=== PATIENT | female | born 1965 | race Caucasian/White ===

== ENCOUNTER → 2016-11-14 | Outpatient (CLI) | payer MEDICARE, OTHER ==
--- NOTE | 2016-11-14 13:08 | RAD ---
CT abdomen and pelvis without contrast 11/14/2016 Clinical indication: Hematuria Comparison: None. Technique: Multiple CT images of the abdomen and pelvis were obtained without contrast occurring to standard protocol. Coronal and sagittal reformations were obtained. PQRS Compliance Statement: One or more of the following individualized dose reduction techniques were utilized for this examination: 1. Automated exposure control 2. Adjustment of the mA and/or kV according to patient size 3. Use of iterative reconstruction technique Findings: Abdomen and pelvis: There are few left lung base nodules with largest measuring 10 mm, which is only partially visualized in the left lower lobe (series 2/8 1). Subpleural consolidation in the anterior right middle lobe is also only partially visualized. Heart size is normal. Evaluation of the solid abdominopelvic viscera, lymphadenopathy and vasculature is limited in the absence of intravenous contrast. There is moderate diffuse hepatic steatosis. Unenhanced contours of the gallbladder, spleen, adrenal glands and pancreas are grossly unremarkable. There there is a pelvic right kidney with a 2 mm nonobstructive calculus in the interpolar right kidney. Prominence of the interpolar right kidney. No left urolithiasis. No hydroureteronephrosis. Abdominal aorta is normal in caliber with mild aortoiliac calcified atheromatous disease No retroperitoneal or mesenteric lymphadenopathy. Small and large bowel loops are normal in caliber without obstruction. There is mild distal colonic diverticula without diverticulitis. No abdominal free fluid. Mildly distended and opacified urinary bladder within normal limits. Uterus is present but incompletely evaluated by CT. There is a left adnexal cystic structure measuring 4.2 x 3.7 x 4.2 cm. No iliac or inguinal lymphadenopathy. No pelvic free fluid. There are multilevel degenerative disc disease of the lumbar spine greatest in mild degree at L2-L3 and mild facet hypertrophy at L4-L5 and L5-S1. No destructive osseous lesions. Small fat-containing umbilical hernia. Impression: 1. Note is made of a right pelvic kidney with prominence of the interpolar region, which may represent hypertrophied column of Ifeanyi or solid renal mass. CT abdomen and pelvis with contrast is recommended for further characterization. 2. Tiny 2 mm nonobstructive calculus in the right kidney. No hydroureteronephrosis. Line 3. Left adnexal cystic structure measuring up to 4.2 cm. Nonemergent pelvic ultrasound is recommended for further characterization. 4. Moderate hepatic steatosis. 5. Left lung base pulmonary nodules with largest measuring 10 mm in the left lower lobe. Nonemergent dedicated CT chest is recommended for further evaluation.
== END | disposition home or self-care (01) ==
LOC: CT 09:11
PROVIDERS: ATTEND Nurse Practitioner Family
DX: E11.42 Type 2 diabetes mellitus with diabetic polyneuropathy (principal); R31.9 Hematuria, unspecified; N28.89 Other specified disorders of kidney and ureter; N20.0 Calculus of kidney; K76.0 Fatty (change of) liver, not elsewhere classified; R91.8 Other nonspecific abnormal finding of lung field; K42.9 Umbilical hernia without obstruction or gangrene; M51.36 Other intervertebral disc degeneration, lumbar region
CPT/HCPCS: 74176

== ENCOUNTER 2016-12-10 08:54 | Emergency (ER) | payer MEDICARE, OTHER ==
[~2016-12-10] VITALS: Ht 160 cm; Wt 129.3 kg
[2016-12-10 10:12] LABS: INR 1.8 (0.8-1.1); PROTHROMBIN TIME PATIENT 19.7 SEC (11.7-14.0)
--- NOTE | 2016-12-10 10:39 | RAD ---
Exam performed: Right lower extremity venous Doppler. Clinical Indication: History of right DVT Date of Service:12/10/16 Comparison : None available Discussion: Multiple longitudinal and transverse high resolution real-time images of the venous system of right lower extremity were obtained with color and Doppler sampling and spectral analysis. There is a nonocclusive thrombus in the proximal right superficial femoral vein. The common femoral and popliteal veins are all patent and demonstrate normal flow and compressibility. Calf veins are not well visualized. Normal respiratory phasicity and augmentation is present. Impression: Nonocclusive thrombus in the right superficial femoral vein
[2016-12-10 11:00] VITALS: BP 145/83
--- NOTE | 2016-12-10 12:15 | PHYS DOC ---
Past Medical History Past Medical History: COPD, Diabetes-Type II, DVT, High Cholesterol, Hypertension, Hyperthyroid, Kidney Stone Past Surgical History: Tubal ligation Additional Information: 04/16 PK Alcohol Use: Rarely Drug Use: None Adult General Chief Complaint Chief Complaint: LOWER EXT PAIN HPI HPI 51-year-old female with a past medical history morbid obesity and deep vein thrombosis compliant with her Coumadin therapy, now presents to the emergency department concerned that a DVT in her right leg may have progressed. Previously diagnosed with a DVT in her right leg and as stated has been taking her Coumadin as directed. Over the last 2 days patient states her medial right thigh has become more sore where it rubs against the other thigh. She is concerned her DVT may have progressed. Denies pulmonary symptoms not short of breath no pleuritic pain. No other complaints of fevers chills sweats or shaking chills Review of Systems Review of Systems Constitutional: Denies fever or chills [] Eyes: Denies change in visual acuity, redness, or eye pain [] HENT: Denies nasal congestion or sore throat [] Respiratory: Denies cough or shortness of breath [] Cardiovascular: No additional information not addressed in HPI [] GI: Denies abdominal pain, nausea, vomiting, bloody stools or diarrhea [] : Denies dysuria or hematuria [] Musculoskeletal: Denies back pain or joint pain [] Integument: Denies rash or skin lesions [] Neurologic: Denies headache, focal weakness or sensory changes [] Endocrine: Denies polyuria or polydipsia [] Allergies Allergies Allergies Coded Allergies Type Severity Reaction Last Updated Verified No Known Drug Allergies 12/04/16 No Physical Exam Physical Exam 51-year-old female no acute distress morbidly obese mild soft tissue tenderness medial aspect right thigh no appreciable cords no fluctuance or crepitus. no warmth. Constitutional: Well developed, well nourished, no acute distress, non-toxic appearance. [] HENT: Normocephalic, atraumatic, bilateral external ears normal, oropharynx moist, no oral exudates, nose normal. [] Eyes: PERRLA, EOMI, conjunctiva normal, no discharge. [] Neck: Normal range of motion, no tenderness, supple, no stridor. [] Cardiovascular:Heart rate regular rhythm, no murmur [] Lungs & Thorax: Bilateral breath sounds clear to auscultation [] Abdomen: Bowel sounds normal, soft, no tenderness, no masses, no pulsatile masses. [] Skin: Warm, dry, no erythema, no rash. [] Back: No tenderness, no CVA tenderness. [] Extremities: No tenderness, no cyanosis, no clubbing, ROM intact, no edema. [] Neurologic: Alert and oriented X 3, normal motor function, normal sensory function, no focal deficits noted. [] Psychologic: Affect normal, judgement normal, mood normal. [] Current Patient Data Vital Signs Vital Signs Date Time Temp Pulse Resp B/P (MAP) Pulse Ox O2 Delivery O2 Flow Rate FiO2 12/10/16 11:00 89 16 145/83 (103) 93 12/10/16 09:30 Room Air 12/10/16 09:15 98.2 98.2 Lab Values Laboratory Tests Test 12/10/16 09:25 Prothrombin Time 19.7 SEC (11.7-14.0) H Prothrombin Time INR 1.8 (0.8-1.1) H EKG EKG [] Radiology/Procedures Radiology/Procedures [] Course & Med Decision Making Course & Med Decision Making Pertinent Labs and Imaging studies reviewed. (See chart for details) Signs and symptoms consistent with known DVT. Patient with no evidence of PE. Ultrasound unremarkable. Copy of results given to patient for her doctor to compare with prior results. No further workup or treatment indicated today. Patient removed her own IV. Patient agrees with outpatient follow-up strict return precautions given. Dragon Disclaimer Dragon Disclaimer This electronic medical record was generated, in whole or in part, using a voice recognition dictation system. Departure Departure Impression: Primary Impression: Deep vein thrombosis (DVT) Disposition: 01 HOME, SELF-CARE Condition: GOOD Referrals: MARQUIS PACK RN, GNP (PCP) Patient Instructions: Deep Vein Thrombosis Additional Instructions: Your INR was 1.8 today. Continue your Coumadin as prescribed and follow-up with your doctor tomorrow for repeat INR check and adjustment of your Coumadin dosing as needed. You been given a copy of your ultrasound results were discussed findings of nonocclusive thrombus in your right superficial femoral vein with your doctor. Return immediately for new severe worsening symptoms specifically for chest pain with shortness of breath, palpitations with fast heart rate and difficulty breathing THONY SANCHEZ MD Dec 10, 2016 12:15
== END 2016-12-10 12:28 | disposition home or self-care (01) ==
LOC: ER 08:54
DX: I82.411 Acute embolism and thrombosis of right femoral vein (principal); E11.9 Type 2 diabetes mellitus without complications; I10 Essential (primary) hypertension; J44.9 Chronic obstructive pulmonary disease, unspecified; E78.00 Pure hypercholesterolemia, unspecified; Z87.442 Personal history of urinary calculi; F17.200 Nicotine dependence, unspecified, uncomplicated; E05.90 Thyrotoxicosis, unspecified without thyrotoxic crisis or storm; Z98.51 Tubal ligation status; E66.01 Morbid (severe) obesity due to excess calories; Z68.43 Body mass index [BMI] 50.0-59.9, adult; Z79.01 Long term (current) use of anticoagulants
CPT/HCPCS: 36415; 85610; 93971; 99285-25

== ENCOUNTER → 2016-12-11 | Outpatient (CLI) | payer MEDICARE, OTHER ==
[2016-12-10 11:00] VITALS: BP 145/83
[~2016-12-11] MED LIST: GADOBUTROL 7.5 MMOL/7.5 ML VIAL IV ONE; IOHEXOL 300 MG/ML 75 ML VIAL IV ONE
--- NOTE | 2016-12-11 15:23 | RAD ---
CT scan of the chest without and with contrast 12/11/2016 Clinical history: Pulmonary nodules seen on recent CT scan of the abdomen. Technique: Contiguous, 5 mm axial sections were obtained through the chest and upper abdomen without and with the use of intravenous contrast. 75 cc of Omnipaque 300 were administered intravenously during this examination. One or more of the following individualized dose reduction techniques were utilized for this study: 1. Automated exposure control. 2. Adjustment of the mA and/or kV according to patient size. 3. Use of iterative reconstruction technique. Findings: Comparison is made to the patient's CT scan of the abdomen dated 11/14/2016. The unenhanced images demonstrate small calcified hilar lymph nodes. A 4 mm calcified granuloma is seen involving the left upper lobe. Mild to moderate atherosclerotic plaque formation is seen involving the thoracic aorta and its branches to include the coronary arteries. The thoracic aorta is tortuous but tapers normally. The heart is normal in size. There is minimal pericardial effusion. Slightly prominent likely reactive mediastinal lymph nodes are seen which measure 5 mm to 1.6 cm in size. Small areas of probable scarring and/or subsegmental atelectasis are seen involving both upper lobes. A 1 cm nodular opacity is seen involving the left lower lobe. Opacities are seen involving the right middle lobe, anteriorly which measure 1.5 to 1.8 cm in size. These findings are unchanged. No additional pulmonary nodule or mass is noted. No pneumothorax or pleural effusion is seen. Images through the upper abdomen are unchanged. Degenerative changes are seen involving the thoracic spine. Impression: 1 cm nodular opacity is seen involving the left lower lobe. Opacities are seen involving the anterior aspect of the right middle lobe. These correspond to findings seen on the patient's recent CT scan of the abdomen. They are felt to most likely represent areas of atelectasis and/or infiltrate. A follow-up CT scan of the chest in 3 to 6 months is recommended to document their resolution.
--- NOTE | 2016-12-11 15:55 | RAD ---
MRI of the pelvis without and with contrast 12/11/2016 Clinical history: Hematuria. Right pelvic kidney with prominence of the interpolar region seen on a recent CT scan and left adnexal cystic structure seen on recent CT scan. Technique: Unenhanced fat saturated T2 weighted axial and coronal, T2 weighted axial and in and out of phase T1-weighted axial images of the pelvis were obtained. After the intravenous administration of 12 cc of Gadavist, dynamic enhanced fat saturated T1-weighted axial and T1-weighted coronal images of the pelvis were obtained. Findings: Comparison is made to patient's CT scan of the abdomen and pelvis dated 11/14/2016. The right kidney is located within the pelvis. No solid or cystic mass is seen involving the right kidney on MRI. A 4.6 cm oval-shaped high signal intensity lesion is seen involving the left ovary on the T2-weighted images. This corresponds to the low-attenuation lesion seen on the patient's CT scan. It does not enhance with contrast. This is felt to most likely represent an ovarian cyst. A 1.8 cm nabothian cyst is seen within the cervix. No abnormal soft tissue mass is seen within the pelvis. No pelvic or inguinal lymphadenopathy is seen. No free fluid is noted. Mild S-shaped curvature of the thoracolumbar spine is seen. The marrow signal of the visualized bony structures is within normal limits. Impression: 1. No solid or cystic mass is seen involving the right pelvic kidney. 2. 4.6 cm probable left ovarian cyst.
== END | disposition home or self-care (01) ==
LOC: CT 10:02
PROVIDERS: ATTEND Nurse Practitioner Family
DX: R91.1 Solitary pulmonary nodule (principal); R31.9 Hematuria, unspecified; R93.41 Abnormal radiologic findings on diagnostic imaging of renal pelvis, ureter, or bladder
CPT/HCPCS: 71270; 72197; Q9967

== ENCOUNTER → 2017-01-29 | Outpatient (CLI) | payer MEDICARE, OTHER ==
--- NOTE | 2017-01-29 12:51 | RAD ---
MRI of the lumbar spine without contrast 01/29/2017 CLINICAL HISTORY: Chronic low back pain. TECHNIQUE: Unenhanced T1-weighted and T2-weighted sagittal and axial and inversion recovery sagittal images of the lumbar spine were obtained. Very mild S-shaped curvature of the thoracolumbar spine is seen. Degenerative signal changes are seen involving all of the disks of the lumbar spine. Degenerative signal changes are seen within the marrow surrounding these discs. A 8 mm hemangioma is seen involving the L1 vertebral body. The conus medullaris is normal in morphology, position, and signal characteristics. At the L1-2 disc space there is a minimal generalized disc bulge. Mild degenerative changes are seen involving the facet joints bilaterally. These findings do not result in significant central spinal canal or neural foraminal stenosis. At the L2-3 disc space there is a mild to moderate generalized disc bulge. This is eccentric to the left. Degenerative changes are seen involving the facet joints bilaterally. These findings when combine result in very mild central spinal canal stenosis. Mild left neural foraminal stenosis is seen. The right neural foramen is patent. At the L2-3 disc space there is a mild generalized disc bulge. Degenerative changes are seen involving the facet joints bilaterally. There is moderate ligamentum flavum hypertrophy bilaterally. There is prominence of the posterior epidural fat. These findings when combined do not result in significant central spinal canal or neural foraminal stenosis. At the L4-5 disc space there is a mild generalized disc bulge. Degenerative changes are seen involving the facet joints bilaterally. There is moderate ligamentum flavum hypertrophy bilaterally. These findings when combined do not result in significant central spinal canal or neural foraminal stenosis. The L5-S1 disc space there is a mild generalized disc bulge. This is eccentric to the right. Degenerative changes are seen involving the facet joints bilaterally. There is mild ligamentum flavum hypertrophy bilaterally. These findings when combined result in very mild central spinal canal stenosis. No neural foraminal stenosis is seen. IMPRESSION: The changes of degenerative disc disease are seen throughout the lumbar spine. These findings result in very mild central spinal canal stenosis at L2-3 and L5-S1. Mild left neural foraminal stenosis is seen at L2-3. Electronically signed by: Rojelio Bowser MD (01/29/2017 12:47 PM) [id number]
== END | disposition home or self-care (01) ==
LOC: MRI 10:32
PROVIDERS: ATTEND Nurse Practitioner Gerontology
DX: M48.061 Spinal stenosis, lumbar region without neurogenic claudication (principal); M51.36 Other intervertebral disc degeneration, lumbar region; Z23 Encounter for immunization; I10 Essential (primary) hypertension; E03.9 Hypothyroidism, unspecified; E11.65 Type 2 diabetes mellitus with hyperglycemia; I89.0 Lymphedema, not elsewhere classified; F41.9 Anxiety disorder, unspecified; E78.5 Hyperlipidemia, unspecified; R42 Dizziness and giddiness; R19.7 Diarrhea, unspecified
CPT/HCPCS: 72148

== ENCOUNTER 2018-09-13 19:39 | Emergency (ER) | payer OTHER ==
[~2018-09-13] VITALS: Ht 162.6 cm; Wt 136.1 kg
[2018-09-13] MEDS ORDERED: METOCLOPRAMIDE HCL 10 MG/2 ML VIAL. IV ONE (20:30)
[2018-09-13] MEDS ORDERED: IV NORMAL SALINE 1000ML BAG 1,000 ML IV ONE (20:30)
[2018-09-13] MEDS ORDERED: KETOROLAC 30 MG/ML VIAL. IV ONE (20:30)
[2018-09-13 20:34] LABS: BILIRUBIN,URINE NEGATIVE (NEG); CLARITY,URINE CLEAR; COLOR,URINE YELLOW; NITRITE,URINE NEGATIVE (NEG); PROTEIN,URINE NEGATIVE (NEG-TRACE); UROBILINOGEN,URINE 0.2 mg/dL (0.2 mg/dL)
[2018-09-13 20:51] LABS: BASO % 0 % (0-3); EOS # 0.2 x10^3/uL (0.0-0.7); EOS % 2 % (0-3); HEMOGLOBIN 15.3 g/dL (12.0-15.5); LYMPH # 2.5 x10^3/uL (1.0-4.8); LYMPH % 23 % (24-48); MEAN CORPUSCULAR HEMOGLOBIN 31 pg (25-35); MEAN CORPUSCULAR HGB CONC 34 g/dL (31-37); MEAN CORPUSCULAR VOLUME 90 fL (79-100); MONO # 0.7 x10^3/uL (0.0-1.1); MONO % 7 % (0-9); NEUT # 7.4 x10^3uL (1.8-7.7); NEUT % 68 % (31-73); PLATELET COUNT 197 x10^3/uL (140-400); RED BLOOD COUNT 5.01 x10^6/uL (3.50-5.40); RED CELL DISTRIBUTION WIDTH 15.5 % (11.5-14.5); WHITE BLOOD COUNT 10.8 x10^3/uL (4.0-11.0)
[2018-09-13 21:09] LABS: CALCIUM 9.9 mg/dL (8.5-10.1); CREATININE 1.1 mg/dL (0.6-1.0); GFR 51.8; POTASSIUM 4.3 mmol/L (3.5-5.1)
[2018-09-13 21:14] LABS: ALBUMIN 3.5 g/dL (3.4-5.0); ALBUMIN/GLOBULIN RATIO 0.8 (1.0-1.7); TOTAL BILIRUBIN 0.3 mg/dL (0.2-1.0); TOTAL PROTEIN 7.7 g/dL (6.4-8.2)
[2018-09-13] MEDS ORDERED: IPRATRPIUM/ALBUTEROL 0.5/2.5MG 3 ML NEBU. NEB ONE (21:15)
--- NOTE | 2018-09-13 21:35 | RAD ---
PQRS Compliance Statement: One or more of the following individualized dose reduction techniques were utilized for this examination: 1. Automated exposure control 2. Adjustment of the mA and/or kV according to patient size 3. Use of iterative reconstruction technique CT CHEST ABDOMEN PELVIS WO Clinical Indication: Wheezing, right flank pain. Comparison: CT chest with contrast December 11, 2016. CT abdomen and pelvis without contrast, December 02, 2016. Technique: Helical CT imaging of the chest, abdomen and pelvis is performed without IV or oral contrast. Findings: Evaluation of vascular structures, solid organs and bowel is limited without oral and IV contrast, decreasing sensitivity for detection of pathology. The thyroid is symmetric. No axillary adenopathy. 1.3 cm right paratracheal lymph node. 0.9 cm AP window lymph node. The lymph nodes are stable. The pulmonary trunk is dilated measuring 3.6 cm. The thoracic aorta is normal caliber. Calcified left hilar lymph node. There is three-vessel coronary artery disease. Trace pericardial effusion. The cardiac size is normal. There is no pleural effusion. The central airways are patent. Nodule in the right middle lobe anteriorly is stable measuring 11 x 16 mm, image 39. There is mild atelectasis in the posterior right lower lobe. There are 2 irregular groundglass nodules in the left lung apex, image 16. These nodules are stable. There is an irregular part solid nodule in the left lower lobe measuring 11 mm, previously 10 mm, image 38. There is minimal atelectasis or scarring in the inferior lingula. Groundglass nodule in the left lower lobe is stable, image 44. The nodule measures 6 mm. Linear scarring in the spares segment of the left lower lobe is unchanged. There is outside of field of view artifact in the abdomen that degrades image quality. There is stable hepatomegaly. The gallbladder, spleen, pancreas, adrenal glands, and abdominal aorta caliber are normal. The left kidney is normal. 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 No hydronephrosis is seen. Stomach unremarkable. Tiny fat-containing umbilical hernia. No dilated small bowel. Mild sigmoid colon diverticulosis. No colon wall thickening. The appendix is normal. No abdominal adenopathy or free fluid. The urinary bladder is normal. Uterus unremarkable. No pelvic free fluid. Multilevel vacuum disc phenomenon in the lumbar spine. ACDF of at least C5 and C6. IMPRESSION: 1. No acute abdominal or pelvic abnormality. 2. Stable hepatomegaly. 3. 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 4. Mild sigmoid colon diverticulosis. 5. There are several noncalcified pulmonary nodules, without significant change from prior study. 6. Pulmonary trunk is dilated suggesting pulmonary arterial hypertension. 7. Trace pericardial effusion. Electronically signed by: Oc Rodriguez MD (09/13/2018 9:32 PM) [id number]
[2018-09-13] MEDS ORDERED: fentaNYL PF VIAL 100 MCG/2 ML VIAL IV ONE (21:45)
[2018-09-13 22:00] VITALS: BP 137/86
[2018-09-13 22:20] LABS: BACTERIA,URINE FEW /HPF (0-FEW); RBC,URINE 0 /HPF (0-2); SQUAMOUS EPITHELIAL CELL,UR FEW /LPF; WBC,URINE 0 /HPF (0-4)
[2018-09-13] MEDS ORDERED: ORPH100T PO (22:35)
--- NOTE | 2018-09-13 22:36 | PHYS DOC ---
Past Medical History Past Medical History: COPD, Diabetes-Type II, DVT, High Cholesterol, Hypertension, Hyperthyroid, Kidney Stone Past Surgical History: Tubal ligation Alcohol Use: Rarely Drug Use: None Adult General Chief Complaint Chief Complaint: FLANK PAIN HPI HPI Patient is a 53 year old [f__sex] who presents with [] Review of Systems Review of Systems Constitutional: Denies fever or chills [] Eyes: Denies change in visual acuity, redness, or eye pain [] HENT: Denies nasal congestion or sore throat [] Respiratory: Denies cough or shortness of breath [] Cardiovascular: No additional information not addressed in HPI [] GI: Denies abdominal pain, nausea, vomiting, bloody stools or diarrhea [] : Denies dysuria or hematuria [] Musculoskeletal: Denies back pain or joint pain [] Integument: Denies rash or skin lesions [] Neurologic: Denies headache, focal weakness or sensory changes [] Endocrine: Denies polyuria or polydipsia [] All other systems were reviewed and found to be within normal limits, except as documented in this note. Current Medications Current Medications Current Medications Medications (Trade) Dose Ordered Sig/Migdalia Start Time Stop Time Status Last Admin Dose Admin Albuterol/ Ipratropium (Duoneb) 3 ml 1X ONCE 09/13/18 21:15 09/13/18 21:16 DC 09/13/18 21:43 3 ML Fentanyl Citrate (Fentanyl 2ml Vial) 50 mcg 1X ONCE 09/13/18 21:45 09/13/18 21:46 DC 09/13/18 21:46 50 MCG Ketorolac Tromethamine (Toradol 30mg Vial) 15 mg 1X ONCE 09/13/18 20:30 09/13/18 20:39 DC 09/13/18 21:10 15 MG Metoclopramide HCl (Reglan Vial) 10 mg 1X ONCE 09/13/18 20:30 09/13/18 20:39 DC 09/13/18 21:09 10 MG Sodium Chloride 1,000 ml @ 1,000 mls/hr 1X ONCE 09/13/18 20:30 09/13/18 21:29 DC 09/13/18 21:08 1,000 MLS/HR Allergies Allergies Allergies Coded Allergies Type Severity Reaction Last Updated Verified No Known Drug Allergies 12/04/16 No Physical Exam Physical Exam Constitutional: Well developed, well nourished, no acute distress, non-toxic appearance. [] HENT: Normocephalic, atraumatic, bilateral external ears normal, oropharynx moist, no oral exudates, nose normal. [] Eyes: PERRLA, EOMI, conjunctiva normal, no discharge. [] Neck: Normal range of motion, no tenderness, supple, no stridor. [] Cardiovascular:Heart rate regular rhythm, no murmur [] Lungs & Thorax: Bilateral breath sounds clear to auscultation [] Abdomen: Bowel sounds normal, soft, no tenderness, no masses, no pulsatile masses. [] Skin: Warm, dry, no erythema, no rash. [] Back: No tenderness, no CVA tenderness. [] Extremities: No tenderness, no cyanosis, no clubbing, ROM intact, no edema. [] Neurologic: Alert and oriented X 3, normal motor function, normal sensory function, no focal deficits noted. [] Psychologic: Affect normal, judgement normal, mood normal. [] Current Patient Data Vital Signs Vital Signs Date Time Temp Pulse Resp B/P (MAP) Pulse Ox O2 Delivery O2 Flow Rate FiO2 09/13/18 21:43 95 Room Air 09/13/18 19:49 97.6 99 22 155/58 (90) 97.6 Lab Values Laboratory Tests Test 09/13/18 19:55 09/13/18 20:35 Urine Color Yellow Urine Clarity Clear Urine pH 5.0 Urine Specific [place] 1.025 Urine Protein Negative mg/dL (NEG-TRACE) Urine Glucose (UA) 500 mg/dL (NEG) Urine Ketones (Stick) Negative mg/dL (NEG) Urine Blood Negative (NEG) Urine Nitrite Negative (NEG) Urine Bilirubin Negative (NEG) Urine Urobilinogen Dipstick 0.2 mg/dL (0.2 mg/dL) Urine Leukocyte Esterase Negative (NEG) Urine RBC 0 /HPF (0-2) Urine WBC 0 /HPF (0-4) Urine Squamous Epithelial Cells Few /LPF Urine Bacteria Few /HPF (0-FEW) Urine Mucus Slight /LPF White Blood Count 10.8 x10^3/uL (4.0-11.0) Red Blood Count 5.01 x10^6/uL (3.50-5.40) Hemoglobin 15.3 g/dL (12.0-15.5) Hematocrit 45.0 % (36.0-47.0) Mean Corpuscular Volume 90 fL (79-100) Mean Corpuscular Hemoglobin 31 pg (25-35) Mean Corpuscular Hemoglobin Concent 34 g/dL (31-37) Red Cell Distribution Width 15.5 % (11.5-14.5) H Platelet Count 197 x10^3/uL (140-400) Neutrophils (%) (Auto) 68 % (31-73) Lymphocytes (%) (Auto) 23 % (24-48) L Monocytes (%) (Auto) 7 % (0-9) Eosinophils (%) (Auto) 2 % (0-3) Basophils (%) (Auto) 0 % (0-3) Neutrophils # (Auto) 7.4 x10^3uL (1.8-7.7) Lymphocytes # (Auto) 2.5 x10^3/uL (1.0-4.8) Monocytes # (Auto) 0.7 x10^3/uL (0.0-1.1) Eosinophils # (Auto) 0.2 x10^3/uL (0.0-0.7) Basophils # (Auto) 0.0 x10^3/uL (0.0-0.2) Prothrombin Time 12.0 SEC (11.7-14.0) Prothrombin Time INR 0.9 (0.8-1.1) PTT 25 SEC (24-38) Sodium Level 137 mmol/L (136-145) Potassium Level 4.3 mmol/L (3.5-5.1) Chloride Level 100 mmol/L (98-107) Carbon Dioxide Level 28 mmol/L (21-32) Anion Gap 9 (6-14) Blood Urea Nitrogen 39 mg/dL (7-20) H Creatinine 1.1 mg/dL (0.6-1.0) H Estimated GFR (Cockcroft-Gault) 51.8 BUN/Creatinine Ratio 35 (6-20) H Glucose Level 103 mg/dL (70-99) H Lactic Acid Level 1.3 mmol/L (0.4-2.0) Calcium Level 9.9 mg/dL (8.5-10.1) Total Bilirubin 0.3 mg/dL (0.2-1.0) Aspartate Amino Transferase (AST) 24 U/L (15-37) Alanine Aminotransferase (ALT) 66 U/L (14-59) H Alkaline Phosphatase 71 U/L (46-116) Creatine Kinase 211 U/L (26-192) H Creatine Kinase MB (Mass) 4.6 ng/mL (0.0-3.6) H Creatine Kinase MB Relative Index 2.2 % (0-4) Troponin I Quantitative < 0.017 ng/mL (0.000-0.055) Total Protein 7.7 g/dL (6.4-8.2) Albumin 3.5 g/dL (3.4-5.0) Albumin/Globulin Ratio 0.8 (1.0-1.7) L Lipase 135 U/L (73-393) Laboratory Tests 09/13/18 20:35 Laboratory Tests 09/13/18 20:35 EKG EKG [] Radiology/Procedures Radiology/Procedures PROCEDURE: CT CHEST ABDOMEN PELVIS WO PQRS Compliance Statement: One or more of the following individualized dose reduction techniques were utilized for this examination: 1. Automated exposure control 2. Adjustment of the mA and/or kV according to patient size 3. Use of iterative reconstruction technique CT CHEST ABDOMEN PELVIS WO Clinical Indication: Wheezing, right flank pain. Comparison: CT chest with contrast December 11, 2016. CT abdomen and pelvis without contrast, December 02, 2016. Technique: Helical CT imaging of the chest, abdomen and pelvis is performed without IV or oral contrast. Findings: Evaluation of vascular structures, solid organs and bowel is limited without oral and IV contrast, decreasing sensitivity for detection of pathology. The thyroid is symmetric. No axillary adenopathy. 1.3 cm right paratracheal lymph node. 0.9 cm AP window lymph node. The lymph nodes are stable. The pulmonary trunk is dilated measuring 3.6 cm. The thoracic aorta is normal caliber. Calcified left hilar lymph node. There is three-vessel coronary artery disease. Trace pericardial effusion. The cardiac size is normal. There is no pleural effusion. The central airways are patent. Nodule in the right middle lobe anteriorly is stable measuring 11 x 16 mm, image 39. There is mild atelectasis in the posterior right lower lobe. There are 2 irregular groundglass nodules in the left lung apex, image 16. These nodules are stable. There is an irregular part solid nodule in the left lower lobe measuring 11 mm, previously 10 mm, image 38. There is minimal atelectasis or scarring in the inferior lingula. Groundglass nodule in the left lower lobe is stable, image 44. The nodule measures 6 mm. Linear scarring in the spares segment of the left lower lobe is unchanged. There is outside of field of view artifact in the abdomen that degrades image quality. There is stable hepatomegaly. The gallbladder, spleen, pancreas, adrenal glands, and abdominal aorta caliber are normal. The left kidney is normal. 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 No hydronephrosis is seen. Stomach unremarkable. Tiny fat-containing umbilical hernia. No dilated small bowel. Mild sigmoid colon diverticulosis. No colon wall thickening. The appendix is normal. No abdominal adenopathy or free fluid. The urinary bladder is normal. Uterus unremarkable. No pelvic free fluid. Multilevel vacuum disc phenomenon in the lumbar spine. ACDF of at least C5 and C6. IMPRESSION: 1. No acute abdominal or pelvic abnormality. 2. Stable hepatomegaly. 3. 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 4. Mild sigmoid colon diverticulosis. 5. There are several noncalcified pulmonary nodules, without significant change from prior study. 6. Pulmonary trunk is dilated suggesting pulmonary arterial hypertension. 7. Trace pericardial effusion. Electronically signed by: Oc Rodriguez MD (09/13/2018 9:32 PM) [facility] [id number] Course & Med Decision Making Course & Med Decision Making Pertinent Labs and Imaging studies reviewed. (See chart for details) [] Dragon Disclaimer Dragon Disclaimer This electronic medical record was generated, in whole or in part, using a voice recognition dictation system. Departure Departure Impression: Primary Impression: Flank pain Additional Impression: Bronchitis Disposition: 01 HOME, SELF-CARE Condition: STABLE Referrals: MARQUIS PACK RN, GNP (PCP) Patient Instructions: Bronchitis, [id number], Flank Pain, [id number] Scripts Prednisone (PREDNISONE) 20 Mg Tablet 2 TAB PO DAILY, #8 TAB Start this prescription tomorrow, 09/14/18 Prov: THONY MOTTA DO 09/13/18 Albuterol Sulfate (Proair Hfa) 8.5 Gm Hfa.aer.ad 1 PUFF INH PRN Q6HRS PRN for SHORTNESS OF BREATH, #1 INHALER Prov: THONY MOTTA DO 09/13/18 Orphenadrine Citrate (ORPHENADRINE CITRATE) 100 Mg Tablet.er 100 MG PO BID PRN for MUSCLE PAIN, #14 Prov: THONY MOTTA DO 09/13/18 Problem Qualifiers THONY MOTTA DO Sep 13, 2018 22:36
[2018-09-13] MEDS ORDERED: ALBU2.5V8 INH (22:45)
[2018-09-13] MEDS ORDERED: PRED20TA PO (22:45)
== END 2018-09-13 23:14 | disposition home or self-care (01) ==
LOC: ER 19:39
DX: J40 Bronchitis, not specified as acute or chronic (principal); R10.9 Unspecified abdominal pain; M54.5 Low back pain; M79.10 Myalgia, unspecified site; J44.9 Chronic obstructive pulmonary disease, unspecified; E78.00 Pure hypercholesterolemia, unspecified; E11.9 Type 2 diabetes mellitus without complications; I10 Essential (primary) hypertension; Z86.718 Personal history of other venous thrombosis and embolism; Z87.442 Personal history of urinary calculi; Z98.51 Tubal ligation status
CPT/HCPCS: 36415; 71250; 74176; 80053; 81001; 82553; 83605; 83690; 84484; 85025; 85610; 85730; 94640; 96374; 96375; 99285; J1885; J2765; J3010; J7030; J7620

== ENCOUNTER 2018-09-18 17:39 | Inpatient (IN) | payer OTHER ==
[~2018-09-18] VITALS: Ht 162.6 cm; Wt 136.1 kg
[~2018-09-18 17:39] MED LIST changes: +ALBU2.5V8 INH; -GADOBUTROL 7.5 MMOL/7.5 ML VIAL IV ONE; -IOHEXOL 300 MG/ML 75 ML VIAL IV ONE; +ORPH100T PO; +PRED20TA PO
[2018-09-18] MEDS ORDERED: KETOROLAC 30 MG/ML VIAL. IV ONE (18:30)
[2018-09-18] MEDS ORDERED: ONDANSETRON PF 4 MG/2 ML VIAL. IV PRN (18:30)
[2018-09-18] MEDS ORDERED: methylPREDNISolone SOD SUCC PF 125 MG/2 ML VIAL. IV ONE (18:30)
[2018-09-18] MEDS ORDERED: CYCLOBENZAPRINE 10 MG TABLET. PO ONE (18:30)
[2018-09-18] MEDS ORDERED: ACETAMINOPHEN 325 MG TABLET. PO PRN (18:30)
[2018-09-18 18:43] LABS: BASO % 0 % (0-3); EOS # 0.2 x10^3/uL (0.0-0.7); EOS % 2 % (0-3); HEMOGLOBIN 14.8 g/dL (12.0-15.5); LYMPH # 2.2 x10^3/uL (1.0-4.8); LYMPH % 21 % (24-48); MEAN CORPUSCULAR HEMOGLOBIN 31 pg (25-35); MEAN CORPUSCULAR HGB CONC 34 g/dL (31-37); MEAN CORPUSCULAR VOLUME 90 fL (79-100); MONO # 0.5 x10^3/uL (0.0-1.1); MONO % 5 % (0-9); NEUT # 7.4 x10^3uL (1.8-7.7); NEUT % 71 % (31-73); PLATELET COUNT 205 x10^3/uL (140-400); RED BLOOD COUNT 4.76 x10^6/uL (3.50-5.40); RED CELL DISTRIBUTION WIDTH 15.5 % (11.5-14.5); WHITE BLOOD COUNT 10.3 x10^3/uL (4.0-11.0)
[2018-09-18 18:53] LABS: CALCIUM 9.5 mg/dL (8.5-10.1); GFR 57.8; POTASSIUM 4.6 mmol/L (3.5-5.1)
--- NOTE | 2018-09-18 18:57 | PHYS DOC ---
Past Medical History Past Medical History: COPD, Diabetes-Type II, DVT, High Cholesterol, Hypertension, Hyperthyroid, Kidney Stone, Other Additional Past Medical Histor: CHRONIC BACK PAIN,LYMPHEDEMA,KIDNEY INFECTIONS Past Surgical History: Tubal ligation, Other Additional Past Surgical Histo: ECTOPIC Additional Information: 1 PPD Alcohol Use: Rarely Drug Use: None Adult General Chief Complaint Chief Complaint: LOWER BACK PAIN OR INJURY HPI HPI Patient is a 53 year old female with history of diabetes. Type II, hypertension, high cholesterol, among other illnesses of presents to the ED today complaining of 9 out of 10 right low back pain intermittently for 3 months. Patient denies any known injury. States her pain is worse when she is walking around. She is morbidly obese. Patient denies any pain radiating to bilateral lower extremities. Denies any loss of bowel bladder function. She is also complaining of flank pain rated at 9 out of 10. She states she was seen in the ED on September 13, 2018 for the same complain of flank pain, she states they did a workup but she feels they did not do enough. She states we should've found out what's wrong with her otherwise she is requesting to be admitted today. Patient denies any urgency frequency dysuria. Review of Systems Review of Systems Constitutional: Denies fever or chills [] Eyes: Denies change in visual acuity, redness, or eye pain [] HENT: Denies nasal congestion or sore throat [] Respiratory: Denies cough or shortness of breath [] Cardiovascular: No additional information not addressed in HPI [] GI: Denies abdominal pain, nausea, vomiting, bloody stools or diarrhea [] : Reports flank pain. Denies dysuria or hematuria [] Musculoskeletal: Reports right low back pain. Integument: Denies rash or skin lesions [] Neurologic: Denies headache, focal weakness or sensory changes [] All other systems were reviewed and found to be within normal limits, except as documented in this note. Current Medications Current Medications Current Medications Medications (Trade) Dose Ordered Sig/Migdalia Start Time Stop Time Status Last Admin Dose Admin Acetaminophen (Tylenol) 650 mg PRN Q4HRS PRN 09/18/18 18:30 09/19/18 18:29 Cyclobenzaprine HCl (Flexeril) 10 mg 1X ONCE 09/18/18 18:30 09/18/18 18:39 DC 09/18/18 18:55 10 MG Ketorolac Tromethamine (Toradol 30mg Vial) 30 mg 1X ONCE 09/18/18 18:30 09/18/18 18:39 DC 09/18/18 18:55 30 MG Methylprednisolone Sodium Succinate (SOLU-Medrol 125MG VIAL) 125 mg 1X ONCE 09/18/18 18:30 09/18/18 18:39 DC 09/18/18 18:55 125 MG Ondansetron HCl (Zofran) 4 mg PRN Q8HRS PRN 09/18/18 18:30 09/19/18 18:29 Allergies Allergies Allergies Coded Allergies Type Severity Reaction Last Updated Verified No Known Drug Allergies 12/04/16 No Physical Exam Physical Exam Constitutional: Morbidly obese patient, no acute distress, non-toxic appearance. [] HENT: Normocephalic, atraumatic, bilateral external ears normal, oropharynx moist, no oral exudates, nose normal. [] Eyes: PERRLA, EOMI, conjunctiva normal, no discharge. [] Neck: Normal range of motion, no tenderness, supple, no stridor. [] Cardiovascular:Heart rate regular rhythm, no murmur [] Lungs & Thorax: Bilateral breath sounds clear to auscultation [] Abdomen: Bowel sounds normal, soft, no tenderness, no masses, no pulsatile masses. [] Skin: Warm, dry, no erythema, no rash. [] Back: Diffuse paraspinal muscle tenderness to the right lumbar spine, no midline lumbar spine tenderness, no CVA tenderness. [] Extremities: No tenderness, no cyanosis, no clubbing, ROM intact, no edema. [] Neurologic: Alert and oriented X 3, normal motor function, normal sensory function, no focal deficits noted. [] Psychologic: Affect normal, judgement normal, mood normal. [] Current Patient Data Vital Signs Vital Signs Date Time Temp Pulse Resp B/P (MAP) Pulse Ox O2 Delivery O2 Flow Rate FiO2 09/18/18 17:49 99.1 105 18 183/68 (106) 95 Room Air 99.1 Lab Values Laboratory Tests Test 09/18/18 18:34 White Blood Count 10.3 x10^3/uL (4.0-11.0) Red Blood Count 4.76 x10^6/uL (3.50-5.40) Hemoglobin 14.8 g/dL (12.0-15.5) Hematocrit 43.0 % (36.0-47.0) Mean Corpuscular Volume 90 fL (79-100) Mean Corpuscular Hemoglobin 31 pg (25-35) Mean Corpuscular Hemoglobin Concent 34 g/dL (31-37) Red Cell Distribution Width 15.5 % (11.5-14.5) H Platelet Count 205 x10^3/uL (140-400) Neutrophils (%) (Auto) 71 % (31-73) Lymphocytes (%) (Auto) 21 % (24-48) L Monocytes (%) (Auto) 5 % (0-9) Eosinophils (%) (Auto) 2 % (0-3) Basophils (%) (Auto) 0 % (0-3) Neutrophils # (Auto) 7.4 x10^3uL (1.8-7.7) Lymphocytes # (Auto) 2.2 x10^3/uL (1.0-4.8) Monocytes # (Auto) 0.5 x10^3/uL (0.0-1.1) Eosinophils # (Auto) 0.2 x10^3/uL (0.0-0.7) Basophils # (Auto) 0.0 x10^3/uL (0.0-0.2) Sodium Level 137 mmol/L (136-145) Potassium Level 4.6 mmol/L (3.5-5.1) Chloride Level 101 mmol/L (98-107) Carbon Dioxide Level 26 mmol/L (21-32) Anion Gap 10 (6-14) Blood Urea Nitrogen 32 mg/dL (7-20) H Creatinine 1.0 mg/dL (0.6-1.0) Estimated GFR (Cockcroft-Gault) 57.8 BUN/Creatinine Ratio 32 (6-20) H Glucose Level 189 mg/dL (70-99) H Calcium Level 9.5 mg/dL (8.5-10.1) Total Bilirubin Pending Aspartate Amino Transferase (AST) Pending Alanine Aminotransferase (ALT) Pending Alkaline Phosphatase Pending Total Protein Pending Albumin Pending Albumin/Globulin Ratio Pending Lipase Pending Ethyl Alcohol Level < 10 mg/dL (0-10) Laboratory Tests 09/18/18 18:34 Laboratory Tests 09/18/18 18:34 EKG EKG [] Radiology/Procedures Radiology/Procedures [] Course & Med Decision Making Course & Med Decision Making Pertinent Labs and Imaging studies reviewed. (See chart for details) This is a morbidly obese patient was sent into the ED today with right low back pain for 3 months. Patient was seen in the ED on September 13, 2018 for right flank pain, was worked up, no acute findings noted. Patient at this point is requesting to be admitted. She is very insistent on it stating we didn't do enough in the ED to find out what the source of her pain when she was seen in the ED last. I spoke with Dr. hansen who accepted patient for admission. Dragon Disclaimer Dragon Disclaimer This electronic medical record was generated, in whole or in part, using a voice recognition dictation system. Departure Departure Impression: Primary Impression: Chronic low back pain Additional Impressions: Intractable low back pain Right flank pain Disposition: ADMITTED INPATIENT Condition: STABLE Referrals: MARQUIS PACK RN, GNP (PCP) Problem Qualifiers Primary Impression: Chronic low back pain Back pain laterality: right Sciatica presence: without sciatica Qualified Codes: M54.5 - Low back pain; G89.29 - Other chronic pain CHIQUIS JAMES RETAIL EVENT COORDINATOR Sep 18, 2018 18:57
[2018-09-18 18:59] LABS: ALBUMIN 3.4 g/dL (3.4-5.0); ALBUMIN/GLOBULIN RATIO 0.9 (1.0-1.7); TOTAL BILIRUBIN 0.3 mg/dL (0.2-1.0); TOTAL PROTEIN 7.3 g/dL (6.4-8.2)
--- NOTE | 2018-09-18 21:20 | NUR ---
The patient, AXEL MURPHY, 53 y/o, F admitted by CURT MAURO MD arrived on unit at 0 by wheelchair. Pt. was given written information regarding hospital policies and unit procedures. Pt. A&Ox4, RA, complains of pain 11/22. Assessment done at this time as well as admission process. Pt's purse was checked. Pt. only had clothing and home medications. This nurse repeated to pt. not to take ANY medications from home and that if needed, MD will restart in the morning.
[2018-09-18] MEDS ORDERED: LISI-130 PO (23:05)
[2018-09-18] MEDS ORDERED: POTA20TA82 PO (23:05)
[2018-09-18] MEDS ORDERED: CHOL500016 PO (23:05)
[2018-09-18] MEDS ORDERED: PREG200C PO (23:05)
[2018-09-18] MEDS ORDERED: RIVA20TA2 PO (23:05)
[2018-09-18] MEDS ORDERED: SIMV40TA3 PO (23:05)
[2018-09-18] MEDS ORDERED: CIDE500T PO (23:05)
[2018-09-18] MEDS ORDERED: TRAZ150T49 PO (23:05)
[2018-09-18] MEDS ORDERED: SITA100T PO (23:05)
[2018-09-18] MEDS ORDERED: MAGN400C PO (23:05)
[2018-09-18 23:17] VITALS: BP 124/71
[2018-09-18] MEDS ORDERED: DEXTROSE 50% 25 GM / 50ML DISP.SYRIN. IV PRN (23:45)
[2018-09-19] MEDS ORDERED: INSULIN LISPRO 300 UNITS/3 ML INSULN.PEN. SQ ONE ×3 (00:30→04:15)
--- NOTE | 2018-09-19 00:30 | NUR ---
While administering insulin, this nurse noticed white bottle of pills sitting on top of pt.'s chest. Name of bottle is not pt.'s name. This nurse took bottle to charge nurse and we opened bottle. Bottle had mixed pills of the same medication. Pt. is sleeping at this time.
[2018-09-19 02:04] LABS: BILIRUBIN,URINE NEGATIVE (NEG); CLARITY,URINE CLEAR; COLOR,URINE YELLOW; NITRITE,URINE NEGATIVE (NEG); PH,URINE 5.5; PROTEIN,URINE NEGATIVE (NEG-TRACE); UROBILINOGEN,URINE 0.2 mg/dL (0.2 mg/dL)
[2018-09-19 02:10] LABS: BARBITURATES NEG (NEG); BENZODIAZEPINES NEG (NEG); CANNABINOIDS POS (NEG); COCAINE NEG (NEG); METHADONE NEG (NEG); OPIATES NEG (NEG); PHENCYCLIDINE NEG (NEG)
[2018-09-19 02:13] LABS: BACTERIA,URINE FEW /HPF (0-FEW); HYALINE CASTS, URINE FEW /HPF; RBC,URINE 0 /HPF (0-2); SQUAMOUS EPITHELIAL CELL,UR FEW /LPF
[2018-09-19] MEDS: HYDROcodone/APAP 7.5/325MG 1 TAB TABLET PO PRN ×5 (02:15→18:30)
[2018-09-19 02:28] LABS: AMPHETAMINE/METHAMPHETAMINE NEG (NEG)
--- NOTE | 2018-09-19 03:11 | NUR ---
This nurse asked pt. about white bottle of pills. Pt. stated she did not take anything because this nurse had told her not to. Will continue to monitor.
[2018-09-19 03:49] VITALS: BP 146/83
[2018-09-19] MEDS ORDERED: LATA2.5D3 EACHEYE (04:54)
[2018-09-19] MEDS ORDERED: INSU100I27 SQ (06:31)
[2018-09-19] MEDS ORDERED: INSU100I17 SQ (06:31)
[2018-09-19 07:00] VITALS: BP 123/68
[2018-09-19] MEDS ORDERED: VENTOLIN HFA18 GM INH (07:05)
[2018-09-19] MEDS ORDERED: IPRATRPIUM/ALBUTEROL 0.5/2.5MG 3 ML NEBU. NEB SCH (08:00)
[2018-09-19] MEDS ORDERED: NICOTINE 21MG PATCH. TD PRN (08:30)
[2018-09-19] MEDS ORDERED: ONDANSETRON PF 4 MG/2 ML VIAL. IV PRN (08:45)
[2018-09-19] MEDS: PREGABALIN 50 MG CAPSULE PO SCH ×2 (08:55→21:33)
[2018-09-19] MEDS: LIDOCAINE (700MG/PATCH) PATCH. TD SCH (08:56)
[2018-09-19] MEDS: LISINOPRIL 20 MG TABLET PO SCH (08:56)
[2018-09-19] MEDS: LINAGLIPTIN 5 MG TABLET PO SCH (08:56)
[2018-09-19] MEDS: CHOLECALCIFEROL (VITAMIN D3) 5,000 UNIT CAPSULE PO SCH (08:56)
[2018-09-19] MEDS: POTASSIUM CHLORIDE 20 MEQ TABLET.ER. PO SCH (08:56)
[2018-09-19] MEDS: MAGNESIUM OXIDE 400 MG TABLET PO SCH ×2 (08:56→21:00)
[2018-09-19] MEDS ORDERED: CIDER VINEGAR 500 MG PO SCH (09:00)
[2018-09-19] MEDS ORDERED: INSULIN LISPRO 300 UNITS/3 ML INSULN.PEN. SQ SCH (09:00)
[2018-09-19] MEDS ORDERED: CYCLOBENZAPRINE 10 MG TABLET. PO PRN (09:30)
--- NOTE | 2018-09-19 09:44 | PDOC1 ---
History and Physical Date of Admission Date of Admission DATE: 09/19/18 TIME: 09:40 Identification/Chief Complaint Chief Complaint back pain Source Source: Caregiver, Chart review, Patient History of Present Illness History of Present Illness 53 morbidly obese white f[place]ale, hx chronic lumbago, last mRI 2017 showed mild disc changes and mild canal stenosis with DJD lumbar spine, comes in for back pain, NO trauma, no red flags, Always incontinent with urine even prior to back pain, NO hx cancer, Requests for double portions meals but still hungry, ON hefty doses insulin, 60 TID and 60 qhs, LAbs UR. WIll consult physiatry and ch hesham CXR and lumbar films, SMoker, wheezy a pack a day. We did discuss about weight loss, she seems not open to it. Past Medical History Pulmonary: Bronchitis, COPD Musculoskeletal: low back pain, Osteoarthritis Endocrine: Diabetes Past Surgical History Past Surgical History: No pertinent history Family History Family History: Diabetes, High Cholestrol, Hypertension Social History Smoke: 1 pack per day ALCOHOL: none Drugs: None Current Problem List Problem List Problems Medical Problems: (1) Chronic low back pain Status: Acute (2) Intractable low back pain Status: Acute (3) Right flank pain Status: Acute Current Medications Current Medications Current Medications Ondansetron HCl (Zofran) 4 mg PRN Q8HRS PRN IV NAUSEA/VOMITING; Start 09/18/18 at 18:30; Stop 09/19/18 at 08:36; Status DC Acetaminophen (Tylenol) 650 mg PRN Q4HRS PRN PO FEVER; Start 09/18/18 at 18:30; Stop 09/19/18 at 18:29 Methylprednisolone Sodium Succinate (SOLU-Medrol 125MG VIAL) 125 mg 1X ONCE IV Last administered on 09/18/18at 18:55; Start 09/18/18 at 18:30; Stop 09/18/18 at 18:39; Status DC Ketorolac Tromethamine (Toradol 30mg Vial) 30 mg 1X ONCE IV Last administered on 09/18/18at 18:55; Start 09/18/18 at 18:30; Stop 09/18/18 at 18:39; Status DC Cyclobenzaprine HCl (Flexeril) 10 mg 1X ONCE PO Last administered on 09/18/18at 18:55; Start 09/18/18 at 18:30; Stop 09/18/18 at 18:39; Status DC Insulin Human Lispro (HumaLOG) 0-9 UNITS [id number] SQ Last administered on 09/19/18at 08:15; Start 09/19/18 at 09:00; Stop 09/19/18 at 09:05; Status DC Dextrose (Dextrose 50%-Water Syringe) 12.5 gm PRN Q15MIN PRN IV SEE COMMENTS; Start 09/18/18 at 23:45 Albuterol/ Ipratropium (Duoneb) 3 ml RTQID NEB Last administered on 09/19/18at 08 :44; Start 09/19/18 at 08:00 Acetaminophen/ Hydrocodone Bitart (Lortab 7.5/325) 1 tab PRN Q4HRS PRN PO MODERATE PAIN Last administered on 09/19/18at 06:07; Start 09/18/18 at 23:45 Insulin Human Lispro (HumaLOG) 10 units 1X ONCE SQ Last administered on 9at 00:31; Start 09/19/18 at 00:30; Stop 09/19/18 at 00:31; Status DC Insulin Human Lispro (HumaLOG) 20 units 1X ONCE SQ Last administered on 09/19/18at 02:13; Start 09/19/18 at 02:15; Stop 09/19/18 at 02:16; Status DC Insulin Human Lispro (HumaLOG) 25 units 1X ONCE SQ Last administered on 09/19/18at 04:08; Start 09/19/18 at 04:15; Stop 09/19/18 at 04:16; Status DC Nicotine (Nicoderm Cq 21mg) 1 patch PRN DAILY PRN TD SMOKING CESSATION Last administered on 09/19/18at 08:56; Start 09/19/18 at 08:30 Ondansetron HCl (Zofran) 4 mg PRN Q6HRS PRN IV NAUSEA/VOMITING; Start 09/19/18 at 08:45 Lidocaine (Lidoderm) 1 patch DAILY TD Last administered on 09/19/18at 08:56; Start 09/19/18 at 09:00 Miscellaneous (Lidoderm Patch Removal) 1 ea QHS MC ; Start 09/19/18 at 21:00 Lisinopril (Prinivil) 40 mg DAILY PO Last administered on 09/19/18at 08:56; Start 09/19/18 at 09:00 Vitamin D (Vitamin D3) 5,000 unit DAILY PO Last administered on 09/19/18at 08:56; Start 09/19/18 at 09:00 Non-Formulary Medication (Cider Vinegar (Apple Cider Vinegar)) 500 mg TID PO ; Start 09/19/18 at 09:00; Status UNV Non-Formulary Medication (Insulin Aspart (Novolog Flexpen)) 60 unit TIDWMEALS SQ ; Start 09/19/18 at 12:00 Non-Formulary Medication (Insulin Detemir (Levemir Flextouch)) 60 unit HS SQ ; Start 09/19/18 at 21:00 Non-Formulary Medication (Latanoprost ) 1 drop QHS EACHEYE ; Start 09/19/18 at 21:00 Magnesium Oxide (Magnesium Oxide) 400 mg BID PO Last administered on 09/19/18at 08:56; Start 09/19/18 at 09:00 Cyclobenzaprine HCl (Flexeril) 10 mg PRN TID PRN PO MUSCLE SPASMS; Start 09/19/18 at 09:30 Potassium Chloride (Klor-Con) 20 meq DAILYWBKFT PO Last administered on 09/19/18at 08:56; Start 09/19/18 at 09:00 Pregabalin (Lyrica) 200 mg BID PO Last administered on 09/19/18at 08:55; Start 09/19/18 at 09:00 Rivaroxaban (Xarelto) 20 mg DAILYWSUP PO ; Start 09/19/18 at 17:00; Stop 09/19/18 at 17:00; Status DC Simvastatin (Zocor) 40 mg QHS PO ; Start 09/19/18 at 21:00 Linagliptin (Tradjenta) 5 mg DAILY PO Last administered on 09/19/18at 08:56; Start 09/19/18 at 09:00 Trazodone HCl (Desyrel) 150 mg QHS PO ; Start 09/19/18 at 21:00 Morphine Sulfate (Morphine Sulfate) 2 mg PRN Q2HR PRN IV PAIN; Start 09/19/18 at 08:45 Rivaroxaban (Xarelto) 20 mg DAILYWSUP PO ; Start 09/19/18 at 17:00 Active Scripts Active Prednisone 20 Mg Tablet 2 Tab PO DAILY Start this prescription tomorrow, 09/14/18 Proair Hfa (Albuterol Sulfate) 8.5 Gm Hfa.aer.ad 1 Puff INH PRN Q6HRS PRN Orphenadrine Citrate 100 Mg Tablet.er 100 Mg PO BID PRN Reported Ventolin Hfa Inhaler (Albuterol Sulfate) 18 Gm Hfa.aer.ad 2 Puff INH Q4HRS Levemir Flextouch (Insulin Detemir) 100 Unit/1 Ml Insuln.pen 60 Unit SQ HS Novolog Flexpen (Insulin Aspart) 100 Unit/1 Ml Insuln.pen 60 Unit SQ TIDWMEALS Latanoprost 2.5 Ml Drops 1 Drop EACHEYE QHS Potassium Chloride 20 Meq Tablet.er 20 Meq PO DAILY Magnesium (Magnesium Oxide) 400 Mg Capsule 1 Cap PO BID Apple Cider Vinegar (Cider Vinegar) 500 Mg Tablet 500 Mg PO TID Trazodone Hcl 150 Mg Tablet 1 Tab PO QHS Vitamin D3 (Cholecalciferol (Vitamin D3)) 5,000 Unit Tablet 1 Tab PO DAILY Januvia (Sitagliptin Phosphate) 100 Mg Tablet 1 Tab PO DAILY Lisinopril 40 Mg Tablet 1 Tab PO DAILY Simvastatin 40 Mg Tablet 1 Tab PO QHS Xarelto (Rivaroxaban) 20 Mg Tablet 20 Mg PO DAILY Lyrica (Pregabalin) 200 Mg Capsule 1 Cap PO BID Allergies Allergies: Coded Allergies: No Known Drug Allergies (Unverified , 12/04/16) ROS Review of System as per hPI< rest 14 pt neg Physical Exam General: Alert, Oriented X3, Cooperative, No acute distress HEENT: Atraumatic, PERRLA Lungs: Normal air movement, Other (SCE< wheezy, no crackles) Cardiovascular: S1, S2 Breasts: Normal, Rt breast nml w/o mass, Lt breast nml w/o mass, Nipples normal Abdomen: Normal bowel sounds, Soft, No tenderness, No hepatosplenomegaly, No masses Rectal Exam: not examined PELVIC: Nml ext genitalia Extremities: No clubbing, No cyanosis, No edema, Normal pulses, No tenderness/swelling Skin: No rashes, No breakdown, No significant lesion Neuro: Normal gait, Normal speech, Strength at 5/5 X4 ext, Normal tone, Sensation intact, Cranial nerves 3-12 NL, Reflexes 2+ Psych/Mental Status: Mental status NL, Mood NL Vitals Vitals Vital Signs Date Time Temp Pulse Resp B/P (MAP) Pulse Ox O2 Delivery O2 Flow Rate FiO2 09/19/18 08:56 87 123/68 09/19/18 08:47 93 Room Air 09/19/18 07:00 97.7 16 97.7 Labs Labs Laboratory Tests Test 09/18/18 18:34 09/18/18 23:10 09/19/18 01:30 09/19/18 01:40 White Blood Count 10.3 x10^3/uL (4.0-11.0) Red Blood Count 4.76 x10^6/uL (3.50-5.40) Hemoglobin 14.8 g/dL (12.0-15.5) Hematocrit 43.0 % (36.0-47.0) Mean Corpuscular Volume 90 fL (79-100) Mean Corpuscular Hemoglobin 31 pg (25-35) Mean Corpuscular Hemoglobin Concent 34 g/dL (31-37) Red Cell Distribution Width 15.5 % (11.5-14.5) Platelet Count 205 x10^3/uL (140-400) Neutrophils (%) (Auto) 71 % (31-73) Lymphocytes (%) (Auto) 21 % (24-48) Monocytes (%) (Auto) 5 % (0-9) Eosinophils (%) (Auto) 2 % (0-3) Basophils (%) (Auto) 0 % (0-3) Neutrophils # (Auto) 7.4 x10^3uL (1.8-7.7) Lymphocytes # (Auto) 2.2 x10^3/uL (1.0-4.8) Monocytes # (Auto) 0.5 x10^3/uL (0.0-1.1) Eosinophils # (Auto) 0.2 x10^3/uL (0.0-0.7) Basophils # (Auto) 0.0 x10^3/uL (0.0-0.2) Sodium Level 137 mmol/L (136-145) Potassium Level 4.6 mmol/L (3.5-5.1) Chloride Level 101 mmol/L (98-107) Carbon Dioxide Level 26 mmol/L (21-32) Anion Gap 10 (6-14) Blood Urea Nitrogen 32 mg/dL (7-20) Creatinine 1.0 mg/dL (0.6-1.0) Estimated GFR (Cockcroft-Gault) 57.8 BUN/Creatinine Ratio 32 (6-20) Glucose Level 189 mg/dL (70-99) Calcium Level 9.5 mg/dL (8.5-10.1) Total Bilirubin 0.3 mg/dL (0.2-1.0) Aspartate Amino Transf (AST/SGOT) 20 U/L (15-37) Alanine Aminotransferase (ALT/SGPT) 53 U/L (14-59) Alkaline Phosphatase 72 U/L (46-116) Total Protein 7.3 g/dL (6.4-8.2) Albumin 3.4 g/dL (3.4-5.0) Albumin/Globulin Ratio 0.9 (1.0-1.7) Lipase 115 U/L (73-393) Ethyl Alcohol Level < 10 mg/dL (0-10) Glucose (Fingerstick) 407 mg/dL (70-99) 429 mg/dL (70-99) Urine Collection Type Unknown Urine Color Yellow Urine Clarity Clear Urine pH 5.5 Urine Specific [place] 1.020 Urine Protein Negative mg/dL (NEG-TRACE) Urine Glucose (UA) 250 mg/dL (NEG) Urine Ketones (Stick) Negative mg/dL (NEG) Urine Blood Negative (NEG) Urine Nitrite Negative (NEG) Urine Bilirubin Negative (NEG) Urine Urobilinogen Dipstick 0.2 mg/dL (0.2 mg/dL) Urine Leukocyte Esterase Negative (NEG) Urine RBC 0 /HPF (0-2) Urine WBC 1-4 /HPF (0-4) Urine Squamous Epithelial Cells Few /LPF Urine Bacteria Few /HPF (0-FEW) Urine Hyaline Casts Few /HPF Urine Mucus Mod /LPF Urine Opiates Screen Neg (NEG) Urine Methadone Screen Neg (NEG) Urine Barbiturates Neg (NEG) Urine Phencyclidine Screen Neg (NEG) Urine Amphetamine/Methamphetamine Neg (NEG) Urine Benzodiazepines Screen Neg (NEG) Urine Cocaine Screen Neg (NEG) Urine Cannabinoids Screen Pos (NEG) Urine Ethyl Alcohol Neg (NEG) Test 09/19/18 03:16 09/19/18 06:09 09/19/18 07:26 Glucose (Fingerstick) 392 mg/dL (70-99) 238 mg/dL (70-99) 264 mg/dL (70-99) Laboratory Tests Test 09/18/18 18:34 09/18/18 23:10 09/19/18 01:30 09/19/18 01:40 White Blood Count 10.3 x10^3/uL (4.0-11.0) Red Blood Count 4.76 x10^6/uL (3.50-5.40) Hemoglobin 14.8 g/dL (12.0-15.5) Hematocrit 43.0 % (36.0-47.0) Mean Corpuscular Volume 90 fL (79-100) Mean Corpuscular Hemoglobin 31 pg (25-35) Mean Corpuscular Hemoglobin Concent 34 g/dL (31-37) Red Cell Distribution Width 15.5 % (11.5-14.5) Platelet Count 205 x10^3/uL (140-400) Neutrophils (%) (Auto) 71 % (31-73) Lymphocytes (%) (Auto) 21 % (24-48) Monocytes (%) (Auto) 5 % (0-9) Eosinophils (%) (Auto) 2 % (0-3) Basophils (%) (Auto) 0 % (0-3) Neutrophils # (Auto) 7.4 x10^3uL (1.8-7.7) Lymphocytes # (Auto) 2.2 x10^3/uL (1.0-4.8) Monocytes # (Auto) 0.5 x10^3/uL (0.0-1.1) Eosinophils # (Auto) 0.2 x10^3/uL (0.0-0.7) Basophils # (Auto) 0.0 x10^3/uL (0.0-0.2) Sodium Level 137 mmol/L (136-145) Potassium Level 4.6 mmol/L (3.5-5.1) Chloride Level 101 mmol/L (98-107) Carbon Dioxide Level 26 mmol/L (21-32) Anion Gap 10 (6-14) Blood Urea Nitrogen 32 mg/dL (7-20) Creatinine 1.0 mg/dL (0.6-1.0) Estimated GFR (Cockcroft-Gault) 57.8 BUN/Creatinine Ratio 32 (6-20) Glucose Level 189 mg/dL (70-99) Calcium Level 9.5 mg/dL (8.5-10.1) Total Bilirubin 0.3 mg/dL (0.2-1.0) Aspartate Amino Transf (AST/SGOT) 20 U/L (15-37) Alanine Aminotransferase (ALT/SGPT) 53 U/L (14-59) Alkaline Phosphatase 72 U/L (46-116) Total Protein 7.3 g/dL (6.4-8.2) Albumin 3.4 g/dL (3.4-5.0) Albumin/Globulin Ratio 0.9 (1.0-1.7) Lipase 115 U/L (73-393) Ethyl Alcohol Level < 10 mg/dL (0-10) Glucose (Fingerstick) 407 mg/dL (70-99) 429 mg/dL (70-99) Urine Collection Type Unknown Urine Color Yellow Urine Clarity Clear Urine pH 5.5 Urine Specific [place] 1.020 Urine Protein Negative mg/dL (NEG-TRACE) Urine Glucose (UA) 250 mg/dL (NEG) Urine Ketones (Stick) Negative mg/dL (NEG) Urine Blood Negative (NEG) Urine Nitrite Negative (NEG) Urine Bilirubin Negative (NEG) Urine Urobilinogen Dipstick 0.2 mg/dL (0.2 mg/dL) Urine Leukocyte Esterase Negative (NEG) Urine RBC 0 /HPF (0-2) Urine WBC 1-4 /HPF (0-4) Urine Squamous Epithelial Cells Few /LPF Urine Bacteria Few /HPF (0-FEW) Urine Hyaline Casts Few /HPF Urine Mucus Mod /LPF Urine Opiates Screen Neg (NEG) Urine Methadone Screen Neg (NEG) Urine Barbiturates Neg (NEG) Urine Phencyclidine Screen Neg (NEG) Urine Amphetamine/Methamphetamine Neg (NEG) Urine Benzodiazepines Screen Neg (NEG) Urine Cocaine Screen Neg (NEG) Urine Cannabinoids Screen Pos (NEG) Urine Ethyl Alcohol Neg (NEG) Test 09/19/18 03:16 09/19/18 06:09 09/19/18 07:26 Glucose (Fingerstick) 392 mg/dL (70-99) 238 mg/dL (70-99) 264 mg/dL (70-99) VTE Prophylaxis Ordered VTE Prophylaxis Devices: Yes VTE Pharmacological Prophylaxi: Yes Assessment/Plan Assessment/Plan Acute on chronic lumbago COPD< wheezy, smoker MOrbid obesity bMI 52 DJD spine Chronic leg edema HX disc bulges, DJD, L2, mild ACute bronchitis DM 2 , uncontrolled PLAN: Admit 2 mN COnsult physitary Check CXR and lumbar films Duonebs, pred PO (will further inc BS) Lidodermpatch, pain meds I have reconciled home meds ADA diet Weight loss Dw RN KRISTINE Montiel MD Sep 19, 2018 09:44
[2018-09-19] MEDS ORDERED: predniSONE 20 MG TABLET PO ONE (10:00)
[2018-09-19] MEDS ORDERED: FUROSEMIDE 40 MG/4 ML VIAL. IVP ONE (10:00)
[2018-09-19] MEDS ORDERED: methylPREDNISolone ACETATE 40 MG/ML VIAL. INJ ONE ×2 (10:30)
[2018-09-19] MEDS ORDERED: BUPIVACAINE MPF 0.25% 10 ML VIAL. IJ ONE (10:30)
[2018-09-19 11:00] VITALS: BP 130/67
[2018-09-19] MEDS: MORPHINE SULFATE 2 MG/ML VIAL. IV PRN ×3 (11:15→21:35)
[2018-09-19] MEDS: IPRATRPIUM/ALBUTEROL 0.5/2.5MG 3 ML NEBU. NEB SCH ×3 (11:17→20:35)
[2018-09-19] MEDS: IBUPROFEN 200 MG TABLET. PO SCH ×2 (11:43→16:42)
[2018-09-19] MEDS: ALPRAZolam 0.25 MG TABLET PO PRN ×2 (11:43→21:33)
--- NOTE | 2018-09-19 11:56 | NUR ---
Received call from [facility] stating they are unable to do MRI due to admitting diagnosis of back pain, not knee pain. Notified Dr. Coles and order was cancelled, notified Dr. Coles he would need to write an outpatient script for patient to obtain MRI when she is discharged from hospital.
[2018-09-19] MEDS ORDERED: BUPIVACAINE MPF 0.25% 10 ML VIAL. ONE (13:00)
[2018-09-19] MEDS ORDERED: methylPREDNISolone ACETATE 40 MG/ML VIAL. ONE ×2 (13:00)
[2018-09-19 15:00] VITALS: BP 144/71
[2018-09-19] MEDS ORDERED: ANTI-COAG MONITOR BY PHARMACY. MC PRN (16:00)
--- NOTE | 2018-09-19 16:37 | RAD ---
EXAM: 1. CHEST PA LATERAL, 2. LUMBAR SPINE 2-3V. HISTORY: Wheezing, low back pain. COMPARISON: 12/11/2016. FINDINGS: There are reticulonodular opacities throughout both lung bases. There is no pneumothorax or pleural effusion. The hemidiaphragms are mildly flattened. The heart is not enlarged. Anterior cervical discectomy and fusion changes are noted. There is a mild upper thoracic dextroscoliosis. There is slight retrolisthesis at L2-3. Degenerative disc disease is moderate at T12-L1 and L2-3. Facet osteoarthritis appears moderate from L3 through S1. IMPRESSION: 1. Bilateral basilar infiltrates are consistent with atypical pneumonia if acute or interstitial lung disease if chronic. Correlate with other clinical data. 2. Mild lumbar dextroscoliosis. Degenerative disc disease is moderate at T12-L1 and L2-3. Electronically signed by: Katrina Sparrow MD (09/19/2018 4:34 PM) [facility]
[2018-09-19] MEDS ORDERED: RIVAROXABAN 10 MG TABLET. PO SCH ×2 (17:00)
[2018-09-19 19:00] VITALS: BP 159/78
[2018-09-19] MEDS ORDERED: PATCH REMOVAL. MC SCH (21:00)
[2018-09-19] MEDS ORDERED: INSULIN DETEMIR SQ SCH (21:00)
[2018-09-19] MEDS ORDERED: LATANOPROST EACHEYE SCH (21:00)
[2018-09-19] MEDS ORDERED: SIMVASTATIN 40 MG TABLET. PO SCH (21:00)
[2018-09-19] MEDS ORDERED: traZODone 50 MG TABLET. PO SCH (21:00)
[2018-09-19 23:00] VITALS: BP 115/64
[2018-09-20] MEDS ORDERED: ALBUTEROL SULFATE 2.5 MG/3 ML NEBU. NEB ONE (02:00)
[2018-09-20 03:00] VITALS: BP 112/69
[2018-09-20 04:39] LABS: CALCIUM 9.4 mg/dL (8.5-10.1); GFR 57.8; POTASSIUM 4.9 mmol/L (3.5-5.1)
[2018-09-20] MEDS: HYDROcodone/APAP 7.5/325MG 1 TAB TABLET PO PRN ×2 (05:47→10:34)
[2018-09-20] MEDS: IPRATRPIUM/ALBUTEROL 0.5/2.5MG 3 ML NEBU. NEB SCH (07:17)
[2018-09-20 07:30] VITALS: BP 156/83
[2018-09-20] MEDS: POTASSIUM CHLORIDE 20 MEQ TABLET.ER. PO SCH (08:16)
[2018-09-20] MEDS: CHOLECALCIFEROL (VITAMIN D3) 5,000 UNIT CAPSULE PO SCH (08:16)
[2018-09-20] MEDS: LIDOCAINE (700MG/PATCH) PATCH. TD SCH (08:16)
[2018-09-20] MEDS: PREGABALIN 50 MG CAPSULE PO SCH (08:17)
[2018-09-20] MEDS: IBUPROFEN 200 MG TABLET. PO SCH (08:18)
[2018-09-20] MEDS: MAGNESIUM OXIDE 400 MG TABLET PO SCH (08:18)
[2018-09-20] MEDS: LISINOPRIL 20 MG TABLET PO SCH (09:00)
[2018-09-20] MEDS: LINAGLIPTIN 5 MG TABLET PO SCH (09:00)
[2018-09-20] MEDS ORDERED: FUROSEMIDE 40 MG/4 ML VIAL. IVP SCH (09:00)
[2018-09-20] MEDS ORDERED: ALPR0.5T PO (10:03)
[2018-09-20] MEDS ORDERED: FURO-69 PO (10:03)
[2018-09-20] MEDS ORDERED: HYDR-2765 PO (10:03)
[2018-09-20] MEDS ORDERED: LIDO700A39 TD (10:03)
[2018-09-20] MEDS ORDERED: CELE200C PO (10:03)
[2018-09-20] MEDS ORDERED: BUDE180A IH (10:05)
--- NOTE | 2018-09-20 10:08 | PDOC3 ---
Discharge Summary Visit Information Date of Admission: Sep 18, 2018 Date of Discharge: Sep 20, 2018 Admitting Diagnosis Comment: Acute on chronic lumbago DJD lumbar spine Dextroscoliosis thoracolumbar spine COPD< wheezy, smoker MOrbid obesity bMI 52 DJD spine Chronic leg edema HX disc bulges, DJD, L2, mild ACute bronchitis DM 2 , uncontrolled Final Diagnosis Problems Medical Problems: (1) Chronic low back pain Status: Acute (2) Intractable low back pain Status: Acute (3) Right flank pain Status: Acute Brief Hospital Course Allergies Allergies Coded Allergies Type Severity Reaction Last Updated Verified No Known Drug Allergies 12/04/16 No Vital Signs Vital Signs Date Time Temp Pulse Resp B/P (MAP) Pulse Ox O2 Delivery O2 Flow Rate FiO2 09/20/18 07:30 97.9 104 12 156/83 (107) 93 Room Air 97.9 Lab Results Laboratory Tests Test 09/18/18 18:34 09/18/18 23:10 09/19/18 01:30 09/19/18 01:33 White Blood Count 10.3 x10^3/uL (4.0-11.0) Red Blood Count 4.76 x10^6/uL (3.50-5.40) Hemoglobin 14.8 g/dL (12.0-15.5) Hematocrit 43.0 % (36.0-47.0) Mean Corpuscular Volume 90 fL (79-100) Mean Corpuscular Hemoglobin 31 pg (25-35) Mean Corpuscular Hemoglobin Concent 34 g/dL (31-37) Red Cell Distribution Width 15.5 % (11.5-14.5) Platelet Count 205 x10^3/uL (140-400) Neutrophils (%) (Auto) 71 % (31-73) Lymphocytes (%) (Auto) 21 % (24-48) Monocytes (%) (Auto) 5 % (0-9) Eosinophils (%) (Auto) 2 % (0-3) Basophils (%) (Auto) 0 % (0-3) Neutrophils # (Auto) 7.4 x10^3uL (1.8-7.7) Lymphocytes # (Auto) 2.2 x10^3/uL (1.0-4.8) Monocytes # (Auto) 0.5 x10^3/uL (0.0-1.1) Eosinophils # (Auto) 0.2 x10^3/uL (0.0-0.7) Basophils # (Auto) 0.0 x10^3/uL (0.0-0.2) Sodium Level 137 mmol/L (136-145) Potassium Level 4.6 mmol/L (3.5-5.1) Chloride Level 101 mmol/L (98-107) Carbon Dioxide Level 26 mmol/L (21-32) Anion Gap 10 (6-14) Blood Urea Nitrogen 32 mg/dL (7-20) Creatinine 1.0 mg/dL (0.6-1.0) Estimated GFR (Cockcroft-Gault) 57.8 BUN/Creatinine Ratio 32 (6-20) Glucose Level 189 mg/dL (70-99) Calcium Level 9.5 mg/dL (8.5-10.1) Total Bilirubin 0.3 mg/dL (0.2-1.0) Aspartate Amino Transf (AST/SGOT) 20 U/L (15-37) Alanine Aminotransferase (ALT/SGPT) 53 U/L (14-59) Alkaline Phosphatase 72 U/L (46-116) Total Protein 7.3 g/dL (6.4-8.2) Albumin 3.4 g/dL (3.4-5.0) Albumin/Globulin Ratio 0.9 (1.0-1.7) Lipase 115 U/L (73-393) Ethyl Alcohol Level < 10 mg/dL (0-10) Glucose (Fingerstick) 407 mg/dL (70-99) 429 mg/dL (70-99) Nasal Screen MRSA (PCR) Negative (Negative) Test 09/19/18 01:40 09/19/18 03:16 09/19/18 06:09 09/19/18 07:26 Urine Collection Type Unknown Urine Color Yellow Urine Clarity Clear Urine pH 5.5 Urine Specific [place] 1.020 Urine Protein Negative mg/dL (NEG-TRACE) Urine Glucose (UA) 250 mg/dL (NEG) Urine Ketones (Stick) Negative mg/dL (NEG) Urine Blood Negative (NEG) Urine Nitrite Negative (NEG) Urine Bilirubin Negative (NEG) Urine Urobilinogen Dipstick 0.2 mg/dL (0.2 mg/dL) Urine Leukocyte Esterase Negative (NEG) Urine RBC 0 /HPF (0-2) Urine WBC 1-4 /HPF (0-4) Urine Squamous Epithelial Cells Few /LPF Urine Bacteria Few /HPF (0-FEW) Urine Hyaline Casts Few /HPF Urine Mucus Mod /LPF Urine Opiates Screen Neg (NEG) Urine Methadone Screen Neg (NEG) Urine Barbiturates Neg (NEG) Urine Phencyclidine Screen Neg (NEG) Urine Amphetamine/Methamphetamine Neg (NEG) Urine Benzodiazepines Screen Neg (NEG) Urine Cocaine Screen Neg (NEG) Urine Cannabinoids Screen Pos (NEG) Urine Ethyl Alcohol Neg (NEG) Glucose (Fingerstick) 392 mg/dL (70-99) 238 mg/dL (70-99) 264 mg/dL (70-99) Test 09/19/18 11:34 09/19/18 16:36 09/19/18 20:34 09/20/18 04:10 Glucose (Fingerstick) 424 mg/dL (70-99) 520 mg/dL (70-99) 412 mg/dL (70-99) Sodium Level 136 mmol/L (136-145) Potassium Level 4.9 mmol/L (3.5-5.1) Chloride Level 101 mmol/L (98-107) Carbon Dioxide Level 26 mmol/L (21-32) Anion Gap 9 (6-14) Blood Urea Nitrogen 33 mg/dL (7-20) Creatinine 1.0 mg/dL (0.6-1.0) Estimated GFR (Cockcroft-Gault) 57.8 Glucose Level 462 mg/dL (70-99) Calcium Level 9.4 mg/dL (8.5-10.1) Laboratory Tests Test 09/19/18 11:34 09/19/18 16:36 09/19/18 20:34 09/20/18 04:10 Glucose (Fingerstick) 424 mg/dL (70-99) 520 mg/dL (70-99) 412 mg/dL (70-99) Sodium Level 136 mmol/L (136-145) Potassium Level 4.9 mmol/L (3.5-5.1) Chloride Level 101 mmol/L (98-107) Carbon Dioxide Level 26 mmol/L (21-32) Anion Gap 9 (6-14) Blood Urea Nitrogen 33 mg/dL (7-20) Creatinine 1.0 mg/dL (0.6-1.0) Estimated GFR (Cockcroft-Gault) 57.8 Glucose Level 462 mg/dL (70-99) Calcium Level 9.4 mg/dL (8.5-10.1) Brief Hospital Course Ms. Glaser is a 53 old obese white female with a BMI 52, admits to 40 pound weight gain, on hefty doses of insulin and Trajenta or Trulicity follows with a PCP. She was admitted because of acute on chronic back pain in the lumbosacral spine, imaging shows dextroscoliosis and DJD and some mild canal stenosis. BAck injected by physiatry. Feels better. Smoker, looks to eat, blood sugars 300s but then again she eats heavy despite hefty doses of insulin, i.e. 60 units 3 times a day and 60 twice a day long-acting. Medications some anxiety because she could not smoke, better with Xanax. Request for some Lortab 7.5. I did Rx some Pulmicort and Medrol dosepak taper as she is wheezy COPD, smoking history. Consults performed physiatry Procedures performed back injections Discharge disposition home with no PT needs, she will follow-up with Dr. Coles of physiatry. She did not need any scripts for her insulin. Patient seen and examined, DC time 35 minutes cumulative-initially attempted to leave AMA but she stayed and waited for me before discharged Discharge Information Condition at Discharge: Improved, Stable Disposition/Orders: D/C to Home Scheduled Albuterol Sulfate (Ventolin Hfa Inhaler) 18 Gm Hfa.aer.ad, 2 PUFF INH Q4HRS for FOR ASTHMA, Ref 0 (Reported) Entered as Reported by: JACKIE LICONA on 09/19/18704 Last Action: HELD on 09/19/18835 by KRISTINE RIDLEY Budesonide (Pulmicort Flexhaler) 180 Mcg Aer.pow.ba, 2 PUFF IH BID for acute bronchitis, copd, wheezy, #1 Ref 6 Prescribed by: KRISTINE RIDLEY on 09/20/18 1005 Celecoxib (Celebrex) 200 Mg Capsule, 1 CAP PO DAILY for back pain, #14 Ref 2 Prescribed by: KRISTINE RIDLEY on 09/20/18 1003 Cholecalciferol (Vitamin D3) (Vitamin D3) 5,000 Unit Tablet, 1 TAB PO DAILY for vitamin, #30 (Reported) Entered as Reported by: JACKIE LICONA on 09/18/182304 Last Action: Converted on 09/19/18835 by KRISTINE RIDLEY Cider Vinegar (Apple Cider Vinegar) 500 Mg Tablet, 500 MG PO TID for unknown use, (Reported) Entered as Reported by: JACKIE LICONA on 09/18/182304 Last Action: Converted on 09/19/18835 by KRISTINE RIDLEY Furosemide (Lasix) 20 Mg Tablet, 1 TAB PO DAILY for leg swelling for 7 Days, #7 Ref 1 Prescribed by: KRISTINE RIDLEY on 09/20/18 1003 Insulin Aspart (Novolog Flexpen) 100 Unit/1 Ml Insuln.pen, 60 UNIT SQ TIDWMEALS for antidiabetic, (Reported) Entered as Reported by: JACKIE LICONA on 09/19/18630 Last Action: Converted on 09/19/18835 by KRISTINE RIDLEY Insulin Detemir (Levemir Flextouch) 100 Unit/1 Ml Insuln.pen, 60 UNIT SQ HS for antidiabetic, (Reported) Entered as Reported by: JACKIE LICONA on 09/19/18630 Last Action: Converted on 09/19/18835 by KRISTINE RIDLEY Latanoprost (Latanoprost) 2.5 Ml Drops, 1 DROP EACHEYE QHS for glaucoma, #7.5 Ref 3 (Reported) Entered as Reported by: JACKIE LICONA on 09/19/18453 Last Action: Converted on 09/19/18835 by KRISTINE RIDLEY Lidocaine (Lidocaine) 1 Each Adh..patch, 1 PATCH TD DAILY for backp[ain MDD 1, #14 Prescribed by: KRISTINE RIDLEY on 09/20/18 1003 Lisinopril (Lisinopril) 40 Mg Tablet, 1 TAB PO DAILY for hypertension, #30 Ref 5 (Reported) Entered as Reported by: JACKIE LICONA on 09/18/182304 Last Action: Continued on 09/19/18835 by KRISTINE RIDLEY Magnesium Oxide (Magnesium) 400 Mg Capsule, 1 CAP PO BID for supplement, #180 Ref 3 (Reported) Entered as Reported by: JACKIE LICONA on 09/18/182304 Last Action: Converted on 09/19/18835 by KRISTINE RIDLEY Potassium Chloride (Potassium Chloride) 20 Meq Tablet.er, 20 MEQ PO DAILY for supplement, (Reported) Entered as Reported by: JACKIE LICONA on 09/18/182304 Last Action: Converted on 09/19/18835 by KRISTINE RIDLEY Prednisone (Prednisone) 20 Mg Tablet, 2 TAB PO DAILY, #8 Start this prescription tomorrow, 09/14/18 Prescribed by: THONY MOTTA D.O. on 09/13/182244 Last Action: HELD on 09/19/18835 by KRISTINE RIDLEY Pregabalin (Lyrica) 200 Mg Capsule, 1 CAP PO BID for pain, #60 (Reported) Entered as Reported by: JACKIE LICONA on 09/18/182304 Last Taken: 225 on Unknown Date & Time Last Action: Converted on 09/19/18835 by KRISTINE RIDLEY Rivaroxaban (Xarelto) 20 Mg Tablet, 20 MG PO DAILY for blood clots, (Reported) Entered as Reported by: JACKIE LICONA on 09/18/182304 Last Action: Converted on 09/19/18835 by KRISTINE RIDLEY Simvastatin (Simvastatin) 40 Mg Tablet, 1 TAB PO QHS for high cholesterol, #30 Ref 5 (Reported) Entered as Reported by: JACKIE LICONA on 09/18/182304 Last Action: Converted on 09/19/18835 by KRISTINE RIDLEY Sitagliptin Phosphate (Januvia) 100 Mg Tablet, 1 TAB PO DAILY for antidiabetic, #30 Ref 5 (Reported) Entered as Reported by: JACKIE LICONA on 09/18/182304 Last Action: Converted on 09/19/18835 by KRISTINE RIDLEY Trazodone Hcl (Trazodone Hcl) 150 Mg Tablet, 1 TAB PO QHS for antidepressant, #30 Ref 1 (Reported) Entered as Reported by: JACKIE LICONA on 09/18/182304 Last Taken: 200 mg on Unknown Date & Time Last Action: Converted on 09/19/18835 by KRISTINE TERMULO Scheduled PRN Albuterol Sulfate (Proair Hfa) 8.5 Gm Hfa.aer.ad, 1 PUFF INH PRN Q6HRS PRN for SHORTNESS OF BREATH, #1 Prescribed by: THONY MOTTA D.O. on 09/13/182244 Last Action: Reviewed on 09/19/18835 by KRISTINE RIDLEY Alprazolam (Xanax) 0.5 Mg Tablet, 1 TAB PO TID PRN PRN for ANXIETY / AGITATION, #30 Prescribed by: KRISTINE RIDLEY on 09/20/18 1003 Hydrocodone Bit/Acetaminophen (Hydrocodone-Apap 7.5-325 ) 1 Tab Tablet, 1 TAB PO PRN Q4HRS PRN for MODERATE PAIN MDD 1, #30 Prescribed by: KRISTINE RIDLEY on 09/20/18 1003 Orphenadrine Citrate (Orphenadrine Citrate) 100 Mg Tablet.er, 100 MG PO BID PRN for MUSCLE PAIN, #14 Prescribed by: THONY MOTTA D.O. on 09/13/182234 Last Action: Converted on 09/19/18835 by KRISTINE PLUMMER MD Sep 20, 2018 10:08
--- NOTE | 2018-09-20 10:09 | PDOC ---
PROGRESS NOTES Subjective Subjective No new complaints.She admits some help with right sacroiliac joint injection and pain now mostly on her left side and she is eager to go home. Objective Objective Vital Signs Date Time Temp Pulse Resp B/P (MAP) Pulse Ox O2 Delivery O2 Flow Rate FiO2 09/20/18 07:30 97.9 104 12 156/83 (107) 93 Room Air 97.9 Intake and Output 09/20/18 06:59 Intake Total 300 ml Balance 300 ml Intake Oral 300 ml # Voids 4 Physical Exam Physical Exam She is sitting at edge of bed and comfortable and she is independent with her mobility at roller walker level. Assessment Assessment Problems Medical Problems: (1) Chronic low back pain Status: Acute (2) Intractable low back pain Status: Acute (3) Right flank pain Status: Acute Plan Plan of Care Agree with plans for home with out patient follow up and I have reviewed with her home exercises and proper body mechanics and advised her to avoid any activity that irritates her back and knees. Comment Review of Relevant I have reviewed the following items nakia (where applicable) has been applied. Labs Laboratory Tests Test 09/18/18 18:34 09/18/18 23:10 09/19/18 01:30 09/19/18 01:33 White Blood Count 10.3 x10^3/uL (4.0-11.0) Red Blood Count 4.76 x10^6/uL (3.50-5.40) Hemoglobin 14.8 g/dL (12.0-15.5) Hematocrit 43.0 % (36.0-47.0) Mean Corpuscular Volume 90 fL (79-100) Mean Corpuscular Hemoglobin 31 pg (25-35) Mean Corpuscular Hemoglobin Concent 34 g/dL (31-37) Red Cell Distribution Width 15.5 % (11.5-14.5) Platelet Count 205 x10^3/uL (140-400) Neutrophils (%) (Auto) 71 % (31-73) Lymphocytes (%) (Auto) 21 % (24-48) Monocytes (%) (Auto) 5 % (0-9) Eosinophils (%) (Auto) 2 % (0-3) Basophils (%) (Auto) 0 % (0-3) Neutrophils # (Auto) 7.4 x10^3uL (1.8-7.7) Lymphocytes # (Auto) 2.2 x10^3/uL (1.0-4.8) Monocytes # (Auto) 0.5 x10^3/uL (0.0-1.1) Eosinophils # (Auto) 0.2 x10^3/uL (0.0-0.7) Basophils # (Auto) 0.0 x10^3/uL (0.0-0.2) Sodium Level 137 mmol/L (136-145) Potassium Level 4.6 mmol/L (3.5-5.1) Chloride Level 101 mmol/L (98-107) Carbon Dioxide Level 26 mmol/L (21-32) Anion Gap 10 (6-14) Blood Urea Nitrogen 32 mg/dL (7-20) Creatinine 1.0 mg/dL (0.6-1.0) Estimated GFR (Cockcroft-Gault) 57.8 BUN/Creatinine Ratio 32 (6-20) Glucose Level 189 mg/dL (70-99) Calcium Level 9.5 mg/dL (8.5-10.1) Total Bilirubin 0.3 mg/dL (0.2-1.0) Aspartate Amino Transf (AST/SGOT) 20 U/L (15-37) Alanine Aminotransferase (ALT/SGPT) 53 U/L (14-59) Alkaline Phosphatase 72 U/L (46-116) Total Protein 7.3 g/dL (6.4-8.2) Albumin 3.4 g/dL (3.4-5.0) Albumin/Globulin Ratio 0.9 (1.0-1.7) Lipase 115 U/L (73-393) Ethyl Alcohol Level < 10 mg/dL (0-10) Glucose (Fingerstick) 407 mg/dL (70-99) 429 mg/dL (70-99) Nasal Screen MRSA (PCR) Negative (Negative) Test 09/19/18 01:40 09/19/18 03:16 09/19/18 06:09 09/19/18 07:26 Urine Collection Type Unknown Urine Color Yellow Urine Clarity Clear Urine pH 5.5 Urine Specific [place] 1.020 Urine Protein Negative mg/dL (NEG-TRACE) Urine Glucose (UA) 250 mg/dL (NEG) Urine Ketones (Stick) Negative mg/dL (NEG) Urine Blood Negative (NEG) Urine Nitrite Negative (NEG) Urine Bilirubin Negative (NEG) Urine Urobilinogen Dipstick 0.2 mg/dL (0.2 mg/dL) Urine Leukocyte Esterase Negative (NEG) Urine RBC 0 /HPF (0-2) Urine WBC 1-4 /HPF (0-4) Urine Squamous Epithelial Cells Few /LPF Urine Bacteria Few /HPF (0-FEW) Urine Hyaline Casts Few /HPF Urine Mucus Mod /LPF Urine Opiates Screen Neg (NEG) Urine Methadone Screen Neg (NEG) Urine Barbiturates Neg (NEG) Urine Phencyclidine Screen Neg (NEG) Urine Amphetamine/Methamphetamine Neg (NEG) Urine Benzodiazepines Screen Neg (NEG) Urine Cocaine Screen Neg (NEG) Urine Cannabinoids Screen Pos (NEG) Urine Ethyl Alcohol Neg (NEG) Glucose (Fingerstick) 392 mg/dL (70-99) 238 mg/dL (70-99) 264 mg/dL (70-99) Test 09/19/18 11:34 09/19/18 16:36 09/19/18 20:34 09/20/18 04:10 Glucose (Fingerstick) 424 mg/dL (70-99) 520 mg/dL (70-99) 412 mg/dL (70-99) Sodium Level 136 mmol/L (136-145) Potassium Level 4.9 mmol/L (3.5-5.1) Chloride Level 101 mmol/L (98-107) Carbon Dioxide Level 26 mmol/L (21-32) Anion Gap 9 (6-14) Blood Urea Nitrogen 33 mg/dL (7-20) Creatinine 1.0 mg/dL (0.6-1.0) Estimated GFR (Cockcroft-Gault) 57.8 Glucose Level 462 mg/dL (70-99) Calcium Level 9.4 mg/dL (8.5-10.1) Laboratory Tests Test 09/19/18 11:34 09/19/18 16:36 09/19/18 20:34 09/20/18 04:10 Glucose (Fingerstick) 424 mg/dL (70-99) 520 mg/dL (70-99) 412 mg/dL (70-99) Sodium Level 136 mmol/L (136-145) Potassium Level 4.9 mmol/L (3.5-5.1) Chloride Level 101 mmol/L (98-107) Carbon Dioxide Level 26 mmol/L (21-32) Anion Gap 9 (6-14) Blood Urea Nitrogen 33 mg/dL (7-20) Creatinine 1.0 mg/dL (0.6-1.0) Estimated GFR (Cockcroft-Gault) 57.8 Glucose Level 462 mg/dL (70-99) Calcium Level 9.4 mg/dL (8.5-10.1) Medications Current Medications Ondansetron HCl (Zofran) 4 mg PRN Q8HRS PRN IV NAUSEA/VOMITING; Start 09/18/18 at 18:30; Stop 09/19/18 at 08:36; Status DC Acetaminophen (Tylenol) 650 mg PRN Q4HRS PRN PO FEVER; Start 09/18/18 at 18:30; Stop 09/19/18 at 18:29; Status DC Methylprednisolone Sodium Succinate (SOLU-Medrol 125MG VIAL) 125 mg 1X ONCE IV Last administered on 09/18/18at 18:55; Start 09/18/18 at 18:30; Stop 09/18/18 at 18:39; Status DC Ketorolac Tromethamine (Toradol 30mg Vial) 30 mg 1X ONCE IV Last administered on 09/18/18at 18:55; Start 09/18/18 at 18:30; Stop 09/18/18 at 18:39; Status DC Cyclobenzaprine HCl (Flexeril) 10 mg 1X ONCE PO Last administered on 09/18/18at 18:55; Start 09/18/18 at 18:30; Stop 09/18/18 at 18:39; Status DC Insulin Human Lispro (HumaLOG) 0-9 UNITS [id number] SQ Last administered on 09/19/18at 08:15; Start 09/19/18 at 09:00; Stop 09/19/18 at 09:05; Status DC Dextrose (Dextrose 50%-Water Syringe) 12.5 gm PRN Q15MIN PRN IV SEE COMMENTS; Start 09/18/18 at 23:45 Albuterol/ Ipratropium (Duoneb) 3 ml RTQID NEB Last administered on 09/19/18at 08:44; Start 09/19/18 at 08:00; Stop 09/19/18 at 09:46; Status DC Acetaminophen/ Hydrocodone Bitart (Lortab 7.5/325) 1 tab PRN Q4HRS PRN PO MODERATE PAIN Last administered on 09/20/18 05:47; Start 09/18/18 at 23:45 Insulin Human Lispro (HumaLOG) 10 units 1X ONCE SQ Last administered on 09/19/18 00:31; Start 09/19/18 at 00:30; Stop 09/19/18 at 00:31; Status DC Insulin Human Lispro (HumaLOG) 20 units 1X ONCE SQ Last administered on 09/19/18 02:13; Start 09/19/18 at 02:15; Stop 09/19/18 at 02:16; Status DC Insulin Human Lispro (HumaLOG) 25 units 1X ONCE SQ Last administered on 09/19/18 04:08; Start 09/19/18 at 04:15; Stop 09/19/18 at 04:16; Status DC Nicotine (Nicoderm Cq 21mg) 1 patch PRN DAILY PRN TD SMOKING CESSATION Last administered on 09/19/18 08:56; Start 09/19/18 at 08:30 Ondansetron HCl (Zofran) 4 mg PRN Q6HRS PRN IV NAUSEA/VOMITING; Start 09/19/18 at 08:45 Lidocaine (Lidoderm) 1 patch DAILY TD Last administered on 09/20/18 08:16; Start 09/19/18 at 09:00 Miscellaneous (Lidoderm Patch Removal) 1 ea QHS MC Last administered on 09/19/18 21:00; Start 09/19/18 at 21:00 Lisinopril (Prinivil) 40 mg DAILY PO Last administered on 09/19/18 08:56; Start 09/19/18 at 09:00 Vitamin D (Vitamin D3) 5,000 unit DAILY PO Last administered on 09/20/18 08:16; Start 09/19/18 at 09:00 Non-Formulary Medication (Cider Vinegar (Apple Cider Vinegar)) 500 mg TID PO ; Start 09/19/18 at 09:00; Status UNV Non-Formulary Medication (Insulin Aspart (Novolog Flexpen)) 60 unit TIDWMEALS SQ Last administered on 09/20/18 08:15; Start 09/19/18 at 12:00 Non-Formulary Medication (Insulin Detemir (Levemir Flextouch)) 60 unit HS SQ Last administered on 09/19/18 21:36; Start 09/19/18 at 21:00 Non-Formulary Medication (Latanoprost ) 1 drop QHS EACHEYE Last administered on 09/19/18 21:35; Start 09/19/18 at 21:00 Magnesium Oxide (Magnesium Oxide) 400 mg BID PO Last administered on 09/20/18 08:18; Start 09/19/18 at 09:00 Cyclobenzaprine HCl (Flexeril) 10 mg PRN TID PRN PO MUSCLE SPASMS; Start 09/19/18 at 09:30 Potassium Chloride (Klor-Con) 20 meq DAILYWBKFT PO Last administered on 09/20/18 08:16; Start 09/19/18 at 09:00 Pregabalin (Lyrica) 200 mg BID PO Last administered on 09/20/18 08:17; Start 09/19/18 at 09:00 Rivaroxaban (Xarelto) 20 mg DAILYWSUP PO ; Start 09/19/18 at 17:00; Stop 09/19/18 at 17:00; Status DC Simvastatin (Zocor) 40 mg QHS PO Last administered on 09/19/18 21:34; Start 09/19/18 at 21:00 Linagliptin (Tradjenta) 5 mg DAILY PO Last administered on 09/19/18 08:56; Start 09/19/18 at 09:00 Trazodone HCl (Desyrel) 150 mg QHS PO Last administered on 09/19/18 21:34; Start 09/19/18 at 21:00 Morphine Sulfate (Morphine Sulfate) 2 mg PRN Q2HR PRN IV PAIN Last administered on 09/19/18 21:35; Start 09/19/18 at 08:45 Rivaroxaban (Xarelto) 20 mg DAILYWSUP PO Last administered on 09/19/18 16:41; Start 09/19/18 at 17:00 Prednisone (Prednisone) 60 mg 1X ONCE PO Last administered on 09/19/18 09:48; Start 09/19/18 at 10:00; Stop 09/19/18 at 10:01; Status DC Albuterol/ Ipratropium (Duoneb) 3 ml RTQID NEB Last administered on 09/20/18at 07:17; Start 09/19/18 at 12:00 Furosemide (Lasix) 40 mg 1X ONCE IVP Last administered on 09/19/18at 09:55; Start 09/19/18 at 10:00; Stop 09/19/18 at 10:01; Status DC Furosemide (Lasix) 40 mg DAILY IVP ; Start 09/20/18 at 09:00 Methylprednisolone Acetate (DEPO-Medrol 40MG VIAL) 40 mg 1X ONCE INJ ; Start 09/19/18 at 10:30; Stop 09/19/18 at 10:31; Status DC Methylprednisolone Acetate (DEPO-Medrol 40MG VIAL) 40 mg 1X ONCE INJ ; Start 09/19/18 at 10:30; Stop 09/19/18 at 10:31; Status DC Bupivacaine HCl (Sensorcaine-Mpf 0.25%) 10 ml 1X ONCE IJ ; Start 09/19/18 at 10:30; Stop 09/19/18 at 10:31; Status DC Ibuprofen (Motrin) 600 mg TIDAFTMEAL PO Last administered on 09/20/18at 08:18; Start 09/19/18 at 13:00 Alprazolam (Xanax) 0.25 mg PRN Q8HRS PRN PO ANXIETY / AGITATION Last administered on 09/19/18at 21:33; Start 09/19/18 at 11:30 Info (Anti-Coagulation Monitoring By Pharmacy) 1 each PRN DAILY PRN MC SEE COMMENTS Last administered on 09/19/18at 15:53; Start 09/19/18 at 16:00 Albuterol Sulfate (Ventolin Neb Soln) 2.5 mg 1X ONCE NEB Last administered on 09/20/18at 02:00; Start 09/20/18 at 02:00; Stop 09/20/18 at 02:01; Status DC Active Scripts Active Pulmicort Flexhaler (Budesonide) 180 Mcg Aer.pow.ba 2 Puff IH BID Celebrex (Celecoxib) 200 Mg Capsule 1 Cap PO DAILY Lasix (Furosemide) 20 Mg Tablet 1 Tab PO DAILY 7 Days Xanax (Alprazolam) 0.5 Mg Tablet 1 Tab PO TID PRN PRN Lidocaine 1 Each Adh..patch 1 Patch TD DAILY MDD 1 Hydrocodone-Apap 7.5-325 (Hydrocodone Bit/Acetaminophen) 1 Tab Tablet 1 Tab PO PRN Q4HRS PRN MDD 1 Prednisone 20 Mg Tablet 2 Tab PO DAILY Start this prescription tomorrow, 09/14/18 Proair Hfa (Albuterol Sulfate) 8.5 Gm Hfa.aer.ad 1 Puff INH PRN Q6HRS PRN Orphenadrine Citrate 100 Mg Tablet.er 100 Mg PO BID PRN Reported Ventolin Hfa Inhaler (Albuterol Sulfate) 18 Gm Hfa.aer.ad 2 Puff INH Q4HRS Levemir Flextouch (Insulin Detemir) 100 Unit/1 Ml Insuln.pen 60 Unit SQ HS Novolog Flexpen (Insulin Aspart) 100 Unit/1 Ml Insuln.pen 60 Unit SQ TIDWMEALS Latanoprost 2.5 Ml Drops 1 Drop EACHEYE QHS Potassium Chloride 20 Meq Tablet.er 20 Meq PO DAILY Magnesium (Magnesium Oxide) 400 Mg Capsule 1 Cap PO BID Apple Cider Vinegar (Cider Vinegar) 500 Mg Tablet 500 Mg PO TID Trazodone Hcl 150 Mg Tablet 1 Tab PO QHS Vitamin D3 (Cholecalciferol (Vitamin D3)) 5,000 Unit Tablet 1 Tab PO DAILY Januvia (Sitagliptin Phosphate) 100 Mg Tablet 1 Tab PO DAILY Lisinopril 40 Mg Tablet 1 Tab PO DAILY Simvastatin 40 Mg Tablet 1 Tab PO QHS Xarelto (Rivaroxaban) 20 Mg Tablet 20 Mg PO DAILY Lyrica (Pregabalin) 200 Mg Capsule 1 Cap PO BID Vitals/I & O Vital Sign - Last 24 Hours 09/19/18 09/19/18 09/19/18 09/19/18 11:00 11:15 11:18 14:00 Temp 98.0 98.0 Pulse 94 Resp 16 B/P (MAP) 130/67 (88) Pulse Ox 91 93 93 O2 Delivery Room Air Room Air Room Air Room Air 09/19/18 09/19/18 09/19/18 09/19/18 15:00 15:21 16:51 17:16 Temp 98.0 98.0 Pulse 100 Resp 18 B/P (MAP) 144/71 (95) Pulse Ox 95 95 95 O2 Delivery Room Air Room Air Room Air 6/10/3109/19/18 09/19/18 09/19/18 18:30 19:00 19:30 20:00 Temp 97.9 97.9 Pulse 92 Resp 18 18 B/P (MAP) 159/78 (105) Pulse Ox 95 92 O2 Delivery Room Air Room Air Room Air 09/19/18 09/19/18 09/19/18 09/19/18 20:35 21:35 22:05 23:00 Temp 98.2 98.2 Pulse 94 Resp 18 18 18 B/P (MAP) 115/64 (81) Pulse Ox 95 O2 Delivery Room Air Room Air Room Air Room Air 09/20/18 09/20/18 09/20/18 09/20/18 02:00 03:00 05:47 06:50 Temp 98.4 98.4 Pulse 94 Resp 18 18 B/P (MAP) 112/69 (83) Pulse Ox 90 93 O2 Delivery Room Air Room Air Room Air Room Air 09/20/18 09/20/18 07:19 07:30 Temp 97.9 97.9 Pulse 104 Resp 12 B/P (MAP) 156/83 (107) Pulse Ox 94 93 O2 Delivery Room Air Room Air Intake and Output 09/19/18 09/19/18 09/20/18 14:59 22:59 06:59 Intake Total 300 ml Balance 300 ml PRIMO MUKHERJEE MD Sep 20, 2018 10:09
--- NOTE | 2018-09-20 10:35 | NUR ---
This nurse returned two of each Novolog/Levemir pens, with needles. Went over discharge paperwork, and all belongings were returned to patient. Patient will be assisted out via wheelchair.
--- NOTE | 2018-09-20 11:13 | CONS ---
DATE OF CONSULTATION: 09/19/2018 ATTENDING PHYSICIAN: Dr. Fernando. The patient was seen at the request of Dr. Fernando for rehab evaluation. She is in room 414. HISTORY OF PRESENT ILLNESS: This is a 53-year-old morbidly obese female with chronic lower back pain with MRI scan evidence of degenerative disk disease and degenerative joint disease of lumbar vertebrae without any significant central spinal stenosis. The patient admits to increase back pain for the last 3 months, interfering with her mobility. The patient lives with her friend, had stairs for her to manage. The patient also with known diabetes mellitus, chronic obstructive pulmonary disease, still smokes. Not known allergic to any medication. FAMILY HISTORY: Diabetes mellitus, hypercholesterolemia, and hypertension. The patient denies any trouble with her bowel or bladder control. PHYSICAL EXAMINATION: Today revealed a middle-aged female. She is alert, oriented to time, place, person, and circumstance, follows commands appropriately, moves all 4 extremities voluntarily where she had 4+/5 grade muscle strength. Deep tendon reflexes are decreased overall with absent ankle jerks. She had equal perception of touch and pinprick sensation bilaterally except over left lateral femoral cutaneous nerve distribution over lateral aspect of left thigh. Negative Tinel sign over left lateral femoral cutaneous nerve at inguinal ligament area. She had some stiffness of her hip joints. She had crepitus on range of motion of her knee joint without any obvious knee joint effusion. By the bye, she admits right knee giving out on occasion. The patient had localized tenderness to palpation over sacroiliac joint area bilaterally to some extent over trochanteric bursa and lower lumbar paraspinal muscles. She had painful limited movements of her lumbar spine. She is independent with bed mobility and transfers and up walking using a roller walker. ASSESSMENT: 1. A middle-aged female with chronic lower back pain from degenerative disk disease and degenerative joint disease of lumbar vertebrae with lumbar radiculitis, but no clinical evidence of ongoing lumbar radiculopathy. 2. Diabetes mellitus with peripheral neuropathy, degenerative joint disease of both knees with probably associated torn meniscus, right knee, as she admits giving out sensation of her right knee; meralgia paresthetica of left thigh, obesity, and chronic obstructive pulmonary disease. RECOMMENDATIONS: At her request, I have injected painful right sacroiliac joint area under aseptic skin technique after skin preparation using alcohol swab with Marcaine and Depo-Medrol solution, 40 mg per 1 mL of Depo-Medrol and 2 mL of 0.25% Marcaine solution, and she tolerated the procedure satisfactorily without any side effects. I have reviewed with her a home program of physical modalities and stretching exercises and proper body mechanics. She probably needs MRI scan of her right knee to confirm any torn meniscus. I have also advised her on isometric strengthening exercise to her lower extremity muscle groups and advised her to avoid any activity that irritates her knees and back and keep using a roller walker until the pain eases up. I also advised her to try to control her diet intake, so she can lose some weight and also quit smoking. Dr. Fernando, I appreciate asking me to participate in the care of this interesting patient. I will be glad to see her for followup on as needed basis. PRIMO MUKHERJEE MD DR: KENNEDY/jessika JOB#: [id number] / [id number]
== END 2018-09-20 10:46 | disposition home or self-care (01) | DRG 552 ==
LOC: ER 17:39 → 4 NORTH 20:31
PROVIDERS: ADMIT Internal Medicine; ATTEND Internal Medicine
PROC: 3E0U3BZ Introduction of Anesthetic Agent into Joints, Percutaneous Approach (ICD-10-PCS; principal; 2018-09-19)
PROC: 3E0U33Z Introduction of Anti-inflammatory into Joints, Percutaneous Approach (ICD-10-PCS; 2018-09-19)
DX: M47.26 Other spondylosis with radiculopathy, lumbar region (principal); Z68.43 Body mass index [BMI] 50.0-59.9, adult; J44.0 Chronic obstructive pulmonary disease with (acute) lower respiratory infection; G89.29 Other chronic pain; I10 Essential (primary) hypertension; E78.00 Pure hypercholesterolemia, unspecified; E66.01 Morbid (severe) obesity due to excess calories; F17.210 Nicotine dependence, cigarettes, uncomplicated; J20.9 Acute bronchitis, unspecified; M51.36 Other intervertebral disc degeneration, lumbar region; E11.42 Type 2 diabetes mellitus with diabetic polyneuropathy; M17.0 Bilateral primary osteoarthritis of knee; M48.061 Spinal stenosis, lumbar region without neurogenic claudication; F41.9 Anxiety disorder, unspecified; G57.12 Meralgia paresthetica, left lower limb; Z86.718 Personal history of other venous thrombosis and embolism; Z87.442 Personal history of urinary calculi; Z98.51 Tubal ligation status; Z79.4 Long term (current) use of insulin; Z79.01 Long term (current) use of anticoagulants; Z79.899 Other long term (current) drug therapy; Z82.49 Family history of ischemic heart disease and other diseases of the circulatory system; Z83.3 Family history of diabetes mellitus
CPT/HCPCS: 36415; 71046; 72100; 80048; 80053; 80307; 81001; 82962; 83690; 85025; 87641; 94640; 96374; 96375; 99406; G0480; J1030; J1815; J1885; J1940; J2270; J2930; J3490; J7512; J7613; J7620; 97110; 99285-25

== ENCOUNTER 2019-11-23 07:44 | Inpatient (IN) | payer MEDICARE, OTHER ==
[~2019-11-23] VITALS: Ht 162.6 cm; Wt 169.9 kg
[~2019-11-23 07:44] MED LIST changes: +ALPR0.5T PO; +BUDE180A IH; +CELE200C PO; +CHOL500016 PO; +CIDE500T PO; +FENO54TA PO; +FURO-69 PO; +HYDR-2765 PO; +HYDR-2769 PO; +INSU100I17 SQ; +INSU100I27 SQ; +LATA2.5D3 EACHEYE; +LIDO700A21 TD; +LISI-130 PO; +MAGN400C PO; +POTA20TA4 PO; +PREG200C PO; +RIVA20TA2 PO; +SIMV40TA18 PO; +SITA100T PO; +TRAZ150T49 PO; +VENTOLIN HFA18 GM INH
[2019-11-23] MEDS ORDERED: cefTRIAXone IV Push 1 GM VIAL. IVP ONE (08:45)
[2019-11-23 09:41] LABS: BASO # 0.1 x10^3/uL (0.0-0.2); BASO % 1 % (0-3); EOS # 0.2 x10^3/uL (0.0-0.7); EOS % 2 % (0-3); HEMATOCRIT 42.3 % (36.0-47.0); HEMOGLOBIN 14.5 g/dL (12.0-15.5); LYMPH # 0.9 x10^3/uL (1.0-4.8); LYMPH % 9 % (24-48); MEAN CORPUSCULAR HEMOGLOBIN 30 pg (25-35); MEAN CORPUSCULAR HGB CONC 34 g/dL (31-37); MEAN CORPUSCULAR VOLUME 88 fL (79-100); MONO # 0.7 x10^3/uL (0.0-1.1); MONO % 7 % (0-9); NEUT # 8.4 x10^3/uL (1.8-7.7); NEUT % 82 % (31-73); PLATELET COUNT 174 x10^3/uL (140-400); RED BLOOD COUNT 4.81 x10^6/uL (3.50-5.40); RED CELL DISTRIBUTION WIDTH 16.4 % (11.5-14.5); WHITE BLOOD COUNT 10.2 x10^3/uL (4.0-11.0)
[2019-11-23 09:49] LABS: CALCIUM 8.7 mg/dL (8.5-10.1); CREATININE 1.1 mg/dL (0.6-1.0); GFR 51.6; POTASSIUM 3.6 mmol/L (3.5-5.1)
[2019-11-23] MEDS ORDERED: IV NORMAL SALINE 1000ML BAG 1,000 ML IV ONE (10:30)
[2019-11-23] MEDS ORDERED: oxyCODONE/APAP 5/325 1 TAB TABLET PO ONE (11:15)
--- NOTE | 2019-11-23 14:09 | PHYS DOC ---
Past Medical History Past Medical History: COPD, Diabetes-Type II, DVT, High Cholesterol, Hypertension, Hyperthyroid, Kidney Stone, Other Additional Past Medical Histor: CHRONIC BACK PAIN,LYMPHEDEMA,KIDNEY INFECTIONS Past Surgical History: Tubal ligation, Other Additional Past Surgical Histo: ECTOPIC Smoking Status: Current Every Day Smoker Alcohol Use: Rarely Drug Use: None General Adult EDM: Chief Complaint: CELLULITIS HPI: HPI: Patient is a 54 year old female who presents with left lower leg cellulitis. Patient states that she has chronic lymphedema. She does not typically have any redness in her leg just hyperpigmentation. On the last couple of days she is developed swelling, redness, and heat to the leg. She states that it is significantly painful. She has never had cellulitis previously. Her primary care doctor started her on antibiotics, however it is only gotten worse since then. She states she is having nausea and fevers this morning. She did not have this previously. Review of Systems: Review of Systems: General: Reports fever, chills, sweats, fatigue Eyes: Denies drainage, blurred vision, eye redness HENT: Denies rhinorrhea, sore throat, earache Respiratory: Denies cough, shortness of breath, wheezing Cardiac: Denies edema, palpitations, chest pain GI: Denies abdominal pain, Nausea, vomiting MSK: Denies back pain, neck pain Skin: Denies jaundice reports rash Neuro: Denies headache, dizziness Psychiatric: Denies SI/HI Heart Score: Risk Factors: Risk Factors: DM, Current or recent (<one month) smoker, HTN, HLP, family history of CAD, obesity. Risk Scores: Score 0 - 3: 2.5% MACE over next 6 weeks - Discharge Home Score 4 - 6: 20.3% MACE over next 6 weeks - Admit for Clinical Observation Score 7 - 10: 72.7% MACE over next 6 weeks - Early Invasive Strategies Current Medications: Current Medications Medications (Trade) Dose Ordered Sig/Migdalia Start Time Stop Time Status Last Admin Dose Admin Ceftriaxone Sodium (Rocephin) 1 gm 1X ONCE 11/23/19 08:45 11/23/19 08:46 DC 11/23/19 10:50 1 GM Sodium Chloride 1,000 ml @ 1,000 mls/hr 1X ONCE 11/23/19 10:30 11/23/19 11:29 DC 11/23/19 10:50 1,000 MLS/HR Allergies: Allergies: Allergies Coded Allergies Type Severity Reaction Last Updated Verified No Known Drug Allergies 12/04/16 No Physical Exam: PE: General: Awake, alert, NAD. Well Nourished, well hydrated. Cooperative HEENT: Atraumatic, EOMI, PERRL, airway patent, moist oral mucosa Neck: Supple, trachea midline Respiratory: CTA bilaterally, normal effort, no wheezing/crackles CV: RRR, no murmur, cap refill <2 GI: Soft, nondistended, nontender, no masses MSK: No obvious deformities Skin: Warm, dry, intact. Bilateral lower extremities: Hyperpigmentation and cobbling of the lower extremities. Left lower extremity: Erythema, induration without fluctuance, warmth consistent with cellulitis Neuro: A&O x3, speech NL, sensory and motor grossly intact, no focal deficits Psych: Normal affect, normal mood, not suicidal or homicidal Current Patient Data: Labs: Laboratory Tests Test 11/23/19 09:35 White Blood Count 10.2 x10^3/uL (4.0-11.0) Red Blood Count 4.81 x10^6/uL (3.50-5.40) Hemoglobin 14.5 g/dL (12.0-15.5) Hematocrit 42.3 % (36.0-47.0) Mean Corpuscular Volume 88 fL (79-100) Mean Corpuscular Hemoglobin 30 pg (25-35) Mean Corpuscular Hemoglobin Concent 34 g/dL (31-37) Red Cell Distribution Width 16.4 % (11.5-14.5) H Platelet Count 174 x10^3/uL (140-400) Neutrophils (%) (Auto) 82 % (31-73) H Lymphocytes (%) (Auto) 9 % (24-48) L Monocytes (%) (Auto) 7 % (0-9) Eosinophils (%) (Auto) 2 % (0-3) Basophils (%) (Auto) 1 % (0-3) Neutrophils # (Auto) 8.4 x10^3/uL (1.8-7.7) H Lymphocytes # (Auto) 0.9 x10^3/uL (1.0-4.8) L Monocytes # (Auto) 0.7 x10^3/uL (0.0-1.1) Eosinophils # (Auto) 0.2 x10^3/uL (0.0-0.7) Basophils # (Auto) 0.1 x10^3/uL (0.0-0.2) Sodium Level 135 mmol/L (136-145) L Potassium Level 3.6 mmol/L (3.5-5.1) Chloride Level 98 mmol/L (98-107) Carbon Dioxide Level 30 mmol/L (21-32) Anion Gap 7 (6-14) Blood Urea Nitrogen 24 mg/dL (7-20) H Creatinine 1.1 mg/dL (0.6-1.0) H Estimated GFR (Cockcroft-Gault) 51.6 Glucose Level 174 mg/dL (70-99) H Calcium Level 8.7 mg/dL (8.5-10.1) Laboratory Tests 11/23/19 09:35 Laboratory Tests 11/23/19 09:35 Vital Signs: Vital Signs Date Time Temp Pulse Resp B/P (MAP) Pulse Ox O2 Delivery O2 Flow Rate FiO2 11/23/19 13:29 99 Nasal Cannula 5.0 11/23/19 11:53 96 141/81 (101) 11/23/19 11:14 18 11/23/19 07:50 99.8 99.8 EKG: EKG: [] Radiology/Procedures: Radiology/Procedures: [] Course & Med Decision Making: Course & Med Decision Making Pertinent Labs and Imaging studies reviewed. (See chart for details) Patient is a 54-year-old female who presents to the emergency room complaining of rash to her lower leg. Patient has cellulitis. She started having fevers earlier today. She is afebrile upon arrival. She is failed outpatient treatment and will be admitted for IV antibiotics. Dragon Disclaimer: Dragon Disclaimer: This electronic medical record was generated, in whole or in part, using a voice recognition dictation system. Departure Departure Impression: Primary Impression: Cellulitis Disposition: ADMITTED INPATIENT Condition: STABLE Referrals: UNKNOWN PCP NAME (PCP) Justicifation of Admission Dx: Justifications for Admission: Justification of Admission Dx: Yes Cellulitis: Cellulitis LINO ROJO MD Nov 23, 2019 14:09
[2019-11-23 14:15] VITALS: BP 123/81
[2019-11-23] MEDS ORDERED: oxyCODONE/APAP 5/325 1 TAB TABLET PO PRN (15:30)
[2019-11-23] MEDS ORDERED: DEXTROSE 50% 25 GM / 50ML DISP.SYRIN. IV PRN (15:30)
[2019-11-23] MEDS ORDERED: FUROSEMIDE 40 MG TABLET. PO ONE (15:30)
--- NOTE | 2019-11-23 15:33 | PDOC1 ---
History and Physical Date of Admission Date of Admission DATE: 11/23/19 TIME: 15:28 Source Source: Chart review, Patient History of Present Illness History of Present Illness Ms. Glaser, is a 54 year old female who presents with left lower leg cellulitis. new severe acute pain to touch, to the ankle and lower leg, Patient states that she has chronic lymphedema, present since her 20's and she says it runs in her family. . She does not typically have any redness in her leg just hyperpigmentation. opver 4 days she is developed swelling, redness, and heat to the leg. She states that it is significantly painful. She has never had cellulitis previously. Her primary care doctor started her on antibiotics, however it is only gotten worse since then. She states she is having nausea and fevers this morning. She was unsure of many details of her medical history, but has never had cellulitis, Past Medical History Cardiovascular: HTN, Hyperlipidemia, Other Pulmonary: COPD Heme/Onc: Other Musculoskeletal: low back pain, Osteoarthritis Renal/: Chronic renal insuff, UTI, Other Endocrine: Diabetes, Hypothyroidism Past Surgical History Past Surgical History: Tubal Ligation Family History Family History: Diabetes, Hypertension Social History Smoke: 1 pack per day ALCOHOL: none Drugs: None Current Problem List Problem List Problems Medical Problems: (1) Cellulitis Status: Acute Current Medications Current Medications Current Medications Ceftriaxone Sodium (Rocephin) 1 gm 1X ONCE IVP Last administered on 11/23/19at 10:50; Start 11/23/19 at 08:45; Stop 11/23/19 at 08:46; Status DC Sodium Chloride 1,000 ml @ 1,000 mls/hr 1X ONCE IV Last administered on 11/23/19at 10:50; Start 11/23/19 at 10:30; Stop 11/23/19 at 11:29; Status DC Oxycodone/ Acetaminophen (Percocet 5/325) 1 tab 1X ONCE PO Last administered on 11/23/19at 11:14; Start 11/23/19 at 11:15; Stop 11/23/19 at 11:16; Status DC Albuterol Sulfate (Ventolin Neb Soln) 2.5 mg PRN Q6HRS PRN INH SHORTNESS OF BREATH; Start 11/23/19 at 14:45; Status UNV Fenofibrate (Lofibra) 54 mg DAILY PO ; Start 11/24/19 at 09:00; Status UNV Latanoprost (Xalatan) 1 drop QHS OU ; Start 11/23/19 at 21:00; Status UNV Simvastatin (Zocor) 40 mg QHS PO ; Start 11/23/19 at 21:00; Status UNV Non-Formulary Medication (Insulin Aspart (Novolog Flexpen)) 60 unit TIDWMEALS SQ ; Start 11/23/19 at 17:00; Status UNV Non-Formulary Medication (Insulin Detemir (Levemir Flextouch)) 60 unit HS SQ ; Start 11/23/19 at 21:00; Status UNV Non-Formulary Medication (Magnesium Oxide (Magnesium)) 1 cap BID PO ; Start 11/23/19 at 21:00; Status UNV Non-Formulary Medication (Pregabalin (Lyrica)) 1 cap BID PO ; Start 11/23/19 at 21:00; Status UNV Non-Formulary Medication (Rivaroxaban (Xarelto)) 20 mg DAILY PO ; Start 11/24/19 at 09:00; Status UNV Oxycodone/ Acetaminophen (Percocet 5/325) 1 tab PRN Q4HRS PRN PO PAIN; Start 11/23/19 at 15:30; Status UNV Fentanyl Citrate (Fentanyl 2ml Vial) 50 mcg PRN Q2HR PRN IVP PAIN; Start 11/23/19 at 15:30; Status UNV Nicotine (Nicoderm Cq 21mg) 1 patch PRN DAILY PRN TD SMOKING CESSATION; Start 11/23/19 at 15:30; Status UNV Furosemide (Lasix) 60 mg 1X ONCE PO ; Start 11/23/19 at 15:30; Stop 11/23/19 at 15:31; Status UNV Furosemide (Lasix) 80 mg DAILY PO ; Start 11/24/19 at 09:00; Status UNV Active Scripts Active Fenofibrate 54 Mg Tablet 54 Mg PO DAILY 30 Days Proair Hfa (Albuterol Sulfate) 8.5 Gm Hfa.aer.ad 1 Puff INH PRN Q6HRS PRN Reported Ventolin Hfa Inhaler (Albuterol Sulfate) 18 Gm Hfa.aer.ad 2 Puff INH Q4HRS Levemir Flextouch (Insulin Detemir) 100 Unit/1 Ml Insuln.pen 60 Unit SQ HS Novolog Flexpen (Insulin Aspart) 100 Unit/1 Ml Insuln.pen 60 Unit SQ TIDWMEALS Latanoprost 2.5 Ml Drops 1 Drop EACHEYE QHS Magnesium (Magnesium Oxide) 400 Mg Capsule 1 Cap PO BID Vitamin D3 (Cholecalciferol (Vitamin D3)) 5,000 Unit Tablet 1 Tab PO DAILY Simvastatin 40 Mg Tablet 1 Tab PO QHS Xarelto (Rivaroxaban) 20 Mg Tablet 20 Mg PO DAILY Lyrica (Pregabalin) 200 Mg Capsule 1 Cap PO BID Allergies Allergies: Coded Allergies: No Known Drug Allergies (Unverified , 12/04/16) ROS General: No: Chills, Night Sweats, Fatigue, Malaise, Appetite, Other PSYCHOLOGICAL ROS: No: Anxiety, Behavioral Disorder, Concentration difficultie, Decreased libido, Depression, Disorientation, Hallucinations, Hostility, Irritablity, Memory difficulties, Mood Swings, Obsessive thoughts, Physical abuse, Sexual abuse, Sleep disturbances, Suicidal ideation, Other Eyes: No Blurry vision, No Decreased vision, No Double vision, No Dry eyes, No Excessive tearing, No Eye Pain, No Itchy Eyes, No Loss of vision, No Photophobia, No Scotomata, No Uses contacts, No Uses glasses, No Other HEENT: No: Heacaches, Visual Changes, Hearing change, Nasal congestion, Nasal discharge, Oral lesions, Sinus pain, Sore Throat, Epistaxis, Sneezing, Snoring, Tinnitus, Vertigo, Vocal changes, Other Respiratory: No: Cough, Hemoptysis, Orthopnea, Pleuritic Pain, Shortness of breath, SOB with excertion, Sputum Changes, Stridor, Tachypnea, Wheezing, Other Cardiovascular: No Chest Pain, No Palpitations, No Orthopnea, No Paroxysmal Noc. Dyspnea, No Edema, No Lt Headedness, No Other Gastrointestinal: No Nausea, No Vomiting, No Abdominal Pain, No Diarrhea, No Constipation, No Melena, No Hematochezia, No Other Genitourinary: No Dysuria, No Frequency, No Incontinence, No Hematuria, No Retention, No Discharge, No Urgency, No Pain, No Flank Pain, No Other, No , No , No , No , No , No , No Musculoskeletal: No Gait Disturbance, No Joint Pain, No Joint Stiffness, No Joint Swelling, No Muscle Pain, No Muscular Weakness, No Pain In:, No Swelling In:, No Other Neurological: No Behavorial Changes, No Bowel/Bladder ControlChng, No Confusion, No Dizziness, No Gait Disturbance, No Headaches, No Impaired Coord/balance, No Memory Loss, No Numbness/Tingling, No Seizures, No Speech Problems, No Tremors, No Visual Changes, No Weakness, No Other Skin: No Dry Skin, No Eczema, No Hair Changes, No Lumps, No Mole Changes, No Mottling, No Nail Changes, No Pruritus, No Rash, No Skin Lesion Changes, No Other, No Acne Physical Exam General: Alert, mild distress HEENT: Atraumatic Lungs: Clear to auscultation Abdomen: Soft Extremities: No cyanosis, No edema, Normal pulses Skin: No breakdown, No significant lesion Neuro: Normal speech, Normal tone Psych/Mental Status: Mental status NL, Mood NL Vitals Vitals Vital Signs Date Time Temp Pulse Resp B/P (MAP) Pulse Ox O2 Delivery O2 Flow Rate FiO2 11/23/19 13:53 85 22 113/69 (84) 97 Nasal Cannula 5.0 11/23/19 07:50 99.8 99.8 Labs Labs Laboratory Tests Test 11/23/19 09:35 White Blood Count 10.2 x10^3/uL (4.0-11.0) Red Blood Count 4.81 x10^6/uL (3.50-5.40) Hemoglobin 14.5 g/dL (12.0-15.5) Hematocrit 42.3 % (36.0-47.0) Mean Corpuscular Volume 88 fL (79-100) Mean Corpuscular Hemoglobin 30 pg (25-35) Mean Corpuscular Hemoglobin Concent 34 g/dL (31-37) Red Cell Distribution Width 16.4 % (11.5-14.5) Platelet Count 174 x10^3/uL (140-400) Neutrophils (%) (Auto) 82 % (31-73) Lymphocytes (%) (Auto) 9 % (24-48) Monocytes (%) (Auto) 7 % (0-9) Eosinophils (%) (Auto) 2 % (0-3) Basophils (%) (Auto) 1 % (0-3) Neutrophils # (Auto) 8.4 x10^3/uL (1.8-7.7) Lymphocytes # (Auto) 0.9 x10^3/uL (1.0-4.8) Monocytes # (Auto) 0.7 x10^3/uL (0.0-1.1) Eosinophils # (Auto) 0.2 x10^3/uL (0.0-0.7) Basophils # (Auto) 0.1 x10^3/uL (0.0-0.2) Sodium Level 135 mmol/L (136-145) Potassium Level 3.6 mmol/L (3.5-5.1) Chloride Level 98 mmol/L (98-107) Carbon Dioxide Level 30 mmol/L (21-32) Anion Gap 7 (6-14) Blood Urea Nitrogen 24 mg/dL (7-20) Creatinine 1.1 mg/dL (0.6-1.0) Estimated GFR (Cockcroft-Gault) 51.6 Glucose Level 174 mg/dL (70-99) Calcium Level 8.7 mg/dL (8.5-10.1) Laboratory Tests Test 11/23/19 09:35 White Blood Count 10.2 x10^3/uL (4.0-11.0) Red Blood Count 4.81 x10^6/uL (3.50-5.40) Hemoglobin 14.5 g/dL (12.0-15.5) Hematocrit 42.3 % (36.0-47.0) Mean Corpuscular Volume 88 fL (79-100) Mean Corpuscular Hemoglobin 30 pg (25-35) Mean Corpuscular Hemoglobin Concent 34 g/dL (31-37) Red Cell Distribution Width 16.4 % (11.5-14.5) Platelet Count 174 x10^3/uL (140-400) Neutrophils (%) (Auto) 82 % (31-73) Lymphocytes (%) (Auto) 9 % (24-48) Monocytes (%) (Auto) 7 % (0-9) Eosinophils (%) (Auto) 2 % (0-3) Basophils (%) (Auto) 1 % (0-3) Neutrophils # (Auto) 8.4 x10^3/uL (1.8-7.7) Lymphocytes # (Auto) 0.9 x10^3/uL (1.0-4.8) Monocytes # (Auto) 0.7 x10^3/uL (0.0-1.1) Eosinophils # (Auto) 0.2 x10^3/uL (0.0-0.7) Basophils # (Auto) 0.1 x10^3/uL (0.0-0.2) Sodium Level 135 mmol/L (136-145) Potassium Level 3.6 mmol/L (3.5-5.1) Chloride Level 98 mmol/L (98-107) Carbon Dioxide Level 30 mmol/L (21-32) Anion Gap 7 (6-14) Blood Urea Nitrogen 24 mg/dL (7-20) Creatinine 1.1 mg/dL (0.6-1.0) Estimated GFR (Cockcroft-Gault) 51.6 Glucose Level 174 mg/dL (70-99) Calcium Level 8.7 mg/dL (8.5-10.1) VTE Prophylaxis Ordered VTE Prophylaxis Devices: Yes VTE Pharmacological Prophylaxi: Yes Assessment/Plan Assessment/Plan acute left left pain, new cellulitis morbid obesity, BMI 60 tobacco use disorder, onging anxiety disorder lymphedema Justicifation of Admission Dx: Justifications for Admission: Justification of Admission Dx: Yes Cellulitis: Cellulitis CURT MAURO MD Nov 23, 2019 15:33
[2019-11-23] MEDS ORDERED: VANCOMYCIN 2 GM in IV NORMAL SALINE 500ML BAG 500 ML IV ONE (16:00)
[2019-11-23] MEDS: RIVAROXABAN 10 MG TABLET. PO SCH (17:40)
[2019-11-23] MEDS: INSULIN LISPRO 300 UNITS/3 ML VIAL. SQ SCH ×2 (17:55→17:56)
[2019-11-23] MEDS: VANCOMYCIN PER PHARMACY MC PRN (18:59)
[2019-11-23 19:00] VITALS: BP 124/73
--- NOTE | 2019-11-23 19:04 | NUR ---
Pharmacy Vancomycin Dosing Note S:Consulted to monitor and dose vancomycin started 11/23/19. O:AXEL MURPHY is a 54 year old F with Cellulitis . Height: 5 feet, 4 inches Weight: 159.0 kg Donalds Body Weight: 54.70 Adjusted Body Weight: 96.42 Dosing Weight: Actual Other Antibiotics: LABS: Last BUN: 24 Last Creatinine: 1.1 Creatinine Clearance: 87 mL/min Last WBC: 10.2 Last Procalcitonin: - Tmax (past 24 hours): 99.8 Microbiology: I/O: - Drug Levels: Last level: on at Last dose given 11/23/19 at 1742 Vancomycin Dosing: Loading Dose: x1 Dosing Weight: Actual Target Trough: 10-20 A: Based on: WEIGHT, CRCL~87, P: 1. INITIATE Vancomycin 2000 mg IV q12h 2. Follow up Trough level on 11/24/19 at 0530 3. Pharmacy will continue to monitor, follow and adjust therapy as needed. TEX STACY Jason, 11/23/19 [id number]
[2019-11-23] MEDS: fentaNYL PF VIAL 100 MCG/2 ML VIAL IVP PRN ×2 (20:11→22:32)
[2019-11-23] MEDS ORDERED: HYDR-2769 PO (20:35)
[2019-11-23] MEDS ORDERED: ALPR1TAB6 PO (20:35)
[2019-11-23] MEDS: ALBUTEROL SULFATE 2.5 MG/3 ML NEBU. INH PRN (20:42)
[2019-11-23] MEDS ORDERED: TIZA4TAB2 PO (20:44)
[2019-11-23] MEDS ORDERED: AMOX1TAB61 PO (20:44)
[2019-11-23] MEDS ORDERED: PRAM1TAB36 PO (20:56)
[2019-11-23] MEDS ORDERED: FENO134C PO (20:56)
[2019-11-23] MEDS ORDERED: GUAI473L15 PO (20:56)
[2019-11-23] MEDS ORDERED: THEO300T26 PO (20:56)
[2019-11-23] MEDS ORDERED: FLUT1BLS3 IH (20:56)
[2019-11-23] MEDS ORDERED: INSULIN GLARGINE SYRINGE. SQ SCH (21:00)
[2019-11-23] MEDS: PREGABALIN 50 MG CAPSULE PO SCH (22:15)
[2019-11-23] MEDS: LATANOPROST 0.005% OPHTH SOLUTION 2.5ML BOTTLE. OU SCH (22:15)
[2019-11-23] MEDS: MAGNESIUM OXIDE 400 MG TABLET PO SCH (22:15)
[2019-11-23] MEDS: SIMVASTATIN 40 MG TABLET. PO SCH (22:16)
[2019-11-23 23:00] VITALS: BP 131/76
[2019-11-23] MEDS: ALPRAZolam 1 MG TABLET PO PRN (23:54)
[2019-11-23] MEDS: HYDROcodone/APAP 10/325 1 TAB TABLET PO PRN (23:54)
[2019-11-24 03:00] VITALS: BP 137/91
[2019-11-24] MEDS ORDERED: VANCOMYCIN 2 GM in IV NORMAL SALINE 500ML BAG 500 ML IV SCH (06:00)
[2019-11-24 07:30] VITALS: BP 111/64
[2019-11-24 07:55] LABS: CREATININE 0.7 mg/dL (0.6-1.0); GFR 86.9
[2019-11-24] MEDS: FUROSEMIDE 80 MG TABLET. PO SCH (09:00)
[2019-11-24] MEDS: FENOFIBRATE 54 MG TABLET. PO SCH (09:01)
[2019-11-24] MEDS: HYDROcodone/APAP 10/325 1 TAB TABLET PO PRN ×2 (09:01→17:27)
[2019-11-24] MEDS: MAGNESIUM OXIDE 400 MG TABLET PO SCH ×2 (09:01→21:47)
[2019-11-24] MEDS: PREGABALIN 50 MG CAPSULE PO SCH ×2 (09:04→21:46)
[2019-11-24] MEDS: INSULIN LISPRO 300 UNITS/3 ML VIAL. SQ SCH ×6 (09:10→17:24)
--- NOTE | 2019-11-24 09:52 | NUR ---
Wound Care: Patient seen per wound care consult. There are no open wounds at this time. patient has chronic lymphedema. Spoke with RN whom stated she would consult lymphedema if they are not already on patient's case. Wound care will sign off of at this time. Please re consult wound if anything should open. Bed lowered and call light in reach.
--- NOTE | 2019-11-24 10:25 | PDOC ---
PROGRESS NOTES Date of Service: DATE: 11/24/19 TIME: 10:25 Chief Complaint Chief Complaint VTE Prophylaxis Ordered VTE Prophylaxis Devices: Yes VTE Pharmacological Prophylaxi: Yes impression Assessment/Plan acute left left pain, new cellulitis morbid obesity, BMI 60, ie super morbid obesity tobacco use disorder, ongoing anxiety disorder lymphedema diabetes, which may compromise healing on CT 2018 Pulmonary trunk is dilated suggesting pulmonary arterial hypert ension. ON RECENT ECHO 2018 mild to moderate concentric left ventricular hypertrophy. LIKELY OBESITY, HYPOVENTILATION SYNDROME d/w rn CONSULT PULM plan venous doppler both legs Justicifation of Admission Dx: Justicifation of Admission Dx: Justifications for Admission: Justification of Admission Dx: Yes Cellulitis: Cellulitis History of Present Illness History of Present Illness History of Present Illness History of Present Illness Ms. Glaser, is a 54 year old female who presents with left lower leg cellulitis. new severe acute pain 8, 10 to touch, to the ankle and lower leg, Patient states that she has chronic lymphedema, present since her 20's and she says it runs in her family. . She does not typically have any redness in her leg just hyperpigmentation. opver 4 days she is developed swelling, redness, and heat to the leg. She states that it is significantly painful. She has never had cellulitis previously. Her primary care doctor started her on antibiotics, however it is only gotten worse since then. She states she is having nausea and fevers this morning. She was unsure of many details of her medical history, but has never had cellulitis, Vitals Vitals Vital Signs Date Time Temp Pulse Resp B/P (MAP) Pulse Ox O2 Delivery O2 Flow Rate FiO2 11/24/19 09:01 20 94 Room Air 11/24/19 07:30 98.1 83 111/64 (80) 98.1 11/24/19 03:00 2.0 Physical Exam Physical Exam Hyperpigmentation and cobbling of the lower extremities. Left lower extremity: Erythema, induration without fluctuance, warmth consistent with cellulitis General: Alert, Oriented X3, Cooperative, mild distress Heart: Regular rate Lungs: Clear Abdomen: Normal bowel sounds, Soft Extremities: No cyanosis, No edema, Normal pulses, Other ( Hyperpigmentation and cobbling of the lower extremities. Left lower extremity: Erythema, induration without fluctuance, warmth consistent with cellulitis) Skin: No breakdown Labs LABS Mitral Valve MV E Velocity 80.4cm/s MV DECEL TIME 136ms MV A Velocity 113.2cm/s E/A Ratio 0.7 Pulmonary Valve PV Peak Velocity 130.1cm/s Tricuspid Valve RAP ESTIMATE 3mmHg LEFT VENTRICLE The left ventricle is normal size. There is mild to moderate concentric left ventricular hypertrophy. The left ventricular systolic function is normal and the ejection fraction is within normal range. The Ejection Fraction is 60-65%. Transmitral Doppler flow pattern is Grade I-abnormal relaxation pattern. RIGHT VENTRICLE The right ventricle is normal size. The right ventricle is mildly hypertrophied. The right ventricular systolic function is normal. ATRIA Not well visualized. The right atrium size is normal. The interatrial septum is intact with no evidence for an atrial septal defect or patent foramen ovale as noted on 2-D or Doppler imaging. AORTIC VALVE The aortic valve is not well visualized. Doppler and Color Flow revealed no significant aortic regurgitation. There is no significant aortic valvular stenosis. MITRAL VALVE The mitral valve is thickened but opens well. There is no evidence of mitral valve prolapse. There is no mitral valve stenosis. Doppler and Color-flow revealed trace mitral regurgitation. TRICUSPID VALVE The tricuspid valve is not well visualized. Doppler and Color Flow revealed trace tricuspid regurgitation. There is no tricuspid valve stenosis. PULMONIC VALVE Doppler and Color Flow revealed no pulmonic valvular regurgitation. There is no pulmonic valvular stenosis. GREAT VESSELS The aortic root is normal in size. The ascending aorta is normal in size. The IVC is normal in size and collapses >50% with inspiration. PERICARDIAL EFFUSION There is no pleural effusion. There is a trace pericardial effusion. Critical Notification Critical Value: No <Conclusion> There is mild to moderate concentric left ventricular hypertrophy. The left ventricular systolic function is normal and the ejection fraction is within normal range. The Ejection Fraction is 60-65%. Technically very difficult study. Signed by : Alisha Olguin, Electronically Approved : 03/11/2019 14:49:59 DICTATED and SIGNED BY: ALISHA OLGUIN MD DATE: 03/11/19 1438 Comparison: CT chest with contrast December 11, 2016. CT abdomen and pelvis without contrast, December 02, 2016. Technique: Helical CT imaging of the chest, abdomen and pelvis is performed without IV or oral contrast. Findings: Evaluation of vascular structures, solid organs and bowel is limited without oral and IV contrast, decreasing sensitivity for detection of pathology. The thyroid is symmetric. No axillary adenopathy. 1.3 cm right paratracheal lymph node. 0.9 cm AP window lymph node. The lymph nodes are stable. The pulmonary trunk is dilated measuring 3.6 cm. The thoracic aorta is normal caliber. Calcified left hilar lymph node. There is three-vessel coronary artery disease. Trace pericardial effusion. The cardiac size is normal. There is no pleural effusion. The central airways are patent. Nodule in the right middle lobe anteriorly is stable measuring 11 x 16 mm, image 39. There is mild atelectasis in the posterior right lower lobe. There are 2 irregular groundglass nodules in the left lung apex, image 16. These nodules are stable. There is an irregular part solid nodule in the left lower lobe measuring 11 mm, previously 10 mm, image 38. There is minimal atelectasis or scarring in the inferior lingula. Groundglass nodule in the left lower lobe is stable, image 44. The nodule measures 6 mm. Linear scarring in the spares segment of the left lower lobe is unchanged. There is outside of field of view artifact in the abdomen that degrades image quality. There is stable hepatomegaly. The gallbladder, spleen, pancreas, adrenal glands, and abdominal aorta caliber are normal. The left kidney is normal. 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 No hydronephrosis is seen. Stomach unremarkable. Tiny fat-containing umbilical hernia. No dilated small bowel. Mild sigmoid colon diverticulosis. No colon wall thickening. The appendix is normal. No abdominal adenopathy or free fluid. The urinary bladder is normal. Uterus unremarkable. No pelvic free fluid. Multilevel vacuum disc phenomenon in the lumbar spine. ACDF of at least C5 and C6. IMPRESSION: 1. No acute abdominal or pelvic abnormality. 2. Stable hepatomegaly. 3. 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 4. Mild sigmoid colon diverticulosis. 5. There are several noncalcified pulmonary nodules, without significant change from prior study. 6. Pulmonary trunk is dilated suggesting pulmonary arterial hypertension. 7. Trace pericardial effusion. Electronically signed by: Oc Rodriguez MD (09/13/2018 9:32 PM) [facility] Laboratory Tests Test 11/23/19 16:27 8/10/20 21:22 11/24/19 06:15 11/24/19 07:44 Glucose (Fingerstick) 232 mg/dL (70-99) 135 mg/dL (70-99) 209 mg/dL (70-99) Creatinine 0.7 mg/dL (0.6-1.0) Estimated GFR (Cockcroft-Gault) 86.9 Assessment and Plan Assessmemt and Plan Problems Medical Problems: (1) Cellulitis Status: Acute Comment Review of Relevant I have reviewed the following items nakia (where applicable) has been applied. Labs Laboratory Tests Test 11/23/19 09:35 11/23/19 16:27 11/23/19 21:22 11/24/19 06:15 White Blood Count 10.2 x10^3/uL (4.0-11.0) Red Blood Count 4.81 x10^6/uL (3.50-5.40) Hemoglobin 14.5 g/dL (12.0-15.5) Hematocrit 42.3 % (36.0-47.0) Mean Corpuscular Volume 88 fL (79-100) Mean Corpuscular Hemoglobin 30 pg (25-35) Mean Corpuscular Hemoglobin Concent 34 g/dL (31-37) Red Cell Distribution Width 16.4 % (11.5-14.5) Platelet Count 174 x10^3/uL (140-400) Neutrophils (%) (Auto) 82 % (31-73) Lymphocytes (%) (Auto) 9 % (24-48) Monocytes (%) (Auto) 7 % (0-9) Eosinophils (%) (Auto) 2 % (0-3) Basophils (%) (Auto) 1 % (0-3) Neutrophils # (Auto) 8.4 x10^3/uL (1.8-7.7) Lymphocytes # (Auto) 0.9 x10^3/uL (1.0-4.8) Monocytes # (Auto) 0.7 x10^3/uL (0.0-1.1) Eosinophils # (Auto) 0.2 x10^3/uL (0.0-0.7) Basophils # (Auto) 0.1 x10^3/uL (0.0-0.2) Sodium Level 135 mmol/L (136-145) Potassium Level 3.6 mmol/L (3.5-5.1) Chloride Level 98 mmol/L (98-107) Carbon Dioxide Level 30 mmol/L (21-32) Anion Gap 7 (6-14) Blood Urea Nitrogen 24 mg/dL (7-20) Creatinine 1.1 mg/dL (0.6-1.0) 0.7 mg/dL (0.6-1.0) Estimated GFR (Cockcroft-Gault) 51.6 86.9 Glucose Level 174 mg/dL (70-99) Calcium Level 8.7 mg/dL (8.5-10.1) Glucose (Fingerstick) 232 mg/dL (70-99) 135 mg/dL (70-99) Test 11/24/19 07:44 Glucose (Fingerstick) 209 mg/dL (70-99) Laboratory Tests Test 11/23/19 16:27 11/23/19 21:22 11/24/19 06:15 11/24/19 07:44 Glucose (Fingerstick) 232 mg/dL (70-99) 135 mg/dL (70-99) 209 mg/dL (70-99) Creatinine 0.7 mg/dL (0.6-1.0) Estimated GFR (Cockcroft-Gault) 86.9 Microbiology 11/23/19 Blood Culture - Preliminary, Resulted NO GROWTH AFTER 1 DAY Medications Current Medications Ceftriaxone Sodium (Rocephin) 1 gm 1X ONCE IVP Last administered on 11/23/19at 10:50; Start 11/23/19 at 08:45; Stop 11/23/19 at 08:46; Status DC Sodium Chloride 1,000 ml @ 1,000 mls/hr 1X ONCE IV Last administered on 11/23/19at 10:50; Start 11/23/19 at 10:30; Stop 11/23/19 at 11:29; Status DC Oxycodone/ Acetaminophen (Percocet 5/325) 1 tab 1X ONCE PO Last administered on 11/23/19at 11:14; Start 11/23/19 at 11:15; Stop 11/23/19 at 11:16; Status DC Albuterol Sulfate (Ventolin Neb Soln) 2.5 mg PRN Q6HRS PRN INH SHORTNESS OF BREATH Last administered on 11/23/19at 20:42; Start 11/23/19 at 14:45 Fenofibrate (Lofibra) 54 mg DAILY PO Last administered on 11/24/19 09:01; Start 11/24/19 at 09:00 Latanoprost (Xalatan) 1 drop QHS OU Last administered on 11/23/19at 22:15; Start 11/23/19 at 21:00 Simvastatin (Zocor) 40 mg QHS PO Last administered on 11/23/19 22:16; Start 11/23/19 at 21:00 Insulin Human Lispro (HumaLOG) 60 units TIDWMEALS SQ Last administered on 11/24/19 09:10; Start 11/23/19 at 17:00 Insulin Glargine (Lantus Syringe) 60 unit QHS SQ Last administered on 11/23/19 22:21; Start 11/23/19 at 21:00 Magnesium Oxide (Magnesium Oxide) 400 mg BID PO Last administered on 11/24/19at 09:01; Start 11/23/19 at 21:00 Pregabalin (Lyrica) 200 mg BID PO Last administered on 11/24/19 09:04; Start 11/23/19 at 21:00 Rivaroxaban (Xarelto) 20 mg DAILYWSUP PO Last administered on 11/23/19 17:40; Start 11/23/19 at 17:00 Oxycodone/ Acetaminophen (Percocet 5/325) 1 tab PRN Q4HRS PRN PO MODERATE TO SEVERE PAIN; Start 11/23/19 at 15:30 Fentanyl Citrate (Fentanyl 2ml Vial) 50 mcg PRN Q2HR PRN IVP MODERATE TO SEVERE PAIN Last administered on 11/23/19at 22:32; Start 11/23/19 at 15:30 Nicotine (Nicoderm Cq 21mg) 1 patch PRN DAILY PRN TD SMOKING CESSATION; Start 11/23/19 at 15:30 Furosemide (Lasix) 60 mg 1X ONCE PO Last administered on 11/23/19at 17:41; Start 11/23/19 at 15:30; Stop 11/23/19 at 15:46; Status DC Furosemide (Lasix) 80 mg DAILY PO Last administered on 11/24/19at 09:00; Start 11/24/19 at 09:00 Insulin Human Lispro (HumaLOG) 0-9 UNITS TIDWMEALS SQ Last administered on 11/24/19at 09:11; Start 11/23/19 at 17:00 Dextrose (Dextrose 50%-Water Syringe) 12.5 gm PRN Q15MIN PRN IV SEE COMMENTS; Start 11/23/19 at 15:30 Vancomycin HCl (Vanco Per Pharmacy) 1 each PRN DAILY PRN MC SEE COMMENTS Last administered on 11/23/19at 18:59; Start 11/23/19 at 15:30 Vancomycin HCl 2 gm/Sodium Chloride 500 ml @ 250 mls/hr 1X ONCE IV Last administered on 11/23/19at 17:42; Start 11/23/19 at 16:00; Stop 11/23/19 at 17:59; Status DC Vancomycin HCl 2 gm/Sodium Chloride 500 ml @ 250 mls/hr Q12H IV Last administered on 11/24/19at 05:47; Start 11/24/19 at 06:00 Vancomycin HCl (Vancomycin Trough Level) 1 each 1X ONCE MC ; Start 11/25/19 at 05:30; Stop 11/25/19 at 05:31 Acetaminophen/ Hydrocodone Bitart (Lortab 10/325) 1 tab PRN Q6HRS PRN PO PAIN Last administered on 11/24/19at 09:01; Start 11/23/19 at 23:00 Lorazepam (Ativan) 1 mg PRN BID PRN PO ANXIETY / AGITATION; Start 11/23/19 at 23:00; Status UNV Alprazolam (Xanax) 1 mg PRN BID PRN PO ANXIETY / AGITATION Last administered on 11/23/19at 23:54; Start 11/23/19 at 23:15 Active Scripts Active Proair Hfa (Albuterol Sulfate) 8.5 Gm Hfa.aer.ad 1 Puff INH PRN Q6HRS PRN Reported Guaifenesin Ac Cough Syrup (Guaifenesin/Codeine Phosphate) 473 Ml Liquid 5 Ml PO PRN Q6HRS PRN Theophylline Anhydrous 300 Mg Tab.er.12h 1 Tab PO BID 30 Days Trelegy Ellipta 100-62.5-25 (Fluticasone/Umeclidin/Vilanter) 1 Each Blst.w.dev 1 Each IH QDAY Fenofibrate (Fenofibrate,Micronized) 134 Mg Capsule 1 Cap PO DAILY Mirapex (Pramipexole Di-Hcl) 1 Mg Tablet 1 Mg PO QHS Augmentin 875-125 Tablet (Amoxicillin/Potassium Clav) 1 Each Tablet 1 Tab PO BID 10 Days Tizanidine Hcl 4 Mg Tablet 1 Tab PO PRN Q8HRS PRN Alprazolam 1 Mg Tablet 1 Tab PO BID Hydrocodone-Apap 10-325 (Hydrocodone Bit/Acetaminophen) 1 Tab Tablet 1 Tab PO PRN Q6HRS PRN Ventolin Hfa Inhaler (Albuterol Sulfate) 18 Gm Hfa.aer.ad 2 Puff INH Q4HRS Levemir Flextouch (Insulin Detemir) 100 Unit/1 Ml Insuln.pen 60 Unit SQ HS Novolog Flexpen (Insulin Aspart) 100 Unit/1 Ml Insuln.pen 60 Unit SQ TIDWMEALS Latanoprost 2.5 Ml Drops 1 Drop EACHEYE QHS Magnesium (Magnesium Oxide) 400 Mg Capsule 1 Cap PO BID Vitamin D3 (Cholecalciferol (Vitamin D3)) 5,000 Unit Tablet 1 Tab PO DAILY Simvastatin 40 Mg Tablet 1 Tab PO QHS Xarelto (Rivaroxaban) 20 Mg Tablet 20 Mg PO DAILY Lyrica (Pregabalin) 200 Mg Capsule 1 Cap PO BID Vitals/I & O Vital Sign - Last 24 Hours 11/23/19 11/23/19 11/23/19 11/23/19 11:12 11:14 11:23 11:53 Pulse 91 88 96 Resp 18 B/P (MAP) 95/53 (67) 96/56 (69) 141/81 (101) Pulse Ox 91 91 92 O2 Delivery Room Air Room Air Room Air 11/23/19 11/23/19 11/23/19 11/23/19 12:23 13:26 13:29 13:53 Pulse 92 85 Resp 25 22 B/P (MAP) 134/76 (95) 113/69 (84) Pulse Ox 60 99 97 O2 Delivery Room Air Nasal Cannula Nasal Cannula O2 Flow Rate 5.0 5.0 11/23/19 11/23/19 11/23/19 11/23/19 14:15 19:00 20:11 20:48 Temp 99.1 99.2 99.1 99.2 Pulse 89 96 Resp 22 20 20 B/P (MAP) 123/81 (95) 124/73 (90) Pulse Ox 90 90 O2 Delivery Room Air Room Air Room Air Room Air 11/23/19 11/23/19 11/23/19 11/24/19 22:32 23:00 23:54 03:00 Temp 99.0 98.3 99.0 98.3 Pulse 88 90 Resp B/P (MAP) 131/76 (94) 137/91 (106) Pulse Ox 92 92 O2 Delivery Room Air Room Air Room Air Nasal Cannula O2 Flow Rate 2.0 11/24/19 11/24/19 07:30 09:01 Temp 98.1 98.1 Pulse 83 Resp B/P (MAP) 111/64 (80) Pulse Ox 93 94 O2 Delivery Room Air Room Air Intake and Output 11/23/19 11/23/19 11/24/19 15:00 23:00 07:00 Intake Total 1000 ml 700 ml 700 ml Output Total 400 ml Balance 1000 ml 300 ml 700 ml Justicifation of Admission Dx: Justifications for Admission: Justification of Admission Dx: Yes Cellulitis: Cellulitis JAVIER FARRAR MD Nov 24, 2019 10:25
[2019-11-24 11:00] VITALS: BP 127/64
[2019-11-24] MEDS: VANCOMYCIN PER PHARMACY MC PRN (12:06)
--- NOTE | 2019-11-24 12:38 | NUR ---
SW following. Reviewed chart and discussed with RN. Pt from home. Pt on room air. PT/OT and ID consulted r/t cellulitis. Wound care also following. Pt on IV Vancomycin. ALYSHA to follow for discharge planning. Addendum: 11/24/19 at 1314 by ALDA ENCARNACION Pt currently on service with Tam[facility] ONE[facility] Coordinated care with
--- NOTE | 2019-11-24 13:33 | PDOC ---
Infectious Disease Note Vital Signs: Vital Signs Vital Signs Date Time Temp Pulse Resp B/P (MAP) Pulse Ox O2 Delivery O2 Flow Rate FiO2 11/24/19 11:00 98.1 84 20 127/64 (85) 95 Room Air 98.1 11/24/19 03:00 2.0 Physical Exam: PHYSICAL EXAM Medications: Inpatient Meds: Current Medications Medications (Trade) Dose Ordered Sig/Migdalia Start Time Stop Time Status Last Admin Dose Admin Acetaminophen/ Hydrocodone Bitart (Lortab 10/325) 1 tab PRN Q6HRS PRN 11/23/19 23:00 11/24/19 09:01 1 TAB Albuterol Sulfate (Ventolin Neb Soln) 2.5 mg PRN Q6HRS PRN 11/23/19 14:45 11/23/19 20:42 2.5 MG Alprazolam (Xanax) 1 mg PRN BID PRN 11/23/19 23:15 11/23/19 23:54 1 MG Ceftriaxone Sodium (Rocephin) 1 gm 1X ONCE 11/23/19 08:45 11/23/19 08:46 DC 11/23/19 10:50 1 GM Dextrose (Dextrose 50%-Water Syringe) 12.5 gm PRN Q15MIN PRN 11/23/19 15:30 Fenofibrate (Lofibra) 54 mg DAILY 11/24/19 09:00 11/24/19 09:01 54 MG Fentanyl Citrate (Fentanyl 2ml Vial) 50 mcg PRN Q2HR PRN 11/23/19 15:30 11/23/19 22:32 50 MCG Furosemide (Lasix) 80 mg DAILY 11/24/19 09:00 11/24/19 09:00 80 MG Insulin Glargine (Lantus Syringe) 55 unit QHS 11/24/19 21:00 Insulin Human Lispro (HumaLOG) 0-9 UNITS TIDWMEALS 11/23/19 17:00 11/24/19 09:11 5 UNITS Lactobacillus Rhamnosus (Culturelle) 1 cap BID 11/24/19 21:00 Latanoprost (Xalatan) 1 drop QHS 11/23/19 21:00 11/23/19 22:15 1 DROP Lorazepam (Ativan) 1 mg PRN BID PRN 11/23/19 23:00 UNV Magnesium Oxide (Magnesium Oxide) 400 mg BID 11/23/19 21:00 11/24/19 09:01 400 MG Nicotine (Nicoderm Cq 21mg) 1 patch PRN DAILY PRN 11/23/19 15:30 Oxycodone/ Acetaminophen (Percocet 5/325) 1 tab PRN Q4HRS PRN 11/23/19 15:30 Pregabalin (Lyrica) 200 mg BID 11/23/19 21:00 11/24/19 09:04 200 MG Rivaroxaban (Xarelto) 20 mg DAILYWSUP 11/23/19 17:00 11/23/19 17:40 20 MG Simvastatin (Zocor) 40 mg QHS 11/23/19 21:00 11/23/19 22:16 40 MG Sodium Chloride 1,000 ml @ 1,000 mls/hr 1X ONCE 11/23/19 10:30 11/23/19 11:29 DC 11/23/19 10:50 1,000 MLS/HR Vancomycin HCl (Vanco Per Pharmacy) 1 each PRN DAILY PRN 11/23/19 15:30 11/24/19 12:06 1 EACH Vancomycin HCl (Vancomycin Trough Level) 1 each 1X ONCE 11/25/19 05:30 11/25/19 05:31 Vancomycin HCl 2 gm/Sodium Chloride 500 ml @ 250 mls/hr Q12H 11/24/19 06:00 11/24/19 05:47 250 MLS/HR Labs: Lab Laboratory Tests Test 11/23/19 16:27 11/23/19 21:22 11/24/19 06:15 11/24/19 07:44 Glucose (Fingerstick) 232 mg/dL (70-99) 135 mg/dL (70-99) 209 mg/dL (70-99) Creatinine 0.7 mg/dL (0.6-1.0) Estimated GFR (Cockcroft-Gault) 86.9 Test 11/24/19 11:45 11/24/19 12:54 Glucose (Fingerstick) 66 mg/dL (70-99) 146 mg/dL (70-99) Objective: Assessment: Pt seen and examined Plan: Plan of Care ID Consult dictated thank you [id number] MARILYN CAPPS MD Nov 24, 2019 13:33
--- NOTE | 2019-11-24 13:59 | CONS ---
DATE OF CONSULTATION: 11/24/2019 REFERRING PHYSICIAN: Dr. Welhs. REASON FOR CONSULTATION: Left lower extremity cellulitis. HISTORY OF PRESENT ILLNESS: A 54-year-old female with history of chronic lymphedema, presented to the ER with complaints of left lower extremity swelling, redness and pain, which started couple of days prior to admission. She had been to her primary care physician who gave her Augmentin, but it continued to get worse. She also had some nausea and diarrhea with fevers. The patient denied any history of injury. Her white count was normal at 10.2, creatinine of 1.1. Temperature of 99.8. The patient received Rocephin. She was started on vancomycin. ID consult has been requested for antibiotic management. The patient denies any history of trauma. PAST MEDICAL HISTORY: Diabetes, CKD, chronic low back pain, history of urinary incontinence, hypothyroidism, hyperlipidemia, COPD, osteoarthritis. PAST SURGICAL HISTORY: As per HPI. FAMILY HISTORY: As per HPI. SOCIAL HISTORY: Smokes 1 pack per day. No ETOH, no drug use. Lives alone, has dogs. CURRENT MEDICATION: One-time dose of ceftriaxone and vancomycin. ALLERGIES: No known drug allergies. REVIEW OF SYSTEMS: Negative except for above in HPI. PHYSICAL EXAMINATION: VITAL SIGNS: Temperature 98.1, pulse 84, respiratory rate 20, blood pressure 127/64, oxygen saturation 95% on room air. GENERAL: Alert and oriented x 3 female, lying in bed comfortably, in no acute distress, was upright, talking to phone with insurance company earlier. HEENT: Normocephalic, atraumatic, anicteric. No thrush. NECK: Supple, no JVD. LUNGS: Clear bilaterally. No wheezing. HEART: S1, S2. No gallops or murmurs. ABDOMEN: Soft, obese. Bowel sounds present, nontender, nondistended. EXTREMITIES: Bilateral lymphedema, left lower extremity redness, swelling and pain. No open wounds noted. DERMATOLOGIC: Warm, dry. No generalized rash. NEUROLOGIC: Alert and oriented x 3, grossly nonfocal. PSYCHIATRIC: Cooperative, appropriate mood and affect. LABORATORY DATA: WBC 10.2, hemoglobin 14.5, hematocrit 42.3, platelets 174. Sodium 135, potassium 3.6, chloride 98, bicarbonate 30, BUN 24, creatinine 1.1, glucose 174, calcium 8.3. MICRO: Blood culture negative so far. IMAGING: None. IMPRESSION: 1. Left lower extremity cellulitis with underlying chronic lymphedema. 2. Febrile illness prior to admission. 3. Failed outpatient p.o. antibiotics. 4. History of deep venous thrombosis. 5. Morbid obesity. 6. Tobacco use disorder. 7. Anxiety. RECOMMENDATIONS: 1. Discontinue IV vancomycin as the patient is requiring about 4 grams daily. 2. Start cefazolin 2 grams IV q.8 hours. 3. Elevate left lower extremity. 4. Lymphedema control. Lymphedema clinic has been contacted. 5. Follow up labs and cultures. 6. Continue supportive care. 7. Smoking cessation encouraged. Thank you for consulting Infectious Disease to participate in this patient's care. If you have any questions, do not hesitate to contact me. MARILYN CAPPS MD DR: TEN/jessika JOB#: [id number] / [id number] GIOVANNI
[2019-11-24 15:31] VITALS: BP 115/72
--- NOTE | 2019-11-24 15:48 | RAD ---
INDICATION: Reason: edema / Spl. Instructions: / History: COMPARISON: None. TECHNIQUE: Grayscale, color and doppler ultrasound images were obtained of the bilateral lower extremity venous vasculature. RIGHT: Limited exam with partial visualization of the popliteal vein and superficial femoral vein. Vascular flow is seen within the right common femoral vein. The deep femoral vein is obscured. LEFT: Partial visualization of the superficial femoral vein and popliteal vein secondary to overlying structures obscuring. Vascular flow seen in the common femoral vein and the visualized portions of superficial femoral and popliteal vein. IMPRESSION: * Limited exam with portions of the vessels not visualized bilaterally. Within the limits of this exam a definite thrombus is not seen. Electronically signed by: Buck Jewell MD (11/24/2019 3:45 PM) [id number]
[2019-11-24] MEDS: RIVAROXABAN 10 MG TABLET. PO SCH (17:19)
[2019-11-24 19:00] VITALS: BP 124/72
[2019-11-24] MEDS: LATANOPROST 0.005% OPHTH SOLUTION 2.5ML BOTTLE. OU SCH (21:00)
[2019-11-24] MEDS: LACTOBACILLUS RHAMNOSUS GG 1 CAPSULE. PO SCH (21:46)
[2019-11-24] MEDS: ALPRAZolam 1 MG TABLET PO PRN (21:46)
[2019-11-24] MEDS: SIMVASTATIN 40 MG TABLET. PO SCH (21:46)
[2019-11-24] MEDS: INSULIN GLARGINE SYRINGE. SQ SCH (22:15)
[2019-11-24 23:00] VITALS: BP 132/71
[2019-11-25] MEDS: HYDROcodone/APAP 10/325 1 TAB TABLET PO PRN ×3 (00:04→12:29)
[2019-11-25 02:56] VITALS: BP 117/71
[2019-11-25 07:00] VITALS: BP 133/86
[2019-11-25 07:11] LABS: CREATININE 0.9 mg/dL (0.6-1.0)
[2019-11-25] MEDS: PREGABALIN 50 MG CAPSULE PO SCH ×2 (08:42→21:06)
[2019-11-25] MEDS: LACTOBACILLUS RHAMNOSUS GG 1 CAPSULE. PO SCH ×2 (08:42→21:06)
[2019-11-25] MEDS: FENOFIBRATE 54 MG TABLET. PO SCH (08:42)
[2019-11-25] MEDS: MAGNESIUM OXIDE 400 MG TABLET PO SCH ×2 (08:42→21:06)
[2019-11-25] MEDS: FUROSEMIDE 80 MG TABLET. PO SCH (08:42)
[2019-11-25] MEDS: INSULIN LISPRO 300 UNITS/3 ML VIAL. SQ SCH ×6 (08:54→17:46)
--- NOTE | 2019-11-25 09:58 | PDOC ---
Infectious Disease Note Subjective: Subjective Patient continues to have pain in the left lower extremity Denies fever, nausea, vomiting, worsening shortness of breath, diarrhea, abdominal pain, symptoms Vital Signs: Vital Signs Vital Signs Date Time Temp Pulse Resp B/P (MAP) Pulse Ox O2 Delivery O2 Flow Rate FiO2 11/25/19 07:22 Room Air 11/25/19 07:00 98.3 82 16 133/86 (102) 90 2.0 98.3 Physical Exam: PHYSICAL EXAM GENERAL: Alert and oriented x 3 female, lying in bed comfortably, in no acute distress, was upright, talking to phone with insurance company earlier. HEENT: Normocephalic, atraumatic, anicteric. No thrush. NECK: Supple, no JVD. LUNGS: Clear bilaterally. No wheezing. HEART: S1, S2. No gallops or murmurs. ABDOMEN: Soft, obese. Bowel sounds present, nontender, nondistended. EXTREMITIES: Bilateral lymphedema, left lower extremity redness, swelling and pain. No open wounds noted. DERMATOLOGIC: Warm, dry. No generalized rash. NEUROLOGIC: Alert and oriented x 3, grossly nonfocal. PSYCHIATRIC: Cooperative, appropriate mood and affect. Medications: Inpatient Meds: Current Medications Medications (Trade) Dose Ordered Sig/Migdalia Start Time Stop Time Status Last Admin Dose Admin Acetaminophen/ Hydrocodone Bitart (Lortab 10/325) 1 tab PRN Q6HRS PRN 11/23/19 23:00 11/25/19 06:22 1 TAB Albuterol Sulfate (Ventolin Neb Soln) 2.5 mg PRN Q6HRS PRN 11/23/19 14:45 11/23/19 20:42 2.5 MG Alprazolam (Xanax) 1 mg PRN BID PRN 11/23/19 23:15 11/24/19 21:46 1 MG Cefazolin Sodium/ Dextrose 50 ml @ 100 mls/hr Q8HRS 11/24/19 14:00 11/24/19 21:45 100 MLS/HR Ceftriaxone Sodium (Rocephin) 1 gm 1X ONCE 11/23/19 08:45 11/23/19 08:46 DC 11/23/19 10:50 1 GM Dextrose (Dextrose 50%-Water Syringe) 12.5 gm PRN Q15MIN PRN 11/23/19 15:30 Fenofibrate (Lofibra) 54 mg DAILY 11/24/19 09:00 11/25/19 08:42 54 MG Fentanyl Citrate (Fentanyl 2ml Vial) 50 mcg PRN Q2HR PRN 11/23/19 15:30 11/23/19 22:32 50 MCG Furosemide (Lasix) 80 mg DAILY 11/24/19 09:00 11/25/19 08:42 80 MG Insulin Glargine (Lantus Syringe) 55 unit QHS 11/24/19 21:00 11/24/19 22:15 55 UNIT Insulin Human Lispro (HumaLOG) 0-9 UNITS TIDWMEALS 11/23/19 17:00 11/25/19 08:55 7 UNITS Lactobacillus Rhamnosus (Culturelle) 1 cap BID 11/24/19 21:00 11/25/19 08:42 1 CAP Latanoprost (Xalatan) 1 drop QHS 11/23/19 21:00 11/23/19 22:15 1 DROP Lorazepam (Ativan) 1 mg PRN BID PRN 11/23/19 23:00 UNV Magnesium Oxide (Magnesium Oxide) 400 mg BID 11/23/19 21:00 11/25/19 08:42 400 MG Nicotine (Nicoderm Cq 21mg) 1 patch PRN DAILY PRN 11/23/19 15:30 Oxycodone/ Acetaminophen (Percocet 5/325) 1 tab PRN Q4HRS PRN 11/23/19 15:30 11/24/19 21:47 1 TAB Pregabalin (Lyrica) 200 mg BID 11/23/19 21:00 11/25/19 08:42 200 MG Rivaroxaban (Xarelto) 20 mg DAILYWSUP 11/23/19 17:00 11/24/19 17:19 20 MG Simvastatin (Zocor) 40 mg QHS 11/23/19 21:00 11/24/19 21:46 40 MG Sodium Chloride 1,000 ml @ 1,000 mls/hr 1X ONCE 11/23/19 10:30 11/23/19 11:29 DC 11/23/19 10:50 1,000 MLS/HR Vancomycin HCl (Vanco Per Pharmacy) 1 each PRN DAILY PRN 11/23/19 15:30 11/24/19 13:30 DC 11/24/19 12:06 1 EACH Vancomycin HCl (Vancomycin Trough Level) 1 each 1X ONCE 11/25/19 05:30 11/25/19 05:31 Cancel Vancomycin HCl 2 gm/Sodium Chloride 500 ml @ 250 mls/hr Q12H 11/24/19 06:00 11/24/19 13:28 DC 11/24/19 05:47 250 MLS/HR Labs: Lab Laboratory Tests Test 11/24/19 11:45 11/24/19 12:54 11/24/19 16:46 11/24/19 21:13 Glucose (Fingerstick) 66 mg/dL (70-99) 146 mg/dL (70-99) 198 mg/dL (70-99) 172 mg/dL (70-99) Test 11/25/19 05:50 11/25/19 07:39 Creatinine 0.9 mg/dL (0.6-1.0) Estimated GFR (Cockcroft-Gault) 65.0 Glucose (Fingerstick) 255 mg/dL (70-99) Objective: Assessment: 1. Left lower extremity cellulitis with underlying chronic lymphedema. 2. Febrile illness prior to admission. 3. Failed outpatient p.o. antibiotics. 4. History of deep venous thrombosis. 5. Morbid obesity. 6. Tobacco use disorder. 7. Anxiety. Plan: Plan of Care Continue cefazolin 2 grams IV q.8 hours. When patient is ready for discharge can transition to p.o. Keflex Elevate left lower extremity. Lymphedema control. Lymphedema clinic following Follow up labs and cultures. Encouraged to quit smoking Continue supportive care. MARILYN CAPPS MD Nov 25, 2019 09:58
--- NOTE | 2019-11-25 10:03 | PDOC ---
PROGRESS NOTES Date of Service: DATE: 11/25/19 TIME: 10:03 Chief Complaint Chief Complaint VTE Prophylaxis Ordered VTE Prophylaxis Devices: Yes VTE Pharmacological Prophylaxi: Yes impression Assessment/Plan acute left left pain, new cellulitis morbid obesity, BMI 60, ie super morbid obesity tobacco use disorder, ongoing anxiety disorder lymphedema diabetes, which may compromise healing on CT 2018 Pulmonary trunk is dilated suggesting pulmonary arterial hypert ension. ON RECENT ECHO 2018 mild to moderate concentric left ventricular hypertrophy. LIKELY OBESITY, HYPOVENTILATION SYNDROME d/w rn CONSULT PULM plan venous doppler both legs Justicifation of Admission Dx: Justicifation of Admission Dx: Justifications for Admission: Justification of Admission Dx: Yes Cellulitis: Cellulitis History of Present Illness History of Present Illness History of Present Illness History of Present Illness Ms. Glaser, is a 54 year old female who presents with left lower leg cellulitis. new severe acute pain 8/10, 10 to touch, to the ankle and lower leg, Patient states that she has chronic lymphedema, present since her 20's and she says it runs in her family. . She does not typically have any redness in her leg just hyperpigmentation. opver 4 days she is developed swelling, redness, and heat to the leg. She states that it is significantly painful. She has never had cellulitis previously. Her primary care doctor started her on antibiotics, however it is only gotten worse since then. She states she is having nausea and fevers this morning. She was unsure of many details of her medical history, but has never had cellulitis, Vitals Vitals Vital Signs Date Time Temp Pulse Resp B/P (MAP) Pulse Ox O2 Delivery O2 Flow Rate FiO2 11/25/19 07:22 Room Air 11/25/19 07:00 98.3 82 16 133/86 (102) 90 2.0 98.3 Physical Exam Physical Exam GENERAL: Alert and oriented x 3 female, lying in bed comfortably, in no acute distress, was upright, talking to phone with insurance [employer] earlier. HEENT: Normocephalic, atraumatic, anicteric. No thrush. NECK: Supple, no JVD. LUNGS: Clear bilaterally. No wheezing. HEART: S1, S2. No gallops or murmurs. ABDOMEN: Soft, obese. Bowel sounds present, nontender, nondistended. EXTREMITIES: Bilateral lymphedema, left lower extremity redness, swelling and pain. No open wounds noted. DERMATOLOGIC: Warm, dry. No generalized rash. NEUROLOGIC: Alert and oriented x 3, grossly nonfocal. PSYCHIATRIC: Cooperative, appropriate mood and affect. IMAGING: Ultrasound limited but no thrombus detected IMPRESSION: 1. Left lower extremity cellulitis with underlying chronic lymphedema. 2. Febrile illness prior to admission. 3. Failed outpatient p.o. antibiotics. 4. History of deep venous thrombosis. 5. Morbid obesity. 6. Tobacco use disorder. 7. Anxiety. RECOMMENDATIONS: 1. Discontinue IV vancomycin as the patient is requiring about 4 grams daily. 2. Start cefazolin 2 grams IV q.8 hours. 3. Elevate left lower extremity. 4. Lymphedema control. Lymphedema clinic has been contacted. 5. Follow up labs and cultures. 6. Continue supportive care. 7. Smoking cessation encouraged. General: Alert, Oriented X3, Cooperative, mild distress Heart: Regular rate Lungs: Clear Abdomen: Normal bowel sounds, Soft Extremities: No cyanosis, No edema, Normal pulses, Other ( Hyperpigmentation and cobbling of the lower extremities. Left lower extremity: Erythema, induration without fluctuance, warmth consistent with cellulitis) Skin: No breakdown Labs LABS Laboratory Tests Test 11/24/19 11:45 11/24/19 12:54 11/24/19 16:46 11/24/19 21:13 Glucose (Fingerstick) 66 mg/dL (70-99) 146 mg/dL (70-99) 198 mg/dL (70-99) 172 mg/dL (70-99) Test 11/25/19 05:50 11/25/19 07:39 Creatinine 0.9 mg/dL (0.6-1.0) Estimated GFR (Cockcroft-Gault) 65.0 Glucose (Fingerstick) 255 mg/dL (70-99) Assessment and Plan Assessmemt and Plan Problems Medical Problems: (1) Cellulitis Status: Acute Comment Review of Relevant I have reviewed the following items nakia (where applicable) has been applied. Labs Laboratory Tests Test 11/23/19 16:27 11/23/19 21:22 11/24/19 06:15 11/24/19 07:44 Glucose (Fingerstick) 232 mg/dL (70-99) 135 mg/dL (70-99) 209 mg/dL (70-99) Creatinine 0.7 mg/dL (0.6-1.0) Estimated GFR (Cockcroft-Gault) 86.9 Test 11/24/19 11:45 11/24/19 12:54 11/24/19 16:46 11/24/19 21:13 Glucose (Fingerstick) 66 mg/dL (70-99) 146 mg/dL (70-99) 198 mg/dL (70-99) 172 mg/dL (70-99) Test 11/25/19 05:50 11/25/19 07:39 Creatinine 0.9 mg/dL (0.6-1.0) Estimated GFR (Cockcroft-Gault) 65.0 Glucose (Fingerstick) 255 mg/dL (70-99) Laboratory Tests Test 11/24/19 11:45 11/24/19 12:54 11/24/19 16:46 11/24/19 21:13 Glucose (Fingerstick) 66 mg/dL (70-99) 146 mg/dL (70-99) 198 mg/dL (70-99) 172 mg/dL (70-99) Test 11/25/19 05:50 11/25/19 07:39 Creatinine 0.9 mg/dL (0.6-1.0) Estimated GFR (Cockcroft-Gault) 65.0 Glucose (Fingerstick) 255 mg/dL (70-99) Microbiology 11/23/19 Blood Culture - Preliminary, Resulted NO GROWTH AFTER 2 DAYS Medications Current Medications Ceftriaxone Sodium (Rocephin) 1 gm 1X ONCE IVP Last administered on 11/23/19at 10:50; Start 11/23/19 at 08:45; Stop 11/23/19 at 08:46; Status DC Sodium Chloride 1,000 ml @ 1,000 mls/hr 1X ONCE IV Last administered on 11/23/19at 10:50; Start 11/23/19 at 10:30; Stop 11/23/19 at 11:29; Status DC Oxycodone/ Acetaminophen (Percocet 5/325) 1 tab 1X ONCE PO Last administered on 11/23/19at 11:14; Start 11/23/19 at 11:15; Stop 11/23/19 at 11:16; Status DC Albuterol Sulfate (Ventolin Neb Soln) 2.5 mg PRN Q6HRS PRN INH SHORTNESS OF BREATH Last administered on 11/23/19 20:42; Start 11/23/19 at 14:45 Fenofibrate (Lofibra) 54 mg DAILY PO Last administered on 11/25/19 08:42; Start 11/24/19 at 09:00 Latanoprost (Xalatan) 1 drop QHS OU Last administered on 11/23/19 22:15; Start 11/23/19 at 21:00 Simvastatin (Zocor) 40 mg QHS PO Last administered on 11/24/19 21:46; Start 11/23/19 at 21:00 Insulin Human Lispro (HumaLOG) 60 units TIDWMEALS SQ Last administered on 11/25/19 08:54; Start 11/23/19 at 17:00 Insulin Glargine (Lantus Syringe) 60 unit QHS SQ Last administered on 11/23/19 22:21; Start 11/23/19 at 21:00; Stop 11/24/19 at 13:09; Status DC Magnesium Oxide (Magnesium Oxide) 400 mg BID PO Last administered on 11/25/19 08:42; Start 11/23/19 at 21:00 Pregabalin (Lyrica) 200 mg BID PO Last administered on 11/25/19 08:42; Start 11/23/19 at 21:00 Rivaroxaban (Xarelto) 20 mg DAILYWSUP PO Last administered on 11/24/19 17:19; Start 11/23/19 at 17:00 Oxycodone/ Acetaminophen (Percocet 5/325) 1 tab PRN Q4HRS PRN PO MODERATE PAIN Last administered on 11/24/19 21:47; Start 11/23/19 at 15:30 Fentanyl Citrate (Fentanyl 2ml Vial) 50 mcg PRN Q2HR PRN IVP MODERATE TO SEVERE PAIN Last administered on 11/23/19 22:32; Start 11/23/19 at 15:30 Nicotine (Nicoderm Cq 21mg) 1 patch PRN DAILY PRN TD SMOKING CESSATION; Start 11/23/19 at 15:30 Furosemide (Lasix) 60 mg 1X ONCE PO Last administered on 8/10/20at 17:41; Start 11/23/19 at 15:30; Stop 11/23/19 at 15:46; Status DC Furosemide (Lasix) 80 mg DAILY PO Last administered on 11/25/19at 08:42; Start 11/24/19 at 09:00 Insulin Human Lispro (HumaLOG) 0-9 UNITS TIDWMEALS SQ Last administered on 11/25/19at 08:55; Start 11/23/19 at 17:00 Dextrose (Dextrose 50%-Water Syringe) 12.5 gm PRN Q15MIN PRN IV SEE COMMENTS; Start 11/23/19 at 15:30 Vancomycin HCl (Vanco Per Pharmacy) 1 each PRN DAILY PRN MC SEE COMMENTS Last administered on 11/24/19at 12:06; Start 11/23/19 at 15:30; Stop 11/24/19 at 13:30; Status DC Vancomycin HCl 2 gm/Sodium Chloride 500 ml @ 250 mls/hr 1X ONCE IV Last administered on 11/23/19at 17:42; Start 11/23/19 at 16:00; Stop 11/23/19 at 17:59; Status DC Vancomycin HCl 2 gm/Sodium Chloride 500 ml @ 250 mls/hr Q12H IV Last administered on 11/24/19at 05:47; Start 11/24/19 at 06:00; Stop 11/24/19 at 13:28; Status DC Vancomycin HCl (Vancomycin Trough Level) 1 each 1X ONCE MC ; Start 11/25/19 at 05:30; Stop 11/25/19 at 05:31; Status Cancel Acetaminophen/ Hydrocodone Bitart (Lortab 10/325) 1 tab PRN Q6HRS PRN PO SEVERE PAIN Last administered on 11/25/19at 06:22; Start 11/23/19 at 23:00 Lorazepam (Ativan) 1 mg PRN BID PRN PO ANXIETY / AGITATION; Start 11/23/19 at 23:00; Status UNV Alprazolam (Xanax) 1 mg PRN BID PRN PO ANXIETY / AGITATION Last administered on 11/24/19at 21:46; Start 11/23/19 at 23:15 Lactobacillus Rhamnosus (Culturelle) 1 cap BID PO Last administered on 11/25/19at 08:42; Start 11/24/19 at 21:00 Insulin Glargine (Lantus Syringe) 55 unit QHS SQ Last administered on 11/24/19at 22:15; Start 11/24/19 at 21:00 Cefazolin Sodium/ Dextrose 50 ml @ 100 mls/hr Q8HRS IV Last administered on 11/24/19at 21:45; Start 11/24/19 at 14:00 Active Scripts Active Proair Hfa (Albuterol Sulfate) 8.5 Gm Hfa.aer.ad 1 Puff INH PRN Q6HRS PRN Reported Guaifenesin Ac Cough Syrup (Guaifenesin/Codeine Phosphate) 473 Ml Liquid 5 Ml PO PRN Q6HRS PRN Theophylline Anhydrous 300 Mg Tab.er.12h 1 Tab PO BID 30 Days Trelegy Ellipta 100-62.5-25 (Fluticasone/Umeclidin/Vilanter) 1 Each Blst.w.dev 1 Each IH QDAY Fenofibrate (Fenofibrate,Micronized) 134 Mg Capsule 1 Cap PO DAILY Mirapex (Pramipexole Di-Hcl) 1 Mg Tablet 1 Mg PO QHS Augmentin 875-125 Tablet (Amoxicillin/Potassium Clav) 1 Each Tablet 1 Tab PO BID 10 Days Tizanidine Hcl 4 Mg Tablet 1 Tab PO PRN Q8HRS PRN Alprazolam 1 Mg Tablet 1 Tab PO BID Hydrocodone-Apap 10-325 (Hydrocodone Bit/Acetaminophen) 1 Tab Tablet 1 Tab PO PRN Q6HRS PRN Ventolin Hfa Inhaler (Albuterol Sulfate) 18 Gm Hfa.aer.ad 2 Puff INH Q4HRS Levemir Flextouch (Insulin Detemir) 100 Unit/1 Ml Insuln.pen 60 Unit SQ HS Novolog Flexpen (Insulin Aspart) 100 Unit/1 Ml Insuln.pen 60 Unit SQ TIDWMEALS Latanoprost 2.5 Ml Drops 1 Drop EACHEYE QHS Magnesium (Magnesium Oxide) 400 Mg Capsule 1 Cap PO BID Vitamin D3 (Cholecalciferol (Vitamin D3)) 5,000 Unit Tablet 1 Tab PO DAILY Simvastatin 40 Mg Tablet 1 Tab PO QHS Xarelto (Rivaroxaban) 20 Mg Tablet 20 Mg PO DAILY Lyrica (Pregabalin) 200 Mg Capsule 1 Cap PO BID Vitals/I & O Vital Sign - Last 24 Hours 11/24/19 11/24/19 11/24/19 11/24/19 10:05 11:00 15:31 17:27 Temp 98.1 98.2 98.1 98.2 Pulse 84 73 Resp 21 B/P (MAP) 127/64 (85) 115/72 (86) Pulse Ox 94 95 97 93 O2 Delivery Room Air Room Air Room Air Room Air 11/24/19 11/24/19 11/24/19 11/24/19 19:00 20:20 21:47 23:00 Temp 98.0 98.7 98.0 98.7 Pulse 91 90 Resp B/P (MAP) 124/72 (89) 132/71 (91) Pulse Ox 96 90 O2 Delivery Room Air Room Air Room Air Room Air 11/25/19 11/25/19 11/25/19 11/25/19 00:04 01:04 02:56 06:22 Temp 98.3 98.3 Pulse 89 Resp B/P (MAP) 117/71 (86) Pulse Ox 93 O2 Delivery Room Air Nasal Cannula Room Air O2 Flow Rate 2.0 11/25/19 11/25/19 07:00 07:22 Temp 98.3 98.3 Pulse 82 Resp 16 B/P (MAP) 133/86 (102) Pulse Ox 90 O2 Delivery Nasal Cannula Room Air O2 Flow Rate 2.0 Intake and Output 11/24/19 11/24/19 11/25/19 15:00 23:00 07:00 Intake Total 1450 ml 950 ml 200 ml Balance 1450 ml 950 ml 200 ml Justicifation of Admission Dx: Justifications for Admission: Justification of Admission Dx: Yes Cellulitis: Cellulitis JAVIER FARRAR MD Nov 25, 2019 10:03
[2019-11-25 11:16] VITALS: BP 146/74
--- NOTE | 2019-11-25 11:53 | RESP ---
DATE OF SERVICE: 11/24/2019 NOCTURNAL OXIMETRY STUDY The patient's mean oxygen saturation remained around 86% with the lowest of 34%. 46% of the time oxygen saturation remained less than 90%, which was 3 hours and 29 minutes. In as 13% of time oxygen saturation remained less than 80%, which was another hour. The patient was initially placed on room air, but then nursing staff placed the patient on 2 liters around 3 in the morning. IMPRESSION: Severe nocturnal hypoxia. RECOMMENDATIONS: 1. Consider doing polysomnogram to rule out obstructive sleep apnea. 2. If the patient does not undergo polysomnogram/CPAP, then she would be eligible for oxygen at least 3 liters. CECELIA MOSS MD DR: FABIÁN/jessika JOB#: [id number] / [id number]
--- NOTE | 2019-11-25 12:28 | CONS ---
DATE OF CONSULTATION: PULMONARY CONSULTATION ATTENDING PHYSICIAN: Dr. Welsh. REASON FOR CONSULTATION: Suspected sleep apnea. HISTORY OF PRESENT ILLNESS: The patient is a 54-year-old morbidly obese patient with a BMI of 60. She also has chronic lymphedema and has been on chronic narcotics and benzos. She was brought into the hospital with cellulitis of lower extremities. I have been asked to see her for further evaluation of sleep apnea. When I interviewed the patient, she was dozing in between conversation. She said she had a pulse oximeter done and was abnormal. I reviewed the pulse oximetry testing and she had [id number] nocturnal hypoxia. I also reviewed her medications. She is on hydrocodone as well as Ativan and she received a dose this morning. She said she does not like the CPAP and is not interested in having a sleep study. She does doze off during the day. She has a history of tobacco use, at least 30 years and denies alcohol use. Unable to obtain much detailed history from the patient. PAST MEDICAL HISTORY: History of hypertension, hyperlipidemia and likely chronic obstructive pulmonary disease. History of low back pain, osteoarthritis, CKD, diabetes, hypothyroidism. PAST SURGICAL HISTORY: Tubal ligation. FAMILY HISTORY: Diabetes and hypertension. SOCIAL HISTORY: One pack per day for 30 years. REVIEW OF SYSTEMS: Limited, but pertinent positives discussed in my history of present illness. MEDICATIONS: Reviewed as listed in the MRAD. PHYSICAL EXAMINATION: VITAL SIGNS: Reviewed, pulse ox 94% on 2 liters. NECK: Supple. LUNGS: Clear. CARDIOVASCULAR: With a regular rate. ABDOMEN: Soft, obese. EXTREMITIES: With lymphedema of lower extremity. LABORATORY DATA: Reviewed. White cell count 10.2, hemoglobin 14.5, platelets are 174. Her BUN 24, creatinine 1.1, bicarbonate of 30. IMPRESSION: 1. Highly suspected sleep apnea in a patient who is morbidly obese. Her current symptoms are also contributed by use of narcotics and benzodiazepines. She has high bicarbonate, suggesting she has chronic hypercapnia. 2. Recent hospitalization for cellulitis and lymphedema. RECOMMENDATIONS: 1. I have discussed with the patient regarding the need for sleep study. She is not interested in CPAP. I did offer to her nasal pillows with the CPAP. At this point, she is not interested. I did inform Dr. Rehman about it. 2. I would recommend to reduce the amount of narcotics and benzodiazepines. 3. Weight loss is advised. 4. We will be available for any further recommendations. CECELIA MOSS MD DR: FABIÁN/jessika JOB#: [id number] / [id number]
[2019-11-25 15:00] VITALS: BP 125/74
--- NOTE | 2019-11-25 16:32 | NUR ---
SW following. Reviewed chart and discussed with RN. Discharge plan remains home with [facility]. Wound care following. Pulmonary consulted today. Pt now on 2l 02. Pt does not have home 02. SW to continue following.
[2019-11-25] MEDS ORDERED: CEPHALEXIN 250 MG CAPSULE. PO SCH (17:00)
[2019-11-25] MEDS: HYDROcodone/APAP 10/325 1 TAB TABLET PO SCH (17:37)
[2019-11-25] MEDS: RIVAROXABAN 10 MG TABLET. PO SCH (17:37)
[2019-11-25] MEDS: CEPHALEXIN 250 MG CAPSULE. PO SCH ×2 (17:38→23:55)
[2019-11-25 19:00] VITALS: BP 142/82
[2019-11-25] MEDS: oxyCODONE/APAP 5/325 1 TAB TABLET PO PRN (20:00)
[2019-11-25] MEDS: LATANOPROST 0.005% OPHTH SOLUTION 2.5ML BOTTLE. OU SCH (21:06)
[2019-11-25] MEDS: SIMVASTATIN 40 MG TABLET. PO SCH (21:06)
[2019-11-25] MEDS: INSULIN GLARGINE SYRINGE. SQ SCH (21:19)
[2019-11-25] MEDS: ALPRAZolam 1 MG TABLET PO PRN (21:33)
[2019-11-25] MEDS: ALBUTEROL SULFATE 2.5 MG/3 ML NEBU. INH PRN (22:25)
[2019-11-25 23:00] VITALS: BP 135/71
[2019-11-26] MEDS: HYDROcodone/APAP 10/325 1 TAB TABLET PO SCH ×5 (00:03→23:32)
[2019-11-26] MEDS: NICOTINE 21MG PATCH. TD PRN (00:05)
[2019-11-26 03:00] VITALS: BP 137/80
[2019-11-26] MEDS: CEPHALEXIN 250 MG CAPSULE. PO SCH ×4 (06:27→23:32)
[2019-11-26 07:52] VITALS: BP 155/87
--- NOTE | 2019-11-26 08:11 | PDOC ---
PROGRESS NOTES Date of Service: DATE: 11/26/19 TIME: 08:10 Chief Complaint Chief Complaint VTE Prophylaxis Ordered VTE Prophylaxis Devices: Yes VTE Pharmacological Prophylaxi: Yes impression Assessment/Plan acute left left pain, new cellulitis morbid obesity, BMI 60, ie super morbid obesity tobacco use disorder, ongoing anxiety disorder lymphedema diabetes, which may compromise healing on CT 2018 Pulmonary trunk is dilated suggesting pulmonary arterial hypert ension. ON RECENT ECHO 2018 mild to moderate concentric left ventricular hypertrophy. LIKELY OBESITY,// HYPOVENTILATION SYNDROME hypercapnic resp failure , MOD-SEVERE d/w rn CONSULT PULM plan venous doppler both legs ABG first before dc from pulmonary standpoint chg keflex po on D/C Justicifation of Admission Dx: Justicifation of Admission Dx: Justifications for Admission: Justification of Admission Dx: Yes Cellulitis: Cellulitis History of Present Illness History of Present Illness History of Present Illness History of Present Illness Ms. Glaser, is a 54 year old female who presents with left lower leg cellulitis. new severe acute pain 11/22, 10 to touch, to the ankle and lower leg, Patient states that she has chronic lymphedema, present since her 20's and she says it runs in her family. . She does not typically have any redness in her leg just hyperpigmentation. opver 4 days she is developed swelling, redness, and heat to the leg. She states that it is significantly painful. She has never had cellulitis previously. Her primary care doctor started her on antibiotics, however it is only gotten worse since then. She states she is having nausea and fevers She was unsure of many details of her medical history, but has never had cellulitis, Vitals Vitals Vital Signs Date Time Temp Pulse Resp B/P (MAP) Pulse Ox O2 Delivery O2 Flow Rate FiO2 11/26/19 07:52 98.3 92 20 155/87 (109) 93 Nasal Cannula 2.0 98.3 Physical Exam Physical Exam GENERAL: Alert and oriented x 3 female, lying in bed comfortably, in no acute distress, was upright, talking to phone with insurance company earlier. HEENT: Normocephalic, atraumatic, anicteric. No thrush. NECK: Supple, no JVD. LUNGS: Clear bilaterally. No wheezing. HEART: S1, S2. No gallops or murmurs. ABDOMEN: Soft, obese. Bowel sounds present, nontender, nondistended. EXTREMITIES: Bilateral lymphedema, left lower extremity redness, swelling and pain. No open wounds noted. DERMATOLOGIC: Warm, dry. No generalized rash. NEUROLOGIC: Alert and oriented x 3, grossly nonfocal. PSYCHIATRIC: Cooperative, appropriate mood and affect. General: Alert, Oriented X3, Cooperative, No acute distress Heart: Regular rate Lungs: Clear Abdomen: Normal bowel sounds, Soft, No tenderness Extremities: No cyanosis, No edema, Normal pulses, Other ( Hyperpigmentation and cobbling of the lower extremities. Left lower extremity: Erythema, induration without fluctuance, warmth consistent with cellulitis) Skin: No breakdown Labs LABS INDICATION: Reason: edema / Spl. Instructions: / History: COMPARISON: None. TECHNIQUE: Grayscale, color and doppler ultrasound images were obtained of the bilateral lower extremity venous vasculature. RIGHT: Limited exam with partial visualization of the popliteal vein and superficial femoral vein. Vascular flow is seen within the right common femoral vein. The deep femoral vein is obscured. LEFT: Partial visualization of the superficial femoral vein and popliteal vein secondary to overlying structures obscuring. Vascular flow seen in the common femoral vein and the visualized portions of superficial femoral and popliteal vein. IMPRESSION: * Limited exam with portions of the vessels not visualized bilaterally. Within the limits of this exam a definite thrombus is not seen. Electronically signed by: Raisa Jewell MD (11/24/2019 3:45 PM) [id number] DICTATED and SIGNED BY: RAISA JEWELL MD DATE: 11/24/19 1545 Laboratory Tests Test 11/25/19 12:08 11/25/19 20:38 11/26/19 07:24 Glucose (Fingerstick) 226 mg/dL (70-99) 177 mg/dL (70-99) 287 mg/dL (70-99) Assessment and Plan Assessmemt and Plan Problems Medical Problems: (1) Cellulitis Status: Acute Comment Review of Relevant I have reviewed the following items nakia (where applicable) has been applied. Labs Laboratory Tests Test 11/24/19 11:45 11/24/19 12:54 11/24/19 16:46 11/24/19 21:13 Glucose (Fingerstick) 66 mg/dL (70-99) 146 mg/dL (70-99) 198 mg/dL (70-99) 172 mg/dL (70-99) Test 11/25/19 05:50 11/25/19 07:39 11/25/19 12:08 11/25/19 20:38 Creatinine 0.9 mg/dL (0.6-1.0) Estimated GFR (Cockcroft-Gault) 65.0 Glucose (Fingerstick) 255 mg/dL (70-99) 226 mg/dL (70-99) 177 mg/dL (70-99) Test 11/26/19 07:24 Glucose (Fingerstick) 287 mg/dL (70-99) Laboratory Tests Test 11/25/19 12:08 11/25/19 20:38 11/26/19 07:24 Glucose (Fingerstick) 226 mg/dL (70-99) 177 mg/dL (70-99) 287 mg/dL (70-99) Microbiology 11/23/19 Blood Culture - Preliminary, Resulted NO GROWTH AFTER 2 DAYS Medications Current Medications Ceftriaxone Sodium (Rocephin) 1 gm 1X ONCE IVP Last administered on 11/23/19at 10:50; Start 11/23/19 at 08:45; Stop 11/23/19 at 08:46; Status DC Sodium Chloride 1,000 ml @ 1,000 mls/hr 1X ONCE IV Last administered on 11/23/19at 10:50; Start 11/23/19 at 10:30; Stop 11/23/19 at 11:29; Status DC Oxycodone/ Acetaminophen (Percocet 5/325) 1 tab 1X ONCE PO Last administered on 11/23/19at 11:14; Start 11/23/19 at 11:15; Stop 11/23/19 at 11:16; Status DC Albuterol Sulfate (Ventolin Neb Soln) 2.5 mg PRN Q6HRS PRN INH SHORTNESS OF BREATH Last administered on 11/25/19at 22:25; Start 11/23/19 at 14:45 Fenofibrate (Lofibra) 54 mg DAILY PO Last administered on 11/25/19at 08:42; Start 11/24/19 at 09:00 Latanoprost (Xalatan) 1 drop QHS OU Last administered on 11/25/19at 21:06; Start 11/23/19 at 21:00 Simvastatin (Zocor) 40 mg QHS PO Last administered on 11/25/19 21:06; Start 11/23/19 at 21:00 Insulin Human Lispro (HumaLOG) 60 units TIDWMEALS SQ Last administered on 11/25/19at 17:46; Start 11/23/19 at 17:00 Insulin Glargine (Lantus Syringe) 60 unit QHS SQ Last administered on 11/23/19at 22:21; Start 11/23/19 at 21:00; Stop 11/24/19 at 13:09; Status DC Magnesium Oxide (Magnesium Oxide) 400 mg BID PO Last administered on 11/25/19 21:06; Start 11/23/19 at 21:00 Pregabalin (Lyrica) 200 mg BID PO Last administered on 11/25/19 21:06; Start 11/23/19 at 21:00 Rivaroxaban (Xarelto) 20 mg DAILYWSUP PO Last administered on 11/25/19at 17:37; Start 11/23/19 at 17:00 Oxycodone/ Acetaminophen (Percocet 5/325) 1 tab PRN Q4HRS PRN PO MODERATE PAIN Last administered on 11/24/19at 21:47; Start 11/23/19 at 15:30; Stop 11/25/19 at 11:51; Status DC Fentanyl Citrate (Fentanyl 2ml Vial) 50 mcg PRN Q2HR PRN IVP MODERATE TO SEVERE PAIN Last administered on 11/23/19at 22:32; Start 11/23/19 at 15:30; Stop 11/25/19 at 14:51; Status DC Nicotine (Nicoderm Cq 21mg) 1 patch PRN DAILY PRN TD SMOKING CESSATION Last administered on 11/26/19at 00:05; Start 11/23/19 at 15:30 Furosemide (Lasix) 60 mg 1X ONCE PO Last administered on 11/23/19 17:41; Start 11/23/19 at 15:30; Stop 11/23/19 at 15:46; Status DC Furosemide (Lasix) 80 mg DAILY PO Last administered on 11/25/19at 08:42; Start 11/24/19 at 09:00 Insulin Human Lispro (HumaLOG) 0-9 UNITS TIDWMEALS SQ Last administered on 11/25/19at 12:39; Start 11/23/19 at 17:00 Dextrose (Dextrose 50%-Water Syringe) 12.5 gm PRN Q15MIN PRN IV SEE COMMENTS; Start 11/23/19 at 15:30 Vancomycin HCl (Vanco Per Pharmacy) 1 each PRN DAILY PRN MC SEE COMMENTS Last administered on 11/24/19at 12:06; Start 11/23/19 at 15:30; Stop 11/24/19 at 13:30; Status DC Vancomycin HCl 2 gm/Sodium Chloride 500 ml @ 250 mls/hr 1X ONCE IV Last administered on 11/23/19at 17:42; Start 11/23/19 at 16:00; Stop 11/23/19 at 17:59; Status DC Vancomycin HCl 2 gm/Sodium Chloride 500 ml @ 250 mls/hr Q12H IV Last administered on 11/24/19at 05:47; Start 11/24/19 at 06:00; Stop 11/24/19 at 13:28; Status DC Vancomycin HCl (Vancomycin Trough Level) 1 each 1X ONCE MC ; Start 11/25/19 at 05:30; Stop 11/25/19 at 05:31; Status Cancel Acetaminophen/ Hydrocodone Bitart (Lortab 10/325) 1 tab PRN Q6HRS PRN PO SEVERE PAIN Last administered on 11/25/19at 12:29; Start 11/23/19 at 23:00; Stop 11/25/19 at 14:57; Status DC Lorazepam (Ativan) 1 mg PRN BID PRN PO ANXIETY / AGITATION; Start 11/23/19 at 23:00; Status UNV Alprazolam (Xanax) 1 mg PRN BID PRN PO ANXIETY / AGITATION Last administered on 11/25/19at 21:33; Start 11/23/19 at 23:15 Lactobacillus Rhamnosus (Culturelle) 1 cap BID PO Last administered on 11/25/19at 21:06; Start 11/24/19 at 21:00 Insulin Glargine (Lantus Syringe) 55 unit QHS SQ Last administered on 11/25/19at 21:19; Start 11/24/19 at 21:00 Cefazolin Sodium/ Dextrose 50 ml @ 100 mls/hr Q8HRS IV Last administered on 11/24/19at 21:45; Start 11/24/19 at 14:00; Stop 11/25/19 at 13:41; Status DC Cephalexin HCl (Keflex) 500 mg QID PO ; Start 11/25/19 at 17:00; Stop 11/25/19 at 16:56; Status DC Acetaminophen/ Hydrocodone Bitart (Lortab 10/325) 1 tab Q6HRS PO Last administered on 11/26/19at 06:28; Start 11/25/19 at 18:00 Cephalexin HCl (Keflex) 500 mg Q6HRS PO Last administered on 11/26/19at 06:27; Start 11/25/19 at 18:00 Oxycodone/ Acetaminophen (Percocet 5/325) 1 tab PRN Q4HRS PRN PO PAIN Last administered on 11/25/19at 20:00; Start 11/25/19 at 18:30 Active Scripts Active Proair Hfa (Albuterol Sulfate) 8.5 Gm Hfa.aer.ad 1 Puff INH PRN Q6HRS PRN Reported Guaifenesin Ac Cough Syrup (Guaifenesin/Codeine Phosphate) 473 Ml Liquid 5 Ml PO PRN Q6HRS PRN Theophylline Anhydrous 300 Mg Tab.er.12h 1 Tab PO BID 30 Days Trelegy Ellipta 100-62.5-25 (Fluticasone/Umeclidin/Vilanter) 1 Each Blst.w.dev 1 Each IH QDAY Fenofibrate (Fenofibrate,Micronized) 134 Mg Capsule 1 Cap PO DAILY Mirapex (Pramipexole Di-Hcl) 1 Mg Tablet 1 Mg PO QHS Augmentin 875-125 Tablet (Amoxicillin/Potassium Clav) 1 Each Tablet 1 Tab PO BID 10 Days Tizanidine Hcl 4 Mg Tablet 1 Tab PO PRN Q8HRS PRN Alprazolam 1 Mg Tablet 1 Tab PO BID Hydrocodone-Apap 10-325 (Hydrocodone Bit/Acetaminophen) 1 Tab Tablet 1 Tab PO PRN Q6HRS PRN Ventolin Hfa Inhaler (Albuterol Sulfate) 18 Gm Hfa.aer.ad 2 Puff INH Q4HRS Levemir Flextouch (Insulin Detemir) 100 Unit/1 Ml Insuln.pen 60 Unit SQ HS Novolog Flexpen (Insulin Aspart) 100 Unit/1 Ml Insuln.pen 60 Unit SQ TIDWMEALS Latanoprost 2.5 Ml Drops 1 Drop EACHEYE QHS Magnesium (Magnesium Oxide) 400 Mg Capsule 1 Cap PO BID Vitamin D3 (Cholecalciferol (Vitamin D3)) 5,000 Unit Tablet 1 Tab PO DAILY Simvastatin 40 Mg Tablet 1 Tab PO QHS Xarelto (Rivaroxaban) 20 Mg Tablet 20 Mg PO DAILY Lyrica (Pregabalin) 200 Mg Capsule 1 Cap PO BID Vitals/I & O Vital Sign - Last 24 Hours 11/25/19 11/25/19 11/25/19 11/25/19 11:16 12:29 13:41 15:00 Temp 98.2 97.9 98.2 97.9 Pulse 97 96 Resp 16 24 B/P (MAP) 146/74 (98) 125/74 (91) Pulse Ox 94 90 O2 Delivery Nasal Cannula Room Air Room Air Nasal Cannula O2 Flow Rate 2.0 2.0 11/25/19 11/25/19 11/25/19 11/25/19 17:37 18:45 19:00 20:00 Temp 99.1 99.1 Pulse 94 Resp 20 20 B/P (MAP) 142/82 (102) Pulse Ox 90 O2 Delivery Room Air Room Air Nasal Cannula Room Air O2 Flow Rate 2.0 11/25/19 11/25/19 11/25/19 11/25/19 20:00 21:00 22:26 23:00 Temp 98.0 98.0 Pulse 89 Resp 20 B/P (MAP) 135/71 (92) Pulse Ox 92 91 91 O2 Delivery Room Air Room Air Nasal Cannula Nasal Cannula O2 Flow Rate 2.0 2.0 11/26/19 11/26/19 11/26/19 11/26/19 00:03 01:03 03:00 06:28 Temp 98.9 98.9 Pulse 90 Resp 20 16 20 16 B/P (MAP) 137/80 (99) Pulse Ox 91 92 92 92 O2 Delivery Room Air Room Air Nasal Cannula Room Air O2 Flow Rate 2.0 11/26/19 11/26/19 07:37 07:52 Temp 98.3 98.3 Pulse 92 Resp 20 B/P (MAP) 155/87 (109) Pulse Ox 93 O2 Delivery Room Air Nasal Cannula O2 Flow Rate 2.0 Intake and Output 11/25/19 11/25/19 11/26/19 15:00 23:00 07:00 Intake Total 360 ml 60 ml 480 ml Balance 360 ml 60 ml 480 ml Justicifation of Admission Dx: Justifications for Admission: Justification of Admission Dx: Yes Cellulitis: Cellulitis JAVIER FARRAR MD Nov 26, 2019 08:11
[2019-11-26] MEDS: PREGABALIN 50 MG CAPSULE PO SCH ×2 (08:24→20:50)
[2019-11-26] MEDS: FUROSEMIDE 80 MG TABLET. PO SCH (08:24)
[2019-11-26] MEDS: FENOFIBRATE 54 MG TABLET. PO SCH (08:24)
[2019-11-26] MEDS: MAGNESIUM OXIDE 400 MG TABLET PO SCH ×2 (08:24→20:50)
[2019-11-26] MEDS: LACTOBACILLUS RHAMNOSUS GG 1 CAPSULE. PO SCH ×2 (08:24→20:48)
[2019-11-26] MEDS: INSULIN LISPRO 300 UNITS/3 ML VIAL. SQ SCH ×6 (08:28→18:04)
[2019-11-26 09:32] LABS: BASO % 0 % (0-3); EOS # 0.2 x10^3/uL (0.0-0.7); EOS % 4 % (0-3); HEMATOCRIT 41.3 % (36.0-47.0); HEMOGLOBIN 13.7 g/dL (12.0-15.5); LYMPH # 1.4 x10^3/uL (1.0-4.8); LYMPH % 20 % (24-48); MEAN CORPUSCULAR HEMOGLOBIN 30 pg (25-35); MEAN CORPUSCULAR HGB CONC 33 g/dL (31-37); MEAN CORPUSCULAR VOLUME 89 fL (79-100); MONO # 0.5 x10^3/uL (0.0-1.1); MONO % 7 % (0-9); NEUT # 4.8 x10^3/uL (1.8-7.7); NEUT % 70 % (31-73); PLATELET COUNT 189 x10^3/uL (140-400); RED BLOOD COUNT 4.62 x10^6/uL (3.50-5.40); WHITE BLOOD COUNT 6.9 x10^3/uL (4.0-11.0)
--- NOTE | 2019-11-26 11:00 | PDOC ---
PULMONARY PROGRESS NOTES DATE: 11/26/19 TIME: 10:58 Subjective MORE AROUSABLE WANTS TO GO HOME Vitals Vital Signs Date Time Temp Pulse Resp B/P (MAP) Pulse Ox O2 Delivery O2 Flow Rate FiO2 11/26/19 07:52 98.3 92 20 155/87 (109) 93 Nasal Cannula 2.0 98.3 General: Alert, No acute distress Lungs: Clear Cardiovascular: S1, S2 Abdomen: Soft, Non-tender, Other (obese) Extremities: Other (lymphedema/ertyhema) Labs Laboratory Tests Test 11/24/19 11:45 11/24/19 12:54 11/24/19 16:46 11/24/19 21:13 Glucose (Fingerstick) 66 mg/dL (70-99) 146 mg/dL (70-99) 198 mg/dL (70-99) 172 mg/dL (70-99) Test 11/25/19 05:50 11/25/19 07:39 11/25/19 12:08 11/25/19 20:38 Creatinine 0.9 mg/dL (0.6-1.0) Estimated GFR (Cockcroft-Gault) 65.0 Glucose (Fingerstick) 255 mg/dL (70-99) 226 mg/dL (70-99) 177 mg/dL (70-99) Test 11/26/19 07:24 11/26/19 09:00 Glucose (Fingerstick) 287 mg/dL (70-99) White Blood Count 6.9 x10^3/uL (4.0-11.0) Red Blood Count 4.62 x10^6/uL (3.50-5.40) Hemoglobin 13.7 g/dL (12.0-15.5) Hematocrit 41.3 % (36.0-47.0) Mean Corpuscular Volume 89 fL (79-100) Mean Corpuscular Hemoglobin 30 pg (25-35) Mean Corpuscular Hemoglobin Concent 33 g/dL (31-37) Red Cell Distribution Width 16.0 % (11.5-14.5) Platelet Count 189 x10^3/uL (140-400) Neutrophils (%) (Auto) 70 % (31-73) Lymphocytes (%) (Auto) 20 % (24-48) Monocytes (%) (Auto) 7 % (0-9) Eosinophils (%) (Auto) 4 % (0-3) Basophils (%) (Auto) 0 % (0-3) Neutrophils # (Auto) 4.8 x10^3/uL (1.8-7.7) Lymphocytes # (Auto) 1.4 x10^3/uL (1.0-4.8) Monocytes # (Auto) 0.5 x10^3/uL (0.0-1.1) Eosinophils # (Auto) 0.2 x10^3/uL (0.0-0.7) Basophils # (Auto) 0.0 x10^3/uL (0.0-0.2) Creatinine 0.8 mg/dL (0.6-1.0) Estimated GFR (Cockcroft-Gault) 74.5 Laboratory Tests Test 11/25/19 12:08 11/25/19 20:38 11/26/19 07:24 11/26/19 09:00 Glucose (Fingerstick) 226 mg/dL (70-99) 177 mg/dL (70-99) 287 mg/dL (70-99) White Blood Count 6.9 x10^3/uL (4.0-11.0) Red Blood Count 4.62 x10^6/uL (3.50-5.40) Hemoglobin 13.7 g/dL (12.0-15.5) Hematocrit 41.3 % (36.0-47.0) Mean Corpuscular Volume 89 fL (79-100) Mean Corpuscular Hemoglobin 30 pg (25-35) Mean Corpuscular Hemoglobin Concent 33 g/dL (31-37) Red Cell Distribution Width 16.0 % (11.5-14.5) Platelet Count 189 x10^3/uL (140-400) Neutrophils (%) (Auto) 70 % (31-73) Lymphocytes (%) (Auto) 20 % (24-48) Monocytes (%) (Auto) 7 % (0-9) Eosinophils (%) (Auto) 4 % (0-3) Basophils (%) (Auto) 0 % (0-3) Neutrophils # (Auto) 4.8 x10^3/uL (1.8-7.7) Lymphocytes # (Auto) 1.4 x10^3/uL (1.0-4.8) Monocytes # (Auto) 0.5 x10^3/uL (0.0-1.1) Eosinophils # (Auto) 0.2 x10^3/uL (0.0-0.7) Basophils # (Auto) 0.0 x10^3/uL (0.0-0.2) Creatinine 0.8 mg/dL (0.6-1.0) Estimated GFR (Cockcroft-Gault) 74.5 Medications Active Scripts Medications Dose Route/Sig Max Daily Dose Days Date Category Guaifenesin Ac Cough Syrup (Guaifenesin/Codeine Phosphate) 473 Ml Liquid 5 Ml PO PRN Q6HRS PRN 11/23/19 Reported Theophylline Anhydrous 300 Mg Tab.er.12h 1 Tab PO BID 30 11/23/19 Reported Trelegy Ellipta 100-62.5-25 (Fluticasone/Umeclidin/Vilanter) 1 Each Blst.w.dev 1 Each IH QDAY 11/23/19 Reported Fenofibrate (Fenofibrate,Micronized) 134 Mg Capsule 1 Cap PO DAILY 11/23/19 Reported Mirapex (Pramipexole Di-Hcl) 1 Mg Tablet 1 Mg PO QHS 11/23/19 Reported Augmentin 875-125 Tablet (Amoxicillin/Potassium Clav) 1 Each Tablet 1 Tab PO BID 10 11/23/19 Reported Tizanidine Hcl 4 Mg Tablet 1 Tab PO PRN Q8HRS PRN 11/23/19 Reported Alprazolam 1 Mg Tablet 1 Tab PO BID 11/23/19 Reported Hydrocodone-Apap 10-325 (Hydrocodone Bit/Acetaminophen) 1 Tab Tablet 1 Tab PO PRN Q6HRS PRN 11/23/19 Reported Ventolin Hfa Inhaler (Albuterol Sulfate) 18 Gm Hfa.aer.ad 2 Puff INH Q4HRS 09/19/18 Reported Levemir Flextouch (Insulin Detemir) 100 Unit/1 Ml Insuln.pen 60 Unit SQ HS 09/19/18 Reported Novolog Flexpen (Insulin Aspart) 100 Unit/1 Ml Insuln.pen 60 Unit SQ TIDWMEALS 09/19/18 Reported Latanoprost 2.5 Ml Drops 1 Drop EACHEYE QHS 09/19/18 Reported Magnesium (Magnesium Oxide) 400 Mg Capsule 1 Cap PO BID 09/18/18 Reported Vitamin D3 (Cholecalciferol (Vitamin D3)) 5,000 Unit Tablet 1 Tab PO DAILY 09/18/18 Reported Simvastatin 40 Mg Tablet 1 Tab PO QHS 09/18/18 Reported Xarelto (Rivaroxaban) 20 Mg Tablet 20 Mg PO DAILY 09/18/18 Reported Lyrica (Pregabalin) 200 Mg Capsule 1 Cap PO BID 09/18/18 Reported Proair Hfa (Albuterol Sulfate) 8.5 Gm Hfa.aer.ad 1 Puff INH PRN Q6HRS PRN 09/13/18 Rx Impression . 1. Highly suspected sleep apnea in a patient who is morbidly obese. Her current symptoms are also contributed by use of narcotics and benzodiazepines. She has high bicarbonate, suggesting she has chronic hypercapnia./ OHS 2. Recent hospitalization for cellulitis and lymphedema. Plan . 1. I have discussed with the patient regarding the need for sleep study. She is not interested in CPAP. I did offer to her nasal pillows with the CPAP. At this point, she is not interested. I did inform Dr. Rehman about it. 2. I would recommend to reduce the amount of narcotics and benzodiazepines. 3. Weight loss is advised. 4. she wants to go home with home health. Will ABG first before dc from pulmonary standpoint d/w CECELIA VERA MD Nov 26, 2019 11:00
[2019-11-26 11:06] LABS: BASE EXCESS ABG 3 mmol/L (-3-3); HCO3 ABG 29 mmol/L (21-28); PCO2 ABG 49 mmHg (35-46); PO2 ABG 57 mmHg (75-108); SAT O2 ABG 91 % (92-99)
[2019-11-26 11:08] LABS: FIO2 ABG 21
[2019-11-26 11:44] VITALS: BP 124/58
--- NOTE | 2019-11-26 12:12 | PDOC ---
Infectious Disease Note Subjective: Subjective Patient feels better Eager for discharge home today Denies fever, nausea, vomiting, worsening shortness of breath, diarrhea, abdominal pain, symptoms Vital Signs: Vital Signs Vital Signs Date Time Temp Pulse Resp B/P (MAP) Pulse Ox O2 Delivery O2 Flow Rate FiO2 11/26/19 11:44 98.5 93 20 124/58 (80) 92 Nasal Cannula 2.0 98.5 Physical Exam: PHYSICAL EXAM GENERAL: Alert and oriented x 3 female, lying in bed comfortably, in no acute distress, was upright, talking to phone with insurance company earlier. HEENT: Normocephalic, atraumatic, anicteric. No thrush. NECK: Supple, no JVD. LUNGS: Clear bilaterally. No wheezing. HEART: S1, S2. No gallops or murmurs. ABDOMEN: Soft, obese. Bowel sounds present, nontender, nondistended. EXTREMITIES: Bilateral lymphedema, left lower extremity redness, warmth swelling and pain. Improving, no open wounds noted. DERMATOLOGIC: Warm, dry. No generalized rash. NEUROLOGIC: Alert and oriented x 3, grossly nonfocal. PSYCHIATRIC: Cooperative, appropriate mood and affect. Medications: Inpatient Meds: Current Medications Medications (Trade) Dose Ordered Sig/Migdalia Start Time Stop Time Status Last Admin Dose Admin Acetaminophen/ Hydrocodone Bitart (Lortab 10/325) 1 tab Q6HRS 11/25/19 18:00 11/26/19 06:28 1 TAB Albuterol Sulfate (Ventolin Neb Soln) 2.5 mg PRN Q6HRS PRN 11/23/19 14:45 11/25/19 22:25 2.5 MG Alprazolam (Xanax) 1 mg PRN BID PRN 11/23/19 23:15 11/25/19 21:33 1 MG Cefazolin Sodium/ Dextrose 50 ml @ 100 mls/hr Q8HRS 11/24/19 14:00 11/25/19 13:41 DC 11/24/19 21:45 100 MLS/HR Ceftriaxone Sodium (Rocephin) 1 gm 1X ONCE 11/23/19 08:45 11/23/19 08:46 DC 11/23/19 10:50 1 GM Cephalexin HCl (Keflex) 500 mg Q6HRS 11/25/19 18:00 11/26/19 06:27 500 MG Dextrose (Dextrose 50%-Water Syringe) 12.5 gm PRN Q15MIN PRN 11/23/19 15:30 Fenofibrate (Lofibra) 54 mg DAILY 11/24/19 09:00 11/26/19 08:24 54 MG Fentanyl Citrate (Fentanyl 2ml Vial) 50 mcg PRN Q2HR PRN 11/23/19 15:30 11/25/19 14:51 DC 11/23/19 22:32 50 MCG Furosemide (Lasix) 80 mg DAILY 11/24/19 09:00 11/26/19 08:24 80 MG Insulin Glargine (Lantus Syringe) 55 unit QHS 11/24/19 21:00 11/25/19 21:19 55 UNIT Insulin Human Lispro (HumaLOG) 0-9 UNITS TIDWMEALS 11/23/19 17:00 11/26/19 08:28 7 UNITS Lactobacillus Rhamnosus (Culturelle) 1 cap BID 11/24/19 21:00 11/26/19 08:24 1 CAP Latanoprost (Xalatan) 1 drop QHS 11/23/19 21:00 11/25/19 21:06 1 DROP Lorazepam (Ativan) 1 mg PRN BID PRN 11/23/19 23:00 UNV Magnesium Oxide (Magnesium Oxide) 400 mg BID 11/23/19 21:00 11/26/19 08:24 400 MG Nicotine (Nicoderm Cq 21mg) 1 patch PRN DAILY PRN 11/23/19 15:30 11/26/19 00:05 1 PATCH Oxycodone/ Acetaminophen (Percocet 5/325) 1 tab PRN Q4HRS PRN 11/25/19 18:30 11/25/19 20:00 1 TAB Pregabalin (Lyrica) 200 mg BID 11/23/19 21:00 11/26/19 08:24 200 MG Rivaroxaban (Xarelto) 20 mg DAILYWSUP 11/23/19 17:00 11/25/19 17:37 20 MG Simvastatin (Zocor) 40 mg QHS 11/23/19 21:00 11/25/19 21:06 40 MG Sodium Chloride 1,000 ml @ 1,000 mls/hr 1X ONCE 8/10/20 10:30 11/23/19 11:29 DC 11/23/19 10:50 1,000 MLS/HR Vancomycin HCl (Vanco Per Pharmacy) 1 each PRN DAILY PRN 11/23/19 15:30 11/24/19 13:30 DC 11/24/19 12:06 1 EACH Vancomycin HCl (Vancomycin Trough Level) 1 each 1X ONCE 11/25/19 05:30 11/25/19 05:31 Cancel Vancomycin HCl 2 gm/Sodium Chloride 500 ml @ 250 mls/hr Q12H 11/24/19 06:00 11/24/19 13:28 DC 11/24/19 05:47 250 MLS/HR Labs: Lab Laboratory Tests Test 11/25/19 20:38 11/26/19 07:24 11/26/19 09:00 11/26/19 10:45 Glucose (Fingerstick) 177 mg/dL (70-99) 287 mg/dL (70-99) White Blood Count 6.9 x10^3/uL (4.0-11.0) Red Blood Count 4.62 x10^6/uL (3.50-5.40) Hemoglobin 13.7 g/dL (12.0-15.5) Hematocrit 41.3 % (36.0-47.0) Mean Corpuscular Volume 89 fL (79-100) Mean Corpuscular Hemoglobin 30 pg (25-35) Mean Corpuscular Hemoglobin Concent 33 g/dL (31-37) Red Cell Distribution Width 16.0 % (11.5-14.5) Platelet Count 189 x10^3/uL (140-400) Neutrophils (%) (Auto) 70 % (31-73) Lymphocytes (%) (Auto) 20 % (24-48) Monocytes (%) (Auto) 7 % (0-9) Eosinophils (%) (Auto) 4 % (0-3) Basophils (%) (Auto) 0 % (0-3) Neutrophils # (Auto) 4.8 x10^3/uL (1.8-7.7) Lymphocytes # (Auto) 1.4 x10^3/uL (1.0-4.8) Monocytes # (Auto) 0.5 x10^3/uL (0.0-1.1) Eosinophils # (Auto) 0.2 x10^3/uL (0.0-0.7) Basophils # (Auto) 0.0 x10^3/uL (0.0-0.2) Creatinine 0.8 mg/dL (0.6-1.0) Estimated GFR (Cockcroft-Gault) 74.5 O2 Saturation 91 % (92-99) Arterial Blood pH 7.39 (7.35-7.45) Arterial Blood pCO2 at Patient Temp 49 mmHg (35-46) Arterial Blood pO2 at Patient Temp 57 mmHg (75-108) Arterial Blood HCO3 29 mmol/L (21-28) Arterial Blood Base Excess 3 mmol/L (-3-3) FiO2 21 Test 11/26/19 11:02 Glucose (Fingerstick) 103 mg/dL (70-99) Objective: Assessment: 1. Left lower extremity cellulitis with underlying chronic lymphedema. 2. Febrile illness prior to admission. 3. Failed outpatient p.o. antibiotics. 4. History of deep venous thrombosis. 5. Morbid obesity. 6. Tobacco use disorder. 7. Anxiety. Plan: Plan of Care Patient refused for IV antibiotics yesterday Changed to p.o. Keflex Okay to discharge on p.o. Keflex prescription in chart Probiotics Elevate left lower extremity. Optimal lymphedema control. Lymphedema clinic following Encouraged to quit smoking Follow-up with primary care clinic MARILYN CAPPS MD Nov 26, 2019 12:12
[2019-11-26 13:08] LABS: ALBUMIN 2.7 g/dL (3.4-5.0); ALBUMIN/GLOBULIN RATIO 0.8 (1.0-1.7); CREATININE 0.9 mg/dL (0.6-1.0); POTASSIUM 3.9 mmol/L (3.5-5.1); TOTAL BILIRUBIN 0.3 mg/dL (0.2-1.0); TOTAL PROTEIN 6.2 g/dL (6.4-8.2)
[2019-11-26 15:46] VITALS: BP 123/66
--- NOTE | 2019-11-26 16:10 | NUR ---
ALYSHA following. Reviewed chart and discussed with RN. Discharge plan remains home with [facility]. Plan is for discharge home today. Candace from [facility] notified. ABG not below 55 so ALYSHA requested 6 min walk. ALYSHA phoned and faxed results from the 6 min walk as well as script and clinicals to [facility] for home 02 setup, , (fax). ALYSHA waiting on final dc orders. Addendum: 11/26/19 at 1630 by ALDA ENCARNACION delivered 02 tank to pt's room as pt qualifies and ALYSHA got approval from [facility].
[2019-11-26] MEDS: RIVAROXABAN 10 MG TABLET. PO SCH (18:01)
[2019-11-26 19:00] VITALS: BP 126/73
[2019-11-26] MEDS: ALPRAZolam 1 MG TABLET PO PRN (20:48)
[2019-11-26] MEDS: LATANOPROST 0.005% OPHTH SOLUTION 2.5ML BOTTLE. OU SCH (20:48)
[2019-11-26] MEDS: SIMVASTATIN 40 MG TABLET. PO SCH (20:48)
[2019-11-26] MEDS: INSULIN GLARGINE SYRINGE. SQ SCH (20:56)
[2019-11-26 23:00] VITALS: BP 118/80
[2019-11-26] MEDS: ALBUTEROL SULFATE 2.5 MG/3 ML NEBU. INH PRN (23:15)
[2019-11-27 03:00] VITALS: BP 132/76
[2019-11-27] MEDS: HYDROcodone/APAP 10/325 1 TAB TABLET PO SCH ×3 (05:29→18:00)
[2019-11-27] MEDS: CEPHALEXIN 250 MG CAPSULE. PO SCH (05:29)
--- NOTE | 2019-11-27 06:16 | NUR ---
Pt. noncompliant most of the night. Refused to wear her oxygen at most times, refused to elevated legs and ate and drank most of the night.
[2019-11-27 07:00] VITALS: BP 122/85
--- NOTE | 2019-11-27 08:46 | PDOC ---
PROGRESS NOTES Date of Service: DATE: 11/27/19 TIME: 08:46 Chief Complaint Chief Complaint VTE Prophylaxis Ordered VTE Prophylaxis Devices: Yes VTE Pharmacological Prophylaxi: Yes impression Assessment/Plan acute left left pain, new cellulitis morbid obesity, BMI 60, ie super morbid obesity tobacco use disorder, ongoing anxiety disorder lymphedema diabetes, which may compromise healing on CT 2018 Pulmonary trunk is dilated suggesting pulmonary arterial hypert ension. ON RECENT ECHO 2018 mild to moderate concentric left ventricular hypertrophy. LIKELY OBESITY,// HYPOVENTILATION SYNDROME hypercapnic resp failure , MOD-SEVERE Degenerative disc disease are seen throughout the lumbar spine. These findings result in very mild central spinal canal stenosis at L2-3 and L5-S1. Mild left neural foraminal stenosis is seen at L2-3. IN 11/26 STATES PAIN IN LEFT ANKLE TOO SEVERE TO WALK today, has DDD L/S d/w rn CONSULT PULM plan venous doppler both legs ABG first before dc from pulmonary standpoint chg keflex po on D/C cxr today ARTERIAL STUDY BOTH LEGS X RAY LEFT FOOT AND ANKLE pt/ot Justicifation of Admission Dx: Justicifation of Admission Dx: Justifications for Admission: Justification of Admission Dx: Yes Cellulitis: Cellulitis History of Present Illness History of Present Illness History of Present Illness History of Present Illness Ms. Glaser, is a 54 year old female who presents with left lower leg cellulitis. new severe acute pain 810, 10 to touch, to the ankle and lower leg, Patient states that she has chronic lymphedema, present since her 20's and she says it runs in her family. . She does not typically have any redness in her leg just hyperpigmentation. opver 4 days she is developed swelling, redness, and heat to the leg. She states that it is significantly painful. She has never had cellulitis previously. Her primary care doctor started her on antibiotics, however it is only gotten worse since then. She states she is having nausea and fevers She was unsure of many details of her medical history, but has never had cellulitis, Vitals Vitals Vital Signs Date Time Temp Pulse Resp B/P (MAP) Pulse Ox O2 Delivery O2 Flow Rate FiO2 11/27/19 07:00 98.1 88 22 122/85 (97) 90 Nasal Cannula 2.0 98.1 Physical Exam Physical Exam GENERAL: Alert and oriented x 3 female, lying in bed comfortably, in no acute distress, was upright, talking to phone with insurance company earlier. HEENT: Normocephalic, atraumatic, anicteric. No thrush. NECK: Supple, no JVD. LUNGS: Clear bilaterally. No wheezing. HEART: S1, S2. No gallops or murmurs. ABDOMEN: Soft, obese. Bowel sounds present, nontender, nondistended. EXTREMITIES: Bilateral lymphedema, left lower extremity redness, warmth swelling and pain. Improving, no open wounds noted. painful left ankle to touch DERMATOLOGIC: Warm, dry. No generalized rash. NEUROLOGIC: Alert and oriented x 3, grossly nonfocal. PSYCHIATRIC: Cooperative, appropriate mood and affect. General: Alert, Oriented X3, Cooperative, No acute distress, mild distress Heart: Regular rate Lungs: Clear Abdomen: Normal bowel sounds, Soft, No tenderness Extremities: No clubbing, No cyanosis, No edema, Normal pulses, Other ( Hyperpigmentation and cobbling of the lower extremities. Left lower extremity: Erythema, induration without fluctuance, warmth consistent with cellulitis) Skin: No breakdown Labs LABS * L LE Pain Quality * Aching * Pressure * Radiating * Stabbing Pain Intervention * Positioning Therapeutic Activity * Kinesiotape still intact to R LE for decompression and facilitate edema reduction. Patient tolerating well. Some tails present and those trimmed. Discussed continued elevation. There is no weeping or serous drainage from LEs. L LE continues to be very painful; nsg aware. Reviewed LE lymphedema exercises. Functional Limitations ADLs Comments * Pain, edema Patient Stated Goal * To reduce edema Rehab Potential to Achieve Goals * Fair Learning Preferences * One-on-One Instruction * Written * Demonstration Factors Facilitating Goal Achievement * Available resources Problem List * Edema Pt/caregiver agree with plan of care * Yes Patient condition at conclusion of therapy * Pt in bed * Call light in reach * Phone in reach * PtIn no apparent distress * Pt denies further needs Communicated Patient Care With (Name, Title) * MERCEDEZ Price Goal 6 * Lymphedema Goals: 1. Patient will verb understanding of long-term management strategies for edema by discharge. 2. Patient will tolerate compression to bilateral LE by discharge 3. Patient will verb/demo understanding of LE exercises by discharge. Skilled interventions required to achieve goals * Edema management Discharge Recommendations * Home with Home Health Discharge Recommendation Comments * Resume Services; Home Health Lymphedema Therapy Laboratory Tests Test 11/26/19 09:00 11/26/19 10:45 11/26/19 11:02 11/26/19 16:48 White Blood Count 6.9 x10^3/uL (4.0-11.0) Red Blood Count 4.62 x10^6/uL (3.50-5.40) Hemoglobin 13.7 g/dL (12.0-15.5) Hematocrit 41.3 % (36.0-47.0) Mean Corpuscular Volume 89 fL (79-100) Mean Corpuscular Hemoglobin 30 pg (25-35) Mean Corpuscular Hemoglobin Concent 33 g/dL (31-37) Red Cell Distribution Width 16.0 % (11.5-14.5) Platelet Count 189 x10^3/uL (140-400) Neutrophils (%) (Auto) 70 % (31-73) Lymphocytes (%) (Auto) 20 % (24-48) Monocytes (%) (Auto) 7 % (0-9) Eosinophils (%) (Auto) 4 % (0-3) Basophils (%) (Auto) 0 % (0-3) Neutrophils # (Auto) 4.8 x10^3/uL (1.8-7.7) Lymphocytes # (Auto) 1.4 x10^3/uL (1.0-4.8) Monocytes # (Auto) 0.5 x10^3/uL (0.0-1.1) Eosinophils # (Auto) 0.2 x10^3/uL (0.0-0.7) Basophils # (Auto) 0.0 x10^3/uL (0.0-0.2) Sodium Level 140 mmol/L (136-145) Potassium Level 3.9 mmol/L (3.5-5.1) Chloride Level 101 mmol/L (98-107) Carbon Dioxide Level 32 mmol/L (21-32) Anion Gap 7 (6-14) Blood Urea Nitrogen 23 mg/dL (7-20) Creatinine 0.9 mg/dL (0.6-1.0) Estimated GFR (Cockcroft-Gault) 65.0 BUN/Creatinine Ratio 26 (6-20) Glucose Level 223 mg/dL (70-99) Calcium Level 8.0 mg/dL (8.5-10.1) Total Bilirubin 0.3 mg/dL (0.2-1.0) Aspartate Amino Transf (AST/SGOT) 23 U/L (15-37) Alanine Aminotransferase (ALT/SGPT) 39 U/L (14-59) Alkaline Phosphatase 66 U/L (46-116) Total Protein 6.2 g/dL (6.4-8.2) Albumin 2.7 g/dL (3.4-5.0) Albumin/Globulin Ratio 0.8 (1.0-1.7) O2 Saturation 91 % (92-99) Arterial Blood pH 7.39 (7.35-7.45) Arterial Blood pCO2 at Patient Temp 49 mmHg (35-46) Arterial Blood pO2 at Patient Temp 57 mmHg (75-108) Arterial Blood HCO3 29 mmol/L (21-28) Arterial Blood Base Excess 3 mmol/L (-3-3) FiO2 21 Glucose (Fingerstick) 103 mg/dL (70-99) 228 mg/dL (70-99) Test 11/26/19 21:21 11/27/19 07:16 Glucose (Fingerstick) 285 mg/dL (70-99) 291 mg/dL (70-99) Assessment and Plan Assessmemt and Plan Problems Medical Problems: (1) Cellulitis Status: Acute Comment Review of Relevant I have reviewed the following items nakia (where applicable) has been applied. Labs Laboratory Tests Test 11/25/19 12:08 11/25/19 20:38 11/26/19 07:24 11/26/19 09:00 Glucose (Fingerstick) 226 mg/dL (70-99) 177 mg/dL (70-99) 287 mg/dL (70-99) White Blood Count 6.9 x10^3/uL (4.0-11.0) Red Blood Count 4.62 x10^6/uL (3.50-5.40) Hemoglobin 13.7 g/dL (12.0-15.5) Hematocrit 41.3 % (36.0-47.0) Mean Corpuscular Volume 89 fL (79-100) Mean Corpuscular Hemoglobin 30 pg (25-35) Mean Corpuscular Hemoglobin Concent 33 g/dL (31-37) Red Cell Distribution Width 16.0 % (11.5-14.5) Platelet Count 189 x10^3/uL (140-400) Neutrophils (%) (Auto) 70 % (31-73) Lymphocytes (%) (Auto) 20 % (24-48) Monocytes (%) (Auto) 7 % (0-9) Eosinophils (%) (Auto) 4 % (0-3) Basophils (%) (Auto) 0 % (0-3) Neutrophils # (Auto) 4.8 x10^3/uL (1.8-7.7) Lymphocytes # (Auto) 1.4 x10^3/uL (1.0-4.8) Monocytes # (Auto) 0.5 x10^3/uL (0.0-1.1) Eosinophils # (Auto) 0.2 x10^3/uL (0.0-0.7) Basophils # (Auto) 0.0 x10^3/uL (0.0-0.2) Sodium Level 140 mmol/L (136-145) Potassium Level 3.9 mmol/L (3.5-5.1) Chloride Level 101 mmol/L (98-107) Carbon Dioxide Level 32 mmol/L (21-32) Anion Gap 7 (6-14) Blood Urea Nitrogen 23 mg/dL (7-20) Creatinine 0.9 mg/dL (0.6-1.0) Estimated GFR (Cockcroft-Gault) 65.0 BUN/Creatinine Ratio 26 (6-20) Glucose Level 223 mg/dL (70-99) Calcium Level 8.0 mg/dL (8.5-10.1) Total Bilirubin 0.3 mg/dL (0.2-1.0) Aspartate Amino Transf (AST/SGOT) 23 U/L (15-37) Alanine Aminotransferase (ALT/SGPT) 39 U/L (14-59) Alkaline Phosphatase 66 U/L (46-116) Total Protein 6.2 g/dL (6.4-8.2) Albumin 2.7 g/dL (3.4-5.0) Albumin/Globulin Ratio 0.8 (1.0-1.7) Test 11/26/19 10:45 11/26/19 11:02 11/26/19 16:48 11/26/19 21:21 O2 Saturation 91 % (92-99) Arterial Blood pH 7.39 (7.35-7.45) Arterial Blood pCO2 at Patient Temp 49 mmHg (35-46) Arterial Blood pO2 at Patient Temp 57 mmHg (75-108) Arterial Blood HCO3 29 mmol/L (21-28) Arterial Blood Base Excess 3 mmol/L (-3-3) FiO2 21 Glucose (Fingerstick) 103 mg/dL (70-99) 228 mg/dL (70-99) 285 mg/dL (70-99) Test 11/27/19 07:16 Glucose (Fingerstick) 291 mg/dL (70-99) Laboratory Tests Test 11/26/19 09:00 11/26/19 10:45 11/26/19 11:02 11/26/19 16:48 White Blood Count 6.9 x10^3/uL (4.0-11.0) Red Blood Count 4.62 x10^6/uL (3.50-5.40) Hemoglobin 13.7 g/dL (12.0-15.5) Hematocrit 41.3 % (36.0-47.0) Mean Corpuscular Volume 89 fL (79-100) Mean Corpuscular Hemoglobin 30 pg (25-35) Mean Corpuscular Hemoglobin Concent 33 g/dL (31-37) Red Cell Distribution Width 16.0 % (11.5-14.5) Platelet Count 189 x10^3/uL (140-400) Neutrophils (%) (Auto) 70 % (31-73) Lymphocytes (%) (Auto) 20 % (24-48) Monocytes (%) (Auto) 7 % (0-9) Eosinophils (%) (Auto) 4 % (0-3) Basophils (%) (Auto) 0 % (0-3) Neutrophils # (Auto) 4.8 x10^3/uL (1.8-7.7) Lymphocytes # (Auto) 1.4 x10^3/uL (1.0-4.8) Monocytes # (Auto) 0.5 x10^3/uL (0.0-1.1) Eosinophils # (Auto) 0.2 x10^3/uL (0.0-0.7) Basophils # (Auto) 0.0 x10^3/uL (0.0-0.2) Sodium Level 140 mmol/L (136-145) Potassium Level 3.9 mmol/L (3.5-5.1) Chloride Level 101 mmol/L (98-107) Carbon Dioxide Level 32 mmol/L (21-32) Anion Gap 7 (6-14) Blood Urea Nitrogen 23 mg/dL (7-20) Creatinine 0.9 mg/dL (0.6-1.0) Estimated GFR (Cockcroft-Gault) 65.0 BUN/Creatinine Ratio 26 (6-20) Glucose Level 223 mg/dL (70-99) Calcium Level 8.0 mg/dL (8.5-10.1) Total Bilirubin 0.3 mg/dL (0.2-1.0) Aspartate Amino Transf (AST/SGOT) 23 U/L (15-37) Alanine Aminotransferase (ALT/SGPT) 39 U/L (14-59) Alkaline Phosphatase 66 U/L (46-116) Total Protein 6.2 g/dL (6.4-8.2) Albumin 2.7 g/dL (3.4-5.0) Albumin/Globulin Ratio 0.8 (1.0-1.7) O2 Saturation 91 % (92-99) Arterial Blood pH 7.39 (7.35-7.45) Arterial Blood pCO2 at Patient Temp 49 mmHg (35-46) Arterial Blood pO2 at Patient Temp 57 mmHg (75-108) Arterial Blood HCO3 29 mmol/L (21-28) Arterial Blood Base Excess 3 mmol/L (-3-3) FiO2 21 Glucose (Fingerstick) 103 mg/dL (70-99) 228 mg/dL (70-99) Test 11/26/19 21:21 11/27/19 07:16 Glucose (Fingerstick) 285 mg/dL (70-99) 291 mg/dL (70-99) Microbiology 11/23/19 Blood Culture - Preliminary, Resulted NO GROWTH AFTER 3 DAYS Medications Current Medications Ceftriaxone Sodium (Rocephin) 1 gm 1X ONCE IVP Last administered on 11/23/19at 10:50; Start 11/23/19 at 08:45; Stop 11/23/19 at 08:46; Status DC Sodium Chloride 1,000 ml @ 1,000 mls/hr 1X ONCE IV Last administered on 11/23/19 10:50; Start 11/23/19 at 10:30; Stop 11/23/19 at 11:29; Status DC Oxycodone/ Acetaminophen (Percocet 5/325) 1 tab 1X ONCE PO Last administered on 11/23/19 11:14; Start 11/23/19 at 11:15; Stop 11/23/19 at 11:16; Status DC Albuterol Sulfate (Ventolin Neb Soln) 2.5 mg PRN Q6HRS PRN INH SHORTNESS OF BREATH Last administered on 11/26/19 23:15; Start 11/23/19 at 14:45 Fenofibrate (Lofibra) 54 mg DAILY PO Last administered on 11/26/19 08:24; Start 11/24/19 at 09:00 Latanoprost (Xalatan) 1 drop QHS OU Last administered on 11/26/19 20:48; Start 11/23/19 at 21:00 Simvastatin (Zocor) 40 mg QHS PO Last administered on 11/26/19 20:48; Start 11/23/19 at 21:00 Insulin Human Lispro (HumaLOG) 60 units TIDWMEALS SQ Last administered on 11/26/19 18:04; Start 11/23/19 at 17:00 Insulin Glargine (Lantus Syringe) 60 unit QHS SQ Last administered on 11/23/19 22:21; Start 11/23/19 at 21:00; Stop 11/24/19 at 13:09; Status DC Magnesium Oxide (Magnesium Oxide) 400 mg BID PO Last administered on 11/26/19 20:50; Start 11/23/19 at 21:00 Pregabalin (Lyrica) 200 mg BID PO Last administered on 11/26/19 20:50; Start 11/23/19 at 21:00 Rivaroxaban (Xarelto) 20 mg DAILYWSUP PO Last administered on 11/26/19 18:01; Start 11/23/19 at 17:00 Oxycodone/ Acetaminophen (Percocet 5/325) 1 tab PRN Q4HRS PRN PO MODERATE PAIN Last administered on 11/24/19 21:47; Start 11/23/19 at 15:30; Stop 11/25/19 at 11:51; Status DC Fentanyl Citrate (Fentanyl 2ml Vial) 50 mcg PRN Q2HR PRN IVP MODERATE TO SEVERE PAIN Last administered on 11/23/19at 22:32; Start 11/23/19 at 15:30; Stop 11/25/19 at 14:51; Status DC Nicotine (Nicoderm Cq 21mg) 1 patch PRN DAILY PRN TD SMOKING CESSATION Last administered on 11/26/19at 00:05; Start 11/23/19 at 15:30 Furosemide (Lasix) 60 mg 1X ONCE PO Last administered on 11/23/19at 17:41; Start 11/23/19 at 15:30; Stop 11/23/19 at 15:46; Status DC Furosemide (Lasix) 80 mg DAILY PO Last administered on 11/26/19at 08:24; Start 11/24/19 at 09:00 Insulin Human Lispro (HumaLOG) 0-9 UNITS TIDWMEALS SQ Last administered on 11/26/19at 18:04; Start 11/23/19 at 17:00 Dextrose (Dextrose 50%-Water Syringe) 12.5 gm PRN Q15MIN PRN IV SEE COMMENTS; Start 11/23/19 at 15:30 Vancomycin HCl (Vanco Per Pharmacy) 1 each PRN DAILY PRN MC SEE COMMENTS Last administered on 11/24/19at 12:06; Start 11/23/19 at 15:30; Stop 11/24/19 at 13:30; Status DC Vancomycin HCl 2 gm/Sodium Chloride 500 ml @ 250 mls/hr 1X ONCE IV Last administered on 11/23/19at 17:42; Start 11/23/19 at 16:00; Stop 11/23/19 at 17:59; Status DC Vancomycin HCl 2 gm/Sodium Chloride 500 ml @ 250 mls/hr Q12H IV Last administered on 11/24/19at 05:47; Start 11/24/19 at 06:00; Stop 11/24/19 at 13:28; Status DC Vancomycin HCl (Vancomycin Trough Level) 1 each 1X ONCE MC ; Start 11/25/19 at 05:30; Stop 11/25/19 at 05:31; Status Cancel Acetaminophen/ Hydrocodone Bitart (Lortab 10/325) 1 tab PRN Q6HRS PRN PO SEVERE PAIN Last administered on 11/25/19at 12:29; Start 11/23/19 at 23:00; Stop 11/25/19 at 14:57; Status DC Lorazepam (Ativan) 1 mg PRN BID PRN PO ANXIETY / AGITATION; Start 11/23/19 at 23:00; Status UNV Alprazolam (Xanax) 1 mg PRN BID PRN PO ANXIETY / AGITATION Last administered on 11/26/19at 20:48; Start 11/23/19 at 23:15 Lactobacillus Rhamnosus (Culturelle) 1 cap BID PO Last administered on 11/26/19at 20:48; Start 11/24/19 at 21:00 Insulin Glargine (Lantus Syringe) 55 unit QHS SQ Last administered on 11/26/19at 20:56; Start 11/24/19 at 21:00 Cefazolin Sodium/ Dextrose 50 ml @ 100 mls/hr Q8HRS IV Last administered on 11/24/19at 21:45; Start 11/24/19 at 14:00; Stop 11/25/19 at 13:41; Status DC Cephalexin HCl (Keflex) 500 mg QID PO ; Start 11/25/19 at 17:00; Stop 11/25/19 at 16:56; Status DC Acetaminophen/ Hydrocodone Bitart (Lortab 10/325) 1 tab Q6HRS PO Last administered on 11/27/19at 05:29; Start 11/25/19 at 18:00 Cephalexin HCl (Keflex) 500 mg Q6HRS PO Last administered on 11/27/19at 05:29; Start 11/25/19 at 18:00 Oxycodone/ Acetaminophen (Percocet 5/325) 1 tab PRN Q4HRS PRN PO PAIN Last administered on 11/25/19at 20:00; Start 11/25/19 at 18:30 Active Scripts Active Proair Hfa (Albuterol Sulfate) 8.5 Gm Hfa.aer.ad 1 Puff INH PRN Q6HRS PRN Reported Guaifenesin Ac Cough Syrup (Guaifenesin/Codeine Phosphate) 473 Ml Liquid 5 Ml PO PRN Q6HRS PRN Theophylline Anhydrous 300 Mg Tab.er.12h 1 Tab PO BID 30 Days Trelegy Ellipta 100-62.5-25 (Fluticasone/Umeclidin/Vilanter) 1 Each Blst.w.dev 1 Each IH QDAY Fenofibrate (Fenofibrate,Micronized) 134 Mg Capsule 1 Cap PO DAILY Mirapex (Pramipexole Di-Hcl) 1 Mg Tablet 1 Mg PO QHS Augmentin 875-125 Tablet (Amoxicillin/Potassium Clav) 1 Each Tablet 1 Tab PO BID 10 Days Tizanidine Hcl 4 Mg Tablet 1 Tab PO PRN Q8HRS PRN Alprazolam 1 Mg Tablet 1 Tab PO BID Hydrocodone-Apap 10-325 (Hydrocodone Bit/Acetaminophen) 1 Tab Tablet 1 Tab PO PRN Q6HRS PRN Ventolin Hfa Inhaler (Albuterol Sulfate) 18 Gm Hfa.aer.ad 2 Puff INH Q4HRS Levemir Flextouch (Insulin Detemir) 100 Unit/1 Ml Insuln.pen 60 Unit SQ HS Novolog Flexpen (Insulin Aspart) 100 Unit/1 Ml Insuln.pen 60 Unit SQ TIDWMEALS Latanoprost 2.5 Ml Drops 1 Drop EACHEYE QHS Magnesium (Magnesium Oxide) 400 Mg Capsule 1 Cap PO BID Vitamin D3 (Cholecalciferol (Vitamin D3)) 5,000 Unit Tablet 1 Tab PO DAILY Simvastatin 40 Mg Tablet 1 Tab PO QHS Xarelto (Rivaroxaban) 20 Mg Tablet 20 Mg PO DAILY Lyrica (Pregabalin) 200 Mg Capsule 1 Cap PO BID Vitals/I & O Vital Sign - Last 24 Hours 11/26/19 11/26/19 11/26/19 11/26/19 11:44 12:15 13:15 15:46 Temp 98.5 98.8 98.5 98.8 Pulse 93 94 Resp 20 20 B/P (MAP) 124/58 (80) 123/66 (85) Pulse Ox 92 93 O2 Delivery Nasal Cannula Room Air Room Air Nasal Cannula O2 Flow Rate 2.0 2.0 11/26/19 11/26/19 11/26/19 11/26/19 18:01 19:00 19:06 19:10 Temp 98.9 98.9 Pulse 102 Resp 20 B/P (MAP) 126/73 (90) Pulse Ox 90 O2 Delivery Room Air Room Air Room Air 11/26/19 11/26/19 11/26/19 11/27/19 23:00 23:16 23:32 00:29 Temp 99.2 99.2 Pulse 90 Resp 18 16 20 B/P (MAP) 118/80 (93) Pulse Ox 92 96 O2 Delivery Nasal Cannula Room Air Room Air O2 Flow Rate 2.0 11/27/19 11/27/19 11/27/19 11/27/19 03:00 05:29 06:19 07:00 Temp 97.8 98.1 97.8 98.1 Pulse 87 88 Resp 20 21 22 22 B/P (MAP) 132/76 (94) 122/85 (97) Pulse Ox 90 90 O2 Delivery Room Air Room Air Nasal Cannula O2 Flow Rate 2.0 Intake and Output 11/26/19 11/26/19 11/27/19 15:00 23:00 07:00 Intake Total 520 ml 400 ml 2480 ml Balance 520 ml 400 ml 2480 ml Justicifation of Admission Dx: Justifications for Admission: Justification of Admission Dx: Yes Cellulitis: Cellulitis JAVIER FARRAR MD Nov 27, 2019 08:46
[2019-11-27] MEDS: FENOFIBRATE 54 MG TABLET. PO SCH (08:59)
[2019-11-27] MEDS: FUROSEMIDE 80 MG TABLET. PO SCH (08:59)
[2019-11-27] MEDS: MAGNESIUM OXIDE 400 MG TABLET PO SCH ×2 (08:59→21:32)
[2019-11-27] MEDS: LACTOBACILLUS RHAMNOSUS GG 1 CAPSULE. PO SCH ×2 (08:59→21:32)
[2019-11-27] MEDS: oxyCODONE/APAP 5/325 1 TAB TABLET PO PRN ×2 (09:00→19:26)
[2019-11-27] MEDS: PREGABALIN 50 MG CAPSULE PO SCH ×2 (09:00→21:32)
[2019-11-27] MEDS: INSULIN LISPRO 300 UNITS/3 ML VIAL. SQ SCH ×6 (09:05→18:07)
--- NOTE | 2019-11-27 09:37 | PDOC ---
PULMONARY PROGRESS NOTES DATE: 11/27/19 TIME: 09:34 Subjective intermittently dose off on nasal canula Vitals Vital Signs Date Time Temp Pulse Resp B/P (MAP) Pulse Ox O2 Delivery O2 Flow Rate FiO2 11/27/19 09:00 Room Air 11/27/19 07:00 98.1 88 22 122/85 (97) 90 2.0 98.1 General: No acute distress Lungs: Clear Cardiovascular: S1, S2 Abdomen: Soft, Non-tender, Other (obese) Extremities: Other (lymphedema/ertyhema) Skin: Warm Labs Laboratory Tests Test 11/25/19 12:08 11/25/19 20:38 11/26/19 07:24 11/26/19 09:00 Glucose (Fingerstick) 226 mg/dL (70-99) 177 mg/dL (70-99) 287 mg/dL (70-99) White Blood Count 6.9 x10^3/uL (4.0-11.0) Red Blood Count 4.62 x10^6/uL (3.50-5.40) Hemoglobin 13.7 g/dL (12.0-15.5) Hematocrit 41.3 % (36.0-47.0) Mean Corpuscular Volume 89 fL (79-100) Mean Corpuscular Hemoglobin 30 pg (25-35) Mean Corpuscular Hemoglobin Concent 33 g/dL (31-37) Red Cell Distribution Width 16.0 % (11.5-14.5) Platelet Count 189 x10^3/uL (140-400) Neutrophils (%) (Auto) 70 % (31-73) Lymphocytes (%) (Auto) 20 % (24-48) Monocytes (%) (Auto) 7 % (0-9) Eosinophils (%) (Auto) 4 % (0-3) Basophils (%) (Auto) 0 % (0-3) Neutrophils # (Auto) 4.8 x10^3/uL (1.8-7.7) Lymphocytes # (Auto) 1.4 x10^3/uL (1.0-4.8) Monocytes # (Auto) 0.5 x10^3/uL (0.0-1.1) Eosinophils # (Auto) 0.2 x10^3/uL (0.0-0.7) Basophils # (Auto) 0.0 x10^3/uL (0.0-0.2) Sodium Level 140 mmol/L (136-145) Potassium Level 3.9 mmol/L (3.5-5.1) Chloride Level 101 mmol/L (98-107) Carbon Dioxide Level 32 mmol/L (21-32) Anion Gap 7 (6-14) Blood Urea Nitrogen 23 mg/dL (7-20) Creatinine 0.9 mg/dL (0.6-1.0) Estimated GFR (Cockcroft-Gault) 65.0 BUN/Creatinine Ratio 26 (6-20) Glucose Level 223 mg/dL (70-99) Calcium Level 8.0 mg/dL (8.5-10.1) Total Bilirubin 0.3 mg/dL (0.2-1.0) Aspartate Amino Transf (AST/SGOT) 23 U/L (15-37) Alanine Aminotransferase (ALT/SGPT) 39 U/L (14-59) Alkaline Phosphatase 66 U/L (46-116) Total Protein 6.2 g/dL (6.4-8.2) Albumin 2.7 g/dL (3.4-5.0) Albumin/Globulin Ratio 0.8 (1.0-1.7) Test 11/26/19 10:45 11/26/19 11:02 11/26/19 16:48 11/26/19 21:21 O2 Saturation 91 % (92-99) Arterial Blood pH 7.39 (7.35-7.45) Arterial Blood pCO2 at Patient Temp 49 mmHg (35-46) Arterial Blood pO2 at Patient Temp 57 mmHg (75-108) Arterial Blood HCO3 29 mmol/L (21-28) Arterial Blood Base Excess 3 mmol/L (-3-3) FiO2 21 Glucose (Fingerstick) 103 mg/dL (70-99) 228 mg/dL (70-99) 285 mg/dL (70-99) Test 11/27/19 07:16 Glucose (Fingerstick) 291 mg/dL (70-99) Laboratory Tests Test 11/26/19 10:45 11/26/19 11:02 11/26/19 16:48 11/26/19 21:21 O2 Saturation 91 % (92-99) Arterial Blood pH 7.39 (7.35-7.45) Arterial Blood pCO2 at Patient Temp 49 mmHg (35-46) Arterial Blood pO2 at Patient Temp 57 mmHg (75-108) Arterial Blood HCO3 29 mmol/L (21-28) Arterial Blood Base Excess 3 mmol/L (-3-3) FiO2 21 Glucose (Fingerstick) 103 mg/dL (70-99) 228 mg/dL (70-99) 285 mg/dL (70-99) Test 11/27/19 07:16 Glucose (Fingerstick) 291 mg/dL (70-99) Medications Active Scripts Medications Dose Route/Sig Max Daily Dose Days Date Category Guaifenesin Ac Cough Syrup (Guaifenesin/Codeine Phosphate) 473 Ml Liquid 5 Ml PO PRN Q6HRS PRN 11/23/19 Reported Theophylline Anhydrous 300 Mg Tab.er.12h 1 Tab PO BID 30 11/23/19 Reported Trelegy Ellipta 100-62.5-25 (Fluticasone/Umeclidin/Vilanter) 1 Each Blst.w.dev 1 Each IH QDAY 11/23/19 Reported Fenofibrate (Fenofibrate,Micronized) 134 Mg Capsule 1 Cap PO DAILY 11/23/19 Reported Mirapex (Pramipexole Di-Hcl) 1 Mg Tablet 1 Mg PO QHS 11/23/19 Reported Augmentin 875-125 Tablet (Amoxicillin/Potassium Clav) 1 Each Tablet 1 Tab PO BID 10 11/23/19 Reported Tizanidine Hcl 4 Mg Tablet 1 Tab PO PRN Q8HRS PRN 11/23/19 Reported Alprazolam 1 Mg Tablet 1 Tab PO BID 11/23/19 Reported Hydrocodone-Apap 10-325 (Hydrocodone Bit/Acetaminophen) 1 Tab Tablet 1 Tab PO PRN Q6HRS PRN 11/23/19 Reported Ventolin Hfa Inhaler (Albuterol Sulfate) 18 Gm Hfa.aer.ad 2 Puff INH Q4HRS 09/19/18 Reported Levemir Flextouch (Insulin Detemir) 100 Unit/1 Ml Insuln.pen 60 Unit SQ HS 09/19/18 Reported Novolog Flexpen (Insulin Aspart) 100 Unit/1 Ml Insuln.pen 60 Unit SQ TIDWMEALS 09/19/18 Reported Latanoprost 2.5 Ml Drops 1 Drop EACHEYE QHS 09/19/18 Reported Magnesium (Magnesium Oxide) 400 Mg Capsule 1 Cap PO BID 09/18/18 Reported Vitamin D3 (Cholecalciferol (Vitamin D3)) 5,000 Unit Tablet 1 Tab PO DAILY 09/18/18 Reported Simvastatin 40 Mg Tablet 1 Tab PO QHS 09/18/18 Reported Xarelto (Rivaroxaban) 20 Mg Tablet 20 Mg PO DAILY 09/18/18 Reported Lyrica (Pregabalin) 200 Mg Capsule 1 Cap PO BID 09/18/18 Reported Proair Hfa (Albuterol Sulfate) 8.5 Gm Hfa.aer.ad 1 Puff INH PRN Q6HRS PRN 09/13/18 Rx Impression . 1. Highly suspected sleep apnea in a patient who is morbidly obese. Her current symptoms are also contributed by use of narcotics and benzodiazepines. She has high bicarbonate, suggesting she has chronic hypercapnia./ [facility] 2. Recent hospitalization for cellulitis and lymphedema. 3. Encephalopathy due to narcotics Plan . 1. I have discussed with the patient regarding the need for sleep study. She is not interested in CPAP. I did offer to her nasal pillows with the CPAP. At this point, she is not interested. I did inform Dr. Rehman about it. 2. I would recommend to reduce the amount of narcotics and benzodiazepines. 3. Weight loss is advised. 4. ABG reviewed. compensated respiratory acidosis, mild hypoxia due to hypoventilation. will need 2 litres during day and 3 litres qhs (based on noct study) 5. Abx per CECELIA YUNG MD Nov 27, 2019 09:37
--- NOTE | 2019-11-27 10:58 | PDOC ---
Infectious Disease Note Subjective: Subjective Patient complains of worsening left lower extremity swelling and pain and redness Denies fever, nausea, vomiting, worsening shortness of breath, diarrhea, abdominal pain, symptoms Vital Signs: Vital Signs Vital Signs Date Time Temp Pulse Resp B/P (MAP) Pulse Ox O2 Delivery O2 Flow Rate FiO2 11/27/19 09:00 Room Air 11/27/19 07:00 98.1 88 22 122/85 (97) 90 2.0 98.1 Physical Exam: PHYSICAL EXAM GENERAL: Alert and oriented x 3 female, lying in bed comfortably, in no acute distress, was upright, talking to phone with [employer] earlier. HEENT: Normocephalic, atraumatic, anicteric. No thrush. NECK: Supple, no JVD. LUNGS: Clear bilaterally. No wheezing. HEART: S1, S2. No gallops or murmurs. ABDOMEN: Soft, obese. Bowel sounds present, nontender, nondistended. EXTREMITIES: Bilateral lymphedema, left lower extremity redness, warmth swelling and pain. Worse today no open wounds noted. DERMATOLOGIC: Warm, dry. No generalized rash. NEUROLOGIC: Alert and oriented x 3, grossly nonfocal. PSYCHIATRIC: Cooperative, appropriate mood and affect. Medications: Inpatient Meds: Current Medications Medications (Trade) Dose Ordered Sig/Migdalia Start Time Stop Time Status Last Admin Dose Admin Acetaminophen/ Hydrocodone Bitart (Lortab 10/325) 1 tab Q6HRS 11/25/19 18:00 11/27/19 05:29 1 TAB Albuterol Sulfate (Ventolin Neb Soln) 2.5 mg PRN Q6HRS PRN 11/23/19 14:45 11/26/19 23:15 2.5 MG Alprazolam (Xanax) 0.5 mg PRN BID PRN 11/27/19 10:00 Cefazolin Sodium/ Dextrose 50 ml @ 100 mls/hr Q8HRS 11/24/19 14:00 11/25/19 13:41 DC 11/24/19 21:45 100 MLS/HR Ceftriaxone Sodium (Rocephin) 1 gm 1X ONCE 11/23/19 08:45 11/23/19 08:46 DC 11/23/19 10:50 1 GM Cephalexin HCl (Keflex) 500 mg Q6HRS 11/25/19 18:00 11/27/19 05:29 500 MG Dextrose (Dextrose 50%-Water Syringe) 12.5 gm PRN Q15MIN PRN 11/23/19 15:30 Fenofibrate (Lofibra) 54 mg DAILY 11/24/19 09:00 11/27/19 08:59 54 MG Fentanyl Citrate (Fentanyl 2ml Vial) 50 mcg PRN Q2HR PRN 11/23/19 15:30 11/25/19 14:51 DC 11/23/19 22:32 50 MCG Furosemide (Lasix) 80 mg DAILY 11/24/19 09:00 11/27/19 08:59 80 MG Info (Anti-Coagulation Monitoring By Pharmacy) 1 each PRN DAILY PRN 11/27/19 09:30 Insulin Glargine (Lantus Syringe) 55 unit QHS 11/24/19 21:00 11/26/19 20:56 55 UNIT Insulin Human Lispro (HumaLOG) 0-9 UNITS TIDWMEALS 11/23/19 17:00 11/27/19 09:06 7 UNITS Lactobacillus Rhamnosus (Culturelle) 1 cap BID 11/24/19 21:00 11/27/19 08:59 1 CAP Latanoprost (Xalatan) 1 drop QHS 11/23/19 21:00 11/26/19 20:48 1 DROP Lorazepam (Ativan) 1 mg PRN BID PRN 11/23/19 23:00 UNV Magnesium Oxide (Magnesium Oxide) 400 mg BID 11/23/19 21:00 11/27/19 08:59 400 MG Nicotine (Nicoderm Cq 21mg) 1 patch PRN DAILY PRN 11/23/19 15:30 11/26/19 00:05 1 PATCH Oxycodone/ Acetaminophen (Percocet 5/325) 1 tab PRN Q8HRS PRN 11/27/19 10:00 Pregabalin (Lyrica) 200 mg BID 11/23/19 21:00 11/27/19 09:00 200 MG Rivaroxaban (Xarelto) 20 mg DAILYWSUP 11/23/19 17:00 11/26/19 18:01 20 MG Simvastatin (Zocor) 40 mg QHS 11/23/19 21:00 11/26/19 20:48 40 MG Sodium Chloride 1,000 ml @ 1,000 mls/hr 1X ONCE 11/23/19 10:30 11/23/19 11:29 DC 11/23/19 10:50 1,000 MLS/HR Vancomycin HCl (Vanco Per Pharmacy) 1 each PRN DAILY PRN 11/23/19 15:30 11/24/19 13:30 DC 11/24/19 12:06 1 EACH Vancomycin HCl (Vancomycin Trough Level) 1 each 1X ONCE 11/25/19 05:30 11/25/19 05:31 Cancel Vancomycin HCl 2 gm/Sodium Chloride 500 ml @ 250 mls/hr Q12H 11/24/19 06:00 11/24/19 13:28 DC 11/24/19 05:47 250 MLS/HR Labs: Lab Laboratory Tests Test 11/26/19 11:02 11/26/19 16:48 11/26/19 21:21 11/27/19 07:16 Glucose (Fingerstick) 103 mg/dL (70-99) 228 mg/dL (70-99) 285 mg/dL (70-99) 291 mg/dL (70-99) Objective: Assessment: 1. Left lower extremity cellulitis with underlying chronic lymphedema. Worsened since yesterday 2. Febrile illness prior to admission. 3. Failed outpatient p.o. antibiotics. 4. History of deep venous thrombosis. 5. Morbid obesity. 6. Tobacco use disorder. 7. Anxiety. Plan: Plan of Care DC Keflex Restart cefazolin Encourage to elevate lower extremity Probiotics Follow-up ultrasound Optimal lymphedema control. Lymphedema clinic following Encouraged to quit smoking MARILYN CAPPS MD Nov 27, 2019 10:57
[2019-11-27 11:00] VITALS: BP 136/55
--- NOTE | 2019-11-27 11:05 | RAD ---
EXAM: ANKLE LEFT 3V, CHEST AP ONLY, FOOT LEFT 3V INDICATION: Reason: severe pain, redness, swelling to lower leg / Spl. Instructions: / History: . TECHNIQUE: Single view COMPARISON: None FINDINGS: The heart size is normal. The great vessels appear unremarkable. There is no hilar or mediastinal mass. Lungs show diffuse interstitial opacity with more confluent airspace opacity in the peripheral left lung base. There is no pleural effusion or pneumothorax. There are no significant osseous abnormalities. IMPRESSION: Findings suggesting pulmonary fluid overload with confluent airspace opacity in the inferior left lung base, reflecting either alveolar edema or other airspace disease. PROCEDURE: ANKLE LEFT 3V, CHEST AP ONLY, FOOT LEFT 3V CLINICAL INDICATION / HISTORY: Reason: severe pain, redness, swelling to lower leg / Spl. Instructions: / History: . TECHNIQUE: Left ankle 3 views. COMPARISON: None FINDINGS: The ankle mortise is approximated, and the talar dome is unremarkable. The joint space widths are maintained. No fracture or dislocation is identified. Marked diffuse soft tissue swelling is appreciated. IMPRESSION: No acute osseous abnormality in the left ankle. Diffuse soft tissue swelling. PROCEDURE: ANKLE LEFT 3V, CHEST AP ONLY, FOOT LEFT 3V CLINICAL INDICATION / HISTORY: Reason: severe pain, redness, swelling to lower leg / Spl. Instructions: / History: . TECHNIQUE: AP, lateral and oblique views of the left foot. COMPARISON: Left ankle x-rays same day FINDINGS: No fracture or dislocation is identified. The bone density is normal. The joint space widths are maintained, and there are no erosions to suggest an inflammatory arthropathy. Marked diffuse soft tissue swelling is seen. IMPRESSION: Marked diffuse soft tissue swelling in the left foot. No acute osseous abnormality. Electronically signed by: Lashell Samuels MD (11/27/2019 11:03 AM) [id number]
[2019-11-27] MEDS ORDERED: FUROSEMIDE 40 MG/4 ML VIAL. IVP SCH (14:00)
--- NOTE | 2019-11-27 14:17 | PDOC2 ---
CONSULT Date of Consult Date of Consult DATE: 11/27/19 TIME: 14:07 Reason for Consult Reason for Consult: Low back pain with radiation to left lower extremity. Referring Physician Referring Physician: . Identification/Chief Complaint Chief Complaint She had chronic low back pain from bulging of discs and she injections done in the past by me and she admits it provided 2 weeks of pain relief and so I have refused to give her any more injections and refused to give her medicines and she admits her family physician is giving her hydrocodone and xanax and they are helping her with her back pain to a significant degree. She was admitted here with cellulitis superimposed on chronic lower extremity lymphedema ia patient with morbid obesity. At this time she feels her low back pain is not her main concern and she did not see any need for my examination. Past Medical History Cardiovascular: HTN, Hyperlipidemia, Other Pulmonary: COPD Heme/Onc: Other Musculoskeletal: low back pain, Osteoarthritis Renal/: Chronic renal insuff, UTI, Other Endocrine: Diabetes, Hypothyroidism Past Surgical History Past Surgical History: Tubal Ligation Family History Family History: Diabetes, Hypertension Social History 1 pack per day ALCOHOL: none Drugs: None Lives: Alone Current Problem List Problem List Problems Medical Problems: (1) Cellulitis Status: Acute Current Medications Current Medications Current Medications Ceftriaxone Sodium (Rocephin) 1 gm 1X ONCE IVP Last administered on 11/23/19at 10:50; Start 11/23/19 at 08:45; Stop 11/23/19 at 08:46; Status DC Sodium Chloride 1,000 ml @ 1,000 mls/hr 1X ONCE IV Last administered on 11/23/19at 10:50; Start 11/23/19 at 10:30; Stop 11/23/19 at 11:29; Status DC Oxycodone/ Acetaminophen (Percocet 5/325) 1 tab 1X ONCE PO Last administered on 11/23/19at 11:14; Start 11/23/19 at 11:15; Stop 11/23/19 at 11:16; Status DC Albuterol Sulfate (Ventolin Neb Soln) 2.5 mg PRN Q6HRS PRN INH SHORTNESS OF BREATH Last administered on 11/26/19at 23:15; Start 11/23/19 at 14:45 Fenofibrate (Lofibra) 54 mg DAILY PO Last administered on 11/27/19 08:59; Start 11/24/19 at 09:00 Latanoprost (Xalatan) 1 drop QHS OU Last administered on 11/26/19 20:48; Start 11/23/19 at 21:00 Simvastatin (Zocor) 40 mg QHS PO Last administered on 11/26/19 20:48; Start 11/23/19 at 21:00 Insulin Human Lispro (HumaLOG) 60 units TIDWMEALS SQ Last administered on 11/27/19 12:41; Start 11/23/19 at 17:00 Insulin Glargine (Lantus Syringe) 60 unit QHS SQ Last administered on 11/23/19 22:21; Start 11/23/19 at 21:00; Stop 11/24/19 at 13:09; Status DC Magnesium Oxide (Magnesium Oxide) 400 mg BID PO Last administered on 11/27/19 08:59; Start 11/23/19 at 21:00 Pregabalin (Lyrica) 200 mg BID PO Last administered on 11/27/19 09:00; Start 11/23/19 at 21:00 Rivaroxaban (Xarelto) 20 mg DAILYWSUP PO Last administered on 11/26/19 18:01; Start 11/23/19 at 17:00 Oxycodone/ Acetaminophen (Percocet 5/325) 1 tab PRN Q4HRS PRN PO MODERATE PAIN Last administered on 11/24/19 21:47; Start 11/23/19 at 15:30; Stop 11/25/19 at 11:51; Status DC Fentanyl Citrate (Fentanyl 2ml Vial) 50 mcg PRN Q2HR PRN IVP MODERATE TO SEVERE PAIN Last administered on 11/23/19 22:32; Start 11/23/19 at 15:30; Stop 11/24 at 14:51; Status DC Nicotine (Nicoderm Cq 21mg) 1 patch PRN DAILY PRN TD SMOKING CESSATION Last administered on 11/26/19at 00:05; Start 11/23/19 at 15:30 Furosemide (Lasix) 60 mg 1X ONCE PO Last administered on 11/23/19 17:41; Start 11/23/19 at 15:30; Stop 11/23/19 at 15:46; Status DC Furosemide (Lasix) 80 mg DAILY PO Last administered on 11/27/19at 08:59; Start 11/24/19 at 09:00; Stop 11/27/19 at 13:27; Status DC Insulin Human Lispro (HumaLOG) 0-9 UNITS TIDWMEALS SQ Last administered on 11/27/19at 12:41; Start 11/23/19 at 17:00 Dextrose (Dextrose 50%-Water Syringe) 12.5 gm PRN Q15MIN PRN IV SEE COMMENTS; Start 11/23/19 at 15:30 Vancomycin HCl (Vanco Per Pharmacy) 1 each PRN DAILY PRN MC SEE COMMENTS Last administered on 11/24/19at 12:06; Start 11/23/19 at 15:30; Stop 11/24/19 at 13:30; Status DC Vancomycin HCl 2 gm/Sodium Chloride 500 ml @ 250 mls/hr 1X ONCE IV Last a dministered on 11/23/19at 17:42; Start 11/23/19 at 16:00; Stop 11/23/19 at 17:59; Status DC Vancomycin HCl 2 gm/Sodium Chloride 500 ml @ 250 mls/hr Q12H IV Last administered on 11/24/19at 05:47; Start 11/24/19 at 06:00; Stop 11/24/19 at 13:28; Status DC Vancomycin HCl (Vancomycin Trough Level) 1 each 1X ONCE MC ; Start 11/25/19 at 05:30; Stop 11/25/19 at 05:31; Status Cancel Acetaminophen/ Hydrocodone Bitart (Lortab 10/325) 1 tab PRN Q6HRS PRN PO SEVERE PAIN Last administered on 11/25/19at 12:29; Start 11/23/19 at 23:00; Stop 11/25/19 at 14:57; Status DC Lorazepam (Ativan) 1 mg PRN BID PRN PO ANXIETY / AGITATION; Start 11/23/19 at 23:00; Status UNV Alprazolam (Xanax) 1 mg PRN BID PRN PO ANXIETY / AGITATION Last administered on 11/26/19at 20:48; Start 11/23/19 at 23:15; Stop 11/27/19 at 09:53; Status DC Lactobacillus Rhamnosus (Culturelle) 1 cap BID PO Last administered on at 08:59; Start 11/24/19 at 21:00 Insulin Glargine (Lantus Syringe) 55 unit QHS SQ Last administered on 11/26/19at 20:56; Start 11/24/19 at 21:00 Cefazolin Sodium/ Dextrose 50 ml @ 100 mls/hr Q8HRS IV Last administered on 11/24/19at 21:45; Start 11/24/19 at 14:00; Stop 11/25/19 at 13:41; Status DC Cephalexin HCl (Keflex) 500 mg QID PO ; Start 11/25/19 at 17:00; Stop 11/25/19 at 16:56; Status DC Acetaminophen/ Hydrocodone Bitart (Lortab 10/325) 1 tab Q6HRS PO Last administered on 11/27/19at 12:38; Start 11/25/19 at 18:00 Cephalexin HCl (Keflex) 500 mg Q6HRS PO Last administered on 11/27/19at 05:29; Start 11/25/19 at 18:00; Stop 11/27/19 at 12:05; Status DC Oxycodone/ Acetaminophen (Percocet 5/325) 1 tab PRN Q4HRS PRN PO PAIN Last administered on 11/27/19at 09:00; Start 11/25/19 at 18:30; Stop 11/27/19 at 09:53; Status DC Info (Anti-Coagulation Monitoring By Pharmacy) 1 each PRN DAILY PRN MC SEE COMMENTS; Start 11/27/19 at 09:30 Alprazolam (Xanax) 0.5 mg PRN BID PRN PO ANXIETY / AGITATION; Start 11/27/19 at 10:00 Oxycodone/ Acetaminophen (Percocet 5/325) 1 tab PRN Q8HRS PRN PO PAIN; Start 11/27/19 at 10:00 Cefazolin Sodium/ Dextrose 50 ml @ 100 mls/hr Q8HRS IV Last administered on 11/27/19at 13:40; Start 11/27/19 at 14:00 Furosemide (Lasix) 40 mg DAILY IVP ; Start 11/27/19 at 14:00; Status Cancel Furosemide (Lasix) 40 mg DAILY IVP ; Start 11/28/19 at 09:00 Active Scripts Active Proair Hfa (Albuterol Sulfate) 8.5 Gm Hfa.aer.ad 1 Puff INH PRN Q6HRS PRN Reported Guaifenesin Ac Cough Syrup (Guaifenesin/Codeine Phosphate) 473 Ml Liquid 5 Ml PO PRN Q6HRS PRN Theophylline Anhydrous 300 Mg Tab.er.12h 1 Tab PO BID 30 Days Trelegy Ellipta 100-62.5-25 (Fluticasone/Umeclidin/Vilanter) 1 Each Blst.w.dev 1 Each IH QDAY Fenofibrate (Fenofibrate,Micronized) 134 Mg Capsule 1 Cap PO DAILY Mirapex (Pramipexole Di-Hcl) 1 Mg Tablet 1 Mg PO QHS Augmentin 875-125 Tablet (Amoxicillin/Potassium Clav) 1 Each Tablet 1 Tab PO BID 10 Days Tizanidine Hcl 4 Mg Tablet 1 Tab PO PRN Q8HRS PRN Alprazolam 1 Mg Tablet 1 Tab PO BID Hydrocodone-Apap 10-325 (Hydrocodone Bit/Acetaminophen) 1 Tab Tablet 1 Tab PO PRN Q6HRS PRN Ventolin Hfa Inhaler (Albuterol Sulfate) 18 Gm Hfa.aer.ad 2 Puff INH Q4HRS Levemir Flextouch (Insulin Detemir) 100 Unit/1 Ml Insuln.pen 60 Unit SQ HS Novolog Flexpen (Insulin Aspart) 100 Unit/1 Ml Insuln.pen 60 Unit SQ TIDWMEALS Latanoprost 2.5 Ml Drops 1 Drop EACHEYE QHS Magnesium (Magnesium Oxide) 400 Mg Capsule 1 Cap PO BID Vitamin D3 (Cholecalciferol (Vitamin D3)) 5,000 Unit Tablet 1 Tab PO DAILY Simvastatin 40 Mg Tablet 1 Tab PO QHS Xarelto (Rivaroxaban) 20 Mg Tablet 20 Mg PO DAILY Lyrica (Pregabalin) 200 Mg Capsule 1 Cap PO BID Allergies Allergies: Coded Allergies: No Known Drug Allergies (Unverified , 12/04/16) Physical Exam General: Alert, Oriented X3, No acute distress Extremities: Other (lymphedema) Skin: Other (left lower extremity redness.) MUSCULOSKELETAL: Other (She is sitting at edge of bed and receiving IV antibiotics.) Vitals VITALS Vital Signs Date Time Temp Pulse Resp B/P (MAP) Pulse Ox O2 Delivery O2 Flow Rate FiO2 11/27/19 13:48 Nasal Cannula 2.0 11/27/19 11:00 98.4 91 16 136/55 (82) 89 98.4 Labs Labs Laboratory Tests Test 11/25/19 20:38 11/26/19 07:24 11/26/19 09:00 11/26/19 10:45 Glucose (Fingerstick) 177 mg/dL (70-99) 287 mg/dL (70-99) White Blood Count 6.9 x10^3/uL (4.0-11.0) Red Blood Count 4.62 x10^6/uL (3.50-5.40) Hemoglobin 13.7 g/dL (12.0-15.5) Hematocrit 41.3 % (36.0-47.0) Mean Corpuscular Volume 89 fL (79-100) Mean Corpuscular Hemoglobin 30 pg (25-35) Mean Corpuscular Hemoglobin Concent 33 g/dL (31-37) Red Cell Distribution Width 16.0 % (11.5-14.5) Platelet Count 189 x10^3/uL (140-400) Neutrophils (%) (Auto) 70 % (31-73) Lymphocytes (%) (Auto) 20 % (24-48) Monocytes (%) (Auto) 7 % (0-9) Eosinophils (%) (Auto) 4 % (0-3) Basophils (%) (Auto) 0 % (0-3) Neutrophils # (Auto) 4.8 x10^3/uL (1.8-7.7) Lymphocytes # (Auto) 1.4 x10^3/uL (1.0-4.8) Monocytes # (Auto) 0.5 x10^3/uL (0.0-1.1) Eosinophils # (Auto) 0.2 x10^3/uL (0.0-0.7) Basophils # (Auto) 0.0 x10^3/uL (0.0-0.2) Sodium Level 140 mmol/L (136-145) Potassium Level 3.9 mmol/L (3.5-5.1) Chloride Level 101 mmol/L (98-107) Carbon Dioxide Level 32 mmol/L (21-32) Anion Gap 7 (6-14) Blood Urea Nitrogen 23 mg/dL (7-20) Creatinine 0.9 mg/dL (0.6-1.0) Estimated GFR (Cockcroft-Gault) 65.0 BUN/Creatinine Ratio 26 (6-20) Glucose Level 223 mg/dL (70-99) Calcium Level 8.0 mg/dL (8.5-10.1) Total Bilirubin 0.3 mg/dL (0.2-1.0) Aspartate Amino Transf (AST/SGOT) 23 U/L (15-37) Alanine Aminotransferase (ALT/SGPT) 39 U/L (14-59) Alkaline Phosphatase 66 U/L (46-116) Total Protein 6.2 g/dL (6.4-8.2) Albumin 2.7 g/dL (3.4-5.0) Albumin/Globulin Ratio 0.8 (1.0-1.7) O2 Saturation 91 % (92-99) Arterial Blood pH 7.39 (7.35-7.45) Arterial Blood pCO2 at Patient Temp 49 mmHg (35-46) Arterial Blood pO2 at Patient Temp 57 mmHg (75-108) Arterial Blood HCO3 29 mmol/L (21-28) Arterial Blood Base Excess 3 mmol/L (-3-3) FiO2 21 Test 11/26/19 11:02 11/26/19 16:48 11/26/19 21:21 11/27/19 07:16 Glucose (Fingerstick) 103 mg/dL (70-99) 228 mg/dL (70-99) 285 mg/dL (70-99) 291 mg/dL (70-99) Test 11/27/19 10:40 11/27/19 12:11 C-Reactive Protein, Quantitative 39.7 mg/L (0-3.3) Glucose (Fingerstick) 377 mg/dL (70-99) Laboratory Tests Test 11/26/19 16:48 11/26/19 21:21 11/27/19 07:16 11/27/19 10:40 Glucose (Fingerstick) 228 mg/dL (70-99) 285 mg/dL (70-99) 291 mg/dL (70-99) C-Reactive Protein, Quantitative 39.7 mg/L (0-3.3) Test 11/27/19 12:11 Glucose (Fingerstick) 377 mg/dL (70-99) Assessment/Plan Assessment/Plan Chronic low back pain from DDD of lumbar vertebrae with left lumbar radiculitis. Lymphedema of both lower extremities with cellulitis of left leg. Morbid obesity. PRIMO MUKHERJEE MD Nov 27, 2019 14:17
[2019-11-27 15:00] VITALS: BP 125/79
[2019-11-27] MEDS: ANTI-COAG MONITOR BY PHARMACY. MC PRN (15:02)
--- NOTE | 2019-11-27 15:11 | NUR ---
SW following. Spoke with RN and reviewed chart. Pt not ready for discharge home today per Dr. Rehman. Pt remains on 3l 02 and was started on IV cefazolin today. Coordinated care with Candace from [facility]. OT saw this pt again today and the recommendation is still home with HH at discharge. RN stated pt might be able to discharge over the weekend on oral abx. ALYSHA added pt to potential discharge list. Pt has been approved for and the tank is in her room. Sari will need to be notified at discharge so that they can arrange for 02 setup in the home. ALYSHA to continue following. Addendum: 11/27/19 at 1613 by ALDA ENCARNACION ALYSHA informed [facility] that pt did not discharge per ID consult and pt being started on IV cefazolin. RN notified that pt will need another 6 min walk prior to discharge with . tank remains in pt room. RN updated of need for another 6 min walk if pt does discharge over the weekend (this info also included on weekend discharge list).
--- NOTE | 2019-11-27 15:19 | RAD ---
DUPLEX LOWER EXTREMITY BILAT Indication: Reason: pvd / Spl. Instructions: / History: Comparison: None. Procedure: Real-time grayscale, color flow Doppler, and Doppler spectral waveform analysis of the arterial system of the lower extremity is performed. Findings: Right lower extremity: Monophasic waveform throughout the right lower extremity. Mild atheromatous plaque. Elevated velocity within the right common femoral artery measures 227 cm/s. Elevated velocity within the superficial femoral artery measures 172 cm/s. Elevated velocity within the popliteal artery measures 157 cm/s. Distal posterior tibial artery and dorsalis pedis artery not evaluated although degraded evaluation due to overlying bandage. Left lower extremity: Monophasic waveform throughout the left lower extremity. Elevated velocity within the left common femoral artery measures 191 cm/s. Elevated velocity within the superficial femoral artery distally measures 192 cm/s. Elevated velocity within the anterior tibial artery measures 177 cm/s. Mild atheromatous plaque. IMPRESSION: 1. 50-75 percent stenosis of the right common femoral artery due to velocity elevation. 2. 30-49 percent stenosis of the right superficial femoral and popliteal arteries. 3. 30-49 percent stenosis of the left common femoral common distal superficial femoral and anterior tibial arteries. 4. Monophasic waveform bilaterally, may indicate proximal stenosis. CT angiogram can further assess as clinically warranted. Electronically signed by: Solitario Schmidt DO (11/27/2019 3:16 PM) [id number]
--- NOTE | 2019-11-27 17:16 | CARD ---
MR#: [id number] Date of Study: 11/27/2019 Ordering Physician: JAVIER FARRAR, Referring Physician: JAVIER FARRAR, Tech: Bruno Gaona [facility] APPROVED REPORT EXAM: Two-dimensional and M-mode echocardiogram with Doppler and color Doppler. Other Information Quality : Technically LimitedHR: 83bpm Rhythm : NSR INDICATION COPD RISK FACTORS Hypertension Obesity Diabetes Smoking 2D DIMENSIONS Left Atrium(2D)3.3 (1.6-4.0cm)IVSd0.9 (0.7-1.1cm) Aortic Root(2D)3.6 (2.0-3.7cm)LVDd5.0 (3.9-5.9cm) LVOT Diameter2.4 (1.8-2.4cm)PWd1.0 (0.7-1.1cm) LVDs4.0 (2.5-4.0cm)FS (%) 19.3 % SV46.0 mlLVEF(%)39.6 (>50%) Aortic Valve AoV Peak Ramone.119.7cm/sAoV VTI27.1cm AO Peak GR.5.7mmHgLVOT Peak Ramone.102.6cm/s AO Mean GR.3mmHgAVA (VMAX)3.99cm2 LEFT VENTRICLE The left ventricle is normal size. There is mild concentric left ventricular hypertrophy. The left ve ntricular systolic function is normal and the ejection fraction is within normal range. EF 55% There is normal LV segmental wall motion. Tissue Doppler imaging reveals moderate left ventricular diastoli c dysfunction. RIGHT VENTRICLE The right ventricle is normal size. There is normal right ventricular wall thickness. The right ventr icular systolic function is normal. ATRIA The left atrium size is normal. The right atrium size is normal. The interatrial septum is intact wit h no evidence for an atrial septal defect or patent foramen ovale as noted on 2-D or Doppler imaging. AORTIC VALVE The aortic valve is normal in structure and function. Doppler and Color Flow revealed no significant aortic regurgitation. There is no aortic valvular vegetation. MITRAL VALVE The mitral valve is normal in structure and function. There is no evidence of mitral valve prolapse. Doppler and Color Flow revealed no mitral valve regurgitation noted. TRICUSPID VALVE The tricuspid valve is normal in structure and function. Doppler and Color Flow revealed no tricuspid valve regurgitation noted. There is no tricuspid valve stenosis. PULMONIC VALVE Doppler and Color Flow revealed no pulmonic valvular regurgitation. There is no pulmonic valvular mainor nosis. GREAT VESSELS The aortic root is normal in size. The ascending aorta is normal in size. The IVC is normal in size a nd collapses >50% with inspiration. PERICARDIAL EFFUSION There is no evidence of significant pericardial effusion. Critical Notification Critical Value: No <Conclusion> The left ventricular systolic function is normal and the ejection fraction is within normal range. EF 55% There is normal LV segmental wall motion. Signed by : Saurav Olguin, Electronically Approved : 11/27/2019 17:16:38
[2019-11-27] MEDS: RIVAROXABAN 10 MG TABLET. PO SCH (18:00)
[2019-11-27] MEDS: ALPRAZolam 1 MG TABLET PO PRN ×2 (18:15→21:32)
--- NOTE | 2019-11-27 18:34 | NUR ---
PT XANAX DROPPED ON THE FLOOR IN ROOM UPON TRYING TO GET OUT OF WRAPPER, WENT TO PULL ANOTHER ONE TO REPLACE, WOULD NOT ALLOW THIS NURSE TO WASTE CORRECT AMOUNT IN THE SYSTEM, PHARMACY NOTIFIED. RETURNED THAT FULL DOSE AND STILL WOULD NOT ALLOW TO WASTE THE CORRECT AMOUNT. CALLED PHARMACY THEY ADVISED TO WRITE NURSES NOTE ABOUT INCIDENT.
[2019-11-27 19:00] VITALS: BP 121/89
--- NOTE | 2019-11-27 20:12 | NUR ---
PT BLOOD SUGAR AT LUNCH WAS 377, DR. FARRAR NOTIFIED, NEW ORDER TO GIVE 5 UNITS EXTRA ON TOP OF 60 UNITS MEAL DOSE (65 UNITS TOTAL), NOT TO GO BY SLIDING SCALE, BLOOD SUGAR RECHECKED AT DINNER WAS 188.
[2019-11-27] MEDS: SIMVASTATIN 40 MG TABLET. PO SCH (21:31)
[2019-11-27] MEDS: LATANOPROST 0.005% OPHTH SOLUTION 2.5ML BOTTLE. OU SCH (21:39)
[2019-11-27] MEDS: INSULIN GLARGINE SYRINGE. SQ SCH (21:46)
[2019-11-27 23:00] VITALS: BP 140/94
[2019-11-28 03:00] VITALS: BP 168/102
[2019-11-28] MEDS: HYDROcodone/APAP 10/325 1 TAB TABLET PO SCH ×5 (03:46→23:44)
[2019-11-28 07:00] VITALS: BP 141/83
--- NOTE | 2019-11-28 07:19 | PDOC ---
PULMONARY PROGRESS NOTES DATE: 11/28/19 TIME: 07:17 Subjective refuses 02, on ra, denies sob, cough Vitals Vital Signs Date Time Temp Pulse Resp B/P (MAP) Pulse Ox O2 Delivery O2 Flow Rate FiO2 11/28/19 03:00 98.0 94 20 168/102 (124) 93 98.0 11/27/19 20:30 Nasal Cannula 2.0 ROS: No Nausea, No Chest Pain General: Alert, No acute distress Lungs: Clear Cardiovascular: S1, S2 Abdomen: Soft, Non-tender, Other (obese) Extremities: Other (lymphedema/ertyhema) Skin: Warm Labs Laboratory Tests Test 11/26/19 07:24 11/26/19 09:00 11/26/19 10:45 11/26/19 11:02 Glucose (Fingerstick) 287 mg/dL (70-99) 103 mg/dL (70-99) White Blood Count 6.9 x10^3/uL (4.0-11.0) Red Blood Count 4.62 x10^6/uL (3.50-5.40) Hemoglobin 13.7 g/dL (12.0-15.5) Hematocrit 41.3 % (36.0-47.0) Mean Corpuscular Volume 89 fL (79-100) Mean Corpuscular Hemoglobin 30 pg (25-35) Mean Corpuscular Hemoglobin Concent 33 g/dL (31-37) Red Cell Distribution Width 16.0 % (11.5-14.5) Platelet Count 189 x10^3/uL (140-400) Neutrophils (%) (Auto) 70 % (31-73) Lymphocytes (%) (Auto) 20 % (24-48) Monocytes (%) (Auto) 7 % (0-9) Eosinophils (%) (Auto) 4 % (0-3) Basophils (%) (Auto) 0 % (0-3) Neutrophils # (Auto) 4.8 x10^3/uL (1.8-7.7) Lymphocytes # (Auto) 1.4 x10^3/uL (1.0-4.8) Monocytes # (Auto) 0.5 x10^3/uL (0.0-1.1) Eosinophils # (Auto) 0.2 x10^3/uL (0.0-0.7) Basophils # (Auto) 0.0 x10^3/uL (0.0-0.2) Sodium Level 140 mmol/L (136-145) Potassium Level 3.9 mmol/L (3.5-5.1) Chloride Level 101 mmol/L (98-107) Carbon Dioxide Level 32 mmol/L (21-32) Anion Gap 7 (6-14) Blood Urea Nitrogen 23 mg/dL (7-20) Creatinine 0.9 mg/dL (0.6-1.0) Estimated GFR (Cockcroft-Gault) 65.0 BUN/Creatinine Ratio 26 (6-20) Glucose Level 223 mg/dL (70-99) Calcium Level 8.0 mg/dL (8.5-10.1) Total Bilirubin 0.3 mg/dL (0.2-1.0) Aspartate Amino Transf (AST/SGOT) 23 U/L (15-37) Alanine Aminotransferase (ALT/SGPT) 39 U/L (14-59) Alkaline Phosphatase 66 U/L (46-116) Total Protein 6.2 g/dL (6.4-8.2) Albumin 2.7 g/dL (3.4-5.0) Albumin/Globulin Ratio 0.8 (1.0-1.7) O2 Saturation 91 % (92-99) Arterial Blood pH 7.39 (7.35-7.45) Arterial Blood pCO2 at Patient Temp 49 mmHg (35-46) Arterial Blood pO2 at Patient Temp 57 mmHg (75-108) Arterial Blood HCO3 29 mmol/L (21-28) Arterial Blood Base Excess 3 mmol/L (-3-3) FiO2 21 Test 11/26/19 16:48 11/26/19 21:21 11/27/19 07:16 11/27/19 10:40 Glucose (Fingerstick) 228 mg/dL (70-99) 285 mg/dL (70-99) 291 mg/dL (70-99) C-Reactive Protein, Quantitative 39.7 mg/L (0-3.3) Test 11/27/19 12:11 11/27/19 16:58 11/27/19 21:34 Glucose (Fingerstick) 377 mg/dL (70-99) 188 mg/dL (70-99) 171 mg/dL (70-99) Laboratory Tests Test 11/27/19 10:40 11/27/19 12:11 11/27/19 16:58 11/27/19 21:34 C-Reactive Protein, Quantitative 39.7 mg/L (0-3.3) Glucose (Fingerstick) 377 mg/dL (70-99) 188 mg/dL (70-99) 171 mg/dL (70-99) Medications Active Scripts Medications Dose Route/Sig Max Daily Dose Days Date Category Guaifenesin Ac Cough Syrup (Guaifenesin/Codeine Phosphate) 473 Ml Liquid 5 Ml PO PRN Q6HRS PRN 11/23/19 Reported Theophylline Anhydrous 300 Mg Tab.er.12h 1 Tab PO BID 30 11/23/19 Reported Trelegy Ellipta 100-62.5-25 (Fluticasone/Umeclidin/Vilanter) 1 Each Blst.w.dev 1 Each IH QDAY 11/23/19 Reported Fenofibrate (Fenofibrate,Micronized) 134 Mg Capsule 1 Cap PO DAILY 11/23/19 Reported Mirapex (Pramipexole Di-Hcl) 1 Mg Tablet 1 Mg PO QHS 11/23/19 Reported Augmentin 875-125 Tablet (Amoxicillin/Potassium Clav) 1 Each Tablet 1 Tab PO BID 10 11/23/19 Reported Tizanidine Hcl 4 Mg Tablet 1 Tab PO PRN Q8HRS PRN 11/23/19 Reported Alprazolam 1 Mg Tablet 1 Tab PO BID 11/23/19 Reported Hydrocodone-Apap 10-325 (Hydrocodone Bit/Acetaminophen) 1 Tab Tablet 1 Tab PO PRN Q6HRS PRN 11/23/19 Reported Ventolin Hfa Inhaler (Albuterol Sulfate) 18 Gm Hfa.aer.ad 2 Puff INH Q4HRS 09/19/18 Reported Levemir Flextouch (Insulin Detemir) 100 Unit/1 Ml Insuln.pen 60 Unit SQ HS 09/19/18 Reported Novolog Flexpen (Insulin Aspart) 100 Unit/1 Ml Insuln.pen 60 Unit SQ TIDWMEALS 09/19/18 Reported Latanoprost 2.5 Ml Drops 1 Drop EACHEYE QHS 09/19/18 Reported Magnesium (Magnesium Oxide) 400 Mg Capsule 1 Cap PO BID 09/18/18 Reported Vitamin D3 (Cholecalciferol (Vitamin D3)) 5,000 Unit Tablet 1 Tab PO DAILY 09/18/18 Reported Simvastatin 40 Mg Tablet 1 Tab PO QHS 09/18/18 Reported Xarelto (Rivaroxaban) 20 Mg Tablet 20 Mg PO DAILY 09/18/18 Reported Lyrica (Pregabalin) 200 Mg Capsule 1 Cap PO BID 09/18/18 Reported Proair Hfa (Albuterol Sulfate) 8.5 Gm Hfa.aer.ad 1 Puff INH PRN Q6HRS PRN 09/13/18 Rx Impression . 1. Highly suspected sleep apnea in a patient who is morbidly obese. Her current symptoms are also contributed by use of narcotics and benzodiazepines. She has high bicarbonate, suggesting she has chronic hypercapnia./ OHS 2. Recent hospitalization for cellulitis and lymphedema. 3. Encephalopathy due to narcotics Plan . 1. discussed kiara the importance of diagnosis and tx, the need for sleep study. She is not interested in CPAP. I did offer to her nasal pillows with the CPAP. At this point, she is not interested. dr araiza did inform Dr. Rehman about it. 2. I would recommend to reduce the amount of narcotics and benzodiazepines. avoid over sedation 3. Weight loss is advised. 4. ABG reviewed. compensated respiratory acidosis, mild hypoxia due to hypoventilation. will need 2 litres during day and 3 litres qhs (based on noct study) 5. Abx per ID discussed w ASHANTI Rodriguez MD Nov 28, 2019 07:18
[2019-11-28] MEDS ORDERED: FUROSEMIDE 40 MG/4 ML VIAL. IVP SCH (09:00)
[2019-11-28] MEDS: MAGNESIUM OXIDE 400 MG TABLET PO SCH ×2 (09:31→21:54)
[2019-11-28] MEDS: LACTOBACILLUS RHAMNOSUS GG 1 CAPSULE. PO SCH ×2 (09:34→21:54)
[2019-11-28] MEDS: PREGABALIN 50 MG CAPSULE PO SCH ×2 (09:34→21:54)
[2019-11-28] MEDS: FENOFIBRATE 54 MG TABLET. PO SCH (09:35)
[2019-11-28] MEDS: INSULIN LISPRO 300 UNITS/3 ML VIAL. SQ SCH ×6 (09:57→18:15)
--- NOTE | 2019-11-28 10:26 | PDOC ---
PROGRESS NOTES Date of Service: DATE: 11/28/19 TIME: 10:25 Chief Complaint Chief Complaint VTE Prophylaxis Ordered VTE Prophylaxis Devices: Yes VTE Pharmacological Prophylaxi: Yes impression Assessment/Plan acute left left pain, new cellulitis morbid obesity, BMI 60, ie super morbid obesity tobacco use disorder, ongoing anxiety disorder lymphedema diabetes, which may compromise healing on CT 2018 Pulmonary trunk is dilated suggesting pulmonary arterial hypert ension. ON RECENT ECHO 2018 mild to moderate concentric left ventricular hypertrophy. LIKELY OBESITY,// HYPOVENTILATION SYNDROME hypercapnic resp failure , MOD-SEVERE Degenerative disc disease are seen throughout the lumbar spine. These findings result in very mild central spinal canal stenosis at L2-3 and L5-S1. Mild left neural foraminal stenosis is seen at L2-3. IN 11/26 DOPPLER STUDY LEGS , Monophasic waveform bilaterally, may indicate proximal stenosis. CT angiogram can further assess as clinically warranted. 11/26 STATES PAIN IN LEFT ANKLE TOO SEVERE TO WALK today, has DDD L/S d/w rn CONSULT PULM plan venous doppler both legs ABG first before dc from pulmonary standpoint chg keflex po on D/C cxr today ARTERIAL STUDY BOTH LEGS X RAY LEFT FOOT AND ANKLE pt/ot d/w RN Justicifation of Admission Dx: Justicifation of Admission Dx: Justifications for Admission: Justification of Admission Dx: Yes Cellulitis: Cellulitis History of Present Illness History of Present Illness History of Present Illness History of Present Illness Ms. Glaser, is a 54 year old female who presents with left lower leg cellulitis. new severe acute pain 8/10, 10 to touch, to the ankle and lower leg, Patient states that she has chronic lymphedema, present since her 20's and she says it runs in her family. . She does not typically have any redness in her leg just hyperpigmentation. opver 4 days she is developed swelling, redness, and heat to the leg. She states that it is significantly painful. She has never had cellulitis previously. Her primary care doctor started her on antibiotics, however it is only gotten worse since then. She states she is having nausea and fevers She was unsure of many details of her medical history, but has never had cellulitis, Vitals Vitals Vital Signs Date Time Temp Pulse Resp B/P (MAP) Pulse Ox O2 Delivery O2 Flow Rate FiO2 8/15/20 07:00 98.2 81 20 141/83 (102) 91 Room Air 98.2 11/27/19 20:30 2.0 Physical Exam Physical Exam GENERAL: Alert and oriented x 3 female, lying in bed comfortably, in no acute distress, was upright, talking to phone with insurance company earlier. HEENT: Normocephalic, atraumatic, anicteric. No thrush. NECK: Supple, no JVD. LUNGS: Clear bilaterally. No wheezing. HEART: S1, S2. No gallops or murmurs. ABDOMEN: Soft, obese. Bowel sounds present, nontender, nondistended. EXTREMITIES: Bilateral lymphedema, left lower extremity redness, warmth swelling and pain. Worse today no open wounds noted. DERMATOLOGIC: Warm, dry. No generalized rash. NEUROLOGIC: Alert and oriented x 3, grossly nonfocal. PSYCHIATRIC: Cooperative, appropriate mood and affect. General: Alert, Oriented X3, No acute distress Heart: Regular rate Lungs: Clear Abdomen: Normal bowel sounds, Soft, No tenderness Extremities: Other (lymphedema) Skin: Other (left lower extremity redness.) Labs LABS DUPLEX LOWER EXTREMITY BILAT Indication: Reason: pvd / Spl. Instructions: / History: Comparison: None. Procedure: Real-time grayscale, color flow Doppler, and Doppler spectral waveform analysis of the arterial system of the lower extremity is performed. Findings: Right lower extremity: Monophasic waveform throughout the right lower extremity. Mild atheromatous plaque. Elevated velocity within the right common femoral artery measures 227 cm/s. Elevated velocity within the superficial femoral artery measures 172 cm/s. Elevated velocity within the popliteal artery measures 157 cm/s. Distal posterior tibial artery and dorsalis pedis artery not evaluated although degraded evaluation due to overlying bandage. Left lower extremity: Monophasic waveform throughout the left lower extremity. Elevated velocity within the left common femoral artery measures 191 cm/s. Elevated velocity within the superficial femoral artery distally measures 192 cm/s. Elevated velocity within the anterior tibial artery measures 177 cm/s. Mild atheromatous plaque. IMPRESSION: 1. 50-75 percent stenosis of the right common femoral artery due to velocity elevation. 2. 30-49 percent stenosis of the right superficial femoral and popliteal arteries. 3. 30-49 percent stenosis of the left common femoral common distal superficial femoral and anterior tibial arteries. 4. Monophasic waveform bilaterally, may indicate proximal stenosis. CT angiogram can further assess as clinically warranted. Electronically signed by: Natty Schmidt DO (11/27/2019 3:16 PM) [id number] DICTATED and SIGNED BY: NATTY SCHMIDT DO DATE: 11/27/19 1516 Laboratory Tests Test 11/27/19 10:40 11/27/19 12:11 11/27/19 16:58 11/27/19 21:34 C-Reactive Protein, Quantitative 39.7 mg/L (0-3.3) Glucose (Fingerstick) 377 mg/dL (70-99) 188 mg/dL (70-99) 171 mg/dL (70-99) Test 11/28/19 07:23 Glucose (Fingerstick) 320 mg/dL (70-99) Assessment and Plan Assessmemt and Plan Problems Medical Problems: (1) Cellulitis Status: Acute Comment Review of Relevant I have reviewed the following items nakia (where applicable) has been applied. Labs Laboratory Tests Test 11/26/19 10:45 11/26/19 11:02 11/26/19 16:48 11/26/19 21:21 O2 Saturation 91 % (92-99) Arterial Blood pH 7.39 (7.35-7.45) Arterial Blood pCO2 at Patient Temp 49 mmHg (35-46) Arterial Blood pO2 at Patient Temp 57 mmHg (75-108) Arterial Blood HCO3 29 mmol/L (21-28) Arterial Blood Base Excess 3 mmol/L (-3-3) FiO2 21 Glucose (Fingerstick) 103 mg/dL (70-99) 228 mg/dL (70-99) 285 mg/dL (70-99) Test 11/27/19 07:16 11/27/19 10:40 11/27/19 12:11 11/27/19 16:58 Glucose (Fingerstick) 291 mg/dL (70-99) 377 mg/dL (70-99) 188 mg/dL (70-99) C-Reactive Protein, Quantitative 39.7 mg/L (0-3.3) Test 11/27/19 21:34 11/28/19 07:23 Glucose (Fingerstick) 171 mg/dL (70-99) 320 mg/dL (70-99) Laboratory Tests Test 11/27/19 10:40 11/27/19 12:11 11/27/19 16:58 11/27/19 21:34 C-Reactive Protein, Quantitative 39.7 mg/L (0-3.3) Glucose (Fingerstick) 377 mg/dL (70-99) 188 mg/dL (70-99) 171 mg/dL (70-99) Test 11/28/19 07:23 Glucose (Fingerstick) 320 mg/dL (70-99) Microbiology 11/23/19 Blood Culture - Final, Complete NO GROWTH AFTER 5 DAYS Medications Current Medications Ceftriaxone Sodium (Rocephin) 1 gm 1X ONCE IVP Last administered on 11/23/19at 10:50; Start 11/23/19 at 08:45; Stop 11/23/19 at 08:46; Status DC Sodium Chloride 1,000 ml @ 1,000 mls/hr 1X ONCE IV Last administered on 11/23/19at 10:50; Start 11/23/19 at 10:30; Stop 11/23/19 at 11:29; Status DC Oxycodone/ Acetaminophen (Percocet 5/325) 1 tab 1X ONCE PO Last administered on 11/23/19at 11:14; Start 11/23/19 at 11:15; Stop 11/23/19 at 11:16; Status DC Albuterol Sulfate (Ventolin Neb Soln) 2.5 mg PRN Q6HRS PRN INH SHORTNESS OF BREATH Last administered on 11/26/19at 23:15; Start 11/23/19 at 14:45 Fenofibrate (Lofibra) 54 mg DAILY PO Last administered on 11/28/19at 09:35; Start 11/24/19 at 09:00 Latanoprost (Xalatan) 1 drop QHS OU Last administered on 11/27/19at 21:39; Start 11/23/19 at 21:00 Simvastatin (Zocor) 40 mg QHS PO Last administered on 11/27/19at 21:31; Start 11/23/19 at 21:00 Insulin Human Lispro (HumaLOG) 60 units TIDWMEALS SQ Last administered on 11/28/19at 09:58; Start 11/23/19 at 17:00 Insulin Glargine (Lantus Syringe) 60 unit QHS SQ Last administered on 8/10/20at 22:21; Start 11/23/19 at 21:00; Stop 11/24/19 at 13:09; Status DC Magnesium Oxide (Magnesium Oxide) 400 mg BID PO Last administered on 11/28/19 09:31; Start 11/23/19 at 21:00 Pregabalin (Lyrica) 200 mg BID PO Last administered on 11/28/19 09:34; Start 11/23/19 at 21:00 Rivaroxaban (Xarelto) 20 mg DAILYWSUP PO Last administered on 11/27/19at 18:00; Start 11/23/19 at 17:00 Oxycodone/ Acetaminophen (Percocet 5/325) 1 tab PRN Q4HRS PRN PO MODERATE PAIN Last administered on 11/24/19 21:47; Start 11/23/19 at 15:30; Stop 11/25/19 at 11:51; Status DC Fentanyl Citrate (Fentanyl 2ml Vial) 50 mcg PRN Q2HR PRN IVP MODERATE TO SEVERE PAIN Last administered on 11/23/19 22:32; Start 11/23/19 at 15:30; Stop 11/25/19 at 14:51; Status DC Nicotine (Nicoderm Cq 21mg) 1 patch PRN DAILY PRN TD SMOKING CESSATION Last administered on 11/26/19at 00:05; Start 11/23/19 at 15:30 Furosemide (Lasix) 60 mg 1X ONCE PO Last administered on 11/23/19 17:41; Start 11/23/19 at 15:30; Stop 11/23/19 at 15:46; Status DC Furosemide (Lasix) 80 mg DAILY PO Last administered on 11/27/19 08:59; Start 11/24/19 at 09:00; Stop 11/27/19 at 13:27; Status DC Insulin Human Lispro (HumaLOG) 0-9 UNITS TIDWMEALS SQ Last administered on 11/28/19 09:57; Start 11/23/19 at 17:00 Dextrose (Dextrose 50%-Water Syringe) 12.5 gm PRN Q15MIN PRN IV SEE COMMENTS; Start 11/23/19 at 15:30 Vancomycin HCl (Vanco Per Pharmacy) 1 each PRN DAILY PRN MC SEE COMMENTS Last administered on 11/24/19at 12:06; Start 11/23/19 at 15:30; Stop 11/24/19 at 13:30; Status DC Vancomycin HCl 2 gm/Sodium Chloride 500 ml @ 250 mls/hr 1X ONCE IV Last administered on 11/23/19at 17:42; Start 11/23/19 at 16:00; Stop 11/23/19 at 17:59; Status DC Vancomycin HCl 2 gm/Sodium Chloride 500 ml @ 250 mls/hr Q12H IV Last administered on 11/24/19at 05:47; Start 11/24/19 at 06:00; Stop 11/24/19 at 13:28; Status DC Vancomycin HCl (Vancomycin Trough Level) 1 each 1X ONCE MC ; Start 11/25/19 at 05:30; Stop 11/25/19 at 05:31; Status Cancel Acetaminophen/ Hydrocodone Bitart (Lortab 10/325) 1 tab PRN Q6HRS PRN PO SEVERE PAIN Last administered on 11/25/19at 12:29; Start 11/23/19 at 23:00; Stop 11/25/19 at 14:57; Status DC Lorazepam (Ativan) 1 mg PRN BID PRN PO ANXIETY / AGITATION; Start 11/23/19 at 23:00; Status UNV Alprazolam (Xanax) 1 mg PRN BID PRN PO ANXIETY / AGITATION Last administered on 11/26/19at 20:48; Start 11/23/19 at 23:15; Stop 11/27/19 at 09:53; Status DC Lactobacillus Rhamnosus (Culturelle) 1 cap BID PO Last administered on 11/28/19at 09:34; Start 11/24/19 at 21:00 Insulin Glargine (Lantus Syringe) 55 unit QHS SQ Last administered on 11/27/19at 21:46; Start 11/24/19 at 21:00 Cefazolin Sodium/ Dextrose 50 ml @ 100 mls/hr Q8HRS IV Last administered on 11/24/19at 21:45; Start 11/24/19 at 14:00; Stop 11/25/19 at 13:41; Status DC Cephalexin HCl (Keflex) 500 mg QID PO ; Start 11/25/19 at 17:00; Stop 11/25/19 at 16:56; Status DC Acetaminophen/ Hydrocodone Bitart (Lortab 10/325) 1 tab Q6HRS PO Last admin istered on 11/28/19 03:46; Start 11/25/19 at 18:00 Cephalexin HCl (Keflex) 500 mg Q6HRS PO Last administered on 11/27/19at 05:29; Start 11/25/19 at 18:00; Stop 11/27/19 at 12:05; Status DC Oxycodone/ Acetaminophen (Percocet 5/325) 1 tab PRN Q4HRS PRN PO PAIN Last administered on 11/27/19at 09:00; Start 11/25/19 at 18:30; Stop 11/27/19 at 09:53; Status DC Info (Anti-Coagulation Monitoring By Pharmacy) 1 each PRN DAILY PRN MC SEE COMMENTS Last administered on 11/27/19at 15:02; Start 11/27/19 at 09:30 Alprazolam (Xanax) 0.5 mg PRN BID PRN PO ANXIETY / AGITATION Last administered on 11/27/19at 21:32; Start 11/27/19 at 10:00 Oxycodone/ Acetaminophen (Percocet 5/325) 1 tab PRN Q8HRS PRN PO PAIN Last administered on 11/27/19at 19:26; Start 11/27/19 at 10:00 Cefazolin Sodium/ Dextrose 50 ml @ 100 mls/hr Q8HRS IV Last administered on 11/28/19at 06:18; Start 11/27/19 at 14:00 Furosemide (Lasix) 40 mg DAILY IVP ; Start 11/27/19 at 14:00; Status Cancel Furosemide (Lasix) 40 mg DAILY IVP Last administered on 11/28/19at 09:33; Start 11/28/19 at 09:00 Active Scripts Active Proair Hfa (Albuterol Sulfate) 8.5 Gm Hfa.aer.ad 1 Puff INH PRN Q6HRS PRN Reported Guaifenesin Ac Cough Syrup (Guaifenesin/Codeine Phosphate) 473 Ml Liquid 5 Ml PO PRN Q6HRS PRN Theophylline Anhydrous 300 Mg Tab.er.12h 1 Tab PO BID 30 Days Trelegy Ellipta 100-62.5-25 (Fluticasone/Umeclidin/Vilanter) 1 Each Blst.w.dev 1 Each IH QDAY Fenofibrate (Fenofibrate,Micronized) 134 Mg Capsule 1 Cap PO DAILY Mirapex (Pramipexole Di-Hcl) 1 Mg Tablet 1 Mg PO QHS Augmentin 875-125 Tablet (Amoxicillin/Potassium Clav) 1 Each Tablet 1 Tab PO BID 10 Days Tizanidine Hcl 4 Mg Tablet 1 Tab PO PRN Q8HRS PRN Alprazolam 1 Mg Tablet 1 Tab PO BID Hydrocodone-Apap 10-325 (Hydrocodone Bit/Acetaminophen) 1 Tab Tablet 1 Tab PO PRN Q6HRS PRN Ventolin Hfa Inhaler (Albuterol Sulfate) 18 Gm Hfa.aer.ad 2 Puff INH Q4HRS Levemir Flextouch (Insulin Detemir) 100 Unit/1 Ml Insuln.pen 60 Unit SQ HS Novolog Flexpen (Insulin Aspart) 100 Unit/1 Ml Insuln.pen 60 Unit SQ TIDWMEALS Latanoprost 2.5 Ml Drops 1 Drop EACHEYE QHS Magnesium (Magnesium Oxide) 400 Mg Capsule 1 Cap PO BID Vitamin D3 (Cholecalciferol (Vitamin D3)) 5,000 Unit Tablet 1 Tab PO DAILY Simvastatin 40 Mg Tablet 1 Tab PO QHS Xarelto (Rivaroxaban) 20 Mg Tablet 20 Mg PO DAILY Lyrica (Pregabalin) 200 Mg Capsule 1 Cap PO BID Vitals/I & O Vital Sign - Last 24 Hours 11/27/19 11/27/19 11/27/19 11/27/19 11:00 12:38 13:48 15:00 Temp 98.4 98.8 98.4 98.8 Pulse 91 101 Resp 16 20 B/P (MAP) 136/55 (82) 125/79 (94) Pulse Ox 89 89 O2 Delivery Room Air Nasal Cannula Nasal Cannula Room Air O2 Flow Rate 2.0 2.0 11/27/19 11/27/19 11/27/19 11/27/19 18:00 19:00 19:06 19:26 Temp 98.3 98.3 Pulse 93 Resp 20 B/P (MAP) 121/89 (100) Pulse Ox 93 O2 Delivery Room Air Nasal Cannula Nasal Cannula O2 Flow Rate 2.0 2.0 11/27/19 11/27/19 11/27/19 11/28/19 19:40 20:30 23:00 03:00 Temp 98.2 98.0 98.2 98.0 Pulse 88 94 Resp 18 20 B/P (MAP) 140/94 (109) 168/102 (124) Pulse Ox 95 93 O2 Delivery Nasal Cannula Nasal Cannula O2 Flow Rate 2.0 2.0 11/28/19 07:00 Temp 98.2 98.2 Pulse 81 Resp 20 B/P (MAP) 141/83 (102) Pulse Ox 91 O2 Delivery Room Air Intake and Output 11/27/19 11/27/19 11/28/19 15:00 23:00 07:00 Intake Total 1650 ml 1620 ml 600 ml Balance 1650 ml 1620 ml 600 ml Justicifation of Admission Dx: Justifications for Admission: Justification of Admission Dx: Yes Cellulitis: Cellulitis JAVIER FARRAR MD Nov 28, 2019 10:26
[2019-11-28 11:00] VITALS: BP 124/72
--- NOTE | 2019-11-28 12:20 | PDOC ---
Infectious Disease Note Subjective Subjective co ongoing pain, swelling and redness LLE. Says tries to keep it elevated but doesn't help. ROS ROS Denies F/C/S/N/V/D/SOA Vital Sign Vital Signs Vital Signs Date Time Temp Pulse Resp B/P (MAP) Pulse Ox O2 Delivery O2 Flow Rate FiO2 11/28/19 11:00 98.3 91 20 124/72 (89) 93 Room Air 98.3 11/27/19 20:30 2.0 Physical Exam PHYSICAL EXAM GENERAL: Sitting on the side of the bed, legs in dependent position HEENT: Oral cavity pink, clear NECK: Supple, no JVD. LUNGS: Clear bilaterally. No wheezing. HEART: S1, S2. No gallops or murmurs. ABDOMEN: Soft, obese. Bowel sounds present, nontender, nondistended. EXTREMITIES: Bilateral lymphedema, left lower extremity redness, warmth swelling and pain. no open wounds noted. DERMATOLOGIC: Warm, dry. No generalized rash. NEUROLOGIC: Alert and oriented x 3, grossly nonfocal. PSYCHIATRIC: Cooperative, appropriate mood and affect. PIV looks ok Labs Lab Laboratory Tests Test 11/27/19 16:58 11/27/19 21:34 11/28/19 07:23 11/28/19 11:38 Glucose (Fingerstick) 188 mg/dL (70-99) 171 mg/dL (70-99) 320 mg/dL (70-99) 242 mg/dL (70-99) IMPRESSION: 1. 50-75 percent stenosis of the right common femoral artery due to velocity elevation. 2. 30-49 percent stenosis of the right superficial femoral and popliteal arteries. 3. 30-49 percent stenosis of the left common femoral common distal superficial femoral and anterior tibial arteries. 4. Monophasic waveform bilaterally, may indicate proximal stenosis. CT angiogram can further assess as clinically warranted. Micro Microbiology 11/23/19 Blood Culture - Final, Complete NO GROWTH AFTER 5 DAYS Objective Assessment Left lower extremity cellulitis with underlying chronic lymphedema. -Failed outpatient p.o. antibiotics. Febrile illness prior to admission. PVD History of deep venous thrombosis. Morbid obesity. Tobacco use disorder. Anxiety. Plan Plan of Care Continue cefazolin Encourage to elevate lower extremity Probiotics Optimal lymphedema control. Lymphedema clinic following Encouraged to quit smoking Awaiting vascular evaluation Attending Co-Sign Attending Co-Sign Attending Co-Sign The patient was seen and examined at the bedside. The chart was reviewed. The case was discussed. Agree with the plan of care. VALE APPLE APRN Nov 28, 2019 12:20 MARILYN CAPPS MD Nov 28, 2019 13:32
[2019-11-28] MEDS: ANTI-COAG MONITOR BY PHARMACY. MC PRN (14:12)
--- NOTE | 2019-11-28 14:38 | PDOC2 ---
CONSULT Date of Service Date of Service DATE: 11/28/19 TIME: 14:32 Reason for Consult Reason for Consult: PAD left leg cellulitis Identification/Chief Complaint Chief Complaint Left leg swelling and erythema Source Source: Chart review, Patient History of Present Illness Reason for Visit: A 54-year-old female with history of chronic lymphedema, presented to the ER with complaints of left lower extremity swelling, redness and pain, which started couple of days prior to admission. She had been to her primary care physician who gave her Augmentin, but it continued to get worse. She also had some nausea and diarrhea with fevers. The patient denied any history of injury. Her white count was normal at 10.2, creatinine of 1.1. Temperature of 99.8. The patient received Rocephin. She was started on vancomycin. ID consult has been requested for antibiotic management. The patient denies any history of trauma. Past Medical History Past Medical History Morbid obesity, DVT, lymphedema, tobacco abuse Cardiovascular: HTN, Hyperlipidemia, Other Pulmonary: COPD Heme/Onc: Other Musculoskeletal: low back pain, Osteoarthritis Renal/: Chronic renal insuff, UTI, Other Endocrine: Diabetes, Hypothyroidism Past Surgical History Past Surgical History: Tubal Ligation Family History Family History: Diabetes, Hypertension Social History 1 pack per day ALCOHOL: none Drugs: None Lives: Alone Current Problem List Problem List Problems Medical Problems: (1) Cellulitis Status: Acute Current Medications Current Medications Current Medications Ceftriaxone Sodium (Rocephin) 1 gm 1X ONCE IVP Last administered on 11/23/19at 10:50; Start 11/23/19 at 08:45; Stop 11/23/19 at 08:46; Status DC Sodium Chloride 1,000 ml @ 1,000 mls/hr 1X ONCE IV Last administered on 11/23/19at 10:50; Start 11/23/19 at 10:30; Stop 11/23/19 at 11:29; Status DC Oxycodone/ Acetaminophen (Percocet 5/325) 1 tab 1X ONCE PO Last administered on 11/23/19at 11:14; Start 11/23/19 at 11:15; Stop 11/23/19 at 11:16; Status DC Albuterol Sulfate (Ventolin Neb Soln) 2.5 mg PRN Q6HRS PRN INH SHORTNESS OF BREATH Last administered on 11/26/19at 23:15; Start 11/23/19 at 14:45 Fenofibrate (Lofibra) 54 mg DAILY PO Last administered on 11/28/19 09:35; Start 11/24/19 at 09:00 Latanoprost (Xalatan) 1 drop QHS OU Last administered on 11/27/19 21:39; Start 11/23/19 at 21:00 Simvastatin (Zocor) 40 mg QHS PO Last administered on 11/27/19 21:31; Start 11/23/19 at 21:00 Insulin Human Lispro (HumaLOG) 60 units TIDWMEALS SQ Last administered on 11/28/19 12:45; Start 11/23/19 at 17:00 Insulin Glargine (Lantus Syringe) 60 unit QHS SQ Last administered on 11/23/19 22:21; Start 11/23/19 at 21:00; Stop 11/24/19 at 13:09; Status DC Magnesium Oxide (Magnesium Oxide) 400 mg BID PO Last administered on 11/28/19 09:31; Start 11/23/19 at 21:00 Pregabalin (Lyrica) 200 mg BID PO Last administered on 11/28/19 09:34; Start 11/23/19 at 21:00 Rivaroxaban (Xarelto) 20 mg DAILYWSUP PO Last administered on 11/27/19 18:00; Start 11/23/19 at 17:00 Oxycodone/ Acetaminophen (Percocet 5/325) 1 tab PRN Q4HRS PRN PO MODERATE PAIN Last administered on 11/24/19at 21:47; Start 11/23/19 at 15:30; Stop 11/25/19 at 11:51; Status DC Fentanyl Citrate (Fentanyl 2ml Vial) 50 mcg PRN Q2HR PRN IVP MODERATE TO SEVERE PAIN Last administered on 11/23/19 22:32; Start 11/23/19 at 15:30; Stop 11/25/19 at 14:51; Status DC Nicotine (Nicoderm Cq 21mg) 1 patch PRN DAILY PRN TD SMOKING CESSATION Last administered on 11/26/19at 00:05; Start 11/23/19 at 15:30 Furosemide (Lasix) 60 mg 1X ONCE PO Last administered on 8/10/20at 17:41; Start 11/23/19 at 15:30; Stop 11/23/19 at 15:46; Status DC Furosemide (Lasix) 80 mg DAILY PO Last administered on 11/27/19at 08:59; Start 11/24/19 at 09:00; Stop 11/27/19 at 13:27; Status DC Insulin Human Lispro (HumaLOG) 0-9 UNITS TIDWMEALS SQ Last administered on 11/28/19at 12:46; Start 11/23/19 at 17:00 Dextrose (Dextrose 50%-Water Syringe) 12.5 gm PRN Q15MIN PRN IV SEE COMMENTS; Start 11/23/19 at 15:30 Vancomycin HCl (Vanco Per Pharmacy) 1 each PRN DAILY PRN MC SEE COMMENTS Last administered on 11/24/19at 12:06; Start 11/23/19 at 15:30; Stop 11/24/19 at 13:30; Status DC Vancomycin HCl 2 gm/Sodium Chloride 500 ml @ 250 mls/hr 1X ONCE IV Last administered on 11/23/19at 17:42; Start 11/23/19 at 16:00; Stop 11/23/19 at 17:59; Status DC Vancomycin HCl 2 gm/Sodium Chloride 500 ml @ 250 mls/hr Q12H IV Last administered on 11/24/19at 05:47; Start 11/24/19 at 06:00; Stop 11/24/19 at 13:28; Status DC Vancomycin HCl (Vancomycin Trough Level) 1 each 1X ONCE MC ; Start 11/25/19 at 05:30; Stop 11/25/19 at 05:31; Status Cancel Acetaminophen/ Hydrocodone Bitart (Lortab 10/325) 1 tab PRN Q6HRS PRN PO SEVERE PAIN Last administered on 11/25/19at 12:29; Start 11/23/19 at 23:00; Stop 11/25/19 at 14:57; Status DC Lorazepam (Ativan) 1 mg PRN BID PRN PO ANXIETY / AGITATION; Start 11/23/19 at 23:00; Status UNV Alprazolam (Xanax) 1 mg PRN BID PRN PO ANXIETY / AGITATION Last administered on 11/26/19at 20:48; Start 11/23/19 at 23:15; Stop 11/27/19 at 09:53; Status DC Lactobacillus Rhamnosus (Culturelle) 1 cap BID PO Last administered on 11/28/19 09:34; Start 11/24/19 at 21:00 Insulin Glargine (Lantus Syringe) 55 unit QHS SQ Last administered on 11/27/19at 21:46; Start 11/24/19 at 21:00 Cefazolin Sodium/ Dextrose 50 ml @ 100 mls/hr Q8HRS IV Last administered on 11/24/19at 21:45; Start 11/24/19 at 14:00; Stop 11/25/19 at 13:41; Status DC Cephalexin HCl (Keflex) 500 mg QID PO ; Start 11/25/19 at 17:00; Stop 11/25/19 at 16:56; Status DC Acetaminophen/ Hydrocodone Bitart (Lortab 10/325) 1 tab Q6HRS PO Last administered on 11/28/19 12:40; Start 11/25/19 at 18:00 Cephalexin HCl (Keflex) 500 mg Q6HRS PO Last administered on 11/27/19at 05:29; Start 11/25/19 at 18:00; Stop 11/27/19 at 12:05; Status DC Oxycodone/ Acetaminophen (Percocet 5/325) 1 tab PRN Q4HRS PRN PO PAIN Last administered on 11/27/19 09:00; Start 11/25/19 at 18:30; Stop 11/27/19 at 09:53; Status DC Info (Anti-Coagulation Monitoring By Pharmacy) 1 each PRN DAILY PRN MC SEE COMMENTS Last administered on 11/28/19at 14:12; Start 11/27/19 at 09:30 Alprazolam (Xanax) 0.5 mg PRN BID PRN PO ANXIETY / AGITATION Last administered on 11/27/19 21:32; Start 11/27/19 at 10:00 Oxycodone/ Acetaminophen (Percocet 5/325) 1 tab PRN Q8HRS PRN PO PAIN Last administered on 11/27/19 19:26; Start 11/27/19 at 10:00 Cefazolin Sodium/ Dextrose 50 ml @ 100 mls/hr Q8HRS IV Last administered on 11/28/19at 14:24; Start 11/27/19 at 14:00 Furosemide (Lasix) 40 mg DAILY IVP ; Start 11/27/19 at 14:00; Status Cancel Furosemide (Lasix) 40 mg DAILY IVP Last administered on 11/28/19at 09:33; Start 11/28/19 at 09:00 Active Scripts Active Proair Hfa (Albuterol Sulfate) 8.5 Gm Hfa.aer.ad 1 Puff INH PRN Q6HRS PRN Reported Guaifenesin Ac Cough Syrup (Guaifenesin/Codeine Phosphate) 473 Ml Liquid 5 Ml PO PRN Q6HRS PRN Theophylline Anhydrous 300 Mg Tab.er.12h 1 Tab PO BID 30 Days Trelegy Ellipta 100-62.5-25 (Fluticasone/Umeclidin/Vilanter) 1 Each Blst.w.dev 1 Each IH QDAY Fenofibrate (Fenofibrate,Micronized) 134 Mg Capsule 1 Cap PO DAILY Mirapex (Pramipexole Di-Hcl) 1 Mg Tablet 1 Mg PO QHS Augmentin 875-125 Tablet (Amoxicillin/Potassium Clav) 1 Each Tablet 1 Tab PO BID 10 Days Tizanidine Hcl 4 Mg Tablet 1 Tab PO PRN Q8HRS PRN Alprazolam 1 Mg Tablet 1 Tab PO BID Hydrocodone-Apap 10-325 (Hydrocodone Bit/Acetaminophen) 1 Tab Tablet 1 Tab PO PRN Q6HRS PRN Ventolin Hfa Inhaler (Albuterol Sulfate) 18 Gm Hfa.aer.ad 2 Puff INH Q4HRS Levemir Flextouch (Insulin Detemir) 100 Unit/1 Ml Insuln.pen 60 Unit SQ HS Novolog Flexpen (Insulin Aspart) 100 Unit/1 Ml Insuln.pen 60 Unit SQ TIDWMEALS Latanoprost 2.5 Ml Drops 1 Drop EACHEYE QHS Magnesium (Magnesium Oxide) 400 Mg Capsule 1 Cap PO BID Vitamin D3 (Cholecalciferol (Vitamin D3)) 5,000 Unit Tablet 1 Tab PO DAILY Simvastatin 40 Mg Tablet 1 Tab PO QHS Xarelto (Rivaroxaban) 20 Mg Tablet 20 Mg PO DAILY Lyrica (Pregabalin) 200 Mg Capsule 1 Cap PO BID Allergies Allergies: Coded Allergies: No Known Drug Allergies (Unverified , 12/04/16) Physical Exam General: Alert, Oriented X3 HEENT: Atraumatic Lungs: Clear to auscultation Heart: Regular rate, No murmurs Abdomen: Normal bowel sounds Extremities: Other (Significant edema both lower extremities appears chronic nonpitting some erythema to both feet) Skin: Other (Erythema to both feet no open wounds) MUSCULOSKELETAL: Other (Massively obese difficult to examine) Vitals VITALS Vital Signs Date Time Temp Pulse Resp B/P (MAP) Pulse Ox O2 Delivery O2 Flow Rate FiO2 11/28/19 13:40 20 93 Nasal Cannula 11/28/19 11:00 98.3 91 124/72 (89) 98.3 11/28/19 08:00 2.0 Labs Labs Laboratory Tests Test 11/26/19 16:48 11/26/19 21:21 11/27/19 07:16 11/27/19 10:40 Glucose (Fingerstick) 228 mg/dL (70-99) 285 mg/dL (70-99) 291 mg/dL (70-99) C-Reactive Protein, Quantitative 39.7 mg/L (0-3.3) Test 11/27/19 12:11 11/27/19 16:58 11/27/19 21:34 11/28/19 07:23 Glucose (Fingerstick) 377 mg/dL (70-99) 188 mg/dL (70-99) 171 mg/dL (70-99) 320 mg/dL (70-99) Test 11/28/19 11:38 Glucose (Fingerstick) 242 mg/dL (70-99) Laboratory Tests Test 11/27/19 16:58 11/27/19 21:34 11/28/19 07:23 11/28/19 11:38 Glucose (Fingerstick) 188 mg/dL (70-99) 171 mg/dL (70-99) 320 mg/dL (70-99) 242 mg/dL (70-99) Images Images I independently reviewed the arterial duplex of the lower extremities While the report reads the left lower extremity is monophasic this is incorrectthere are actually good biphasic waveforms in both lower extremities with good systolic upstroke and continuous diastolic flow. There are only very mild velocity elevations and I did not suspect any significant flow-limiting stenosis. Given her morbid obesity she is not an open surgical candidate for knee arterial reconstruction. If there was any concern we will have to perform an angiogram potentially from the wrist but I do not think that this is a concern at this time. Assessment/Plan Assessment/Plan On independent review of the arterial duplex she has good biphasic signals not monophasic signals as listed in the reportreview of the images shows that she clearly has excellent systolic upstroke and continuous diastolic flow. There are only mild velocity elevations I do not suspect any significant flow- limiting stenosis. Neck her cellulitis is mostly due to her massive obesity and chronic edema likely lipedema as well as lymphedema. She needs aggressive weight loss, would consider referring her for metabolic weight loss surgery When I came to examine her she is sitting up at the bedside with her feet in dependent position with no compression wrappings on the legsrecommend aggressive compression and elevation above the level of the heart. As noted above, if she were to have arterial evaluation should need an angiogram likely from the wrist she is not a candidate for any open surgical repair given her morbid obesity.. NEEL ORDONEZ MD Nov 28, 2019 14:38
[2019-11-28 15:00] VITALS: BP 148/64
--- NOTE | 2019-11-28 15:37 | CONS ---
DATE OF CONSULTATION: 11/28/2019 REASON FOR CONSULTATION: Heart failure. HISTORY OF PRESENT ILLNESS: The patient is a 54-year-old woman with past medical history as noted below, who presented to the hospital in the setting of lower extremity edema. She was admitted on 11/23/2019 and there was concern for cellulitis. She is currently being treated for that. Cardiology was asked to evaluate her for heart failure. Of note, the patient was seen by our service in 02/2019 for a similar complaint of lower extremity edema. At that time, she had an echocardiogram, which did not reveal any significant cardiac pathology and her lower extremity edema was felt to be related to her morbid obesity and lymphedema. Also at that time her BNP level was only 8. The patient otherwise does not have any cardiovascular limitations such as angina. PAST MEDICAL HISTORY: 1. Hypertension. 2. Dyslipidemia. 3. COPD. 4. History of CKD. 5. Diabetes. 6. Hypothyroidism. 7. History of DVT, on anticoagulation. PAST SURGICAL HISTORY: Tubal ligation. FAMILY HISTORY: Noncontributory. SOCIAL HISTORY: Prior tobacco abuse. REVIEW OF SYSTEMS: Negative unless otherwise mentioned above in HPI. CURRENT MEDICATIONS: 1. Furosemide 40 mg IV push daily. 2. Simvastatin 40 mg daily. 3. Xarelto 20 mg daily. ALLERGIES: No known drug allergies. PHYSICAL EXAMINATION: VITAL SIGNS: Afebrile, 91, 20, 124/72, 93% on room air. GENERAL: She was sleeping, in no acute distress. HEAD AND NECK: Unremarkable. CARDIAC: Regular rate and rhythm. LUNGS: Clear. ABDOMEN: Obese, protuberant. EXTREMITIES: Bilateral large, morbidly obese legs with nonpitting edema. DIAGNOSTIC STUDIES: Creatinine 0.9, hemoglobin and platelets within normal limits. Duplex lower extremity arterial study reveals a 50-75% stenosis involving the right common femoral artery based on velocity elevation. IMPRESSION: 1. Bilateral lymphedema with underlying venous insufficiency and probable mild to moderate arterial insufficiency. 2. Chronic diastolic heart failure, likely due to her other comorbidities. RECOMMENDATIONS: 1. At this present time, no acute indication for any arterial intervention for her legs and I suspect the elevated velocities are not contributing factors for her edema. 2. Continue diuresis with monitoring of her renal function. 3. Previous echocardiogram was unremarkable. No need for repeating echocardiogram at this time. 4. She needs aggressive weight loss measures for chronic long-term benefit. No other acute intervention is necessary. Please call with any further questions. ALISHA PRITCHETT MD DR: BRAD/jessika JOB#: [id number] / [id number]
[2019-11-28] MEDS: RIVAROXABAN 10 MG TABLET. PO SCH (17:44)
[2019-11-28] MEDS: FUROSEMIDE 40 MG/4 ML VIAL. IVP SCH (17:46)
[2019-11-28 19:30] VITALS: BP 140/67
[2019-11-28] MEDS: SIMVASTATIN 40 MG TABLET. PO SCH (21:54)
[2019-11-28] MEDS: ALPRAZolam 1 MG TABLET PO PRN (22:03)
[2019-11-28] MEDS: INSULIN GLARGINE SYRINGE. SQ SCH (22:06)
[2019-11-28 23:00] VITALS: BP 169/88
[2019-11-28] MEDS: LATANOPROST 0.005% OPHTH SOLUTION 2.5ML BOTTLE. OU SCH (23:44)
[2019-11-29] MEDS: oxyCODONE/APAP 5/325 1 TAB TABLET PO PRN (01:03)
[2019-11-29 03:16] VITALS: BP 135/73
[2019-11-29] MEDS: HYDROcodone/APAP 10/325 1 TAB TABLET PO SCH ×3 (06:05→18:39)
[2019-11-29 07:00] VITALS: BP 121/80
[2019-11-29] MEDS: FENOFIBRATE 54 MG TABLET. PO SCH (08:57)
[2019-11-29] MEDS: MAGNESIUM OXIDE 400 MG TABLET PO SCH ×2 (08:57→21:58)
[2019-11-29] MEDS: LACTOBACILLUS RHAMNOSUS GG 1 CAPSULE. PO SCH ×2 (08:57→21:58)
[2019-11-29] MEDS: FUROSEMIDE 40 MG/4 ML VIAL. IVP SCH ×2 (08:58→13:13)
[2019-11-29] MEDS: PREGABALIN 50 MG CAPSULE PO SCH ×2 (08:58→21:59)
[2019-11-29] MEDS: ALPRAZolam 1 MG TABLET PO PRN (09:11)
[2019-11-29] MEDS: NICOTINE 21MG PATCH. TD PRN (09:14)
[2019-11-29] MEDS: INSULIN LISPRO 300 UNITS/3 ML VIAL. SQ SCH ×6 (09:17→18:43)
--- NOTE | 2019-11-29 09:39 | PDOC ---
PULMONARY PROGRESS NOTES DATE: 11/29/19 TIME: 09:38 Subjective on 02, denies sob, cough, Vitals Vital Signs Date Time Temp Pulse Resp B/P (MAP) Pulse Ox O2 Delivery O2 Flow Rate FiO2 11/29/19 06:05 22 Room Air 11/29/19 03:16 98.1 88 135/73 (93) 91 98.1 11/28/19 19:55 2.0 ROS: No Nausea, No Chest Pain General: Alert, No acute distress Lungs: Clear Cardiovascular: S1, S2 Abdomen: Soft, Non-tender, Other (obese) Extremities: Other (lymphedema/ertyhema) Skin: Warm Labs Laboratory Tests Test 11/27/19 10:40 11/27/19 12:11 11/27/19 16:58 11/27/19 21:34 C-Reactive Protein, Quantitative 39.7 mg/L (0-3.3) Glucose (Fingerstick) 377 mg/dL (70-99) 188 mg/dL (70-99) 171 mg/dL (70-99) Test 11/28/19 07:23 11/28/19 11:38 11/28/19 17:14 11/28/19 20:23 Glucose (Fingerstick) 320 mg/dL (70-99) 242 mg/dL (70-99) 210 mg/dL (70-99) 194 mg/dL (70-99) Test 11/29/19 08:44 Glucose (Fingerstick) 251 mg/dL (70-99) Laboratory Tests Test 11/28/19 11:38 11/28/19 17:14 11/28/19 20:23 11/29/19 08:44 Glucose (Fingerstick) 242 mg/dL (70-99) 210 mg/dL (70-99) 194 mg/dL (70-99) 251 mg/dL (70-99) Medications Active Scripts Medications Dose Route/Sig Max Daily Dose Days Date Category Guaifenesin Ac Cough Syrup (Guaifenesin/Codeine Phosphate) 473 Ml Liquid 5 Ml PO PRN Q6HRS PRN 11/23/19 Reported Theophylline Anhydrous 300 Mg Tab.er.12h 1 Tab PO BID 30 11/23/19 Reported Trelegy Ellipta 100-62.5-25 (Fluticasone/Umeclidin/Vilanter) 1 Each Blst.w.dev 1 Each IH QDAY 11/23/19 Reported Fenofibrate (Fenofibrate,Micronized) 134 Mg Capsule 1 Cap PO DAILY 11/23/19 Reported Mirapex (Pramipexole Di-Hcl) 1 Mg Tablet 1 Mg PO QHS 11/23/19 Reported Augmentin 875-125 Tablet (Amoxicillin/Potassium Clav) 1 Each Tablet 1 Tab PO BID 10 11/23/19 Reported Tizanidine Hcl 4 Mg Tablet 1 Tab PO PRN Q8HRS PRN 11/23/19 Reported Alprazolam 1 Mg Tablet 1 Tab PO BID 11/23/19 Reported Hydrocodone-Apap 10-325 (Hydrocodone Bit/Acetaminophen) 1 Tab Tablet 1 Tab PO PRN Q6HRS PRN 11/23/19 Reported Ventolin Hfa Inhaler (Albuterol Sulfate) 18 Gm Hfa.aer.ad 2 Puff INH Q4HRS 09/19/18 Reported Levemir Flextouch (Insulin Detemir) 100 Unit/1 Ml Insuln.pen 60 Unit SQ HS 09/19/18 Reported Novolog Flexpen (Insulin Aspart) 100 Unit/1 Ml Insuln.pen 60 Unit SQ TIDWMEALS 09/19/18 Reported Latanoprost 2.5 Ml Drops 1 Drop EACHEYE QHS 09/19/18 Reported Magnesium (Magnesium Oxide) 400 Mg Capsule 1 Cap PO BID 09/18/18 Reported Vitamin D3 (Cholecalciferol (Vitamin D3)) 5,000 Unit Tablet 1 Tab PO DAILY 09/18/18 Reported Simvastatin 40 Mg Tablet 1 Tab PO QHS 09/18/18 Reported Xarelto (Rivaroxaban) 20 Mg Tablet 20 Mg PO DAILY 09/18/18 Reported Lyrica (Pregabalin) 200 Mg Capsule 1 Cap PO BID 09/18/18 Reported Proair Hfa (Albuterol Sulfate) 8.5 Gm Hfa.aer.ad 1 Puff INH PRN Q6HRS PRN 09/13/18 Rx Impression . 1. Highly suspected sleep apnea in a patient who is morbidly obese. Her current symptoms are also contributed by use of narcotics and benzodiazepines. She has high bicarbonate, suggesting she has chronic hypercapnia./ OHS 2. Recent hospitalization for cellulitis and lymphedema. 3. Encephalopathy due to narcotics, resolved 4. morbid obesity Plan . 1. discussed kiara the importance of diagnosis and tx, the need for sleep study and cpap use. She is not interested in CPAP. I did offer to her nasal pillows with the CPAP. At this point, she is not interested. 2. I would recommend to reduce the amount of narcotics and benzodiazepines. avoid over sedation 3. Weight loss is advised. 4. ABG reviewed. compensated respiratory acidosis, mild hypoxia due to hypoventilation. will need 2 litres during day and 3 litres qhs (based on noct study) 5. Abx per ID discussed w ASHANTI Rodriguez MD Nov 29, 2019 09:39
--- NOTE | 2019-11-29 10:52 | PDOC ---
PROGRESS NOTES Date of Service: DATE: 11/29/19 TIME: 10:52 Chief Complaint Chief Complaint VTE Prophylaxis Ordered VTE Prophylaxis Devices: Yes VTE Pharmacological Prophylaxi: Yes impression Assessment/Plan acute left left pain, new cellulitis morbid obesity, BMI 60, ie super morbid obesity tobacco use disorder, ongoing anxiety disorder lymphedema diabetes, which may compromise healing on CT 2018 Pulmonary trunk is dilated suggesting pulmonary arterial hypert ension. ON RECENT ECHO 2018 mild to moderate concentric left ventricular hypertrophy. LIKELY OBESITY,// HYPOVENTILATION SYNDROME hypercapnic resp failure , MOD-SEVERE Degenerative disc disease are seen throughout the lumbar spine. These findings result in very mild central spinal canal stenosis at L2-3 and L5-S1. Mild left neural foraminal stenosis is seen at L2-3. IN 11/26 DOPPLER STUDY LEGS , Monophasic waveform bilaterally, may indicate proximal stenosis. CT angiogram can further assess as clinically warranted. 11/28 STATES PAIN IN LEFT ANKLE TOO SEVERE TO WALK today, has DDD L/S d/w rn CONSULT PULM reviewed plan venous doppler both legs ABG first before dc from pulmonary standpoint chg keflex po on D/C cxr today ARTERIAL STUDY BOTH LEGS X RAY LEFT FOOT AND ANKLE pt/ot home o2 d/w RN Justicifation of Admission Dx: Justicifation of Admission Dx: Justifications for Admission: Justification of Admission Dx: Yes Cellulitis: Cellulitis History of Present Illness History of Present Illness History of Present Illness History of Present Illness Ms. Glaser, is a 54 year old female who presents with left lower leg cellulitis. new severe acute pain 8/10, 10 to touch, to the ankle and lower leg, Patient states that she has chronic lymphedema, present since her 20's and she says it runs in her family. . She does not typically have any redness in her leg just hyperpigmentation. opver 4 days she is developed swelling, redness, and heat to the leg. She states that it is significantly painful. She has never had cellulitis previously. Her primary care doctor started her on antibiotics, however it is only gotten worse since then. She states she is having nausea and fevers She was unsure of many details of her medical history, but has never had cellulitis, Vitals Vitals Vital Signs Date Time Temp Pulse Resp B/P (MAP) Pulse Ox O2 Delivery O2 Flow Rate FiO2 11/29/19 07:00 97.9 85 12 121/80 (94) 86 Room Air 97.9 11/28/19 19:55 2.0 Physical Exam Physical Exam GENERAL: Sitting on the side of the bed, legs in dependent position HEENT: Oral cavity pink, clear NECK: Supple, no JVD. LUNGS: Clear bilaterally. No wheezing. HEART: S1, S2. No gallops or murmurs. ABDOMEN: Soft, obese. Bowel sounds present, nontender, nondistended. EXTREMITIES: Bilateral lymphedema, left lower extremity redness, warmth swelling and pain. no open wounds noted. DERMATOLOGIC: Warm, dry. No generalized rash. NEUROLOGIC: Alert and oriented x 3, grossly nonfocal. PSYCHIATRIC: Cooperative, appropriate mood and affect. PIV looks ok General: Alert, Oriented X3 Heart: Regular rate, No murmurs Lungs: Clear Abdomen: Normal bowel sounds Extremities: Other (Significant edema both lower extremities appears chronic nonpitting some erythema to both feet) Skin: Other (Erythema to both feet no open wounds) Labs LABS Laboratory Tests Test 11/28/19 11:38 11/28/19 17:14 11/28/19 20:23 11/29/19 08:44 Glucose (Fingerstick) 242 mg/dL (70-99) 210 mg/dL (70-99) 194 mg/dL (70-99) 251 mg/dL (70-99) Assessment and Plan Assessmemt and Plan Problems Medical Problems: (1) Cellulitis Status: Acute Comment Review of Relevant I have reviewed the following items nakia (where applicable) has been applied. Labs Laboratory Tests Test 11/27/19 12:11 11/27/19 16:58 11/27/19 21:34 11/28/19 07:23 Glucose (Fingerstick) 377 mg/dL (70-99) 188 mg/dL (70-99) 171 mg/dL (70-99) 320 mg/dL (70-99) Test 11/28/19 11:38 11/28/19 17:14 11/28/19 20:23 11/29/19 08:44 Glucose (Fingerstick) 242 mg/dL (70-99) 210 mg/dL (70-99) 194 mg/dL (70-99) 251 mg/dL (70-99) Laboratory Tests Test 11/28/19 11:38 11/28/19 17:14 11/28/19 20:23 11/29/19 08:44 Glucose (Fingerstick) 242 mg/dL (70-99) 210 mg/dL (70-99) 194 mg/dL (70-99) 251 mg/dL (70-99) Microbiology 11/23/19 Blood Culture - Final, Complete NO GROWTH AFTER 5 DAYS Medications Current Medications Ceftriaxone Sodium (Rocephin) 1 gm 1X ONCE IVP Last administered on 11/23/19at 10:50; Start 11/23/19 at 08:45; Stop 11/23/19 at 08:46; Status DC Sodium Chloride 1,000 ml @ 1,000 mls/hr 1X ONCE IV Last administered on 11/23/19at 10:50; Start 11/23/19 at 10:30; Stop 11/23/19 at 11:29; Status DC Oxycodone/ Acetaminophen (Percocet 5/325) 1 tab 1X ONCE PO Last administered on 11/23/19at 11:14; Start 11/23/19 at 11:15; Stop 11/23/19 at 11:16; Status DC Albuterol Sulfate (Ventolin Neb Soln) 2.5 mg PRN Q6HRS PRN INH SHORTNESS OF BREATH Last administered on 11/26/19at 23:15; Start 11/23/19 at 14:45 Fenofibrate (Lofibra) 54 mg DAILY PO Last administered on 11/29/19at 08:57; Start 11/24/19 at 09:00 Latanoprost (Xalatan) 1 drop QHS OU Last administered on 11/28/19at 23:44; Start 11/23/19 at 21:00 Simvastatin (Zocor) 40 mg QHS PO Last administered on 11/28/19at 21:54; Start 11/23/19 at 21:00 Insulin Human Lispro (HumaLOG) 60 units TIDWMEALS SQ Last administered on 11/29/19at 09:17; Start 11/23/19 at 17:00 Insulin Glargine (Lantus Syringe) 60 unit QHS SQ Last administered on 11/23/19at 22:21; Start 11/23/19 at 21:00; Stop 11/24/19 at 13:09; Status DC Magnesium Oxide (Magnesium Oxide) 400 mg BID PO Last administered on 11/29/19 08:57; Start 11/23/19 at 21:00 Pregabalin (Lyrica) 200 mg BID PO Last administered on 11/29/19 08:58; Start 11/23/19 at 21:00 Rivaroxaban (Xarelto) 20 mg DAILYWSUP PO Last administered on 11/28/19at 17:44; Start 11/23/19 at 17:00 Oxycodone/ Acetaminophen (Percocet 5/325) 1 tab PRN Q4HRS PRN PO MODERATE PAIN Last administered on 11/24/19 21:47; Start 11/23/19 at 15:30; Stop 11/25/19 at 11:51; Status DC Fentanyl Citrate (Fentanyl 2ml Vial) 50 mcg PRN Q2HR PRN IVP MODERATE TO SEVERE PAIN Last administered on 11/23/19at 22:32; Start 11/23/19 at 15:30; Stop 11/25/19 at 14:51; Status DC Nicotine (Nicoderm Cq 21mg) 1 patch PRN DAILY PRN TD SMOKING CESSATION Last administered on 11/29/19at 09:14; Start 11/23/19 at 15:30 Furosemide (Lasix) 60 mg 1X ONCE PO Last administered on 11/23/19at 17:41; Start 11/23/19 at 15:30; Stop 11/23/19 at 15:46; Status DC Furosemide (Lasix) 80 mg DAILY PO Last administered on 11/27/19at 08:59; Start 11/24/19 at 09:00; Stop 11/27/19 at 13:27; Status DC Insulin Human Lispro (HumaLOG) 0-9 UNITS TIDWMEALS SQ Last administered on 11/29/19at 09:18; Start 11/23/19 at 17:00 Dextrose (Dextrose 50%-Water Syringe) 12.5 gm PRN Q15MIN PRN IV SEE COMMENTS; Start 11/23/19 at 15:30 Vancomycin HCl (Vanco Per Pharmacy) 1 each PRN DAILY PRN MC SEE COMMENTS Last administered on 11/24/19at 12:06; Start 11/23/19 at 15:30; Stop 11/24/19 at 13:30; Status DC Vancomycin HCl 2 gm/Sodium Chloride 500 ml @ 250 mls/hr 1X ONCE IV Last administered on 11/23/19at 17:42; Start 11/23/19 at 16:00; Stop 11/23/19 at 17:59; Status DC Vancomycin HCl 2 gm/Sodium Chloride 500 ml @ 250 mls/hr Q12H IV Last administered on 11/24/19at 05:47; Start 11/24/19 at 06:00; Stop 11/24/19 at 13:28; Status DC Vancomycin HCl (Vancomycin Trough Level) 1 each 1X ONCE MC ; Start 11/25/19 at 05:30; Stop 11/25/19 at 05:31; Status Cancel Acetaminophen/ Hydrocodone Bitart (Lortab 10/325) 1 tab PRN Q6HRS PRN PO SEVERE PAIN Last administered on 11/25/19at 12:29; Start 11/23/19 at 23:00; Stop 11/25/19 at 14:57; Status DC Lorazepam (Ativan) 1 mg PRN BID PRN PO ANXIETY / AGITATION; Start 11/23/19 at 23:00; Status UNV Alprazolam (Xanax) 1 mg PRN BID PRN PO ANXIETY / AGITATION Last administered on 11/26/19at 20:48; Start 11/23/19 at 23:15; Stop 11/27/19 at 09:53; Status DC Lactobacillus Rhamnosus (Culturelle) 1 cap BID PO Last administered on 11/29/19at 08:57; Start 11/24/19 at 21:00 Insulin Glargine (Lantus Syringe) 55 unit QHS SQ Last administered on 11/28/19at 22:06; Start 11/24/19 at 21:00 Cefazolin Sodium/ Dextrose 50 ml @ 100 mls/hr Q8HRS IV Last administered on 11/24/19at 21:45; Start 11/24/19 at 14:00; Stop 11/25/19 at 13:41; Status DC Cephalexin HCl (Keflex) 500 mg QID PO ; Start 11/25/19 at 17:00; Stop 11/25/19 at 16:56; Status DC Acetaminophen/ Hydrocodone Bitart (Lortab 10/325) 1 tab Q6HRS PO Last administered on 11/29/19at 06:05; Start 11/25/19 at 18:00 Cephalexin HCl (Keflex) 500 mg Q6HRS PO Last administered on 11/27/19at 05:29; Start 11/25/19 at 18:00; Stop 11/27/19 at 12:05; Status DC Oxycodone/ Acetaminophen (Percocet 5/325) 1 tab PRN Q4HRS PRN PO PAIN Last administered on 11/27/19at 09:00; Start 11/25/19 at 18:30; Stop 11/27/19 at 09:53; Status DC Info (Anti-Coagulation Monitoring By Pharmacy) 1 each PRN DAILY PRN MC SEE COMMENTS Last administered on 11/28/19at 14:12; Start 11/27/19 at 09:30 Alprazolam (Xanax) 0.5 mg PRN BID PRN PO ANXIETY / AGITATION Last administered on 11/29/19at 09:11; Start 11/27/19 at 10:00 Oxycodone/ Acetaminophen (Percocet 5/325) 1 tab PRN Q8HRS PRN PO PAIN Last administered on 11/29/19at 01:03; Start 11/27/19 at 10:00 Cefazolin Sodium/ Dextrose 50 ml @ 100 mls/hr Q8HRS IV Last administered on 11/29/19at 06:05; Start 11/27/19 at 14:00 Furosemide (Lasix) 40 mg DAILY IVP ; Start 11/27/19 at 14:00; Status Cancel Furosemide (Lasix) 40 mg DAILY IVP Last administered on 11/28/19at 09:33; Start 11/28/19 at 09:00; Stop 11/28/19 at 17:15; Status DC Furosemide (Lasix) 40 mg BID92 IVP Last administered on 11/29/19at 08:58; Start 11/28/19 at 17:30 Active Scripts Active Proair Hfa (Albuterol Sulfate) 8.5 Gm Hfa.aer.ad 1 Puff INH PRN Q6HRS PRN Reported Guaifenesin Ac Cough Syrup (Guaifenesin/Codeine Phosphate) 473 Ml Liquid 5 Ml PO PRN Q6HRS PRN Theophylline Anhydrous 300 Mg Tab.er.12h 1 Tab PO BID 30 Days Trelegy Ellipta 100-62.5-25 (Fluticasone/Umeclidin/Vilanter) 1 Each Blst.w.dev 1 Each IH QDAY Fenofibrate (Fenofibrate,Micronized) 134 Mg Capsule 1 Cap PO DAILY Mirapex (Pramipexole Di-Hcl) 1 Mg Tablet 1 Mg PO QHS Augmentin 875-125 Tablet (Amoxicillin/Potassium Clav) 1 Each Tablet 1 Tab PO BID 10 Days Tizanidine Hcl 4 Mg Tablet 1 Tab PO PRN Q8HRS PRN Alprazolam 1 Mg Tablet 1 Tab PO BID Hydrocodone-Apap 10-325 (Hydrocodone Bit/Acetaminophen) 1 Tab Tablet 1 Tab PO PRN Q6HRS PRN Ventolin Hfa Inhaler (Albuterol Sulfate) 18 Gm Hfa.aer.ad 2 Puff INH Q4HRS Levemir Flextouch (Insulin Detemir) 100 Unit/1 Ml Insuln.pen 60 Unit SQ HS Novolog Flexpen (Insulin Aspart) 100 Unit/1 Ml Insuln.pen 60 Unit SQ TIDWMEALS Latanoprost 2.5 Ml Drops 1 Drop EACHEYE QHS Magnesium (Magnesium Oxide) 400 Mg Capsule 1 Cap PO BID Vitamin D3 (Cholecalciferol (Vitamin D3)) 5,000 Unit Tablet 1 Tab PO DAILY Simvastatin 40 Mg Tablet 1 Tab PO QHS Xarelto (Rivaroxaban) 20 Mg Tablet 20 Mg PO DAILY Lyrica (Pregabalin) 200 Mg Capsule 1 Cap PO BID Vitals/I & O Vital Sign - Last 24 Hours 11/28/19 11/28/19 11/28/19 11/28/19 11:00 12:40 13:40 15:00 Temp 98.3 98.4 98.3 98.4 Pulse 91 87 Resp 20 20 20 20 B/P (MAP) 124/72 (89) 148/64 (92) Pulse Ox 93 93 93 97 O2 Delivery Room Air Nasal Cannula Nasal Cannula Room Air 11/28/19 11/28/19 11/28/19 11/28/19 17:45 18:45 19:30 19:55 Temp 98.5 98.5 Pulse 87 Resp 20 18 20 B/P (MAP) 140/67 (91) Pulse Ox 97 90 90 O2 Delivery Room Air Nasal Cannula Room Air Nasal Cannula O2 Flow Rate 2.0 2.0 11/28/19 11/28/19 11/29/19 11/29/19 23:00 23:44 01:03 03:16 Temp 98.6 98.1 98.6 98.1 Pulse 89 88 Resp 20 22 22 18 B/P (MAP) 169/88 (115) 135/73 (93) Pulse Ox 92 91 O2 Delivery Room Air Room Air Room Air Room Air 11/29/19 11/29/19 06:05 07:00 Temp 97.9 97.9 Pulse 85 Resp 22 12 B/P (MAP) 121/80 (94) Pulse Ox 86 O2 Delivery Room Air Room Air Intake and Output 11/28/19 11/28/19 11/29/19 15:00 23:00 07:00 Intake Total 1050 ml 850 ml Output Total 1300 ml Balance 1050 ml 850 ml -1300 ml Justicifation of Admission Dx: Justifications for Admission: Justification of Admission Dx: Yes Cellulitis: Cellulitis JAVIER FARRAR MD Nov 29, 2019 10:52
[2019-11-29 11:00] VITALS: BP 108/67
--- NOTE | 2019-11-29 12:20 | PDOC ---
Infectious Disease Note Subjective Subjective c/o ongoing pain, swelling and redness LLE. Says tries to keep it elevated but doesn't help. Wants to go home Denies F/C/N/V/D ROS ROS as mentioned above Vital Sign Vital Signs Vital Signs Date Time Temp Pulse Resp B/P (MAP) Pulse Ox O2 Delivery O2 Flow Rate FiO2 11/29/19 07:00 97.9 85 12 121/80 (94) 86 Room Air 97.9 11/28/19 19:55 2.0 Physical Exam PHYSICAL EXAM GENERAL: Sitting on the side of the bed, legs in dependent position HEENT: Oral cavity pink, clear NECK: Supple, no JVD. LUNGS: Clear bilaterally. No wheezing. HEART: S1, S2. No gallops or murmurs. ABDOMEN: Soft, obese. Bowel sounds present, nontender, nondistended. EXTREMITIES: Bilateral lymphedema, left lower extremity redness, warmth swelling and pain. no open wounds noted. DERMATOLOGIC: Warm, dry. No generalized rash. NEUROLOGIC: Alert and oriented x 3, grossly nonfocal. PSYCHIATRIC: Cooperative, appropriate mood and affect. PIV looks ok Labs Lab Laboratory Tests Test 11/28/19 17:14 11/28/19 20:23 11/29/19 08:44 11/29/19 11:28 Glucose (Fingerstick) 210 mg/dL (70-99) 194 mg/dL (70-99) 251 mg/dL (70-99) 279 mg/dL (70-99) Micro Microbiology 11/23/19 Blood Culture - Final, Complete NO GROWTH AFTER 5 DAYS Objective Assessment Left lower extremity cellulitis with underlying chronic lymphedema. -Failed outpatient p.o. antibiotics. Febrile illness prior to admission. PVD. Evaluated by vascular. No any significant flow-limiting stenosis noted. History of deep venous thrombosis. Morbid obesity. Tobacco use disorder. Anxiety. Plan Plan of Care Continue cefazolin Encourage to elevate lower extremity Probiotics Optimal lymphedema control. Lymphedema clinic following Encouraged to quit smoking Patient seen and examined. Labs, micro, and chart reviewed. 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 VALE APPLE APRN Nov 29, 2019 12:20 MARILYN CAPPS MD Nov 29, 2019 16:44
[2019-11-29 15:00] VITALS: BP 116/62
[2019-11-29 15:30] LABS: CALCIUM 8.4 mg/dL (8.5-10.1); CREATININE 0.9 mg/dL (0.6-1.0); POTASSIUM 3.8 mmol/L (3.5-5.1)
--- NOTE | 2019-11-29 17:00 | NUR ---
Patient significantly more compliant with elevating legs today. Redness has decreased.
[2019-11-29] MEDS: RIVAROXABAN 10 MG TABLET. PO SCH (18:37)
[2019-11-29 19:00] VITALS: BP 128/79
[2019-11-29] MEDS: LATANOPROST 0.005% OPHTH SOLUTION 2.5ML BOTTLE. OU SCH (21:57)
[2019-11-29] MEDS: SIMVASTATIN 40 MG TABLET. PO SCH (21:58)
[2019-11-29] MEDS: INSULIN GLARGINE SYRINGE. SQ SCH (22:16)
[2019-11-29 23:00] VITALS: BP 156/83
[2019-11-30] MEDS: HYDROcodone/APAP 10/325 1 TAB TABLET PO SCH ×5 (00:13→23:25)
[2019-11-30] MEDS: ALPRAZolam 1 MG TABLET PO PRN (00:23)
[2019-11-30 03:41] VITALS: BP 160/80
[2019-11-30 07:00] VITALS: BP 181/112
[2019-11-30] MEDS: oxyCODONE/APAP 5/325 1 TAB TABLET PO PRN ×2 (08:07→16:38)
[2019-11-30] MEDS: INSULIN LISPRO 300 UNITS/3 ML VIAL. SQ SCH ×6 (08:10→17:16)
[2019-11-30] MEDS: LACTOBACILLUS RHAMNOSUS GG 1 CAPSULE. PO SCH ×2 (09:20→20:37)
[2019-11-30] MEDS: FENOFIBRATE 54 MG TABLET. PO SCH (09:21)
[2019-11-30] MEDS: PREGABALIN 50 MG CAPSULE PO SCH ×2 (09:21→20:37)
[2019-11-30] MEDS: FUROSEMIDE 40 MG/4 ML VIAL. IVP SCH ×2 (09:21→14:26)
[2019-11-30] MEDS: MAGNESIUM OXIDE 400 MG TABLET PO SCH ×2 (09:21→20:37)
--- NOTE | 2019-11-30 09:47 | PDOC ---
[facility] [facility] PROGRESS NOTE Date of Service DOS: DATE: 11/30/19 TIME: 09:47 Chief Complaint Chief Complaint Assessment/Plan acute left left pain, new cellulitis morbid obesity, BMI 60, ie super morbid obesity tobacco use disorder, ongoing anxiety disorder lymphedema diabetes, which may compromise healing on CT 2018 Pulmonary trunk is dilated suggesting pulmonary arterial hypertension. ON RECENT ECHO 2018 mild to moderate concentric left ventricular hypertrophy. LIKELY OBESITY,// HYPOVENTILATION SYNDROME hypercapnic resp failure , MOD-SEVERE Degenerative disc disease are seen throughout the lumbar spine. These findings result in very mild central spinal canal stenosis at L2-3 and L5-S1. Mild left neural foraminal stenosis is seen at L2-3. IN 2017 CONSULT PULM reviewed History of Present Illness History of Present Illness Ms. Glaser, is a 54 year old female who presents with left lower leg cellulitis. new severe acute pain 11/22, 10 to touch, to the ankle and lower leg, Patient states that she has chronic lymphedema, present since her 20's and she says it runs in her family. . She does not typically have any redness in her leg just hyperpigmentation. over 4 days she is developed swelling, redness, and heat to the leg. She states that it is significantly painful. She has never had cellulitis previously. Her primary care doctor started her on antibiotics, however it is only gotten worse since then. She states she is having nausea and fevers 11/26 DOPPLER STUDY LEGS , Monophasic waveform bilaterally, may indicate proximal stenosis. CT angiogram can further assess as clinically warranted. 11/28 STATES PAIN IN LEFT ANKLE TOO SEVERE TO WALK today, has DDD L/S d/w rn Afebrile. Still a bit short of breath. Asking to go home today, and wishes for a bedside commode prescription. Notably her legs look worse. D/w ID to change antibiotics and needs outpatient lymphedema referral. Vitals/I&O Vitals/I&O: Vital Signs Date Time Temp Pulse Resp B/P (MAP) Pulse Ox O2 Delivery O2 Flow Rate FiO2 11/30/19 09:19 Room Air 11/30/19 07:00 97.5 88 18 181/112 (135) 88 2.0 97.5 I & O 11/29/19 11/29/19 11/30/19 14:59 22:59 06:59 Output Total 2000 ml 600 ml Balance -2000 ml -600 ml Physical Exam Physical Exam: GENERAL: Sitting on the side of the bed, legs in dependent position HEENT: Oral cavity pink, clear NECK: Supple, no JVD. LUNGS: Clear bilaterally. No wheezing. HEART: S1, S2. No gallops or murmurs. ABDOMEN: Soft, obese. Bowel sounds present, nontender, nondistended. EXTREMITIES: Bilateral lymphedema, left lower extremity redness, warmth swelling and pain. no open wounds noted. DERMATOLOGIC: Warm, dry. No generalized rash. NEUROLOGIC: Alert and oriented x 3, grossly nonfocal. PSYCHIATRIC: Cooperative, appropriate mood and affect. PIV looks ok General: Alert, Oriented X3 Heart: Regular rate, No murmurs Lungs: Clear Abdomen: Normal bowel sounds Extremities: Other (Significant edema both lower extremities appears chronic nonpitting some erythema to both feet) Skin: Other (Erythema to both feet no open wounds) Labs Labs: Laboratory Tests Test 11/29/19 11:28 11/29/19 14:53 11/29/19 16:40 11/29/19 20:13 Glucose (Fingerstick) 279 mg/dL (70-99) 171 mg/dL (70-99) 278 mg/dL (70-99) Sodium Level 141 mmol/L (136-145) Potassium Level 3.8 mmol/L (3.5-5.1) Chloride Level 101 mmol/L (98-107) Carbon Dioxide Level 36 mmol/L (21-32) Anion Gap 4 (6-14) Blood Urea Nitrogen 22 mg/dL (7-20) Creatinine 0.9 mg/dL (0.6-1.0) Estimated GFR (Cockcroft-Gault) 65.0 Glucose Level 240 mg/dL (70-99) Calcium Level 8.4 mg/dL (8.5-10.1) [id number]-Type Natriuretic Peptide 44 pg/mL (0-124) Test 11/30/19 08:02 Glucose (Fingerstick) 257 mg/dL (70-99) Assessment and Plan Assessmemt and Plan Problems Medical Problems: (1) Cellulitis Status: Acute Comment Review of Relevant I have reviewed the following items nakia (where applicable) has been applied. Justicifation of Admission Dx: Justifications for Admission: Justification of Admission Dx: Yes Cellulitis: Cellulitis MESHA LEE MD Nov 30, 2019 09:47
--- NOTE | 2019-11-30 10:10 | PDOC ---
PULMONARY PROGRESS NOTES DATE: 11/30/19 TIME: 10:08 Subjective on 02, denies sob, cough, Vitals Vital Signs Date Time Temp Pulse Resp B/P (MAP) Pulse Ox O2 Delivery O2 Flow Rate FiO2 11/30/19 09:19 Room Air 11/30/19 07:00 97.5 88 18 181/112 (135) 88 2.0 97.5 ROS: No Nausea, No Chest Pain General: Alert, No acute distress Lungs: Clear Cardiovascular: S1, S2 Abdomen: Soft, Non-tender, Other (obese) Extremities: Other (lymphedema/ertyhema) Skin: Warm Labs Laboratory Tests Test 11/28/19 11:38 11/28/19 17:14 11/28/19 20:23 11/29/19 08:44 Glucose (Fingerstick) 242 mg/dL (70-99) 210 mg/dL (70-99) 194 mg/dL (70-99) 251 mg/dL (70-99) Test 11/29/19 11:28 11/29/19 14:53 11/29/19 16:40 11/29/19 20:13 Glucose (Fingerstick) 279 mg/dL (70-99) 171 mg/dL (70-99) 278 mg/dL (70-99) Sodium Level 141 mmol/L (136-145) Potassium Level 3.8 mmol/L (3.5-5.1) Chloride Level 101 mmol/L (98-107) Carbon Dioxide Level 36 mmol/L (21-32) Anion Gap 4 (6-14) Blood Urea Nitrogen 22 mg/dL (7-20) Creatinine 0.9 mg/dL (0.6-1.0) Estimated GFR (Cockcroft-Gault) 65.0 Glucose Level 240 mg/dL (70-99) Calcium Level 8.4 mg/dL (8.5-10.1) SQ-Fgc-[id number]-Type Natriuretic Peptide 44 pg/mL (0-124) Test 11/30/19 08:02 Glucose (Fingerstick) 257 mg/dL (70-99) Laboratory Tests Test 11/29/19 11:28 11/29/19 14:53 11/29/19 16:40 11/29/19 20:13 Glucose (Fingerstick) 279 mg/dL (70-99) 171 mg/dL (70-99) 278 mg/dL (70-99) Sodium Level 141 mmol/L (136-145) Potassium Level 3.8 mmol/L (3.5-5.1) Chloride Level 101 mmol/L (98-107) Carbon Dioxide Level 36 mmol/L (21-32) Anion Gap 4 (6-14) Blood Urea Nitrogen 22 mg/dL (7-20) Creatinine 0.9 mg/dL (0.6-1.0) Estimated GFR (Cockcroft-Gault) 65.0 Glucose Level 240 mg/dL (70-99) Calcium Level 8.4 mg/dL (8.5-10.1) AN-[id number]-[id number]-Type Natriuretic Peptide 44 pg/mL (0-124) Test 11/30/19 08:02 Glucose (Fingerstick) 257 mg/dL (70-99) Medications Active Scripts Medications Dose Route/Sig Max Daily Dose Days Date Category Guaifenesin Ac Cough Syrup (Guaifenesin/Codeine Phosphate) 473 Ml Liquid 5 Ml PO PRN Q6HRS PRN 11/23/19 Reported Theophylline Anhydrous 300 Mg Tab.er.12h 1 Tab PO BID 30 11/23/19 Reported Trelegy Ellipta 100-62.5-25 (Fluticasone/Umeclidin/Vilanter) 1 Each Blst.w.dev 1 Each IH QDAY 11/23/19 Reported Fenofibrate (Fenofibrate,Micronized) 134 Mg Capsule 1 Cap PO DAILY 11/23/19 Reported Mirapex (Pramipexole Di-Hcl) 1 Mg Tablet 1 Mg PO QHS 11/23/19 Reported Augmentin 875-125 Tablet (Amoxicillin/Potassium Clav) 1 Each Tablet 1 Tab PO BID 10 11/23/19 Reported Tizanidine Hcl 4 Mg Tablet 1 Tab PO PRN Q8HRS PRN 11/23/19 Reported Alprazolam 1 Mg Tablet 1 Tab PO BID 11/23/19 Reported Hydrocodone-Apap 10-325 (Hydrocodone Bit/Acetaminophen) 1 Tab Tablet 1 Tab PO PRN Q6HRS PRN 11/23/19 Reported Ventolin Hfa Inhaler (Albuterol Sulfate) 18 Gm Hfa.aer.ad 2 Puff INH Q4HRS 09/19/18 Reported Levemir Flextouch (Insulin Detemir) 100 Unit/1 Ml Insuln.pen 60 Unit SQ HS 09/19/18 Reported Novolog Flexpen (Insulin Aspart) 100 Unit/1 Ml Insuln.pen 60 Unit SQ TIDWMEALS 09/19/18 Reported Latanoprost 2.5 Ml Drops 1 Drop EACHEYE QHS 09/19/18 Reported Magnesium (Magnesium Oxide) 400 Mg Capsule 1 Cap PO BID 09/18/18 Reported Vitamin D3 (Cholecalciferol (Vitamin D3)) 5,000 Unit Tablet 1 Tab PO DAILY 09/18/18 Reported Simvastatin 40 Mg Tablet 1 Tab PO QHS 09/18/18 Reported Xarelto (Rivaroxaban) 20 Mg Tablet 20 Mg PO DAILY 09/18/18 Reported Lyrica (Pregabalin) 200 Mg Capsule 1 Cap PO BID 09/18/18 Reported Proair Hfa (Albuterol Sulfate) 8.5 Gm Hfa.aer.ad 1 Puff INH PRN Q6HRS PRN 09/13/18 Rx Impression . 1. Highly suspected sleep apnea in a patient who is morbidly obese. Her current symptoms are also contributed by use of narcotics and benzodiazepines. She has high bicarbonate, suggesting she has chronic hypercapnia./ OHS 2. Recent hospitalization for cellulitis and lymphedema. 3. Encephalopathy due to narcotics, resolved 4. morbid obesity Plan . 1. Clinically better. fully awake. discussed kiara the importance of diagnosis and tx, the need for sleep study and cpap use. She is not interested in CPAP. 2. reduce the amount of narcotics and benzodiazepines. avoid over sedation 3. Weight loss is advised. 4. ABG reviewed. compensated respiratory acidosis, mild hypoxia due to hypoventilation. will do 6 min walk today .3 litres qhs (based on noct study) 5. Abx per ID d/w PCP. OK WITH DC HOME discussed w CECELIA Marshall MD Nov 30, 2019 10:10
[2019-11-30 11:00] VITALS: BP 128/59
--- NOTE | 2019-11-30 11:28 | PDOC ---
Infectious Disease Note Subjective Subjective c/o ongoing pain, swelling and redness LLE. Says tries to keep it elevated but doesn't help. Wants to go home Denies F/C/N/V/D Vital Sign Vital Signs Vital Signs Date Time Temp Pulse Resp B/P (MAP) Pulse Ox O2 Delivery O2 Flow Rate FiO2 11/30/19 09:19 Room Air 11/30/19 07:00 97.5 88 18 181/112 (135) 88 2.0 97.5 Physical Exam PHYSICAL EXAM GENERAL: Sitting on the side of the bed, legs in dependent position HEENT: Oral cavity pink, clear NECK: Supple, no JVD. LUNGS: Clear bilaterally. No wheezing. HEART: S1, S2. No gallops or murmurs. ABDOMEN: Soft, obese. Bowel sounds present, nontender, nondistended. EXTREMITIES: Bilateral lymphedema, left lower extremity redness, warmth swelling and pain appears similar to admission. no open wounds noted. DERMATOLOGIC: Warm, dry. No generalized rash. NEUROLOGIC: Alert and oriented x 3, grossly nonfocal. PSYCHIATRIC: Cooperative, appropriate mood and affect. PIV looks ok Labs Lab Laboratory Tests Test 11/29/19 11:28 11/29/19 14:53 11/29/19 16:40 11/29/19 20:13 Glucose (Fingerstick) 279 mg/dL (70-99) 171 mg/dL (70-99) 278 mg/dL (70-99) Sodium Level 141 mmol/L (136-145) Potassium Level 3.8 mmol/L (3.5-5.1) Chloride Level 101 mmol/L (98-107) Carbon Dioxide Level 36 mmol/L (21-32) Anion Gap 4 (6-14) Blood Urea Nitrogen 22 mg/dL (7-20) Creatinine 0.9 mg/dL (0.6-1.0) Estimated GFR (Cockcroft-Gault) 65.0 Glucose Level 240 mg/dL (70-99) Calcium Level 8.4 mg/dL (8.5-10.1) XI-Oab-C-Type Natriuretic Peptide 44 pg/mL (0-124) Test 11/30/19 08:02 Glucose (Fingerstick) 257 mg/dL (70-99) Micro Microbiology 11/23/19 Blood Culture - Final, Complete NO GROWTH AFTER 5 DAYS Objective Assessment Left lower extremity cellulitis with underlying chronic lymphedema. -Failed outpatient p.o. antibiotics. Febrile illness prior to admission. PVD. Evaluated by vascular. No any significant flow-limiting stenosis noted. History of deep venous thrombosis. Morbid obesity. Tobacco use disorder. on 3 liters 02 Anxiety. Plan Plan of Care Discontinue cefazolin begin Zyvo/Rocephin Encourage to elevate lower extremity Probiotics Optimal lymphedema control. Lymphedema clinic following Encouraged to quit smoking Needs 6 min walk D/w nursing and PATRICK Bryant MD Nov 30, 2019 11:28
[2019-11-30] MEDS: LINEZOLID 600 MG TABLET PO SCH ×2 (12:41→20:37)
[2019-11-30] MEDS: cefTRIAXone IV Push 1 GM VIAL. IVP SCH (13:17)
--- NOTE | 2019-11-30 14:45 | NUR ---
SW following. Reviewed chart and spoke with RN. ALYSHA met with pt who stated she would prefer HH with [facility] as they have a lymphadenia specialist. ALYSHA completed Patient Choice of Vendor form today. ALYSHA phoned and faxed clinicals to [facility] , , (fax). ALYSHA also faxed discharge orders and updated 6 min walk results to [facility], , (fax). No further SW needs at this time.
[2019-11-30 15:00] VITALS: BP 138/91
[2019-11-30] MEDS: RIVAROXABAN 10 MG TABLET. PO SCH (16:38)
[2019-11-30 19:00] VITALS: BP 113/57
[2019-11-30] MEDS: LATANOPROST 0.005% OPHTH SOLUTION 2.5ML BOTTLE. OU SCH (20:37)
[2019-11-30] MEDS: SIMVASTATIN 40 MG TABLET. PO SCH (20:37)
[2019-11-30] MEDS: INSULIN GLARGINE SYRINGE. SQ SCH (20:43)
[2019-11-30 23:00] VITALS: BP 160/88
[2019-12-01 03:00] VITALS: BP_SYST 121; BP_SYST 165; BP_DIAS 57; BP_DIAS 78
[2019-12-01] MEDS: oxyCODONE/APAP 5/325 1 TAB TABLET PO PRN (05:02)
[2019-12-01] MEDS: HYDROcodone/APAP 10/325 1 TAB TABLET PO SCH ×2 (06:22→12:08)
[2019-12-01 07:00] VITALS: BP 169/70
[2019-12-01] MEDS ORDERED: LINE600T12 PO (08:18)
[2019-12-01] MEDS ORDERED: CEFD300C PO (08:18)
--- NOTE | 2019-12-01 08:19 | SNU/HH DC ---
DISCHARGE WITH HOME HEALTH DISCHARGE INFORMATION: Discharge Date: Dec 01, 2019 Final Diagnosis: Problems Medical Problems: (1) Cellulitis Status: Acute Condition on Discharge: Stable CODE STATUS: Code Status: Full HOME HEALTH: Face to Face: I certify this patient is under my care and that I, or a nurse practitioner or physician's captain assistant working with me, had a face to face encounter that meets the physician face to face encounter requirements with this patient on 12/01/2019. Medical Complications: COPD, DJD, DM Senior Living For: Assess & Educate Safety, Diabetic Care, Pain Management, e learning specialist For Eval/Treatment: Yes Physical Therapy For: Evalulation/Treatment Occupational Therapy For: Evaluation/Treatment Pt Meets Homebound Status: Extreme weakness w/ amb., Limited distance walking POST DISCHARGE ORDERS: Activity Instructions for Disc: Activity as tolerated Weight Bearing Status after Di: As tolerated DIET AFTER DISCHARGE: ADA CHECKS AFTER DISCHARGE: Checks after discharge: Check blood press - daily TREATMENT/EQUIPMENT ORDERS: Adaptive Equipment Issued: None Discharge Respiratory Equipmen: Oxygen (2L NCO2 on exertion, 3L NCO2 at night) CERTIFICATION STATEMENT: Certification Statement: Certification Statement: Based on the above finding, I certify that this patient is confined to the home and needs intermittent longterm care, physical therapy and/or speech therapy, or continues to need occupational therapy.~ This patient is under my care, and I have initiated the establishment of the plan of care.~ This patient will be followed by myself or a community physician who will periodically review the plan of care. Home Meds Active Scripts Cefdinir (CEFDINIR) 300 Mg Capsule, 1 CAP PO BID for Cellulitis for 10 Days, #20 CAP Prov:MESHA LEE MD 12/01/19 Linezolid (ZYVOX) 600 Mg Tablet, 600 MG PO BID for Cellulitis for 10 Days, #20 TAB Prov:MESHA LEE MD 12/01/19 Albuterol Sulfate (Proair Hfa) 8.5 Gm Hfa.aer.ad, 1 PUFF INH PRN Q6HRS PRN for SHORTNESS OF BREATH, #1 INHALER Prov:THONY MOTTA DO 09/13/18 Reported Medications Theophylline Anhydrous (THEOPHYLLINE ANHYDROUS) 300 Mg Tab.er.12h, 1 TAB PO BID for SEE ORDER for 30 Days, #60 TAB 0 Refills 11/23/19 Fluticasone/Umeclidin/Vilanter (Trelegy Ellipta 100-62.5-25) 1 Each Blst.w.dev, 1 EACH IH QDAY for SOA 11/23/19 Fenofibrate,Micronized (FENOFIBRATE) 134 Mg Capsule, 1 CAP PO DAILY for CHOLEST, #30 CAP 5 Refills 11/23/19 Pramipexole Di-Hcl (MIRAPEX) 1 Mg Tablet, 1 MG PO QHS for SLEEP, TAB 11/23/19 Tizanidine Hcl (TIZANIDINE HCL) 4 Mg Tablet, 1 TAB PO PRN Q8HRS PRN for MUSCLE SPASMS, #60 TAB 11/23/19 Alprazolam (ALPRAZOLAM) 1 Mg Tablet, 1 TAB PO BID for anxiety, #60 TAB 11/23/19 Hydrocodone Bit/Acetaminophen (HYDROCODONE-APAP 10325 ) 1 Tab Tablet, 1 TAB PO PRN Q6HRS PRN for PAIN, TAB 0 Refills 11/23/19 Albuterol Sulfate (VENTOLIN HFA INHALER) 18 Gm Hfa.aer.ad, 2 PUFF INH Q4HRS for FOR ASTHMA, INHALER 0 Refills 09/19/18 Insulin Detemir (Levemir Flextouch) 100 Unit/1 Ml Insuln.pen, 60 UNIT SQ HS for antidiabetic, SYR 09/19/18 Insulin Aspart (NOVOLOG FLEXPEN) 100 Unit/1 Ml Insuln.pen, 60 UNIT SQ TIDWMEALS for antidiabetic, SYR 09/19/18 Latanoprost (LATANOPROST) 2.5 Ml Drops, 1 DROP EACHEYE QHS for glaucoma, #7.5 ML 3 Refills 09/19/18 Magnesium Oxide (MAGNESIUM) 400 Mg Capsule, 1 CAP PO BID for supplement, #180 CAP 3 Refills 09/18/18 Cholecalciferol (Vitamin D3) (VITAMIN D3) 5,000 Unit Tablet, 1 TAB PO DAILY for vitamin, #30 TAB 09/18/18 Simvastatin (SIMVASTATIN) 40 Mg Tablet, 1 TAB PO QHS for high cholesterol, #30 TAB 5 Refills 09/18/18 Rivaroxaban (XARELTO) 20 Mg Tablet, 20 MG PO DAILY for blood clots, TAB 09/18/18 Pregabalin (LYRICA) 200 Mg Capsule, 1 CAP PO BID for pain, #60 CAP 09/18/18 Discontinued Reported Medications Guaifenesin/Codeine Phosphate (GUAIFENESIN AC COUGH SYRUP) 473 Ml Liquid, 5 ML PO PRN Q6HRS PRN for COUGH, LIQUID 11/23/19 Amoxicillin/Potassium Clav (AUGMENTIN 875-125 TABLET) 1 Each Tablet, 1 TAB PO BID for INFECTION for 10 Days, #20 TAB 0 Refills 11/23/19 MESHA LEE MD Dec 01, 2019 08:19
[2019-12-01] MEDS: MAGNESIUM OXIDE 400 MG TABLET PO SCH (08:39)
[2019-12-01] MEDS: LINEZOLID 600 MG TABLET PO SCH (08:39)
[2019-12-01] MEDS: FENOFIBRATE 54 MG TABLET. PO SCH (08:39)
[2019-12-01] MEDS: FUROSEMIDE 40 MG/4 ML VIAL. IVP SCH (08:40)
[2019-12-01] MEDS: LACTOBACILLUS RHAMNOSUS GG 1 CAPSULE. PO SCH (08:40)
[2019-12-01] MEDS: PREGABALIN 50 MG CAPSULE PO SCH (08:40)
[2019-12-01] MEDS: INSULIN LISPRO 300 UNITS/3 ML VIAL. SQ SCH ×4 (08:54→12:08)
--- NOTE | 2019-12-01 10:09 | PDOC ---
[employer] PROGRESS NOTE Date of Service DOS: DATE: 12/01/19 TIME: 10:08 Chief Complaint Chief Complaint Assessment/Plan acute left left pain, new cellulitis morbid obesity, BMI 60, ie super morbid obesity tobacco use disorder, ongoing anxiety disorder lymphedema diabetes, which may compromise healing on CT 2018 Pulmonary trunk is dilated suggesting pulmonary arterial hypertension. ON RECENT ECHO 2018 mild to moderate concentric left ventricular hypertrophy. LIKELY OBESITY,// HYPOVENTILATION SYNDROME hypercapnic resp failure , MOD-SEVERE Degenerative disc disease are seen throughout the lumbar spine. These findings result in very mild central spinal canal stenosis at L2-3 and L5-S1. Mild left neural foraminal stenosis is seen at L2-3. IN 2017 CONSULT PULM reviewed History of Present Illness History of Present Illness Ms. Glaser, is a 54 year old female who presents with left lower leg cellulitis. new severe acute pain 11/22, 10 to touch, to the ankle and lower leg, Patient states that she has chronic lymphedema, present since her 's and she says it runs in her family. . She does not typically have any redness in her leg just hyperpigmentation. over 4 days she is developed swelling, redness, and heat to the leg. She states that it is significantly painful. She has never had cellulitis previously. Her primary care doctor started her on antibiotics, however it is only gotten worse since then. She states she is having nausea and fevers 11/26 DOPPLER STUDY LEGS , Monophasic waveform bilaterally, may indicate proximal stenosis. CT angiogram can further assess as clinically warranted. 11/28 STATES PAIN IN LEFT ANKLE TOO SEVERE TO WALK today, has DDD L/S d/w rn 11/29: Afebrile. Still a bit short of breath. Asking to go home today, and wishes for a bedside commode prescription. Notably her legs look worse. D/w ID to change antibiotics and needs outpatient lymphedema referral and home O2 2L NCO2 on exertion and 3L NCO2 at rest. Changed to Zyvox and cefdinir. Lymphedema wraps successful with improvement. No chest pain. Shortness of breath stable. Vitals/I&O Vitals/I&O: Vital Signs Date Time Temp Pulse Resp B/P (MAP) Pulse Ox O2 Delivery O2 Flow Rate FiO2 12/01/19 07:30 19 93 Room Air 2.0 8/18/20 07:00 98.2 79 169/70 (103) 98.2 I & O 11/30/19 11/30/19 12/01/19 15:00 23:00 07:00 Intake Total 800 ml 1000 ml Balance 800 ml 1000 ml Physical Exam Physical Exam: GENERAL: Sitting on the side of the bed, legs in dependent position HEENT: Oral cavity pink, clear NECK: Supple, no JVD. LUNGS: Clear bilaterally. No wheezing. HEART: S1, S2. No gallops or murmurs. ABDOMEN: Soft, obese. Bowel sounds present, nontender, nondistended. EXTREMITIES: Bilateral lymphedema, left lower extremity redness, warmth swelling and pain appears similar to admission. no open wounds noted. DERMATOLOGIC: Warm, dry. No generalized rash. NEUROLOGIC: Alert and oriented x 3, grossly nonfocal. PSYCHIATRIC: Cooperative, appropriate mood and affect. PIV looks ok General: Alert, Oriented X3 Heart: Regular rate, No murmurs Lungs: Clear Abdomen: Normal bowel sounds Extremities: Other (Significant edema both lower extremities appears chronic nonpitting some erythema to both feet) Skin: Other (Erythema to both feet no open wounds) Labs Labs: Laboratory Tests Test 11/30/19 11:47 11/30/19 17:04 11/30/19 20:09 12/01/19 07:17 Glucose (Fingerstick) 216 mg/dL (70-99) 366 mg/dL (70-99) 346 mg/dL (70-99) 265 mg/dL (70-99) Assessment and Plan Assessmemt and Plan Problems Medical Problems: (1) Cellulitis Status: Acute Comment Review of Relevant I have reviewed the following items nakia (where applicable) has been applied. Medications: Current Medications Medications (Trade) Dose Ordered Sig/Migdalia Route PRN Reason Start Time Stop Time Status Last Admin Dose Admin Linezolid (Zyvox) 600 mg BID PO 11/30/19 12:15 12/01/19 08:39 Ceftriaxone Sodium (Rocephin) 1 gm Q24H IVP 11/30/19 13:00 11/30/19 13:17 Justicifation of Admission Dx: Justifications for Admission: Justification of Admission Dx: Yes Cellulitis: Cellulitis MESHA LEE MD Dec 01, 2019 10:09
--- NOTE | 2019-12-01 10:11 | PDOC3 ---
Discharge Summary Visit Information Date of Admission: Nov 24, 2019 Date of Discharge: Dec 01, 2019 Admitting Diagnosis: Cellulitis Final Diagnosis Problems Medical Problems: (1) Cellulitis Status: Acute Brief Hospital Course Allergies Allergies Coded Allergies Type Severity Reaction Last Updated Verified No Known Drug Allergies 12/04/16 No Vital Signs Vital Signs Date Time Temp Pulse Resp B/P (MAP) Pulse Ox O2 Delivery O2 Flow Rate FiO2 12/01/19 07:30 19 93 Room Air 2.0 12/01/19 07:00 98.2 79 169/70 (103) 98.2 Lab Results Laboratory Tests Test 11/29/19 11:28 11/29/19 14:53 11/29/19 16:40 11/29/19 20:13 Glucose (Fingerstick) 279 mg/dL (70-99) 171 mg/dL (70-99) 278 mg/dL (70-99) Sodium Level 141 mmol/L (136-145) Potassium Level 3.8 mmol/L (3.5-5.1) Chloride Level 101 mmol/L (98-107) Carbon Dioxide Level 36 mmol/L (21-32) Anion Gap 4 (6-14) Blood Urea Nitrogen 22 mg/dL (7-20) Creatinine 0.9 mg/dL (0.6-1.0) Estimated GFR (Cockcroft-Gault) 65.0 Glucose Level 240 mg/dL (70-99) Calcium Level 8.4 mg/dL (8.5-10.1) YD-Krn-S-Type Natriuretic Peptide 44 pg/mL (0-124) Test 11/30/19 08:02 11/30/19 11:47 11/30/19 17:04 11/30/19 20:09 Glucose (Fingerstick) 257 mg/dL (70-99) 216 mg/dL (70-99) 366 mg/dL (70-99) 346 mg/dL (70-99) Test 12/01/19 07:17 Glucose (Fingerstick) 265 mg/dL (70-99) Laboratory Tests Test 11/30/19 11:47 11/30/19 17:04 11/30/19 20:09 12/01/19 07:17 Glucose (Fingerstick) 216 mg/dL (70-99) 366 mg/dL (70-99) 346 mg/dL (70-99) 265 mg/dL (70-99) Brief Hospital Course Ms. Glaser, is a 54 year old female who presents with left lower leg cellulitis. new severe acute pain 11/22, 10 to touch, to the ankle and lower leg, Patient states that she has chronic lymphedema, present since her 20's and she says it runs in her family. . She does not typically have any redness in her leg just hyperpigmentation. over 4 days she is developed swelling, redness, and heat to the leg. She states that it is significantly painful. She has never had cellulitis previously. Her primary care doctor started her on antibiotics, however it is only gotten worse since then. She states she is having nausea and fevers 11/26 DOPPLER STUDY LEGS , Monophasic waveform bilaterally, may indicate p roximal stenosis. CT angiogram can further assess as clinically warranted. 11/28 STATES PAIN IN LEFT ANKLE TOO SEVERE TO WALK today, has DDD L/S d/w rn 11/29: Afebrile. Still a bit short of breath. Asking to go home today, and wishes for a bedside commode prescription. Notably her legs look worse. D/w ID to change antibiotics and needs outpatient lymphedema referral and home O2 2L NCO2 on exertion and 3L NCO2 at rest. Changed to Zyvox and cefdinir. Lymphedema wraps successful with improvement. No chest pain. Shortness of breath stable. Consults: Cardiology, Pulmonology, ID Problem list: acute left left pain, new cellulitis morbid obesity, BMI 60, ie super morbid obesity tobacco use disorder, ongoing anxiety disorder lymphedema diabetes, which may compromise healing on CT 2018 Pulmonary trunk is dilated suggesting pulmonary arterial hypertension. ON RECENT ECHO 2018 mild to moderate concentric left ventricular hypertrophy. LIKELY OBESITY,// HYPOVENTILATION SYNDROME hypercapnic resp failure , MOD-SEVERE Degenerative disc disease are seen throughout the lumbar spine. These findings result in very mild central spinal canal stenosis at L2-3 and L5-S1. Mild left neural foraminal stenosis is seen at L2-3. IN 2017 CONSULT PULM reviewed Greater than 30 minutes spent on d/c with home health Discharge Information Condition at Discharge: Improved Follow Up: Weeks (1) Disposition/Orders: D/C to Home w/ HH Scheduled Albuterol Sulfate (Ventolin Hfa Inhaler) 18 Gm Hfa.aer.ad, 2 PUFF INH Q4HRS for FOR ASTHMA, Ref 0 (Reported) Entered as Reported by: JACKIE LICONA on 09/19/18 07 Last Action: HELD on 11/23/191440 by CURT MAURO Alprazolam (Alprazolam) 1 Mg Tablet, 1 TAB PO BID for anxiety, #60 (Reported) Entered as Reported by: GO HALE on 11/23/192034 Last Action: New Order on 11/23/192034 by GO HALE Cefdinir (Cefdinir) 300 Mg Capsule, 1 CAP PO BID for Cellulitis for 10 Days, #20 Prescribed by: MESHA LEE MD on 12/01/19817 Cholecalciferol (Vitamin D3) (Vitamin D3) 5,000 Unit Tablet, 1 TAB PO DAILY for vitamin, #30 (Reported) Entered as Reported by: JACKIE LICONA on 09/18/182304 Last Action: Reviewed on 11/23/192034 by GO HALE Fenofibrate,Micronized (Fenofibrate) 134 Mg Capsule, 1 CAP PO DAILY for CHOLEST, #30 Ref 5 (Reported) Entered as Reported by: ELY WEBER on 11/23/192055 Last Taken: Unknown Dose on 11/23/192046 Last Action: New Order on 11/23/192055 by ELY WEBER Fluticasone/Umeclidin/Vilanter (Trelegy Ellipta 100-62.5-25) 1 Each Blst.w.dev, 1 EACH IH QDAY for SOA, (Reported) Entered as Reported by: ELY WEBER on 11/23/192055 Last Taken: Unknown Dose on 11/23/192048 Last Action: New Order on 11/23/192055 by ELY WEBER Insulin Aspart (Novolog Flexpen) 100 Unit/1 Ml Insuln.pen, 60 UNIT SQ TIDWMEALS for antidiabetic, (Reported) Entered as Reported by: JACKIE LICONA on 09/19/18 0631 Last Action: Reviewed on 11/23/192034 by GO HALE Insulin Detemir (Levemir Flextouch) 100 Unit/1 Ml Insuln.pen, 60 UNIT SQ HS for antidiabetic, (Reported) Entered as Reported by: JACKIE LICONA on 09/19/18 0631 Last Action: Reviewed on 11/23/192034 by GO HALE Latanoprost (Latanoprost) 2.5 Ml Drops, 1 DROP EACHEYE QHS for glaucoma, #7.5 Ref 3 (Reported) Entered as Reported by: JACKIE LICONA on 09/19/18 0454 Last Action: Reviewed on 11/23/192034 by GO HALE Linezolid (Zyvox) 600 Mg Tablet, 600 MG PO BID for Cellulitis for 10 Days, #20 Prescribed by: MESHA LEE MD on 12/01/19 0818 Magnesium Oxide (Magnesium) 400 Mg Capsule, 1 CAP PO BID for supplement, #180 Ref 3 (Reported) Entered as Reported by: JACKIE LICONA on 09/18/182304 Last Action: Reviewed on 11/23/192034 by GO HALE Pramipexole Di-Hcl (Mirapex) 1 Mg Tablet, 1 MG PO QHS for SLEEP, (Reported) Entered as Reported by: ELY WEBER on 11/23/192055 Last Taken: Unknown Dose on 11/23/192045 Last Action: New Order on 11/23/192055 by ELY WEBER Pregabalin (Lyrica) 200 Mg Capsule, 1 CAP PO BID for pain, #60 (Reported) Entered as Reported by: JACKIE LICONA on 09/18/182304 Last Action: Reviewed on 11/23/192034 by GO HALE Rivaroxaban (Xarelto) 20 Mg Tablet, 20 MG PO DAILY for blood clots, (Reported) Entered as Reported by: JACKIE LICONA on 09/18/182304 Last Action: Reviewed on 11/23/192034 by GO HALE Simvastatin (Simvastatin) 40 Mg Tablet, 1 TAB PO QHS for high cholesterol, #30 Ref 5 (Reported) Entered as Reported by: JACKIE LICONA on 09/18/182304 Last Action: Reviewed on 11/23/192034 by GO HALE Theophylline Anhydrous (Theophylline Anhydrous) 300 Mg Tab.er.12h, 1 TAB PO BID for SEE ORDER for 30 Days, #60 Ref 0 (Reported) Entered as Reported by: ELY WEBER on 11/23/192055 Last Taken: Unknown Dose on 11/23/192049 Last Action: New Order on 11/23/192055 by ELY WEBER Scheduled PRN Albuterol Sulfate (Proair Hfa) 8.5 Gm Hfa.aer.ad, 1 PUFF INH PRN Q6HRS PRN for SHORTNESS OF BREATH, #1 Prescribed by: THONY MOTTA D.O. on 09/13/182244 Last Action: Continued on 11/23/191440 by CURT MAURO Hydrocodone Bit/Acetaminophen (Hydrocodone-Apap ) 1 Tab Tablet, 1 TAB PO PRN Q6HRS PRN for PAIN, Ref 0 (Reported) Entered as Reported by: GO HALE on 11/23/192034 Last Action: New Order on 11/23/192034 by GO HALE Tizanidine Hcl (Tizanidine Hcl) 4 Mg Tablet, 1 TAB PO PRN Q8HRS PRN for MUSCLE SPASMS, #60 (Reported) Entered as Reported by: ELY WEBER on 11/23/192043 Last Taken: 4MG. on 11/23/192040 Last Action: New Order on 11/23/192043 by ELY WEBER Discontinued Medications Amoxicillin/Potassium Clav (Augmentin 875-125 Tablet) 1 Each Tablet, 1 TAB PO BID for INFECTION for 10 Days, #20 Ref 0 (Reported) Entered as Reported by: ELY WEBER on 11/23/192043 Last Taken: 875-125MG. on 11/23/192043 Last Action: New Order on 11/23/192043 by ELY WEBER Guaifenesin/Codeine Phosphate (Guaifenesin Ac Cough Syrup) 473 Ml Liquid, 5 ML PO PRN Q6HRS PRN for COUGH, (Reported) Entered as Reported by: ELY WEBER on 11/23/192055 Last Taken: Unknown Dose on 11/23/192053 Last Action: New Order on 11/23/192055 by ELY WEBER Justicifation of Admission Dx: Justifications for Admission: Justification of Admission Dx: Yes Cellulitis: Cellulitis MESHA LEE MD Dec 01, 2019 10:11
[2019-12-01 11:00] VITALS: BP 117/69
[2019-12-01] MEDS: cefTRIAXone IV Push 1 GM VIAL. IVP SCH (12:08)
--- NOTE | 2019-12-01 12:31 | NUR ---
Patient is on oxygen 2LPM upon discharge, this nurse instructed her to be on 2 liters but refused to take the oxygen tank and carrier. This nurse explained to her that she needs it while waiting for the company to bring her oxygen, again she refused and stated she lives nearby and can't deal with that oxygen tank.
--- NOTE | 2019-12-01 13:12 | PDOC ---
PULMONARY PROGRESS NOTES DATE: 12/01/19 TIME: 13:12 Subjective on 02, denies sob, cough, Vitals Vital Signs Date Time Temp Pulse Resp B/P (MAP) Pulse Ox O2 Delivery O2 Flow Rate FiO2 12/01/19 12:08 20 93 Nasal Cannula 2.0 12/01/19 11:00 97.8 81 117/69 (85) 97.8 ROS: No Nausea, No Chest Pain General: Alert, No acute distress Lungs: Clear Cardiovascular: S1, S2 Abdomen: Soft, Non-tender, Other (obese) Extremities: Other (lymphedema/ertyhema) Skin: Warm Labs Laboratory Tests Test 11/29/19 14:53 11/29/19 16:40 11/29/19 20:13 11/30/19 08:02 Sodium Level 141 mmol/L (136-145) Potassium Level 3.8 mmol/L (3.5-5.1) Chloride Level 101 mmol/L (98-107) Carbon Dioxide Level 36 mmol/L (21-32) Anion Gap 4 (6-14) Blood Urea Nitrogen 22 mg/dL (7-20) Creatinine 0.9 mg/dL (0.6-1.0) Estimated GFR (Cockcroft-Gault) 65.0 Glucose Level 240 mg/dL (70-99) Calcium Level 8.4 mg/dL (8.5-10.1) WG-Xyi-G-Type Natriuretic Peptide 44 pg/mL (0-124) Glucose (Fingerstick) 171 mg/dL (70-99) 278 mg/dL (70-99) 257 mg/dL (70-99) Test 11/30/19 11:47 11/30/19 17:04 11/30/19 20:09 12/01/19 07:17 Glucose (Fingerstick) 216 mg/dL (70-99) 366 mg/dL (70-99) 346 mg/dL (70-99) 265 mg/dL (70-99) Test 12/01/19 11:19 Glucose (Fingerstick) 237 mg/dL (70-99) Laboratory Tests Test 11/30/19 17:04 11/30/19 20:09 12/01/19 07:17 12/01/19 11:19 Glucose (Fingerstick) 366 mg/dL (70-99) 346 mg/dL (70-99) 265 mg/dL (70-99) 237 mg/dL (70-99) Medications Active Scripts Medications Dose Route/Sig Max Daily Dose Days Date Category Guaifenesin Ac Cough Syrup (Guaifenesin/Codeine Phosphate) 473 Ml Liquid 5 Ml PO PRN Q6HRS PRN 11/23/19 Reported Theophylline Anhydrous 300 Mg Tab.er.12h 1 Tab PO BID 30 11/23/19 Reported Trelegy Ellipta 100-62.5-25 (Fluticasone/Umeclidin/Vilanter) 1 Each Blst.w.dev 1 Each IH QDAY 11/23/19 Reported Fenofibrate (Fenofibrate,Micronized) 134 Mg Capsule 1 Cap PO DAILY 11/23/19 Reported Mirapex (Pramipexole Di-Hcl) 1 Mg Tablet 1 Mg PO QHS 11/23/19 Reported Augmentin 875-125 Tablet (Amoxicillin/Potassium Clav) 1 Each Tablet 1 Tab PO BID 10 11/23/19 Reported Tizanidine Hcl 4 Mg Tablet 1 Tab PO PRN Q8HRS PRN 11/23/19 Reported Alprazolam 1 Mg Tablet 1 Tab PO BID 11/23/19 Reported Hydrocodone-Apap 10-325 (Hydrocodone Bit/Acetaminophen) 1 Tab Tablet 1 Tab PO PRN Q6HRS PRN 11/23/19 Reported Ventolin Hfa Inhaler (Albuterol Sulfate) 18 Gm Hfa.aer.ad 2 Puff INH Q4HRS 09/19/18 Reported Levemir Flextouch (Insulin Detemir) 100 Unit/1 Ml Insuln.pen 60 Unit SQ HS 09/19/18 Reported Novolog Flexpen (Insulin Aspart) 100 Unit/1 Ml Insuln.pen 60 Unit SQ TIDWMEALS 09/19/18 Reported Latanoprost 2.5 Ml Drops 1 Drop EACHEYE QHS 09/19/18 Reported Magnesium (Magnesium Oxide) 400 Mg Capsule 1 Cap PO BID 09/18/18 Reported Vitamin D3 (Cholecalciferol (Vitamin D3)) 5,000 Unit Tablet 1 Tab PO DAILY 09/18/18 Reported Simvastatin 40 Mg Tablet 1 Tab PO QHS 09/18/18 Reported Xarelto (Rivaroxaban) 20 Mg Tablet 20 Mg PO DAILY 09/18/18 Reported Lyrica (Pregabalin) 200 Mg Capsule 1 Cap PO BID 09/18/18 Reported Proair Hfa (Albuterol Sulfate) 8.5 Gm Hfa.aer.ad 1 Puff INH PRN Q6HRS PRN 09/13/18 Rx Impression . 1. Highly suspected sleep apnea in a patient who is morbidly obese. Her current symptoms are also contributed by use of narcotics and benzodiazepines. She has high bicarbonate, suggesting she has chronic hypercapnia./ OHS 2. Recent hospitalization for cellulitis and lymphedema. 3. Encephalopathy due to narcotics, resolved 4. morbid obesity Plan . 1. Clinically better. fully awake. discussed kiara the importance of diagnosis and tx, the need for sleep study and cpap use. She is not interested in CPAP. 2. reduce the amount of narcotics and benzodiazepines. avoid over sedation 3. Weight loss is advised. 4. ABG reviewed. compensated respiratory acidosis, mild hypoxia due to hypoventilation. will do 6 min walk before dc .3 litres qhs (based on noct study) 5. Abx per ID d/w PCP. OK WITH DC HOME discussed w CECELIA Marshall MD Dec 01, 2019 13:12
--- NOTE | 2019-12-01 14:05 | NUR ---
Discharge Note: AXEL MURPHY Discharge instructions and discharge home medications reviewed with patient and a copy given. All questions have been answered and understanding verbalized. The following instructions and handouts were given: Take home meds as directed, antibiotic prescriptions explained to the patient. Out patient treatment for lymphedema O2 2l with exertion 3 L at HS Prescription for bedside commode. Watch out for fever, severe weakness, worsening of symptoms Follow up with PCP in a week. Discontinued lines and drains;peripheral IV intact, patient tolerated removal. no complications noted. Patient discharged to home with home health at 1230 via wheelchair. Dimitrios notified by this nurse at 1230 that patient was on her way home.
[2019-12-01] MEDS: ANTI-COAG MONITOR BY PHARMACY. MC PRN (14:31)
--- NOTE | 2019-12-01 14:45 | NUR ---
SW following. Reviewed chart and spoke with RN. Spoke with Dr. Ortiz and pt will discharge today with . ALYSHA phoned and faxed discharge order to [facility], , (fax). ALYSHA confirmed with Carline from [facility] that orders were received and start of care will be this week. Pt will have lymphedema specialist from follow her. ALYSHA faxed discharge orders to [facility]. ALYSHA confirmed with both Vesta and Ta from [employer] that they have the paperwork needed for 02 setup. Pt to discharge with the [employer] tank that is in her room and pt will call for 02 setup in the home upon discharge. No further SW needs at this time.
== END 2019-12-01 12:30 | disposition home health service (06) | DRG 602 ==
LOC: ER 07:44 → 5 NORTH 11:12 → OBSVTOIN 11-24 16:25
PROVIDERS: ADMIT Internal Medicine; ATTEND Internal Medicine
DX: L03.116 Cellulitis of left lower limb (principal); J96.92 Respiratory failure, unspecified with hypercapnia; G92 Toxic encephalopathy; J96.91 Respiratory failure, unspecified with hypoxia; Z68.44 Body mass index [BMI] 60.0-69.9, adult; E66.2 Morbid (severe) obesity with alveolar hypoventilation; I13.0 Hypertensive heart and chronic kidney disease with heart failure and stage 1 through stage 4 chronic kidney disease, or unspecified chronic kidney disease; I50.32 Chronic diastolic (congestive) heart failure; E03.9 Hypothyroidism, unspecified; E11.22 Type 2 diabetes mellitus with diabetic chronic kidney disease; E11.51 Type 2 diabetes mellitus with diabetic peripheral angiopathy without gangrene; E78.00 Pure hypercholesterolemia, unspecified; E78.5 Hyperlipidemia, unspecified; F17.210 Nicotine dependence, cigarettes, uncomplicated; F41.9 Anxiety disorder, unspecified; G89.29 Other chronic pain; T40.605A Adverse effect of unspecified narcotics, initial encounter; Y92.89 Other specified places as the place of occurrence of the external cause; I87.2 Venous insufficiency (chronic) (peripheral); I89.0 Lymphedema, not elsewhere classified; J44.9 Chronic obstructive pulmonary disease, unspecified; K57.30 Diverticulosis of large intestine without perforation or abscess without bleeding; M48.061 Spinal stenosis, lumbar region without neurogenic claudication; M51.16 Intervertebral disc disorders with radiculopathy, lumbar region; N18.9 Chronic kidney disease, unspecified; M19.90 Unspecified osteoarthritis, unspecified site; T42.4X5A Adverse effect of benzodiazepines, initial encounter; Z79.891 Long term (current) use of opiate analgesic; Z82.49 Family history of ischemic heart disease and other diseases of the circulatory system; Z83.3 Family history of diabetes mellitus; Z86.718 Personal history of other venous thrombosis and embolism; Z87.442 Personal history of urinary calculi; Z91.19 Patient's noncompliance with other medical treatment and regimen; Z98.51 Tubal ligation status; Z79.899 Other long term (current) drug therapy; Z87.440 Personal history of urinary (tract) infections
CPT/HCPCS: 36415; 36600; 71045; 73610; 73630; 80048; 80053; 82565; 82805; 82962; 83880; 85025; 86140; 87040; 93306; 93925; 93970; 94618; 94640; 94799; 96361; 96374; G0378; G0379; J0690; J0696; J1815; J1940; J3010; J3370; J7030; J7040; 97110-GO; 97140-GO; 97530-GP; 97535-GO; 99285-25; J7613